=== PATIENT | female | born 1950 | race Caucasian/White ===

== ENCOUNTER → 2016-02-25 | Day surgery (SDC) | payer OTHER ==
[~2016-02-25] MED LIST: HEPARIN NA (PORCINE) 5,000 UNITS/ML 1ML VIAL ONE; LIDOCAINE HCL 1%, 10 MG/ML (20ML VIAL) ONE
--- NOTE | 2016-02-25 14:02 | OP ---
DATE OF OPERATION: 02/25/2016 PREOPERATIVE DIAGNOSIS: Right axillary adenopathy. POSTOPERATIVE DIAGNOSIS: Right axillary adenopathy. PROCEDURE: Right ultrasound-guided core biopsy of the right axillary node with clip placement. ANESTHESIA: Local. ATTENDING SURGEON: Moe Zapata MD ESTIMATED BLOOD LOSS: Minimal. COMPLICATIONS: None. DESCRIPTION OF PROCEDURE: The patient was made aware of the risks and benefits of the procedure and consented. She was placed in a supine position. Under sterile conditions with 1% lidocaine for local anesthesia, a small gui was made in the skin. Using a 13-gauge suction biopsy device with inferolateral approach under ultrasound guidance, 5 cores were obtained and submitted to Pathology. Likewise, under ultrasound guidance, a clip was placed into the biopsy region well tolerated by patient. Steri-Strips and sterile bandage was applied. We will contact her with results. MOE ZAPATA M.D. [id number]
--- NOTE | 2016-02-28 15:58 | PATH ---
Surgical Pathology Report Patient Name: CARLOS ALBERTO SHOEMAKER [facility]. Rec. #: [id number] /Age/Gender: 1950 (Age: 65) / F Account: [id number] Location: [facility] RADIOLOGY U Taken: 02/25/2016 Received: 02/25/2016 Reported: 02/28/2016 Physicians: Moe Zapata M.D. Specimen(s) Received RIGHT AXILLARY LYMPH NODE CORE BIOPSY Clinical History Nonpalpable lesion Final Diagnosis LYMPH NODE, RIGHT AXILLA, CORE BIOPSY: BENIGN LYMPH NODE SHOWING REACTIVE CHANGES. Electronically Signed Avelina Mcpherson M.D. Gross Description Received in formalin, labeled "right axillary lymph node," is a 2.1 x 1.5 x 0.3 cm aggregate of multiple hartman-yellow, irregular to cylindrical portions of fibroadipose tissue admixed with blood clot. The formalin is filtered and the specimen is entirely submitted in one cassette. Time to formalin fixation: < 1 minute Total formalin fixation time: Approximately 9 hours. /02/25/2016 [facility]02/25/2016
== END | disposition home or self-care (01) ==
LOC: FRADUS-SUR 12:43
PROVIDERS: ATTEND Surgery Surgical Oncology
PROC: 07B53ZX Excision of Right Axillary Lymphatic, Percutaneous Approach, Diagnostic (ICD-10-PCS; principal; 2016-02-25)
PROC: BH47ZZZ Ultrasonography of Upper Extremity (ICD-10-PCS; 2016-02-25)
DX: R59.9 Enlarged lymph nodes, unspecified (principal)
CPT/HCPCS: 19083; 87899; 88305-TC; A4648

== ENCOUNTER 2016-03-28 08:17 | Day surgery (SDC) | payer OTHER ==
[2016-03-21 11:44] VITALS: BMI 43.2
--- NOTE | 2016-03-22 09:41 | HP ---
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 Clinical stage 2B with positive biopsied left axillary lymph nodes. MRI breast showed right axillary adenopathy core bx was negative. She needs neoadjuvant chemotherapy History Source: Patient Limitations to Obtaining History: No Limitations - Past Medical History Cardiovascular: Yes: CAD, HTN, Hyperlipdemia Endocrine: Yes: Diabetes Mellitus - Past Surgical History Past Surgical History: Yes: CABG Additional Past Surgical History: myomectomy - Smoking History Smoking history: Former smoker Have you smoked in the past 12 months: No If you are a former smoker, when did you quit?: 2013 - Alcohol/Substance Use Hx Alcohol Use: No Home Medications - Allergies Allergies/Adverse Reactions: Allergies Allergy/AdvReac Type Severity Reaction Status Date / Time No Known Allergies Allergy Verified 03/05/15 15:28 - Home Medications Home Medications: Ambulatory Orders Aspirin [ASA -] 81 mg PO DAILY 06/29/13 Atenolol [Tenormin -] 50 mg PO HS 06/29/13 Atorvastatin Ca [Lipitor] 40 mg PO HS 06/29/13 Insulin NPL/Insulin Lispro [Humalog Mix 50-50 Kwikpen] 35 unit SQ BID 06/29/13 Ramipril 5 mg PO DAILY 06/29/13 Duloxetine HCl [Cymbalta] 30 mg PO DAILY 03/05/15 Clopidogrel Bisulfate [Clopidogrel] 75 mg PO DAILY 03/21/16 Esomeprazole Magnesium [Nexium 24Hr] 40 mg PO DAILY 03/21/16 Insulin Degludec [Tresiba Flextouch U-100] 40 unit SQ DAILY 03/21/16 Sitagliptin Phos/Metformin HCl [Janumet 50-1,000 mg Tablet] 1 each PO DAILY 08/28 Family Disease History - Family Disease History Family Disease History: CA: Brother (CRC 25) Physical Examination Constitutional: Yes: Well Nourished, No Distress Breast(s): Yes: Other (Left breast and axillary biopsy sites healing well) Problem List - Problems (1) Breast cancer, left Code(s): C50.912 - MALIGNANT NEOPLASM OF UNSPECIFIED SITE OF LEFT FEMALE BREAST Qualifiers: Breast location: overlapping sites of breast Patient gender: female Qualified Code(s): C50.812 - Malignant neoplasm of overlapping sites of left female breast Assessment/Plan Life port insertion
[2016-03-28] MEDS ORDERED: ONDANSETRON 4 MG/2 ML VIAL IVPB PRN (09:18)
[2016-03-28] MEDS ORDERED: KETOROLAC TROMETHAMINE 30 MG/1 ML VIAL IVPUSH PRN (09:18)
[2016-03-28] MEDS ORDERED: DEXTROSE 5%-0.45% SALINE 1,000 ML IV SCH (09:30)
[2016-03-28] MEDS ORDERED: MIDAZOLAM HCL 2 MG/2 ML SINGLE DOSE VIAL ONE ×3 (09:33→09:55)
[2016-03-28] MEDS ORDERED: LIDOCAINE HCL 1%, 10 MG/ML (50 mL VIAL) IJ ONE (09:54)
[2016-03-28] MEDS ORDERED: SUCCINYLCHOLINE CHLORIDE 200 MG/10 ML VIAL ONE (10:00)
[2016-03-28] MEDS ORDERED: HEPARIN NA (PORCINE) 1,000 UNITS/ML 10ML M-D VIAL SQ ONE (10:10)
[2016-03-28] MEDS ORDERED: HEPARIN NA (PORCINE) PF 1,000 UNITS/ML - 2ML VIAL SQ ONE (10:10)
[2016-03-28 11:18] VITALS: TEMP 98.9
[2016-03-28 11:31] VITALS: BP 127/61; PULSE 82
--- NOTE | 2016-03-29 17:01 | OP ---
DATE OF OPERATION: 03/28/2016 PREOPERATIVE DIAGNOSIS: Left breast cancer. POSTOPERATIVE DIAGNOSIS: Left breast cancer. PROCEDURE: Right subclavian single-lumen LifePort insertion. ANESTHESIA: IV sedation with local. ATTENDING: Marci Zapata MD PROGRAM REP: ALEKSEY Baez ESTIMATED BLOOD LOSS: Minimal. COMPLICATIONS: None. PROCEDURE: Patient was made aware of the risks and benefits of the procedure and consented. She was placed in the supine position and after IV sedation was administered, the operative site was prepped and draped in the usual sterile fashion. The patient was placed in Trendelenburg position and local anesthesia of 1% lidocaine was locally administered. Using Seldinger technique with direct fluoroscopic control, the right subclavian vein was easily localized and a wire was placed into good position. Stab wounds were made at the puncture site and inferior medial to the puncture site using electrocautery the large incision was dissected down to the subcutaneous tissue and an inferior skin flap was made. The catheter was then tunneled from the large incision to the smaller incision. It was fashioned to the proper size and then attached to the port head, which was then placed into the inferior skin pocket. Under direct fluoroscopic control, a dilator and introducer were placed over the wire in a good position and the dilator and wire were removed. Catheter was placed through the introducer, which was then stripped away and the catheter was again found by direct fluoroscopic control to be in good position. There was easy withdrawal of blood and infusion of dilute and then 1 mL of concentrated heparinized saline. The catheter was then sutured to the skin with 2-0 Prolene and the wound was copiously irrigated with normal saline. The skin was then closed with deep 3-0 Vicryl followed by running subcuticular 4-0 Monocryl. Dermabond was then applied and the patient, having tolerated the procedure well, was transferred to the recovery room in excellent condition. MARCI ZAPATA M.D. [id number]
== END 2016-03-28 11:35 | disposition home or self-care (01) ==
LOC: FASU 08:17
PROVIDERS: ATTEND Surgery Surgical Oncology
PROC: B5161ZA Fluoroscopy of Right Subclavian Vein using Low Osmolar Contrast, Guidance (ICD-10-PCS; 2016-03-28)
PROC: 05H533Z Insertion of Infusion Device into Right Subclavian Vein, Percutaneous Approach (ICD-10-PCS; principal; 2016-03-28 09:54)
DX: C50.912 Malignant neoplasm of unspecified site of left female breast (principal); I25.10 Atherosclerotic heart disease of native coronary artery without angina pectoris; I10 Essential (primary) hypertension; E78.5 Hyperlipidemia, unspecified; E11.9 Type 2 diabetes mellitus without complications; Z79.4 Long term (current) use of insulin; Z95.1 Presence of aortocoronary bypass graft; Z87.891 Personal history of nicotine dependence
CPT/HCPCS: 71010-TC; 76000-TC; J1644

== ENCOUNTER 2016-08-03 10:15 | Inpatient (IN) | payer OTHER ==
--- NOTE | 2016-08-03 10:44 | PDOC ---
History of Present Illness <Lino Marshall - Last Filed: 08/03/16 13:55> - General History Source: Patient Exam Limitations: No Limitations - History of Present Illness Initial Comments: 08/03/16 11:12 The patient is a 66 year old female with a significant past medical history of diabetes, hypertension, hypercholesterolemia, CAD s/p bypass, and breast ca ( currently on chemo), presenting to the Emergency Department with dizziness for three days. The patient describes her dizziness as walking as if she is drunk, she admits that the dizziness is exacerbated by standing from a seated position , and admits to walking into ledesma secondary to the dizziness. She also reports that her legs feel tired after walking. She states that she is on weekly chemotherapy for breast cancer, though she skipped this Sunday as she has not felt well. The patient denies headache, or visual changes. Patient denies nausea, vomiting , and diarrhea. Patient denies fever, cough, and chills. Patient denies chest pain, palpitations, and shortness of breath. Oncologist: Dr. Mandy Guzman, [facility] <Adeline Patel - Last Filed: 08/03/16 15:03> - General Chief Complaint: Lightheaded Stated Complaint: DIZZYNESS Time Seen by Provider: 08/03/16 10:44 Past History - Past Medical History Anemia: No Asthma: No Cancer: Yes (LEFT BREAST JAN 2016) Cardiac Disorders: Yes (CABG 15 YRS AGO/OVER 1 YR HAD ANGIOPLASTY ?) CVA: No COPD: No CHF: No Dementia: No Diabetes: Yes (DIAG 25 YRS AGO/INSULIN DEPENDENT) GI Disorders: No Disorders: Yes (URINARY FREQUENCY) HTN: Yes Hypercholesterolemia: Yes Liver Disease: No Seizures: No Thyroid Disease: No - Surgical History Abdominal Surgery: Yes (CYST REMOVED) Appendectomy: No Cardiac Surgery: Yes (BYPASS 15 YRS AGO) Cholecystectomy: No Lung Surgery: No Orthopedic Surgery: No - Immunization History Immunization Up to Date: Yes - Psycho/Social/Smoking Cessation Hx Anxiety: No Suicidal Ideation: No Smoking History: Former smoker Have you smoked in the past 12 months: No If you are a former smoker, when did you quit?: 2012 Information on smoking cessation initiated: No Hx Alcohol Use: No Drug/Substance Use Hx: No Substance Use Type: None Hx Substance Use Treatment: No <Lino Marshall - Last Filed: 08/03/16 13:55> <Adeline Patel - Last Filed: 08/03/16 15:03> - Past Medical History Allergies/Adverse Reactions: Allergies Allergy/AdvReac Type Severity Reaction Status Date / Time No Known Allergies Allergy Verified 08/03/16 10:30 Home Medications: Ambulatory Orders Atenolol [Tenormin -] 50 mg PO HS 06/29/13 Atorvastatin Ca [Lipitor] 40 mg PO HS 06/29/13 Insulin NPL/Insulin Lispro [Humalog Mix 50-50 Kwikpen] 35 unit SQ BID 06/29/13 Ramipril 5 mg PO DAILY 06/29/13 Duloxetine HCl [Cymbalta] 30 mg PO DAILY 03/05/15 Esomeprazole Magnesium [Nexium 24Hr] 40 mg PO DAILY 03/21/16 Insulin Degludec [Tresiba Flextouch U-100] 40 unit SQ DAILY 03/21/16 Sitagliptin Phos/Metformin HCl [Janumet 50-1,000 mg Tablet] 1 each PO DAILY 08/28 Oxycodone HCl/Acetaminophen [Percocet 5-325 mg Tablet] 1 - 2 tab PO Q6H PRN #20 tab MDD 6 03/28/16 Review of Systems - Review of Systems Able to Perform ROS?: Yes Comments:: 08/03/16 11:12 GENERAL/CONSTITUTIONAL: + dizziness. No fever or chills. No weakness. HEAD, EYES, EARS, NOSE AND THROAT: No change in vision. No ear pain or discharge. No sore throat. CARDIOVASCULAR: No chest pain or shortness of breath. RESPIRATORY: No cough, wheezing, or hemoptysis. GASTROINTESTINAL: No nausea, vomiting, diarrhea or constipation. GENITOURINARY: No dysuria, frequency, or change in urination. MUSCULOSKELETAL: No joint or muscle swelling or pain. No neck or back pain. SKIN: No rash NEUROLOGIC: + vertigo. No headache, loss of consciousness, or change in strength /sensation. ENDOCRINE: No increased thirst. No abnormal weight change. HEMATOLOGIC/LYMPHATIC: No anemia, easy bleeding, or history of blood clots. ALLERGIC/IMMUNOLOGIC: No hives or skin allergy. <Adeline Patel - Last Filed: 08/03/16 15:03> *Physical Exam - Vital Signs Last Vital Signs Temp Pulse Resp BP Pulse Ox 98.3 F 98 H 22 122/58 100 08/03/16 10:20 08/03/16 10:20 08/03/16 10:20 08/03/16 10:20 08/03/16 10:20 <Lino Marshall - Last Filed: 08/03/16 13:55> - Vital Signs Last Vital Signs Temp Pulse Resp BP Pulse Ox 98.3 F 98 H 22 122/58 100 08/03/16 10:20 08/03/16 10:20 08/03/16 10:20 08/03/16 10:20 08/03/16 10:40 - Physical Exam Comments: 08/03/16 11:13 GENERAL: Awake, alert, and fully oriented, in no acute distress HEAD: No signs of trauma EYES: Horizontal nystagmus. PERRLA, EOMI, sclera anicteric, conjunctiva clear ENT: Auricles normal inspection, hearing grossly normal, nares patent, oropharynx clear without exudates. Moist mucosa NECK: Normal ROM, supple, no lymphadenopathy, JVD, or masses LUNGS: Breath sounds equal, clear to auscultation bilaterally. No wheezes, and no crackles HEART: Regular rate and rhythm, normal S1 and S2, no murmurs, rubs or gallops ABDOMEN: Soft, nontender, normoactive bowel sounds. No guarding, no rebound. No masses EXTREMITIES: Normal range of motion, no edema. No clubbing or cyanosis. No cords, erythema, or tenderness NEUROLOGICAL: Cranial nerves II through XII grossly intact. Normal speech SKIN: Warm, Dry, normal turgor, no rashes or lesions noted. <Adeline Patel - Last Filed: 08/03/16 15:03> Heart Score/ECG Review #1 ECG reviewed & interpreted by me at: 11:30 (EKG reviewed by Dr. Marshall. IMPRESSION: New since Feb 2015. Global St & T wave changes. Normal rate. ) <Adeline Patel - Last Filed: 08/03/16 15:03> ED Treatment Course - LABORATORY CBC & Chemistry Diagram: 08/03/16 11:15 08/03/16 11:15 <Lino Marshall - Last Filed: 08/03/16 13:55> - LABORATORY CBC & Chemistry Diagram: 08/03/16 11:15 08/03/16 11:15 - RADIOLOGY Radiograph Interpretation: 08/03/16 13:04 Chest XRay As reviewed by Dr. Shelton Hay IMPRESSION: No acute intrathoracic abnormality seen. 08/03/16 14:[address] As reviewed by Dr. Timothy Singh IMPRESSION: Moderate volume loss, ventricular dilatation and mild paraventricular chronic microvascular ischemic changes without gross evidence of acute intracranial pathology. <Adeline Patel - Last Filed: 08/03/16 15:03> Medical Decision Making - Medical Decision Making 08/03/16 13:29 Dr. Wallace was called at his office at 1:25. Dr. Aragon answered and spoke to Dr. Marshall about the patient's care. 08/03/16 13:32 Dr. Copeland was called at his office at 1:30. Awaiting call back. 08/03/16 13:40 Dr. Cooper was called at his office at 1:41. Was instructed to call his cell. Dr. Cooper was called on his cell at 1:[address] Marshall about the patient's care. 08/03/16 15:03 Patient reports that bowel movements are sometimes black. Patient denied rectal exam. <Adeline Patel - Last Filed: 08/03/16 15:03> *DC/Admit/Observation/Transfer - Discharge Dispostion Admit: Yes - Attestations Physician Attestion: 08/03/16 10:44 I, Dr. Lino Marshall, attest that this document has been prepared under my direction and personally reviewed by me in its entirety. I further attest, that it accurately reflects all work, treatment, procedures and medical decision -making performed by me. <Lino Marshall - Last Filed: 08/03/16 13:55> - Attestations Scribe Attestion: 08/03/16 11:13 Documentation prepared by Adeline Patel, acting as medical charge entry specialist for Lino Marshall DO. <Adeline Patel - Last Filed: 08/03/16 15:03> Diagnosis at time of Disposition: Orthostasis, Dizziness, Weakness, S/P CABG (coronary artery bypass graft), ASHD (arteriosclerotic heart disease) Profound anemia Qualifiers: Anemia type: other cause Other causes of anemia: other cause, not classified Qualified Code(s): D64.89 - Other specified anemias Breast cancer, left Qualifiers: Breast location: unspecified site of breast Estrogen receptor status: positive Patient sex: female Qualified Code(s): C50.912 - Malignant neoplasm of unspecified site of left female breast Diabetes Qualifiers: Diabetes mellitus type: type 2 Diabetes mellitus complication status: without complication Diabetes mellitus usp insulin use: with usp use Qualified Code(s): E11.9 - Type 2 diabetes mellitus without complications HLD (hyperlipidemia) Qualifiers: Hyperlipidemia type: unspecified Qualified Code(s): E78.5 - Hyperlipidemia, unspecified - Discharge Dispostion Condition at time of disposition: Fair - Referrals
[2016-08-03] MEDS ORDERED: MECLIZINE HCL 25 MG TABLET (FP) PO ONE (11:02)
[2016-08-03] MEDS ORDERED: methylPREDNISolone NA SUCC 125 MG/2 ML VIAL IVPB ONE (11:02)
[2016-08-03] MEDS ORDERED: MECLIZINE HCL 25 MG TABLET (FP) ONE (11:20)
[2016-08-03] MEDS ORDERED: methylPREDNISolone NA SUCC 125 MG/2 ML VIAL ONE (11:20)
[2016-08-03] MEDS ORDERED: SODIUM CHLORIDE 1,000 ML IV STA (11:42)
[2016-08-03 11:43] LABS: MCH 24.5 pg (25.7-33.7); MCHC 32.5 g/dl (32.0-36.0); MEAN CELL VOLUME 75.3 fl (80-96); MEAN PLT VOLUME 8.6 fl (7.5-11.1); PLATELET COUNT 192 K/MM3 (134-434); RDW 19.5 % (11.6-15.6); WHITE BLOOD COUNT 5.6 K/mm3 (4.0-10.0)
[2016-08-03 11:50] LABS: ALBUMIN 2.8 g/dl (3.4-5.0); ANION GAP 11 (8-16); CALCIUM 8.4 mg/dL (8.5-10.1); CO2 27 mmol/L (21-32); SGOT/AST 41 U/L (15-37); SGPT/ALT 27 U/L (12-78)
[2016-08-03 11:51] LABS: ALK PHOS 136 U/L (45-117); BILIRUBIN,TOTAL 0.7 mg/dL (0.2-1.0); TOT PROT 6.3 g/dl (6.4-8.2)
[2016-08-03 11:53] LABS: INR 1.27 (0.82-1.09)
[2016-08-03 11:54] LABS: GLUCOSE,RANDOM 323 mg/dL (74-106)
--- NOTE | 2016-08-03 12:24 | EKG ---
Test Reason : Blood Pressure : / mmHG Vent. Rate : 093 BPM Atrial Rate : 093 BPM P-R Int : 170 ms QRS Dur : 090 ms QT Int : 408 ms P-R-T Axes : 036 000 168 degrees QTc Int : 507 ms NORMAL SINUS RHYTHM POSSIBLE LEFT ATRIAL ENLARGEMENT CANNOT RULE OUT ANTERIOR INFARCT , AGE UNDETERMINED ABNORMAL ECG WHEN COMPARED WITH ECG OF 06-MAR-2015 09:35, NONSPECIFIC T WAVE ABNORMALITY NOW EVIDENT IN INFERIOR LEADS NONSPECIFIC T WAVE ABNORMALITY NOW EVIDENT IN ANTERIOR LEADS Confirmed by KATHI MARTINEZ MD ([id number]) on 08/03/2016 12:23:43 PM Referred By: Confirmed By:KATHI MARTINEZ MD
[2016-08-03 13:14] LABS: PLATELET ESTIMATE ADEQUATE (NORMAL)
[2016-08-03] MEDS ORDERED: OXYCODONE/APAP 5/325MG COMBO TABLET PO PRN (14:16)
[2016-08-03] MEDS ORDERED: oxyCODONE HCL 5 MG TABLET PO PRN (14:42)
--- NOTE | 2016-08-03 15:01 | CON.NEURO ---
Consult - History of Present Illness History of Present Illness: 66 year old hailey hsitory of dm, htn hyperlipidemia, cad s/p CABG. 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 she is getting chemotherapy at oncologist in [facility]. Last chemo therapy was recieved on july 24. She has been feeling of feeling drunk whenever she walks or gets up. She denies any headache, dysphagia , diplopia or weakness. she feel generalized weak. her hemoglobin is 8. - Past Medical History Cardio/Vascular: Yes: CAD, HTN, Hyperlipdemia Endocrine: Yes: Diabetes Mellitus - Past Surgical History Past Surgical History: Yes: CABG - Alcohol/Substance Use Hx Alcohol Use: No - Smoking History Smoking history: Former smoker Have you smoked in the past 12 months: No If you are a former smoker, when did you quit?: 2012 Home Medications - Allergies Allergies/Adverse Reactions: Allergies Allergy/AdvReac Type Severity Reaction Status Date / Time No Known Allergies Allergy Verified 08/03/16 10:30 - Home Medications Home Medications: Ambulatory Orders Atenolol [Tenormin -] 50 mg PO HS 06/29/13 Atorvastatin Ca [Lipitor] 40 mg PO HS 06/29/13 Insulin NPL/Insulin Lispro [Humalog Mix 50-50 Kwikpen] 35 unit SQ BID 06/29/13 Ramipril 5 mg PO DAILY 06/29/13 Duloxetine HCl [Cymbalta] 30 mg PO DAILY 03/05/15 Esomeprazole Magnesium [Nexium 24Hr] 40 mg PO DAILY 03/21/16 Insulin Degludec [Tresiba Flextouch U-100] 40 unit SQ DAILY 03/21/16 Sitagliptin Phos/Metformin HCl [Janumet 50-1,000 mg Tablet] 1 each PO DAILY 08/28 Oxycodone HCl/Acetaminophen [Percocet 5-325 mg Tablet] 1 - 2 tab PO Q6H PRN #20 tab MDD 6 03/28/16 Family Disease History - Family Disease History Family Disease History: CA: Brother (CRC 25) Physical Exam-Neuro Vital Signs: Vital Signs Temperature 98.3 F 08/03/16 10:20 Pulse Rate 90 08/03/16 13:48 Respiratory Rate 20 08/03/16 13:48 Blood Pressure 136/53 08/03/16 13:48 O2 Sat by Pulse Oximetry (%) 99 08/03/16 13:48 Labs: CBC, BMP 08/03/16 11:15 08/03/16 11:15 INR, PTT INR 1.27 (0.82-1.09) H 08/03/16 11:15 NIH Stroke Scale - Total Score NIH Stroke Scale Score: 0 Imaging - Results Cat Scan: Report Reviewed Assessment/Plan cc dizziness for five days 66 year old femael hsitory of dm, htn hyperlipidemia, cad s/p CABG. 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 she is getting chemotherapy at oncologist in [facility]. Last chemo therapy was recieved on july 24. She has been feeling of feeling drunk whenever she walks or gets up. She denies any headache, dysphagia , diplopia or weakness. she feel generalized weak. her hemoglobin is 8. Past Medical History as above. no known allergy Home Medication Atenolol [Tenormin -] 50 mg PO HS 06/29/13 Atorvastatin Ca [Lipitor] 40 mg PO HS 06/29/13 Insulin NPL/Insulin Lispro [Humalog Mix 50-50 Kwikpen] 35 unit SQ BID 06/29/13 Ramipril 5 mg PO DAILY 06/29/13 Duloxetine HCl [Cymbalta] 30 mg PO DAILY 03/05/15 Esomeprazole Magnesium [Nexium 24Hr] 40 mg PO DAILY 03/21/16 Insulin Degludec [Tresiba Flextouch U-100] 40 unit SQ DAILY 03/21/16 Sitagliptin Phos/Metformin HCl [Janumet 50-1,000 mg Tablet] 1 each PO DAILY 08/28 Oxycodone HCl/Acetaminophen [Percocet 5-325 mg Tablet] 1 - 2 tab PO Q6H PRN #20 tab MDD 6 03/28/16 Neurological Examination Alert oriented x 3, speech is normal cn all intact, eomi, terminal nystagmus was seen, there is no face asymmetry, sensation is normal on face motor strenght is normal sesnsation is normal generalized diminished reflex ct is unremarkable Assessment 66 year old female history of DM, HTN, CAD , Hyperlipidemia ,s/pCABG , recently diagnosed with breast ca , getting chemo , complaining of peripheralneuropathy symptoms, and also have postural hypotension and anemia. Most likely it is multifactorial , due to anemia, autonomic neuropahty , chemo . Clinically there is less likely to be Benign positional vertigo, no cerebellar dysfunction , no cord compression or extapyramidal syndrome. Plan- suggest to do mri of brain rule out mets, or stroke though less likely, rn placement consult Physical Therapy Rehydration Meclizine prn Thnaks for consult Kenji Cooper MD
[2016-08-03] MEDS: SODIUM CHLORIDE 1,000 ML IV SCH (16:15)
--- NOTE | 2016-08-03 16:43 | CON.CARD ---
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 she is getting chemotherapy at oncologist in [facility]. Last chemo therapy was recieved on july 24 presents for feeling of feeling drunk whenever she walks or gets up along with gait instability. She denies any headache, dysphagia , diplopia or weakness, chest pain, dyspnea, true syncope, orthopnea, PND or LE edema. She feels generalized weakness, her hemoglobin is 8, + orthostasis. PMH: CABG HTN DM--on insulin ex-cigs (quit 2013) mother s/p ID - History Source History Provided By: Patient Limitations to Obtaining History: No Limitations - Past Medical History Cardio/Vascular: Yes: CAD, HTN, Hyperlipdemia Endocrine: Yes: Diabetes Mellitus - Past Surgical History Past Surgical History: Yes: CABG - Alcohol/Substance Use Hx Alcohol Use: No - Smoking History Smoking history: Former smoker Have you smoked in the past 12 months: No If you are a former smoker, when did you quit?: 2012 Home Medications - Allergies Allergies/Adverse Reactions: Allergies Allergy/AdvReac Type Severity Reaction Status Date / Time No Known Allergies Allergy Verified 08/03/16 10:30 - Home Medications Home Medications: Ambulatory Orders Atenolol [Tenormin -] 50 mg PO HS 06/29/13 Atorvastatin Ca [Lipitor] 40 mg PO HS 06/29/13 Insulin NPL/Insulin Lispro [Humalog Mix 50-50 Kwikpen] 35 unit SQ BID 06/29/13 Ramipril 5 mg PO DAILY 06/29/13 Duloxetine HCl [Cymbalta] 30 mg PO DAILY 03/05/15 Esomeprazole Magnesium [Nexium 24Hr] 40 mg PO DAILY 03/21/16 Insulin Degludec [Tresiba Flextouch U-100] 40 unit SQ DAILY 03/21/16 Sitagliptin Phos/Metformin HCl [Janumet 50-1,000 mg Tablet] 1 each PO DAILY 08/28 Oxycodone HCl/Acetaminophen [Percocet 5-325 mg Tablet] 1 - 2 tab PO Q6H PRN #20 tab MDD 6 03/28/16 Family Disease History - Family Disease History Family Disease History: CA: Brother (CRC 25) Review of Systems - Review of Systems Neurological: reports: Dizziness Vital Signs: Vital Signs Temperature 98.3 F 08/03/16 10:20 Pulse Rate 90 08/03/16 13:48 Respiratory Rate 20 08/03/16 13:48 Blood Pressure 136/53 08/03/16 13:48 O2 Sat by Pulse Oximetry (%) 99 08/03/16 13:48 Constitutional: Yes: No Distress, Calm Neck: Yes: Supple Respiratory: Yes: Regular, Diminished Gastrointestinal: Yes: Normal Bowel Sounds, Soft, Abdomen, Obese Cardiovascular: Yes: Regular Rate and Rhythm JVD: No Carotid Bruit: No Heart Sounds: Yes: S1, S2 Murmur: Yes: Systolic Murmur, Grade 1 Edema: No - Other Data Labs, Other Data: INR, PTT INR 1.27 (0.82-1.09) H 08/03/16 11:15 NSR @ 93 LAE Imaging - Results Chest X-ray: Report Reviewed (NAD) Cat Scan: Report Reviewed (HCT: SVID) Ultrasound: Report Reviewed (Carotid: >70% RCCA stenosis) Problem List - Problems (1) ASHD (arteriosclerotic heart disease) Code(s): I25.10 - ATHSCL HEART DISEASE OF [place] CORONARY ARTERY W/O ANG PCTRS (2) Breast cancer, left Code(s): C50.912 - MALIGNANT NEOPLASM OF UNSPECIFIED SITE OF LEFT FEMALE BREAST Qualifiers: Breast location: unspecified site of breast Estrogen receptor status: positive Patient sex: female Qualified Code(s): C50.912 - Malignant neoplasm of unspecified site of left female breast (3) Diabetes Code(s): E11.9 - TYPE 2 DIABETES MELLITUS WITHOUT COMPLICATIONS Qualifiers: Diabetes mellitus type: type 2 Diabetes mellitus complication status: without complication Diabetes mellitus detention insulin use: with shipyard helper 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 Qualified Code(s): E11.9 - Type 2 diabetes mellitus without complications (4) Dizziness Code(s): R42 - DIZZINESS AND GIDDINESS (5) HLD (hyperlipidemia) Code(s): E78.5 - HYPERLIPIDEMIA, UNSPECIFIED Qualifiers: Hyperlipidemia type: pure hypercholesterolemia Qualified Code(s): E78.00 - Pure hypercholesterolemia, unspecified; E78.0 - Pure hypercholesterolemia (6) Orthostasis Code(s): I95.1 - ORTHOSTATIC HYPOTENSION (7) S/P CABG (coronary artery bypass graft) Code(s): Z95.1 - PRESENCE OF AORTOCORONARY BYPASS GRAFT (8) Hypertension associated with diabetes Code(s): E11.59 - TYPE 2 DIABETES MELLITUS WITH OTH CIRCULATORY COMPLICATIONS I10 - ESSENTIAL (PRIMARY) HYPERTENSION (9) Carotid stenosis Code(s): I65.29 - OCCLUSION AND STENOSIS OF UNSPECIFIED CAROTID ARTERY Qualifiers: Laterality: right Qualified Code(s): I65.21 - Occlusion and stenosis of right carotid artery (10) Profound anemia Code(s): D64.9 - ANEMIA, UNSPECIFIED Qualifiers: Anemia type: other cause Other causes of anemia: other cause, not classified Qualified Code(s): D64.89 - Other specified anemias Assessment/Plan 03/05/2015 Small-mod mild inferolateral ischemia 08/04/2015 Echo: Normal biventricular size and fxn, mild 1. Dizziness with orthostasis 2. CAD s/p CABG, angina pectoris 3. HTN 4. Hyperlipidemia 5. DM with peripheral neuropathy 6. Breast ca currently undergoing chemotherapy 7. Anemia 8. Obstructive right CCA stenosis P:1. F/u brain MRI, MRA 2. Continue Atenolol 50 qhs, Lipitor 40 qhs, Altace 5 qd, add ASA 81 qd if Hgb stable 3. Volume resuscitation, transfuse as needed to maintain Hgb > 8.0 4. Thank you for consultative opportunity
[2016-08-03] MEDS ORDERED: POTASSIUM CHLORIDE TABS 20 MEQ TABLET.ER (FP) PO ONE ×2 (17:00→20:15)
--- NOTE | 2016-08-03 19:24 | CONSULT ---
Consult - text type - Consultation Consultation Note: 66 year old female with hsitory of dm, htn hyperlipidemia, cad s/p CABG. 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 she is getting chemotherapy with oncologist in [facility]. Last chemo therapy was recieved on july 24. She has been feeling of feeling drunk whenever she walks or gets up. She denies any headache, dysphagia , diplopia or weakness. she feel generalized weak. her hemoglobin is 8. She feels fatigued, very weak, dizzy last transfused last month - Past Medical History Cardio/Vascular: Yes: CAD, HTN, Hyperlipdemia Endocrine: Yes: Diabetes Mellitus - Past Surgical History Past Surgical History: Yes: CABG - Smoking History Smoking history: Former smoker - Allergies Allergies/Adverse Reactions: Allergies Allergy/AdvReac Type Severity Reaction Status Date / Time No Known Allergies Allergy Verified 08/03/16 10:30 - Home Medications Home Medications: Ambulatory Orders Atenolol [Tenormin -] 50 mg PO HS 06/29/13 Atorvastatin Ca [Lipitor] 40 mg PO HS 06/29/13 Insulin NPL/Insulin Lispro [Humalog Mix 50-50 Kwikpen] 35 unit SQ BID 06/29/13 Ramipril 5 mg PO DAILY 06/29/13 Duloxetine HCl [Cymbalta] 30 mg PO DAILY 03/05/15 Esomeprazole Magnesium [Nexium 24Hr] 40 mg PO DAILY 03/21/16 Insulin Degludec [Tresiba Flextouch U-100] 40 unit SQ DAILY 03/21/16 Sitagliptin Phos/Metformin HCl [Janumet 50-1,000 mg Tablet] 1 each PO DAILY 08/28 Oxycodone HCl/Acetaminophen [Percocet 5-325 mg Tablet] 1 - 2 tab PO Q6H PRN #20 tab MDD 6 03/28/16 Current Medications Generic Name Dose Route Start Last Admin Trade Name Freq PRN Reason Stop Dose Admin Acetaminophen 325 mg 08/03/16 14:42 Tylenol - PO 08/06/16 14:41 Q4H PRN PAIN Atenolol 50 mg 08/04/16 10:00 Tenormin - PO DAILY MARI Atorvastatin Calcium 40 mg 08/03/16 22:00 Lipitor - PO HS MARI Duloxetine HCl 30 mg 08/04/16 10:00 Cymbalta - PO DAILY [facility] Heparin Sodium (Porcine) 5,000 unit 08/03/16 22:00 Heparin - SQ BID [facility] Sodium Chloride 1,000 mls @ 50 mls/hr 08/03/16 14:45 08/03/16 16:15 Normal Saline - IV 08/04/16 14:45 50 mls/hr ASDIR MARI Administration Non-Formulary Medication 40 unit 08/04/16 10:00 Insulin Degludec [Tresiba Flextouch U-100] SQ DAILY [facility] Non-Formulary Medication 35 unit 08/03/16 22:00 Insulin Npl/Insulin Lispro [Humalog Mix 50-50 Kwikpen] SQ BID [facility] Oxycodone HCl 5 mg 08/03/16 14:42 Roxicodone - PO Q4H PRN PAIN Pantoprazole Sodium 40 mg 08/04/16 10:00 Protonix - PO DAILY [facility] Ramipril 5 mg 08/04/16 10:00 Altace - PO DAILY [facility] Sitagliptin Phosphate 50 mg 08/04/16 07:00 Januvia - PO DAILY@0700 [facility] Family Disease History - Family Disease History Family Disease History: CA: Brother (CRC 25) Physical Exam-Neuro Vital Signs: Last Vital Signs Temp Pulse Resp BP Pulse Ox 98.6 F 105 H 20 139/66 98 08/03/16 19:20 08/03/16 19:20 08/03/16 19:20 08/03/16 19:20 08/03/16 18:08 Cor: RSR, No murmurs, No gallops Lungs: Clear to P&A Abd: Soft, Normal bowel sounds, No organomegaly Ext:LLE edema > rt. Skin: No rashes, Integument intact NIH Stroke Scale - Total Score NIH Stroke Scale Score: 0 Imaging - Results Cat Scan: Report Reviewed Assessment /Plan : 66 year old female history of DM, HTN, CAD , Hyperlipidemia ,s/pCABG, recently diagnosed with breast ca , getting chemo , complaining of peripheralneuropathy symptoms, and also have postural hypotension and anemia. Lt. breast cancer -- on adjuvant therapy. ? weekly taxotere Fatigue/weakness/dizziness--component of symptomatic anemia transfuse 2units PRBCs will check duplex of LLE
[2016-08-03] MEDS ORDERED: diphenhydrAMINE HCL 25 MG CAPSULE (FP) PO PRN (20:44)
[2016-08-03] MEDS: ACETAMINOPHEN 325 MG TABLET (FP) PO PRN (21:50)
[2016-08-03] MEDS: HEPARIN NA (PORCINE) 5,000 UNITS/ML 1ML VIAL SQ SCH (21:51)
[2016-08-03] MEDS: ATORVASTATIN CA 40 MG TABLET (FP) PO SCH (21:51)
[2016-08-03] MEDS ORDERED: [UNRECOGNIZED DRUG - OTHER] SQ SCH (22:00)
[2016-08-03] MEDS ORDERED: INSULIN NPL SQ SCH (22:00)
[2016-08-03] MEDS ORDERED: INSULIN LISPRO SQ SCH (22:00)
[2016-08-03] MEDS ORDERED: INSULIN (NOVOLOG) ASPART 100 UNITS/ML 10ML VIAL SQ ONE (22:30)
[2016-08-03] MEDS: INSULIN SLIDING SCALE (NOVOLOG) 1 VIAL SQ SCH (22:32)
[2016-08-03 23:43] VITALS: BMI 40.6
[2016-08-04] MEDS: INSULIN SLIDING SCALE (NOVOLOG) 1 VIAL SQ SCH ×4 (06:32→21:47)
[2016-08-04] MEDS: sitaGLIPtin PHOSPHATE 50 MG TABLET PO SCH (06:32)
[2016-08-04] MEDS ORDERED: metFORMIN HCL 500 MG TABLET (FP) PO SCH (07:00)
[2016-08-04 08:23] LABS: ALBUMIN 2.6 g/dl (3.4-5.0); ANION GAP 9 (8-16); BILIRUBIN,TOTAL 0.9 mg/dL (0.2-1.0); CALCIUM 8.3 mg/dL (8.5-10.1); CO2 29 mmol/L (21-32); CREATININE 0.7 mg/dL (0.55-1.02); GLUCOSE,RANDOM 243 mg/dL (74-106); SGOT/AST 36 U/L (15-37); SGPT/ALT 26 U/L (12-78); TOT PROT 6.3 g/dl (6.4-8.2)
[2016-08-04 08:25] LABS: BASOPHIL 0.2 % (0-2.0); EOSINOPHIL 0.1 % (0-4.5); MCHC 33.1 g/dl (32.0-36.0); MEAN CELL VOLUME 78.6 fl (80-96); MEAN PLT VOLUME 8.5 fl (7.5-11.1); NEUTROPHILS 70.1 % (42.8-82.8); PLATELET COUNT 185 K/MM3 (134-434); RDW 20.6 % (11.6-15.6); WHITE BLOOD COUNT 9.6 K/mm3 (4.0-10.0)
[2016-08-04 08:26] LABS: ALK PHOS 141 U/L (45-117); TROPONIN I 0.17 ng/ml (0.00-0.05)
[2016-08-04] MEDS ORDERED: INSULIN DEGLUDEC SQ SCH (10:00)
[2016-08-04] MEDS ORDERED: PATIENT'S OWN MEDICATION (NON-FORMULARY) (Sitagliptin Phos/Metformin Hcl [Janumet 50-1,000 PO SCH (10:00)
[2016-08-04 10:06] LABS: ANISOCYTOSIS 2+; MICROCYTOSIS 1+
--- NOTE | 2016-08-04 10:46 | HP ---
Admitting History and Physical - Admission Chief Complaint: dizziness History of Present Illness: The patient is a 66 year old female with a significant past medical history of diabetes, hypertension, hypercholesterolemia, CAD s/p bypass, and breast ca ( currently on chemo), presenting to the Emergency Department with dizziness for three days. The patient describes her dizziness as walking as if she is drunk, she admits that the dizziness is exacerbated by standing from a seated position , and admits to walking into ledesma secondary to the dizziness. She also reports that her legs feel tired after walking. She states that she is on weekly chemotherapy for breast cancer, though she skipped this Sunday as she has not felt well. The patient denies headache, or visual changes. Patient denies nausea, vomiting , and diarrhea. Patient denies fever, cough, and chills. Patient denies chest pain, palpitations, and shortness of breath. today patient states she is having a headache and says that pain in legs and lower back she states that legs feel heavy but she has sensation History Source: Patient, Medical Record - Past Medical History Cardiovascular: Yes: CAD, HTN, Hyperlipdemia Endocrine: Yes: Diabetes Mellitus - Past Surgical History Past Surgical History: Yes: CABG - Smoking History Smoking history: Former smoker Have you smoked in the past 12 months: No If you are a former smoker, when did you quit?: 2013 - Alcohol/Substance Use Hx Alcohol Use: No Home Medications - Allergies Allergies/Adverse Reactions: Allergies Allergy/AdvReac Type Severity Reaction Status Date / Time No Known Allergies Allergy Verified 08/03/16 10:30 - Home Medications Home Medications: Ambulatory Orders Atenolol [Tenormin -] 50 mg PO HS 06/29/13 Atorvastatin Ca [Lipitor] 40 mg PO HS 06/29/13 Insulin NPL/Insulin Lispro [Humalog Mix 50-50 Kwikpen] 35 unit SQ BID 06/29/13 Ramipril 5 mg PO DAILY 06/29/13 Duloxetine HCl [Cymbalta] 30 mg PO DAILY 03/05/15 Esomeprazole Magnesium [Nexium 24Hr] 40 mg PO DAILY 03/21/16 Insulin Degludec [Tresiba Flextouch U-100] 40 unit SQ DAILY 03/21/16 Sitagliptin Phos/Metformin HCl [Janumet 50-1,000 mg Tablet] 1 each PO DAILY 08/28 Oxycodone HCl/Acetaminophen [Percocet 5-325 mg Tablet] 1 - 2 tab PO Q6H PRN #20 tab MDD 6 03/28/16 Family Disease History - Family Disease History Family Disease History: CA: Brother (CRC 25) Review of Systems - Review of Systems HENT: reports: Other (headache) Musculoskeletal: reports: Back Pain Neurological: reports: Headache Physical Examination Vital Signs: Vital Signs Temperature 98.6 F 08/04/16 03:11 Pulse Rate 91 H 08/04/16 03:11 Respiratory Rate 20 08/04/16 03:11 Blood Pressure 155/77 08/04/16 03:11 O2 Sat by Pulse Oximetry (%) 95 08/03/16 22:00 Constitutional: Yes: Calm Neck: Yes: Trachea Midline Cardiovascular: Yes: Regular Rate and Rhythm, S1, S2 Respiratory: Yes: CTA Bilaterally Gastrointestinal: Yes: Normal Bowel Sounds, Soft Edema: Yes (LLE> RLE) Neurological: Yes: Alert, Oriented, Other (able to move all her extremities sensation in tact) Labs: CBC, BMP 08/04/16 06:00 08/04/16 06:00 Imaging - Results Cat Scan: Report Reviewed MRI: Report Reviewed (no infarct or lesion) Other: Report Reviewed (duplex legs no dvt CHO EF 54.5% normal) Problem List - Problems (1) Carotid stenosis Assessment/Plan: carotid doppler noted 70%stenosis will order MRA of neck and head and vascular eval as well Code(s): I65.29 - OCCLUSION AND STENOSIS OF UNSPECIFIED CAROTID ARTERY Qualifiers: Laterality: right Qualified Code(s): I65.21 - Occlusion and stenosis of right carotid artery (2) Dizziness Assessment/Plan: mri noted meclizine prn still dizzy today when she gets out of bed Code(s): R42 - DIZZINESS AND GIDDINESS (3) Breast cancer, left Assessment/Plan: followed by oncology in [facility] last chemo july 24 seen by oncologist here doppler negative for dvt Code(s): C50.912 - MALIGNANT NEOPLASM OF UNSPECIFIED SITE OF LEFT FEMALE BREAST Qualifiers: Breast location: unspecified site of breast Estrogen receptor status: positive Patient sex: female Qualified Code(s): C50.912 - Malignant neoplasm of unspecified site of left female breast (4) HLD (hyperlipidemia) Assessment/Plan: on a statin check lipid panel Code(s): E78.5 - HYPERLIPIDEMIA, UNSPECIFIED Qualifiers: Hyperlipidemia type: pure hypercholesterolemia Qualified Code(s): E78.00 - Pure hypercholesterolemia, unspecified; E78.0 - Pure hypercholesterolemia (5) Low back pain radiating to both legs Assessment/Plan: ct scan of lumbar/sacral spine to r/o foramin stenosis Code(s): M54.5 - LOW BACK PAIN (6) Profound anemia Assessment/Plan: s/p prbc now much improved Code(s): D64.9 - ANEMIA, UNSPECIFIED Qualifiers: Anemia type: other cause Other causes of anemia: other cause, not classified Qualified Code(s): D64.89 - Other specified anemias (7) Diabetes Assessment/Plan: januvia sliding scale check [id number] Code(s): E11.9 - TYPE 2 DIABETES MELLITUS WITHOUT COMPLICATIONS Qualifiers: Diabetes mellitus type: type 2 Diabetes mellitus complication status: without complication Diabetes mellitus intermodal dispatcher insulin use: with intermodal dispatcher use Qualified Code(s): E11.9 - Type 2 diabetes mellitus without complications
[2016-08-04] MEDS: RAMIPRIL 5 MG CAPSULE (FP) PO SCH (12:00)
[2016-08-04] MEDS: DULoxetine HCL 30 MG CAPSULE.DR (FP) PO SCH (12:22)
[2016-08-04] MEDS: ACETAMINOPHEN 325 MG TABLET (FP) PO PRN (12:22)
[2016-08-04] MEDS: ATENOLOL 50 MG TABLET (FP) PO SCH (12:22)
[2016-08-04] MEDS: HEPARIN NA (PORCINE) 5,000 UNITS/ML 1ML VIAL SQ SCH ×2 (12:22→21:44)
[2016-08-04] MEDS: PANTOPRAZOLE 40 MG TABLET (FP) PO SCH (12:22)
--- NOTE | 2016-08-04 14:51 | PN ---
Progress Note, Physician History of Present Illness: Dizziness resolved post transfusion 2 U pRBC, undergoing PT. - Current Medication List Current Medications: Active Medications Acetaminophen (Tylenol -) 325 mg PO Q4H PRN PRN Reason: PAIN Stop: 08/06/16 14:41 Last Admin: 08/04/16 12:22 Dose: 325 mg Atenolol (Tenormin -) 50 mg PO DAILY [facility] Last Admin: 08/04/16 12:22 Dose: 50 mg Atorvastatin Calcium (Lipitor -) 40 mg PO HS [facility] Last Admin: 08/03/16 21:51 Dose: 40 mg Diphenhydramine HCl (Benadryl -) 25 mg PO HS PRN PRN Reason: INSOMNIA Last Admin: 08/03/16 21:52 Dose: 25 mg Duloxetine HCl (Cymbalta -) 30 mg PO DAILY [facility] Last Admin: 08/04/16 12:22 Dose: 30 mg Heparin Sodium (Porcine) (Heparin -) 5,000 unit SQ BID [facility] Last Admin: 08/04/16 12:22 Dose: 5,000 unit Insulin Aspart (Novolog Vial Sliding Scale -) 1 vial SQ ACHS [facility] PRN Reason: Protocol Last Admin: 08/04/16 06:32 Dose: 4 unit Meclizine HCl (Antivert -) 25 mg PO TID PRN PRN Reason: VERTIGO Oxycodone HCl (Roxicodone -) 5 mg PO Q4H PRN PRN Reason: PAIN Pantoprazole Sodium (Protonix -) 40 mg PO DAILY [facility] Last Admin: 08/04/16 12:22 Dose: 40 mg Ramipril (Altace -) 5 mg PO DAILY [facility] Sitagliptin Phosphate (Januvia -) 50 mg PO DAILY@0700 [facility] Last Admin: 08/04/16 06:32 Dose: 50 mg - Objective Vital Signs: Vital Signs Temperature 98.3 F 08/04/16 13:35 Pulse Rate 89 08/04/16 13:35 Respiratory Rate 20 08/04/16 13:35 Blood Pressure 142/69 08/04/16 13:35 O2 Sat by Pulse Oximetry (%) 95 08/03/16 22:00 Constitutional: Yes: No Distress, Calm Neck: Yes: Supple Cardiovascular: Yes: Regular Rate and Rhythm Respiratory: Yes: Regular, Diminished Gastrointestinal: Yes: Normal Bowel Sounds, Soft, Abdomen, Obese Edema: No Labs: CBC, BMP 08/04/16 06:00 08/04/16 06:00 INR, PTT INR 1.27 (0.82-1.09) H 08/03/16 11:15 Problem List - Problems (1) ASHD (arteriosclerotic heart disease) Code(s): I25.10 - ATHSCL HEART DISEASE OF [place] CORONARY ARTERY W/O ANG PCTRS (2) Breast cancer, left Code(s): C50.912 - MALIGNANT NEOPLASM OF UNSPECIFIED SITE OF LEFT FEMALE BREAST Qualifiers: Breast location: unspecified site of breast Estrogen receptor status: positive Patient sex: female Qualified Code(s): C50.912 - Malignant neoplasm of unspecified site of left female breast (3) Diabetes Code(s): E11.9 - TYPE 2 DIABETES MELLITUS WITHOUT COMPLICATIONS Qualifiers: Diabetes mellitus type: type 2 Diabetes mellitus complication status: without complication Diabetes mellitus half-way insulin use: with termite control technician 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 Qualified Code(s): E11.9 - Type 2 diabetes mellitus without complications (4) Dizziness Code(s): R42 - DIZZINESS AND GIDDINESS (5) HLD (hyperlipidemia) Code(s): E78.5 - HYPERLIPIDEMIA, UNSPECIFIED Qualifiers: Hyperlipidemia type: pure hypercholesterolemia Qualified Code(s): E78.00 - Pure hypercholesterolemia, unspecified; E78.0 - Pure hypercholesterolemia (6) Orthostasis Code(s): I95.1 - ORTHOSTATIC HYPOTENSION (7) S/P CABG (coronary artery bypass graft) Code(s): Z95.1 - PRESENCE OF AORTOCORONARY BYPASS GRAFT (8) Hypertension associated with diabetes Code(s): E11.59 - TYPE 2 DIABETES MELLITUS WITH OTH CIRCULATORY COMPLICATIONS I10 - ESSENTIAL (PRIMARY) HYPERTENSION (9) Carotid stenosis Code(s): I65.29 - OCCLUSION AND STENOSIS OF UNSPECIFIED CAROTID ARTERY Qualifiers: Laterality: right Qualified Code(s): I65.21 - Occlusion and stenosis of right carotid artery (10) Profound anemia Code(s): D64.9 - ANEMIA, UNSPECIFIED Qualifiers: Anemia type: other cause Other causes of anemia: other cause, not classified Qualified Code(s): D64.89 - Other specified anemias Assessment/Plan 03/05/2015 Small-mod mild inferolateral ischemia 08/04/2015 Echo: Normal biventricular size and fxn, mild 1. Dizziness with orthostasis improved post pRBC transfusion 2. CAD s/p CABG, angina pectoris 3. HTN 4. Hyperlipidemia 5. DM with peripheral neuropathy 6. Breast ca currently undergoing chemotherapy 7. Anemia 8. Obstructive right CCA stenosis 9. Cerebrovascular disease P:1. Brain MRI shows small vessel ischemic disease, carotid MRA pending 2. Continue Atenolol 50 qhs, Lipitor 40 qhs, Altace 5 qd, add ASA 81 qd if Hgb remains stable 3. Volume resuscitation, transfuse as needed to maintain Hgb > 8.0
--- NOTE | 2016-08-04 15:14 | PN ---
Progress Note (short form) - Note Progress Note: cc dizziness for six days 66 year old hailey hsitory of dm, htn hyperlipidemia, cad s/p CABG. 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 she is getting chemotherapy at oncologist in [facility]. Last chemo therapy was recieved on july 24. Initially when she came to hospital, she has been feeling of feeling drunk whenever she walks or gets up. She denies any headache, dysphagia , diplopia or weakness. she feel generalized weak. her hemoglobin is 8. she is feeling much better and she got two unit of rbc no known allergy Neurological Examination Alert oriented x 3, speech is normal cn all intact, eomi, terminal nystagmus was seen, there is no face asymmetry, sensation is normal on face motor strenght is normal sesnsation is normal generalized diminished reflex ct is unremarkable mri of brain uremarkable Assessment 66 year old female history of DM, HTN, CAD , Hyperlipidemia ,s/pCABG , recently diagnosed with breast ca , getting chemo , complaining of peripheralneuropathy symptoms, and also have postural hypotension and anemia. Most likely it is multifactorial , due to anemia, autonomic neuropahty , chemo . mri revied , there is no mets or stroke she is feeling better. continue supportive treatment No new recommendation neuro point of view Thanking you so much Kenji Cooper MD
[2016-08-04] MEDS: SODIUM CHLORIDE 1,000 ML IV SCH (17:00)
[2016-08-04] MEDS ORDERED: INSULIN (NOVOLOG) ASPART 100 UNITS/ML 10ML VIAL ONE ×2 (17:10→20:36)
--- NOTE | 2016-08-04 17:25 | CONSULT ---
Consult - Past Medical History Cardio/Vascular: Yes: CAD, HTN, Hyperlipdemia Endocrine: Yes: Diabetes Mellitus - Past Surgical History Past Surgical History: Yes: CABG - Alcohol/Substance Use Hx Alcohol Use: No - Smoking History Smoking history: Former smoker Have you smoked in the past 12 months: No If you are a former smoker, when did you quit?: 2012 Home Medications - Allergies Allergies/Adverse Reactions: Allergies Allergy/AdvReac Type Severity Reaction Status Date / Time No Known Allergies Allergy Verified 08/03/16 10:30 - Home Medications Home Medications: Ambulatory Orders Atenolol [Tenormin -] 50 mg PO HS 06/29/13 Atorvastatin Ca [Lipitor] 40 mg PO HS 06/29/13 Insulin NPL/Insulin Lispro [Humalog Mix 50-50 Kwikpen] 35 unit SQ BID 06/29/13 Ramipril 5 mg PO DAILY 06/29/13 Duloxetine HCl [Cymbalta] 30 mg PO DAILY 03/05/15 Esomeprazole Magnesium [Nexium 24Hr] 40 mg PO DAILY 03/21/16 Insulin Degludec [Tresiba Flextouch U-100] 40 unit SQ DAILY 03/21/16 Sitagliptin Phos/Metformin HCl [Janumet 50-1,000 mg Tablet] 1 each PO DAILY 08/28 Oxycodone HCl/Acetaminophen [Percocet 5-325 mg Tablet] 1 - 2 tab PO Q6H PRN #20 tab MDD 6 03/28/16 Family Disease History - Family Disease History Family Disease History: CA: Brother (CRC 25) Physical Exam Vital Signs: Vital Signs Temperature 98.3 F 08/04/16 13:35 Pulse Rate 89 08/04/16 13:35 Respiratory Rate 20 08/04/16 13:35 Blood Pressure 142/69 08/04/16 13:35 O2 Sat by Pulse Oximetry (%) 95 08/03/16 22:00 Labs: CBC, BMP 08/04/16 06:00 08/04/16 06:00 Assessment/Plan VAscular Surgery The patient is a 66 year old female with a significant past medical history of diabetes, hypertension, hypercholesterolemia, CAD s/p bypass, and breast ca ( currently on chemo), presenting to the Emergency Department with dizziness for three days. The patient describes her dizziness as walking as if she is drunk, she admits that the dizziness is exacerbated by standing from a seated position , and admits to walking into ledesma secondary to the dizziness. She also reports that her legs feel tired after walking. She states that she is on weekly chemotherapy for breast cancer, though she skipped this Sunday as she has not felt well. The patient denies headache, or visual changes. Patient denies nausea, vomiting , and diarrhea. Patient denies fever, cough, and chills. Patient denies chest pain, palpitations, and shortness of breath. Oncologist: Dr. Mandy Guzman, [facility] US reviewed -- Shows bilateral carotid disease at bulb and ICA Velocities are 230/40. Prob close to the 60% stenosis range. Usually velocities of 230/100 signify 70-80% stenosis . PE Head - NC/At Lung - CTA Heart - RRR abd - soft,nt,nd eXt - warm, pink FROM x4 Good muscle strength A/P carotid stenosis at best 60% bilaterally Can follow up as outpt in my office for surveillance of carotid arteries with ultrasound. Medical management. Juve Jaimes DO
[2016-08-04] MEDS ORDERED: Insulin (LOG) Aspart 100 UNITS/ML VIAL SQ ONE (21:36)
[2016-08-04] MEDS: ATORVASTATIN CA 40 MG TABLET (FP) PO SCH (21:44)
[2016-08-04] MEDS: MECLIZINE HCL 25 MG TABLET (FP) PO PRN (22:12)
--- NOTE | 2016-08-05 00:30 | CONSULT ---
Consult Consult Specialty:: endocrine Referred by:: dr.saba amos Reason for Consultation:: iddm uncontrolled - History of Present Illness Chief Complaint: weak and dizzy History of Present Illness: 66 year old female with a significant past medical history of diabetes, hypertension, hypercholesterolemia, CAD s/p bypass, and breast ca (currently on chemo), presenting to the Emergency Department with dizziness for three days. The patient describes her dizziness as walking as if she is dizzy, she admits that the dizziness is exacerbated by standing from a seated position, and admits to walking into [place] secondary to the dizziness.her sugars have been elevated despite poor appetite from chemo - History Source History Provided By: Patient - Past Medical History Cardio/Vascular: Yes: CAD, HTN, Hyperlipdemia Endocrine: Yes: Diabetes Mellitus - Past Surgical History Past Surgical History: Yes: CABG - Alcohol/Substance Use Hx Alcohol Use: No - Smoking History Smoking history: Former smoker Have you smoked in the past 12 months: No If you are a former smoker, when did you quit?: 2012 Home Medications - Allergies Allergies/Adverse Reactions: Allergies Allergy/AdvReac Type Severity Reaction Status Date / Time No Known Allergies Allergy Verified 08/03/16 10:30 - Home Medications Home Medications: Ambulatory Orders Atenolol [Tenormin -] 50 mg PO HS 06/29/13 Atorvastatin Ca [Lipitor] 40 mg PO HS 06/29/13 Insulin NPL/Insulin Lispro [Humalog Mix 50-50 Kwikpen] 35 unit SQ BID 06/29/13 Ramipril 5 mg PO DAILY 06/29/13 Duloxetine HCl [Cymbalta] 30 mg PO DAILY 03/05/15 Esomeprazole Magnesium [Nexium 24Hr] 40 mg PO DAILY 03/21/16 Insulin Degludec [Tresiba Flextouch U-100] 40 unit SQ DAILY 03/21/16 Sitagliptin Phos/Metformin HCl [Janumet 50-1,000 mg Tablet] 1 each PO DAILY 08/28 Oxycodone HCl/Acetaminophen [Percocet 5-325 mg Tablet] 1 - 2 tab PO Q6H PRN #20 tab MDD 6 03/28/16 Family Disease History - Family Disease History Family Disease History: CA: Brother (CRC 25) Review of Systems - Review of Systems Constitutional: reports: Lethargy, Weakness Eyes: reports: Blurred Vision HENT: reports: Throat Pain Neck: reports: No Symptoms Cardiovascular: reports: No Symptoms Respiratory: reports: Exercise Intolerance Gastrointestinal: reports: Bloating, Constipation Genitourinary: reports: No Symptoms Breasts: reports: No Symptoms Reported Musculoskeletal: reports: Back Pain, Muscle Cramps Integumentary: reports: No Symptoms Neurological: reports: Dizziness, Weakness Endocrine: reports: Unexplained Weight Gain Physical Exam Vital Signs: Vital Signs Temperature 98.0 F 08/04/16 22:00 Pulse Rate 76 08/04/16 22:00 Respiratory Rate 18 08/04/16 22:00 Blood Pressure 158/71 08/04/16 22:00 O2 Sat by Pulse Oximetry (%) 98 08/04/16 21:00 Constitutional: Yes: Anxious Eyes: Yes: EOM Intact. No: WNL, Conjunctiva Clear, Cataracts, Diplopia, Occular Prosthesis, PERRL, Ptosis, Sclera Icterus, Tearing, Other HENT: Yes: Normocephalic. No: WNL, Atraumatic, Drooling, Epistaxis, Hoarseness , Nasal Congestion, Pharyngeal Erythema, Rhinnorhea, Thrush, Tonsillar Exudate, Other Neck: No: WNL, Supple, Trachea Midline, Decreased ROM, Lymphadenopathy, Rigid, Tenderness, Thyromegaly, Other Cardiovascular: Yes: Regular Rate and Rhythm Gastrointestinal: Yes: Normal Bowel Sounds ...Rectal Exam: Yes: Deferred Renal/: Yes: WNL Breast(s): Yes: Skin Changes Musculoskeletal: Yes: WNL Extremities: Yes: WNL Peripheral Pulses WNL: Yes Integumentary: Yes: WNL Neurological: Yes: Alert, Oriented, Numbness, Unsteady Gait, Weakness Labs: CBC, BMP 08/04/16 06:00 08/04/16 06:00 Problem List - Problems (1) ASHD (arteriosclerotic heart disease) Code(s): I25.10 - ATHSCL HEART DISEASE OF [place] CORONARY ARTERY W/O ANG PCTRS (2) Breast cancer, left Code(s): C50.912 - MALIGNANT NEOPLASM OF UNSPECIFIED SITE OF LEFT FEMALE BREAST Qualifiers: Breast location: unspecified site of breast Estrogen receptor status: positive Patient sex: female Qualified Code(s): C50.912 - Malignant neoplasm of unspecified site of left female breast (3) Diabetes Code(s): E11.9 - TYPE 2 DIABETES MELLITUS WITHOUT COMPLICATIONS Qualifiers: Diabetes mellitus type: type 2 Diabetes mellitus complication status: without complication Diabetes mellitus termite treater insulin use: with termite treater use Qualified Code(s): E11.9 - Type 2 diabetes mellitus without complications (4) Dizziness Code(s): R42 - DIZZINESS AND GIDDINESS (5) HLD (hyperlipidemia) Code(s): E78.5 - HYPERLIPIDEMIA, UNSPECIFIED Qualifiers: Hyperlipidemia type: pure hypercholesterolemia Qualified Code(s): E78.00 - Pure hypercholesterolemia, unspecified; E78.0 - Pure hypercholesterolemia (6) Hypertension associated with diabetes Code(s): E11.59 - TYPE 2 DIABETES MELLITUS WITH OTH CIRCULATORY COMPLICATIONS I10 - ESSENTIAL (PRIMARY) HYPERTENSION Assessment/Plan Current Active Problems ASHD (arteriosclerotic heart disease) (Acute) Breast cancer, left (Acute) Carotid stenosis (Acute) Diabetes (Acute) Dizziness (Acute) HLD (hyperlipidemia) (Acute) Hypertension associated with diabetes (Acute) Knee pain (Acute) Low back pain radiating to both legs (Acute) Orthostasis (Acute) Profound anemia (Acute) S/P CABG (coronary artery bypass graft) (Acute) Unstable angina (Acute) Weakness (Acute) Abnormal Lab Results 08/03/16 08/04/16 08/04/16 11:15 06:00 06:00 MCV 78.6 L RDW 20.6 H Monocytes % 17.6 H D Random Glucose 243 H D Calcium 8.3 L Alkaline Phosphatase 141 H Troponin I 0.17 H Total Protein 6.3 L Albumin 2.6 L Crossmatch See Detail Laboratory Results - last 24 hr 08/03/16 08/03/16 08/03/16 11:15 21:06 23:22 WBC RBC Hgb Hct MCV MCHC RDW Plt Count MPV Neutrophils % Lymphocytes % Monocytes % Eosinophils % Basophils % Anisocytosis Microcytosis Sodium Potassium Chloride Carbon Dioxide Anion Gap BUN Creatinine Creat Clearance w eGFR POC Glucometer 465 429 Random Glucose Calcium Total Bilirubin AST ALT Alkaline Phosphatase Troponin I Total Protein Albumin Stool Occult Blood Blood Type B POSITIVE Antibody Screen Negative Crossmatch See Detail 08/04/16 08/04/16 08/04/16 05:49 06:00 06:00 WBC 9.6 D RBC 4.30 Hgb 11.2 D Hct 33.8 D MCV 78.6 L MCHC 33.1 RDW 20.6 H Plt Count 185 MPV 8.5 Neutrophils % 70.1 Lymphocytes % 12.0 D Monocytes % 17.6 H D Eosinophils % 0.1 D Basophils % 0.2 D Anisocytosis 2+ Microcytosis 1+ Sodium 140 Potassium 3.9 Chloride 102 Carbon Dioxide 29 Anion Gap 9 BUN 11 D Creatinine 0.7 D Creat Clearance w eGFR > 60 POC Glucometer 244 Random Glucose 243 H D Calcium 8.3 L Total Bilirubin 0.9 D AST 36 ALT 26 Alkaline Phosphatase 141 H Troponin I 0.17 H Total Protein 6.3 L Albumin 2.6 L Stool Occult Blood Blood Type Antibody Screen Crossmatch 08/04/16 08/04/16 14:46 16:58 WBC RBC Hgb Hct MCV MCHC RDW Plt Count MPV Neutrophils % Lymphocytes % Monocytes % Eosinophils % Basophils % Anisocytosis Microcytosis Sodium Potassium Chloride Carbon Dioxide Anion Gap BUN Creatinine Creat Clearance w eGFR POC Glucometer 305 Random Glucose Calcium Total Bilirubin AST ALT Alkaline Phosphatase Troponin I Total Protein Albumin Stool Occult Blood Negative Blood Type Antibody Screen Crossmatch plan: novolog 70 /30 @25 units bid ac meals novolog achs coverage ck [id number]
[2016-08-05] MEDS ORDERED: INSULIN (NOVOLOG MIX 70/30) 100 UNITS/ML MDV SQ SCH (07:00)
[2016-08-05] MEDS: sitaGLIPtin PHOSPHATE 50 MG TABLET PO SCH (07:08)
[2016-08-05] MEDS: INSULIN SLIDING SCALE (NOVOLOG) 1 VIAL SQ SCH ×4 (07:11→23:14)
[2016-08-05 08:37] LABS: BASOPHIL 0.9 % (0-2.0); EOSINOPHIL 0.7 % (0-4.5); MCH 25.9 pg (25.7-33.7); MCHC 32.9 g/dl (32.0-36.0); MEAN CELL VOLUME 78.6 fl (80-96); MEAN PLT VOLUME 8.4 fl (7.5-11.1); NEUTROPHILS 69.2 % (42.8-82.8); PLATELET COUNT 192 K/MM3 (134-434); WHITE BLOOD COUNT 8.5 K/mm3 (4.0-10.0)
[2016-08-05] MEDS: MECLIZINE HCL 25 MG TABLET (FP) PO PRN (08:48)
[2016-08-05 08:54] LABS: ALBUMIN 2.8 g/dl (3.4-5.0); ANION GAP 9 (8-16); BILIRUBIN,TOTAL 0.7 mg/dL (0.2-1.0); CALCIUM 8.6 mg/dL (8.5-10.1); CHOLESTEROL 97 mg/dL (50-200); CO2 28 mmol/L (21-32); CREATININE 0.8 mg/dL (0.55-1.02); GLUCOSE,RANDOM 265 mg/dL (74-106); LDL CHOLESTEROL (ONLY SJRH) 51 mg/dL (5-100); SGOT/AST 39 U/L (15-37); SGPT/ALT 29 U/L (12-78); TOT PROT 6.6 g/dl (6.4-8.2)
[2016-08-05 08:55] LABS: ALK PHOS 158 U/L (45-117)
--- NOTE | 2016-08-05 09:15 | PN ---
Progress Note, Physician History of Present Illness: C/O CHEST PAIN LAST NIGHT C/O INTERMITTENT SOB NO CP AT THIS TIME - Current Medication List Current Medications: Active Medications Acetaminophen (Tylenol -) 325 mg PO Q4H PRN PRN Reason: PAIN Stop: 08/06/16 14:41 Last Admin: 08/04/16 12:22 Dose: 325 mg Atenolol (Tenormin -) 50 mg PO DAILY [facility] Last Admin: 08/04/16 12:22 Dose: 50 mg Atorvastatin Calcium (Lipitor -) 40 mg PO HS MARI Last Admin: 08/04/16 21:44 Dose: 40 mg Diphenhydramine HCl (Benadryl -) 25 mg PO HS PRN PRN Reason: INSOMNIA Last Admin: 08/03/16 21:52 Dose: 25 mg Duloxetine HCl (Cymbalta -) 30 mg PO DAILY [facility] Last Admin: 08/04/16 12:22 Dose: 30 mg Heparin Sodium (Porcine) (Heparin -) 5,000 unit SQ BID MARI Last Admin: 08/04/16 21:44 Dose: 5,000 unit Insulin Aspart (Novolog Vial Sliding Scale -) 1 vial SQ ACHS MARI PRN Reason: Protocol Last Admin: 08/05/16 07:11 Dose: 6 unit Insulin Aspart (Novolog Mix 70/30 Vial) 25 units SQ BIDAC [facility] Last Admin: 08/05/16 07:09 Dose: 25 units Meclizine HCl (Antivert -) 25 mg PO TID PRN PRN Reason: VERTIGO Last Admin: 08/05/16 08:48 Dose: 25 mg Oxycodone HCl (Roxicodone -) 5 mg PO Q4H PRN PRN Reason: PAIN Last Admin: 08/05/16 08:48 Dose: 5 mg Pantoprazole Sodium (Protonix -) 40 mg PO DAILY [facility] Last Admin: 08/04/16 12:22 Dose: 40 mg Ramipril (Altace -) 5 mg PO DAILY [facility] Last Admin: 08/04/16 12:00 Dose: 5 mg Sitagliptin Phosphate (Januvia -) 50 mg PO DAILY@0700 [facility] Last Admin: 08/05/16 07:08 Dose: 50 mg - Objective Vital Signs: Vital Signs Temperature 98.4 F 08/05/16 06:00 Pulse Rate 74 08/05/16 06:00 Respiratory Rate 20 08/05/16 06:00 Blood Pressure 109/70 08/05/16 06:00 O2 Sat by Pulse Oximetry (%) 98 08/04/16 21:00 Cardiovascular: Yes: Regular Rate and Rhythm Respiratory: Yes: Diminished, Rales, Rhonchi Gastrointestinal: Yes: Normal Bowel Sounds, Soft Labs: CBC, BMP 08/05/16 08:09 08/05/16 08:09 INR, PTT INR 1.27 (0.82-1.09) H 08/03/16 11:15 Problem List - Problems (1) Chest pain Assessment/Plan: R/O ISHEMIA R/O CHF CE EKG CXR MAY NEED DIURTICS Code(s): R07.9 - CHEST PAIN, UNSPECIFIED Assessment/Plan - Problems (1) Carotid stenosis Assessment/Plan: carotid doppler noted 70%stenosis will order MRA of neck and head and vascular eval as well Code(s): I65.29 - OCCLUSION AND STENOSIS OF UNSPECIFIED CAROTID ARTERY Qualifiers: Laterality: right Qualified Code(s): I65.21 - Occlusion and stenosis of right carotid artery (2) Dizziness Assessment/Plan: mri noted meclizine prn still dizzy today when she gets out of bed Code(s): R42 - DIZZINESS AND GIDDINESS (3) Breast cancer, left Assessment/Plan: followed by oncology in [facility] last chemo july 24 seen by oncologist here doppler negative for dvt Code(s): C50.912 - MALIGNANT NEOPLASM OF UNSPECIFIED SITE OF LEFT FEMALE BREAST Qualifiers: Breast location: unspecified site of breast Estrogen receptor status: positive Patient sex: female Qualified Code(s): C50.912 - Malignant neoplasm of unspecified site of left female breast (4) HLD (hyperlipidemia) Assessment/Plan: on a statin check lipid panel Code(s): E78.5 - HYPERLIPIDEMIA, UNSPECIFIED Qualifiers: Hyperlipidemia type: pure hypercholesterolemia Qualified Code(s): E78.00 - Pure hypercholesterolemia, unspecified; E78.0 - Pure hypercholesterolemia (5) Low back pain radiating to both legs Assessment/Plan: ct scan of lumbar/sacral spine to r/o foramin stenosis Code(s): M54.5 - LOW BACK PAIN (6) Profound anemia Assessment/Plan: s/p prbc now much improved Code(s): D64.9 - ANEMIA, UNSPECIFIED Qualifiers: Anemia type: other cause Other causes of anemia: other cause, not classified Qualified Code(s): D64.89 - Other specified anemias (7) Diabetes Assessment/Plan: januvia sliding scale check [id number] Code(s): E11.9 - TYPE 2 DIABETES MELLITUS WITHOUT COMPLICATIONS Qualifiers: Diabetes mellitus type: type 2 Diabetes mellitus complication status: without complication Diabetes mellitus public policy mediator insulin use: with public policy mediator use Qualified Code(s): E11.9 - Type 2 diabetes mellitus without complications
[2016-08-05] MEDS ORDERED: PT OWN MED DRAWER 7, Y5N ONE (09:28)
[2016-08-05] MEDS: HEPARIN NA (PORCINE) 5,000 UNITS/ML 1ML VIAL SQ SCH ×2 (09:31→23:07)
[2016-08-05] MEDS: ATENOLOL 50 MG TABLET (FP) PO SCH (09:31)
[2016-08-05] MEDS: DULoxetine HCL 30 MG CAPSULE.DR (FP) PO SCH (09:31)
[2016-08-05] MEDS: PANTOPRAZOLE 40 MG TABLET (FP) PO SCH (09:31)
[2016-08-05] MEDS: RAMIPRIL 5 MG CAPSULE (FP) PO SCH (09:31)
[2016-08-05 09:52] LABS: TROPONIN I 0.09 ng/ml (0.00-0.05)
[2016-08-05] MEDS ORDERED: FUROSEMIDE 40 MG/4 ML INJECTABLE VIAL IVPB ONE (10:01)
--- NOTE | 2016-08-05 11:31 | CON.PULM ---
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 Patient is receiving her chemotherapy [facility], last was July 24. Reports generalized weakness and fatigue that seems to coincide with her Chemo. Reports KILLIAN, weakness, and profound fatigue when she ambulates. Does not appear to have symptoms at rest. No hemoptysis. Questionable wheezing. There is a history that may be consistent with Sleep Apnea. CXR: No acute process - History Source History Provided By: Patient Limitations to Obtaining History: No Limitations - Past Medical History Cardio/Vascular: Yes: CAD, HTN, Hyperlipdemia Endocrine: Yes: Diabetes Mellitus - Past Surgical History Past Surgical History: Yes: CABG - Alcohol/Substance Use Hx Alcohol Use: No - Smoking History Smoking history: Former smoker Have you smoked in the past 12 months: No If you are a former smoker, when did you quit?: 2013 Home Medications - Allergies Allergies/Adverse Reactions: Allergies Allergy/AdvReac Type Severity Reaction Status Date / Time No Known Allergies Allergy Verified 08/03/16 10:30 - Home Medications Home Medications: Ambulatory Orders Atenolol [Tenormin -] 50 mg PO HS 06/29/13 Atorvastatin Ca [Lipitor] 40 mg PO HS 06/29/13 Insulin NPL/Insulin Lispro [Humalog Mix 50-50 Kwikpen] 35 unit SQ BID 06/29/13 Ramipril 5 mg PO DAILY 06/29/13 Duloxetine HCl [Cymbalta] 30 mg PO DAILY 03/05/15 Esomeprazole Magnesium [Nexium 24Hr] 40 mg PO DAILY 03/21/16 Insulin Degludec [Tresiba Flextouch U-100] 40 unit SQ DAILY 03/21/16 Sitagliptin Phos/Metformin HCl [Janumet 50-1,000 mg Tablet] 1 each PO DAILY 08/28 Oxycodone HCl/Acetaminophen [Percocet 5-325 mg Tablet] 1 - 2 tab PO Q6H PRN #20 tab MDD 6 03/28/16 Family Disease History - Family Disease History Family Disease History: CA: Brother (CRC 25) Review of Systems - Review of Systems Constitutional: reports: Loss of Appetite, Malaise, Weakness. denies: Chills, Fever, Night Sweats Eyes: reports: No Symptoms HENT: reports: No Symptoms Neck: reports: No Symptoms Cardiovascular: reports: Chest Pain, Shortness of Breath. denies: Palpitations Respiratory: reports: Cough, Snoring, SOB, SOB on Exertion, Wheezing. denies: Hemoptysis Gastrointestinal: reports: No Symptoms Genitourinary: reports: No Symptoms Breasts: reports: Skin Changes Musculoskeletal: reports: No Symptoms Integumentary: reports: Change in Color Neurological: reports: Numbness, Weakness. denies: Seizure Endocrine: reports: No Symptoms Hematology/Lymphatic: reports: No Symptoms Psychiatric: reports: No Symptoms Physical Exam Vital Sings: Vital Signs Temperature 98.2 F 08/05/16 08:35 Pulse Rate 74 08/05/16 08:35 Respiratory Rate 20 08/05/16 10:49 Blood Pressure 152/97 08/05/16 08:35 O2 Sat by Pulse Oximetry (%) 98 08/05/16 10:49 Constitutional: Yes: No Distress Eyes: Yes: Conjunctiva Clear, EOM Intact HENT: Yes: Atraumatic, Normocephalic Neck: Yes: Supple Cardiovascular: Yes: Regular Rate and Rhythm Respiratory: Yes: CTA Bilaterally, Cough, Diminished, On Nasal O2. No: Rales, Rhonchi, Stridor, Tachypnea, Wheezes ...Inspection: Yes: WNL ...Clubbing: No Gastrointestinal: Yes: Normal Bowel Sounds, Soft, Abdomen, Obese Renal/: Yes: WNL Musculoskeletal: Yes: WNL Extremities: Yes: WNL Edema: Yes Peripheral Pulses WNL: Yes Integumentary: Yes: WNL Neurological: Yes: Alert, Oriented ...Motor Strength: WNL Psychiatric: Yes: WNL, Alert, Oriented Labs: CBC, BMP 08/05/16 08:09 08/05/16 08:09 Imaging - Results Chest X-ray: Report Reviewed, Image Reviewed Problem List - Problems (1) ASHD (arteriosclerotic heart disease) Code(s): I25.10 - ATHSCL HEART DISEASE OF [place] CORONARY ARTERY W/O ANG PCTRS (2) Breast cancer, left Code(s): C50.912 - MALIGNANT NEOPLASM OF UNSPECIFIED SITE OF LEFT FEMALE BREAST Qualifiers: Breast location: unspecified site of breast Estrogen receptor status: positive Patient sex: female Qualified Code(s): C50.912 - Malignant neoplasm of unspecified site of left female breast (3) Carotid stenosis Code(s): I65.29 - OCCLUSION AND STENOSIS OF UNSPECIFIED CAROTID ARTERY Qualifiers: Laterality: right Qualified Code(s): I65.21 - Occlusion and stenosis of right carotid artery (4) Chest pain Code(s): R07.9 - CHEST PAIN, UNSPECIFIED (5) Diabetes Code(s): E11.9 - TYPE 2 DIABETES MELLITUS WITHOUT COMPLICATIONS Qualifiers: Diabetes mellitus type: type 2 Diabetes mellitus complication status: without complication Diabetes mellitus termite 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 insulin use: with mcc use Qualified Code(s): E11.9 - Type 2 diabetes mellitus without complications (6) Dizziness Code(s): R42 - DIZZINESS AND GIDDINESS (7) HLD (hyperlipidemia) Code(s): E78.5 - HYPERLIPIDEMIA, UNSPECIFIED Qualifiers: Hyperlipidemia type: pure hypercholesterolemia Qualified Code(s): E78.00 - Pure hypercholesterolemia, unspecified; E78.0 - Pure hypercholesterolemia (8) Hypertension associated with diabetes Code(s): E11.59 - TYPE 2 DIABETES MELLITUS WITH OTH CIRCULATORY COMPLICATIONS I10 - ESSENTIAL (PRIMARY) HYPERTENSION (9) Profound anemia Code(s): D64.9 - ANEMIA, UNSPECIFIED Qualifiers: Anemia type: other cause Other causes of anemia: other cause, not classified Qualified Code(s): D64.89 - Other specified anemias (10) S/P CABG (coronary artery bypass graft) Code(s): Z95.1 - PRESENCE OF AORTOCORONARY BYPASS GRAFT Assessment/Plan PLAN: Patient is currently receiving a BD TX and reports some mild improvement in her symptoms -> could be due to COPD due to previous smoking history. Would monitor off systemic steroids for now O2 as needed PFTs after discharge Would benefit from sleep apnea screen after discharge No indication of PNA or respiratory tract infection Will follow Thank you. Dr Topete
[2016-08-05] MEDS ORDERED: ALBUTEROL SO4 2.5/IPRATROPIUM 0.5 INH SOL 3 ML VIAL.NEB. NEB SCH (12:00)
[2016-08-05 12:55] LABS: TROPONIN I 0.08 ng/ml (0.00-0.05)
[2016-08-05] MEDS ORDERED: BISACODYL 5 MG TABLET.DR (FP) PO ONE (15:24)
[2016-08-05] MEDS ORDERED: MECLIZINE HCL 25 MG TABLET (FP) PO PRN (15:34)
[2016-08-05] MEDS ORDERED: oxyCODONE HCL 5 MG TABLET PO PRN (15:34)
[2016-08-05] MEDS ORDERED: ACETAMINOPHEN 325 MG TABLET (FP) PO PRN (15:34)
[2016-08-05] MEDS ORDERED: diphenhydrAMINE HCL 25 MG CAPSULE (FP) PO PRN (15:34)
--- NOTE | 2016-08-05 16:28 | PN ---
Progress Note, Physician Chief Complaint: Events noted Denies chest pain, SOB or palpitations History of Present Illness: Patient was seen and examined. Awake and alert. Chart was reviewed Not in distress - Current Medication List Current Medications: Active Medications Acetaminophen (Tylenol -) 325 mg PO Q4H PRN PRN Reason: PAIN Stop: 08/06/16 14:41 Albuterol/Ipratropium (Duoneb -) 1 amp NEB QIDR MARI Atenolol (Tenormin -) 50 mg PO DAILY MARI Atorvastatin Calcium (Lipitor -) 40 mg PO HS MARI Diphenhydramine HCl (Benadryl -) 25 mg PO HS PRN PRN Reason: INSOMNIA Duloxetine HCl (Cymbalta -) 30 mg PO DAILY [facility] Heparin Sodium (Porcine) (Heparin -) 5,000 unit SQ BID MARI Insulin Aspart (Novolog Vial Sliding Scale -) 1 vial SQ ACHS MARI PRN Reason: Protocol Insulin Aspart (Novolog Mix 70/30 Vial) 25 units SQ BIDAC MARI Meclizine HCl (Antivert -) 25 mg PO TID PRN PRN Reason: VERTIGO Oxycodone HCl (Roxicodone -) 5 mg PO Q4H PRN PRN Reason: PAIN Pantoprazole Sodium (Protonix -) 40 mg PO DAILY [facility] Polyethylene Glycol (Miralax (For Daily Use) -) 17 gm PO BID MARI Ramipril (Altace -) 5 mg PO DAILY [facility]I Sitagliptin Phosphate (Januvia -) 50 mg PO DAILY@0700 [facility] - Objective Vital Signs: Vital Signs Temperature 97.9 F 08/05/16 14:44 Pulse Rate 76 08/05/16 14:44 Respiratory Rate 20 08/05/16 14:44 Blood Pressure 131/58 08/05/16 14:44 O2 Sat by Pulse Oximetry (%) 98 08/05/16 10:49 Neck: Yes: Supple Cardiovascular: Yes: Regular Rate and Rhythm, S1, S2. No: Murmur Respiratory: Yes: Diminished Gastrointestinal: Yes: Normal Bowel Sounds, Soft. No: Tenderness Edema: No Labs: CBC, BMP 08/05/16 08:09 08/05/16 08:09 Problem List - Problems (1) ASHD (arteriosclerotic heart disease) Code(s): I25.10 - ATHSCL HEART DISEASE OF [place] CORONARY ARTERY W/O ANG PCTRS (2) Breast cancer, left Code(s): C50.912 - MALIGNANT NEOPLASM OF UNSPECIFIED SITE OF LEFT FEMALE BREAST Qualifiers: Breast location: unspecified site of breast Estrogen receptor status: positive Patient sex: female Qualified Code(s): C50.912 - Malignant neoplasm of unspecified site of left female breast (3) Carotid stenosis Code(s): I65.29 - OCCLUSION AND STENOSIS OF UNSPECIFIED CAROTID ARTERY Qualifiers: Laterality: right Qualified Code(s): I65.21 - Occlusion and stenosis of right carotid artery (4) Diabetes Code(s): E11.9 - TYPE 2 DIABETES MELLITUS WITHOUT COMPLICATIONS Qualifiers: Diabetes mellitus type: type 2 Diabetes mellitus complication status: without complication Diabetes mellitus terminal operations supervisor insulin use: with terminal operations supervisor use Qualified Code(s): E11.9 - Type 2 diabetes mellitus without complications (5) Dizziness Code(s): R42 - DIZZINESS AND GIDDINESS (6) HLD (hyperlipidemia) Code(s): E78.5 - HYPERLIPIDEMIA, UNSPECIFIED Qualifiers: Hyperlipidemia type: pure hypercholesterolemia Qualified Code(s): E78.00 - Pure hypercholesterolemia, unspecified; E78.0 - Pure hypercholesterolemia (7) Orthostasis Code(s): I95.1 - ORTHOSTATIC HYPOTENSION (8) Profound anemia Code(s): D64.9 - ANEMIA, UNSPECIFIED Qualifiers: Anemia type: other cause Other causes of anemia: other cause, not classified Qualified Code(s): D64.89 - Other specified anemias (9) S/P CABG (coronary artery bypass graft) Code(s): Z95.1 - PRESENCE OF AORTOCORONARY BYPASS GRAFT Assessment/Plan 1. Dizziness with orthostasis improved post PRBC transfusion 2. CAD s/p CABG, angina pectoris 3. HTN 4. Hyperlipidemia 5. DM with peripheral neuropathy 6. Breast CA post chemotherapy 7. Anemia 8. Obstructive right CCA stenosis 9. Cerebrovascular disease PLAN: 1. Neuro work up in progress 2. Continue Atenolol 50 qhs, Lipitor 40 qhs and Altace 5 qd. Consider ASA 81 qd if Hgb remains stable 3. Transfuse as needed to maintain Hgb > 8.0 Further plans are to follow Yvan Hawthorne MD
[2016-08-05] MEDS: ALBUTEROL SO4 2.5/IPRATROPIUM 0.5 INH SOL 3 ML VIAL.NEB. NEB SCH (17:16)
[2016-08-05] MEDS: INSULIN (NOVOLOG MIX 70/30) 100 UNITS/ML MDV SQ SCH (17:17)
[2016-08-05] MEDS: ATORVASTATIN CA 40 MG TABLET (FP) PO SCH (23:07)
[2016-08-05] MEDS: POLYETHYLENE GLYCOL 3350 119 GM BTL PO SCH (23:07)
[2016-08-06] MEDS: sitaGLIPtin PHOSPHATE 50 MG TABLET PO SCH (06:33)
[2016-08-06] MEDS: INSULIN (NOVOLOG MIX 70/30) 100 UNITS/ML MDV SQ SCH (06:33)
[2016-08-06] MEDS: INSULIN SLIDING SCALE (NOVOLOG) 1 VIAL SQ SCH ×4 (06:33→22:13)
[2016-08-06] MEDS: ALBUTEROL SO4 2.5/IPRATROPIUM 0.5 INH SOL 3 ML VIAL.NEB. NEB SCH ×5 (06:40→23:33)
[2016-08-06] MEDS: PANTOPRAZOLE 40 MG TABLET (FP) PO SCH (09:51)
[2016-08-06] MEDS: DULoxetine HCL 30 MG CAPSULE.DR (FP) PO SCH (09:51)
[2016-08-06] MEDS: ATENOLOL 50 MG TABLET (FP) PO SCH (09:51)
[2016-08-06] MEDS: RAMIPRIL 5 MG CAPSULE (FP) PO SCH (09:51)
[2016-08-06] MEDS: HEPARIN NA (PORCINE) 5,000 UNITS/ML 1ML VIAL SQ SCH ×2 (09:51→22:12)
[2016-08-06] MEDS: POLYETHYLENE GLYCOL 3350 119 GM BTL PO SCH ×2 (09:52→22:11)
--- NOTE | 2016-08-06 10:05 | PN ---
Progress Note, Physician Chief Complaint: Events noted Denies chest pain or palpitations, but SOB on exertion History of Present Illness: Patient was seen and examined. Awake and alert. Chart was reviewed Not in distress while sitting Intermittent SOB on exertion - Current Medication List Current Medications: Active Medications Acetaminophen (Tylenol -) 325 mg PO Q4H PRN PRN Reason: PAIN Stop: 08/06/16 14:41 Albuterol/Ipratropium (Duoneb -) 1 amp NEB QIDR [facility] Last Admin: 08/06/16 06:40 Dose: 1 amp Atenolol (Tenormin -) 50 mg PO DAILY [facility] Last Admin: 08/06/16 09:51 Dose: 50 mg Atorvastatin Calcium (Lipitor -) 40 mg PO HS [facility] Last Admin: 08/05/16 23:07 Dose: 40 mg Diphenhydramine HCl (Benadryl -) 25 mg PO HS PRN PRN Reason: INSOMNIA Duloxetine HCl (Cymbalta -) 30 mg PO DAILY [facility] Last Admin: 08/06/16 09:51 Dose: 30 mg Heparin Sodium (Porcine) (Heparin -) 5,000 unit SQ BID [facility] Last Admin: 08/06/16 09:51 Dose: 5,000 unit Insulin Aspart (Novolog Vial Sliding Scale -) 1 vial SQ ACHS [facility] PRN Reason: Protocol Last Admin: 08/06/16 06:33 Dose: 8 units Insulin Aspart (Novolog Mix 70/30 Vial) 25 units SQ BIDAC [facility] Last Admin: 08/06/16 06:33 Dose: 25 units Meclizine HCl (Antivert -) 25 mg PO TID PRN PRN Reason: VERTIGO Oxycodone HCl (Roxicodone -) 5 mg PO Q4H PRN PRN Reason: PAIN Pantoprazole Sodium (Protonix -) 40 mg PO DAILY [facility] Last Admin: 08/06/16 09:51 Dose: 40 mg Polyethylene Glycol (Miralax (For Daily Use) -) 17 gm PO BID [facility] Last Admin: 08/06/16 09:52 Dose: 17 grams Ramipril (Altace -) 5 mg PO DAILY [facility] Last Admin: 08/06/16 09:51 Dose: 5 mg Sitagliptin Phosphate (Januvia -) 50 mg PO DAILY@0700 [facility] Last Admin: 08/06/16 06:33 Dose: 50 mg - Objective Vital Signs: Vital Signs Temperature 97.7 F 08/06/16 08:00 Pulse Rate 85 08/06/16 08:00 Respiratory Rate 20 08/06/16 08:00 Blood Pressure 147/63 08/06/16 08:00 O2 Sat by Pulse Oximetry (%) 95 08/05/16 21:00 Neck: Yes: Supple Cardiovascular: Yes: Regular Rate and Rhythm, S1, S2 Respiratory: Yes: Diminished Gastrointestinal: Yes: Normal Bowel Sounds, Soft, Abdomen, Obese. No: Tenderness Edema: Yes Edema: LLE: Trace, RLE: Trace Additional Findings/Remarks: - Review of Systems Constitutional: denies: Chills, Fever Cardiovascular: reports: Shortness of Breath. denies: Chest Pain, Palpitations Respiratory: denies: Cough, (+)SOB, (+)SOB on Exertion. denies: Hemoptysis, Orthopnea, PND, Wheezing Gastrointestinal: denies: Abdominal Pain, Constipation, Diarrhea, Melena, Nausea , Rectal Bleeding, Vomiting Musculoskeletal: denies: Joint Pain Neurological: denies: Dizziness, Headache, Seizure, Syncope Labs: CBC, BMP 08/05/16 08:09 08/05/16 08:09 Problem List - Problems (1) ASHD (arteriosclerotic heart disease) Code(s): I25.10 - ATHSCL HEART DISEASE OF [place] CORONARY ARTERY W/O ANG PCTRS (2) Breast cancer, left Code(s): C50.912 - MALIGNANT NEOPLASM OF UNSPECIFIED SITE OF LEFT FEMALE BREAST Qualifiers: Breast location: unspecified site of breast Estrogen receptor status: positive Patient sex: female Qualified Code(s): C50.912 - Malignant neoplasm of unspecified site of left female breast (3) Carotid stenosis Code(s): I65.29 - OCCLUSION AND STENOSIS OF UNSPECIFIED CAROTID ARTERY Qualifiers: Laterality: right Qualified Code(s): I65.21 - Occlusion and stenosis of right carotid artery (4) Diabetes Code(s): E11.9 - TYPE 2 DIABETES MELLITUS WITHOUT COMPLICATIONS Qualifiers: Diabetes mellitus type: type 2 Diabetes mellitus complication status: without complication Diabetes mellitus penitentiary insulin use: with penitentiary use Qualified Code(s): E11.9 - Type 2 diabetes mellitus without complications (5) Dizziness Code(s): R42 - DIZZINESS AND GIDDINESS (6) HLD (hyperlipidemia) Code(s): E78.5 - HYPERLIPIDEMIA, UNSPECIFIED Qualifiers: Hyperlipidemia type: pure hypercholesterolemia Qualified Code(s): E78.00 - Pure hypercholesterolemia, unspecified; E78.0 - Pure hypercholesterolemia (7) Orthostasis Code(s): I95.1 - ORTHOSTATIC HYPOTENSION (8) Profound anemia Code(s): D64.9 - ANEMIA, UNSPECIFIED Qualifiers: Anemia type: other cause Other causes of anemia: other cause, not classified Qualified Code(s): D64.89 - Other specified anemias (9) S/P CABG (coronary artery bypass graft) Code(s): Z95.1 - PRESENCE OF AORTOCORONARY BYPASS GRAFT Assessment/Plan 1. Dizziness with orthostasis improved post PRBC transfusion 2. CAD s/p CABG, angina pectoris 3. HTN 4. Hyperlipidemia 5. DM with peripheral neuropathy 6. Breast CA post chemotherapy 7. Anemia 8. Obstructive right CCA stenosis 9. Cerebrovascular disease PLAN: 1. Neuro work up in progress 2. Continue Atenolol, Lipitor and Altace. Consider ASA 81 qd if Hgb remains stable 3. Transfuse as needed to maintain Hgb > 8.0 4. Monitor on telemetry Further plans are to follow Yvan Hawthorne MD
[2016-08-06 11:00] LABS: BASOPHIL 1.4 % (0-2.0); EOSINOPHIL 0.8 % (0-4.5); MCH 25.6 pg (25.7-33.7); MCHC 32.9 g/dl (32.0-36.0); NEUTROPHILS 69.2 % (42.8-82.8); PLATELET COUNT 179 K/MM3 (134-434); RDW 20.7 % (11.6-15.6); WHITE BLOOD COUNT 7.7 K/mm3 (4.0-10.0)
--- NOTE | 2016-08-06 11:06 | PN ---
Progress Note, Physician History of Present Illness: NO FURTHER CHEST PAIN C/O INTERMITTENT SOB - Current Medication List Current Medications: Active Medications Acetaminophen (Tylenol -) 325 mg PO Q4H PRN PRN Reason: PAIN Stop: 08/06/16 14:41 Albuterol/Ipratropium (Duoneb -) 1 amp NEB QIDR [facility] Last Admin: 08/06/16 06:40 Dose: 1 amp Atenolol (Tenormin -) 50 mg PO DAILY [facility] Last Admin: 08/06/16 09:51 Dose: 50 mg Atorvastatin Calcium (Lipitor -) 40 mg PO HS [facility] Last Admin: 08/05/16 23:07 Dose: 40 mg Diphenhydramine HCl (Benadryl -) 25 mg PO HS PRN PRN Reason: INSOMNIA Duloxetine HCl (Cymbalta -) 30 mg PO DAILY [facility] Last Admin: 08/06/16 09:51 Dose: 30 mg Heparin Sodium (Porcine) (Heparin -) 5,000 unit SQ BID [facility] Last Admin: 08/06/16 09:51 Dose: 5,000 unit Insulin Aspart (Novolog Vial Sliding Scale -) 1 vial SQ ACHS [facility] PRN Reason: Protocol Last Admin: 08/06/16 06:33 Dose: 8 units Insulin Aspart (Novolog Mix 70/30 Vial) 25 units SQ BIDAC [facility] Last Admin: 08/06/16 06:33 Dose: 25 units Meclizine HCl (Antivert -) 25 mg PO TID PRN PRN Reason: VERTIGO Oxycodone HCl (Roxicodone -) 5 mg PO Q4H PRN PRN Reason: PAIN Pantoprazole Sodium (Protonix -) 40 mg PO DAILY [facility] Last Admin: 08/06/16 09:51 Dose: 40 mg Polyethylene Glycol (Miralax (For Daily Use) -) 17 gm PO BID [facility] Last Admin: 08/06/16 09:52 Dose: 17 grams Ramipril (Altace -) 5 mg PO DAILY [facility] Last Admin: 08/06/16 09:51 Dose: 5 mg Sitagliptin Phosphate (Januvia -) 50 mg PO DAILY@0700 [facility] Last Admin: 08/06/16 06:33 Dose: 50 mg - Objective Vital Signs: Vital Signs Temperature 97.7 F 08/06/16 08:00 Pulse Rate 85 08/06/16 08:00 Respiratory Rate 20 08/06/16 08:00 Blood Pressure 147/63 08/06/16 08:00 O2 Sat by Pulse Oximetry (%) 95 08/05/16 21:00 Cardiovascular: Yes: Regular Rate and Rhythm Respiratory: Yes: Regular, Diminished Gastrointestinal: Yes: Normal Bowel Sounds, Soft Edema: No Labs: INR, PTT INR 1.27 (0.82-1.09) H 08/03/16 11:15 Problem List - Problems (1) Chest pain Code(s): R07.9 - CHEST PAIN, UNSPECIFIED Assessment/Plan - Problems (1) Carotid stenosis Assessment/Plan: carotid doppler noted 70%stenosis will order MRA of neck and head and vascular eval as well--REFUSESS-PT STATES HAS HISTORY AND FOLLOWS UP W DR PARRA Code(s): I65.29 - OCCLUSION AND STENOSIS OF UNSPECIFIED CAROTID ARTERY Qualifiers: Laterality: right Qualified Code(s): I65.21 - Occlusion and stenosis of right carotid artery (2) Dizziness Assessment/Plan: mri noted meclizine prn still dizzy today when she gets out of bed Code(s): R42 - DIZZINESS AND GIDDINESS (3) Breast cancer, left Assessment/Plan: followed by oncology in [facility] last chemo july 24 seen by oncologist here doppler negative for dvt Code(s): C50.912 - MALIGNANT NEOPLASM OF UNSPECIFIED SITE OF LEFT FEMALE BREAST Qualifiers: Breast location: unspecified site of breast Estrogen receptor status: positive Patient sex: female Qualified Code(s): C50.912 - Malignant neoplasm of unspecified site of left female breast (4) HLD (hyperlipidemia) Assessment/Plan: on a statin check lipid panel Code(s): E78.5 - HYPERLIPIDEMIA, UNSPECIFIED Qualifiers: Hyperlipidemia type: pure hypercholesterolemia Qualified Code(s): E78.00 - Pure hypercholesterolemia, unspecified; E78.0 - Pure hypercholesterolemia (5) Low back pain radiating to both legs Assessment/Plan: ct scan of lumbar/sacral spine to r/o foramin stenosis Code(s): M54.5 - LOW BACK PAIN (6) Profound anemia Assessment/Plan: s/p prbc now much improved Code(s): D64.9 - ANEMIA, UNSPECIFIED Qualifiers: Anemia type: other cause Other causes of anemia: other cause, not classified Qualified Code(s): D64.89 - Other specified anemias (7) Diabetes Assessment/Plan: januvia sliding scale check [id number] Code(s): E11.9 - TYPE 2 DIABETES MELLITUS WITHOUT COMPLICATIONS Qualifiers: Diabetes mellitus type: type 2 Diabetes mellitus complication status: without complication Diabetes mellitus shelter insulin use: with shelter use Qualified Code(s): E11.9 - Type 2 diabetes mellitus without complications (8) Chest Pain Assessment/Plan: MAY NEED STRESS TESTING CE
[2016-08-06 11:28] LABS: ALBUMIN 2.7 g/dl (3.4-5.0); ANION GAP 10 (8-16); BILIRUBIN,TOTAL 0.5 mg/dL (0.2-1.0); CALCIUM 8.4 mg/dL (8.5-10.1); CO2 29 mmol/L (21-32); CREATININE 0.7 mg/dL (0.55-1.02); SGOT/AST 29 U/L (15-37); SGPT/ALT 27 U/L (12-78)
[2016-08-06 11:30] LABS: ALK PHOS 155 U/L (45-117); TROPONIN I 0.04 ng/ml (0.00-0.05)
[2016-08-06 11:44] LABS: GLUCOSE,RANDOM 328 mg/dL (74-106)
--- NOTE | 2016-08-06 15:32 | PN ---
Progress Note (short form) - Note Progress Note: Breathing feels a little better today. Still with some KILLAIN. Intake & Output 08/03/16 08/04/16 08/05/16 08/06/16 23:59 23:59 23:59 23:59 Intake Total 2840 960 Balance 2840 960 Weight 244 lb 4.8 oz Last Vital Signs Temp Pulse Resp BP Pulse Ox 98.9 F 87 20 134/69 96 08/06/16 15:04 08/06/16 15:04 08/06/16 15:04 08/06/16 15:04 08/06/16 08:00 Active Medications Albuterol/Ipratropium (Duoneb -) 1 amp NEB QIDR [facility] Last Admin: 08/06/16 11:30 Dose: 1 amp Atenolol (Tenormin -) 50 mg PO DAILY [facility] Last Admin: 08/06/16 09:51 Dose: 50 mg Atorvastatin Calcium (Lipitor -) 40 mg PO HS [facility] Last Admin: 08/05/16 23:07 Dose: 40 mg Diphenhydramine HCl (Benadryl -) 25 mg PO HS PRN PRN Reason: INSOMNIA Duloxetine HCl (Cymbalta -) 30 mg PO DAILY [facility] Last Admin: 08/06/16 09:51 Dose: 30 mg Heparin Sodium (Porcine) (Heparin -) 5,000 unit SQ BID [facility] Last Admin: 08/06/16 09:51 Dose: 5,000 unit Insulin Aspart (Novolog Vial Sliding Scale -) 1 vial SQ ACHS [facility] PRN Reason: Protocol Last Admin: 08/06/16 11:49 Dose: 8 units Insulin Aspart (Novolog Mix 70/30 Vial) 25 units SQ BIDAC [facility] Last Admin: 08/06/16 06:33 Dose: 25 units Meclizine HCl (Antivert -) 25 mg PO TID PRN PRN Reason: VERTIGO Oxycodone HCl (Roxicodone -) 5 mg PO Q4H PRN PRN Reason: PAIN Pantoprazole Sodium (Protonix -) 40 mg PO DAILY [facility] Last Admin: 08/06/16 09:51 Dose: 40 mg Polyethylene Glycol (Miralax (For Daily Use) -) 17 gm PO BID [facility] Last Admin: 08/06/16 09:52 Dose: 17 grams Ramipril (Altace -) 5 mg PO DAILY [facility] Last Admin: 08/06/16 09:51 Dose: 5 mg Sitagliptin Phosphate (Januvia -) 50 mg PO DAILY@0700 [facility] Last Admin: 08/06/16 06:33 Dose: 50 mg Constitutional: Yes: No Distress Eyes: Yes: Conjunctiva Clear, EOM Intact HENT: Yes: Atraumatic, Normocephalic Neck: Yes: Supple Cardiovascular: Yes: Regular Rate and Rhythm Respiratory: Yes: CTA Bilaterally, Cough, Diminished, On Nasal O2. No: Rales, Rhonchi, Stridor, Tachypnea, Wheezes ...Inspection: Yes: WNL ...Clubbing: No Gastrointestinal: Yes: Normal Bowel Sounds, Soft, Abdomen, Obese Renal/: Yes: WNL Musculoskeletal: Yes: WNL Extremities: Yes: WNL Edema: Yes Peripheral Pulses WNL: Yes Integumentary: Yes: WNL Neurological: Yes: Alert, Oriented ...Motor Strength: WNL Psychiatric: Yes: WNL, Alert, Oriented Labs: Laboratory Results - last 24 hr 08/05/16 08/05/16 08/06/16 17:15 23:13 06:17 WBC RBC Hgb Hct MCV MCHC RDW Plt Count MPV Neutrophils % Lymphocytes % Monocytes % Eosinophils % Basophils % Sodium Potassium Chloride Carbon Dioxide Anion Gap BUN Creatinine Creat Clearance w eGFR POC Glucometer 189 363 340 Random Glucose Calcium Total Bilirubin AST ALT Alkaline Phosphatase Creatine Kinase Troponin I Total Protein Albumin 08/06/16 08/06/16 08/06/16 10:45 10:45 11:21 WBC 7.7 RBC 4.54 Hgb 11.6 Hct 35.4 MCV 78.0 L MCHC 32.9 RDW 20.7 H Plt Count 179 MPV 8.0 Neutrophils % 69.2 Lymphocytes % 10.8 D Monocytes % 17.8 H Eosinophils % 0.8 Basophils % 1.4 Sodium 138 Potassium 3.9 Chloride 99 Carbon Dioxide 29 Anion Gap 10 BUN 17 D Creatinine 0.7 Creat Clearance w eGFR > 60 POC Glucometer 310 Random Glucose 328 H* D Calcium 8.4 L Total Bilirubin 0.5 D AST 29 D ALT 27 Alkaline Phosphatase 155 H Creatine Kinase 36 Troponin I 0.04 Total Protein 6.0 L Albumin 2.7 L Problem List - Problems (1) ASHD (arteriosclerotic heart disease) Code(s): I25.10 - ATHSCL HEART DISEASE OF [place] CORONARY ARTERY W/O ANG PCTRS (2) Breast cancer, left Code(s): C50.912 - MALIGNANT NEOPLASM OF UNSPECIFIED SITE OF LEFT FEMALE BREAST Qualifiers: Breast location: unspecified site of breast Estrogen receptor status: positive Patient sex: female Qualified Code(s): C50.912 - Malignant neoplasm of unspecified site of left female breast (3) Carotid stenosis Code(s): I65.29 - OCCLUSION AND STENOSIS OF UNSPECIFIED CAROTID ARTERY Qualifiers: Laterality: right Qualified Code(s): I65.21 - Occlusion and stenosis of right carotid artery (4) Chest pain Code(s): R07.9 - CHEST PAIN, UNSPECIFIED (5) Diabetes Code(s): E11.9 - TYPE 2 DIABETES MELLITUS WITHOUT COMPLICATIONS Qualifiers: Diabetes mellitus type: type 2 Diabetes mellitus complication status: without complication Diabetes mellitus intermediate insulin use: with intermediate use Qualified Code(s): E11.9 - Type 2 diabetes mellitus without complications (6) Dizziness Code(s): R42 - DIZZINESS AND GIDDINESS (7) HLD (hyperlipidemia) Code(s): E78.5 - HYPERLIPIDEMIA, UNSPECIFIED Qualifiers: Hyperlipidemia type: pure hypercholesterolemia Qualified Code(s): E78.00 - Pure hypercholesterolemia, unspecified; E78.0 - Pure hypercholesterolemia (8) Hypertension associated with diabetes Code(s): E11.59 - TYPE 2 DIABETES MELLITUS WITH OTH CIRCULATORY COMPLICATIONS I10 - ESSENTIAL (PRIMARY) HYPERTENSION (9) Profound anemia Code(s): D64.9 - ANEMIA, UNSPECIFIED Qualifiers: Anemia type: other cause Other causes of anemia: other cause, not classified Qualified Code(s): D64.89 - Other specified anemias (10) S/P CABG (coronary artery bypass graft) Code(s): Z95.1 - PRESENCE OF AORTOCORONARY BYPASS GRAFT Assessment/Plan BD TX PRN Monitor off systemic steroids O2 as needed PFTs after discharge Would benefit from sleep apnea screen after discharge No indication of PNA or respiratory tract infection Dr Topete Problem List - Problems (1) ASHD (arteriosclerotic heart disease) Code(s): I25.10 - ATHSCL HEART DISEASE OF [place] CORONARY ARTERY W/O ANG PCTRS (2) Breast cancer, left Code(s): C50.912 - MALIGNANT NEOPLASM OF UNSPECIFIED SITE OF LEFT FEMALE BREAST Qualifiers: Breast location: unspecified site of breast Estrogen receptor status: positive Patient sex: female Qualified Code(s): C50.912 - Malignant neoplasm of unspecified site of left female breast (3) Carotid stenosis Code(s): I65.29 - OCCLUSION AND STENOSIS OF UNSPECIFIED CAROTID ARTERY Qualifiers: Laterality: right Qualified Code(s): I65.21 - Occlusion and stenosis of right carotid artery (4) Chest pain Code(s): R07.9 - CHEST PAIN, UNSPECIFIED (5) Diabetes Code(s): E11.9 - TYPE 2 DIABETES MELLITUS WITHOUT COMPLICATIONS Qualifiers: Diabetes mellitus type: type 2 Diabetes mellitus complication status: without complication Diabetes mellitus intermediate insulin use: with intermediate use Qualified Code(s): E11.9 - Type 2 diabetes mellitus without complications (6) Dizziness Code(s): R42 - DIZZINESS AND GIDDINESS (7) HLD (hyperlipidemia) Code(s): E78.5 - HYPERLIPIDEMIA, UNSPECIFIED Qualifiers: Hyperlipidemia type: pure hypercholesterolemia Qualified Code(s): E78.00 - Pure hypercholesterolemia, unspecified; E78.0 - Pure hypercholesterolemia (8) Hypertension associated with diabetes Code(s): E11.59 - TYPE 2 DIABETES MELLITUS WITH OTH CIRCULATORY COMPLICATIONS I10 - ESSENTIAL (PRIMARY) HYPERTENSION (9) Profound anemia Code(s): D64.9 - ANEMIA, UNSPECIFIED Qualifiers: Anemia type: other cause Other causes of anemia: other cause, not classified Qualified Code(s): D64.89 - Other specified anemias (10) S/P CABG (coronary artery bypass graft) Code(s): Z95.1 - PRESENCE OF AORTOCORONARY BYPASS GRAFT
[2016-08-06] MEDS ORDERED: INSULIN (NOVOLOG MIX 70/30) 100 UNITS/ML MDV SQ SCH (16:19)
[2016-08-06] MEDS: RANOLAZINE E.R. 500 MG TABLET (FP) PO SCH (22:11)
[2016-08-06] MEDS: ATORVASTATIN CA 40 MG TABLET (FP) PO SCH (22:11)
[2016-08-07] MEDS: ALBUTEROL SO4 2.5/IPRATROPIUM 0.5 INH SOL 3 ML VIAL.NEB. NEB SCH (06:08)
[2016-08-07] MEDS: sitaGLIPtin PHOSPHATE 50 MG TABLET PO SCH (06:18)
[2016-08-07] MEDS ORDERED: INSULIN (NOVOLOG MIX 70/30) 100 UNITS/ML MDV SQ SCH (07:00)
[2016-08-07] MEDS ORDERED: INSULIN SLIDING SCALE (NOVOLOG) 1 VIAL SQ SCH (07:00)
--- NOTE | 2016-08-07 08:52 | DS ---
Physical Examination Vital Signs: Vital Signs Temperature 98.4 F 08/07/16 06:06 Pulse Rate 88 08/07/16 06:06 Respiratory Rate 20 08/07/16 06:06 Blood Pressure 150/77 08/07/16 06:06 O2 Sat by Pulse Oximetry (%) 96 08/06/16 21:00 Findings/Remarks: NO COMPLAINTS Cardiovascular: Yes: Regular Rate and Rhythm Respiratory: Yes: Regular, CTA Bilaterally Gastrointestinal: Yes: Normal Bowel Sounds, Soft Labs: CBC, BMP 08/06/16 10:45 08/06/16 10:45 Discharge Summary Reason For Visit: MALIGNANT NEOPLASM OF L BREAST,DIZZINESS,DM,ANEMIA Current Active Problems ASHD (arteriosclerotic heart disease) (Acute) Breast cancer, left (Acute) Carotid stenosis (Acute) Chest pain (Acute) Diabetes (Acute) Dizziness (Acute) HLD (hyperlipidemia) (Acute) Hypertension associated with diabetes (Acute) Knee pain (Acute) Low back pain radiating to both legs (Acute) Orthostasis (Acute) Profound anemia (Acute) S/P CABG (coronary artery bypass graft) (Acute) Unstable angina (Acute) Weakness (Acute) Hospital Course: The patient is a 66 year old female with a significant past medical history of diabetes, hypertension, hypercholesterolemia, CAD s/p bypass, and breast ca ( currently on chemo), presenting to the Emergency Department with dizziness for three days. The patient describes her dizziness as walking as if she is drunk, she admits that the dizziness is exacerbated by standing from a seated position , and admits to walking into [place] secondary to the dizziness. She also reports that her legs feel tired after walking. She states that she is on weekly chemotherapy for breast cancer, though she skipped this Sunday as she has not felt well. The patient denies headache, or visual changes. Patient denies nausea, vomiting , and diarrhea. Patient denies fever, cough, and chills. Patient denies chest pain, palpitations, and shortness of breath. today patient states she is having a headache and says that pain in legs and lower back she states that legs feel heavy but she has sensation History Source: Patient, Medical Record - Past Medical History Cardiovascular: Yes: CAD, HTN, Hyperlipdemia Endocrine: Yes: Diabetes Mellitus - Past Surgical History Past Surgical History: Yes: CABG Assessment/Plan - Problems (1) Carotid stenosis Assessment/Plan: carotid doppler noted 70% stenosis----SHE WILL F/U WITH DR PARRA will order MRA of neck and head and vascular eval as well--REFUSESS-PT STATES HAS HISTORY AND FOLLOWS UP W DR PARRA Code(s): I65.29 - OCCLUSION AND STENOSIS OF UNSPECIFIED CAROTID ARTERY Qualifiers: Laterality: right Qualified Code(s): I65.21 - Occlusion and stenosis of right carotid artery (2) Dizziness Assessment/Plan: mri noted meclizine prn still dizzy today when she gets out of bed Code(s): R42 - DIZZINESS AND GIDDINESS (3) Breast cancer, left Assessment/Plan: followed by oncology in [facility] last chemo july 24 seen by oncologist here doppler negative for dvt Code(s): C50.912 - MALIGNANT NEOPLASM OF UNSPECIFIED SITE OF LEFT FEMALE BREAST Qualifiers: Breast location: unspecified site of breast Estrogen receptor status: positive Patient sex: female Qualified Code(s): C50.912 - Malignant neoplasm of unspecified site of left female breast (4) HLD (hyperlipidemia) Assessment/Plan: on a statin check lipid panel Code(s): E78.5 - HYPERLIPIDEMIA, UNSPECIFIED Qualifiers: Hyperlipidemia type: pure hypercholesterolemia Qualified Code(s): E78.00 - Pure hypercholesterolemia, unspecified; E78.0 - Pure hypercholesterolemia (5) Low back pain radiating to both legs Assessment/Plan: ct scan of lumbar/sacral spine to r/o foramin stenosis Code(s): M54.5 - LOW BACK PAIN (6) Profound anemia Assessment/Plan: s/p prbc now much improved Code(s): D64.9 - ANEMIA, UNSPECIFIED Qualifiers: Anemia type: other cause Other causes of anemia: other cause, not classified Qualified Code(s): D64.89 - Other specified anemias (7) Diabetes Assessment/Plan: januvia sliding scale check [id number] Code(s): E11.9 - TYPE 2 DIABETES MELLITUS WITHOUT COMPLICATIONS Qualifiers: Diabetes mellitus type: type 2 Diabetes mellitus complication status: without complication Diabetes mellitus longterm insulin use: 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 Qualified Code(s): E11.9 - Type 2 diabetes mellitus without complications (8) Chest Pain Assessment/Plan: MAY NEED STRESS TESTING CE TRENDING DOWN PT WILL SEE CARDIOLOGY STATES TESTING DONE 2 MONTHS AGO AND IT WAS FINE FEELS BETTER NO CP--WANTS TO GO HOME HAS APT WITH CARDIOLOGY TODAY Condition: Improved - Instructions Diet, Activity, Other Instructions: FOLLOW UP [facility] CARDIOLOGY YOU MAY NEED FURTHER TESTING INCLUDING STRESS TEST IF CHEST PAIN RECURS TO THE ER Referrals: Vasyl Odonnell MD [Primary Care Provider] - 1 Week Disposition: HOME - Home Medications Comprehensive Discharge Medication List: Ambulatory Orders Atenolol [Tenormin -] 50 mg PO HS 06/29/13 Atorvastatin Ca [Lipitor] 40 mg PO HS 06/29/13 Insulin NPL/Insulin Lispro [Humalog Mix 50-50 Kwikpen] 35 unit SQ BID 06/29/13 Ramipril 5 mg PO DAILY 06/29/13 Duloxetine HCl [Cymbalta] 30 mg PO DAILY 03/05/15 Esomeprazole Magnesium [Nexium 24Hr] 40 mg PO DAILY 03/21/16 Insulin Degludec [Tresiba Flextouch U-100] 40 unit SQ DAILY 03/21/16 Sitagliptin Phos/Metformin HCl [Janumet 50-1,000 mg Tablet] 1 each PO DAILY 08/28 Oxycodone HCl/Acetaminophen [Percocet 5-325 mg Tablet] 1 - 2 tab PO Q6H PRN #20 tab MDD 6 03/28/16 Albuterol 2.5/Ipratropium 0.5 [Duoneb -] 1 amp NEB QIDR #120 amp 08/07/16 Insulin (Novolog 70/30) [Novolog Mix 70/30 Vial -] 37 units SQ BIDAC vial 08/07 Meclizine HCl [Antivert -] 25 mg PO TID PRN #30 tablet 08/07/16 Polyethylene Glycol 3350 [Miralax 119 gm Btl -] 17 gm PO BID #1 bottle 08/07/16 Ranolazine [Ranexa -] 500 mg PO BID #60 tab 08/07/16
--- NOTE | 2016-08-07 09:15 | PN ---
Progress Note, Physician History of Present Illness: Dizziness resolved post transfusion 2 U pRBC, ready for d/c, no events on telemetry. - Current Medication List Current Medications: Active Medications Albuterol/Ipratropium (Duoneb -) 1 amp NEB QIDR [facility] Last Admin: 08/07/16 06:08 Dose: 1 amp Atenolol (Tenormin -) 50 mg PO DAILY [facility] Last Admin: 08/06/16 09:51 Dose: 50 mg Atorvastatin Calcium (Lipitor -) 40 mg PO HS [facility] Last Admin: 08/06/16 22:11 Dose: 40 mg Diphenhydramine HCl (Benadryl -) 25 mg PO HS PRN PRN Reason: INSOMNIA Duloxetine HCl (Cymbalta -) 30 mg PO DAILY [facility] Last Admin: 08/06/16 09:51 Dose: 30 mg Heparin Sodium (Porcine) (Heparin -) 5,000 unit SQ BID [facility] Last Admin: 08/06/16 22:12 Dose: 5,000 unit Insulin Aspart (Novolog Mix 70/30 Vial) 37 units SQ BIDAC [facility] Last Admin: 08/07/16 06:18 Dose: 37 units Insulin Aspart (Novolog Vial Sliding Scale -) 1 vial SQ ACHS [facility] PRN Reason: Protocol Last Admin: 08/07/16 06:19 Dose: 9 units Meclizine HCl (Antivert -) 25 mg PO TID PRN PRN Reason: VERTIGO Oxycodone HCl (Roxicodone -) 5 mg PO Q4H PRN PRN Reason: PAIN Pantoprazole Sodium (Protonix -) 40 mg PO DAILY [facility] Last Admin: 08/06/16 09:51 Dose: 40 mg Polyethylene Glycol (Miralax (For Daily Use) -) 17 gm PO BID [facility] Last Admin: 08/06/16 22:11 Dose: 17 grams Ramipril (Altace -) 5 mg PO DAILY [facility] Last Admin: 08/06/16 09:51 Dose: 5 mg Ranolazine (Ranexa -) 500 mg PO BID [facility] Last Admin: 08/06/16 22:11 Dose: 500 mg Sitagliptin Phosphate (Januvia -) 50 mg PO DAILY@0700 [facility] Last Admin: 08/07/16 06:18 Dose: 50 mg - Objective Vital Signs: Vital Signs Temperature 98.4 F 08/07/16 06:06 Pulse Rate 88 06/26/17 06:06 Respiratory Rate 20 08/07/16 06:06 Blood Pressure 150/77 08/07/16 06:06 O2 Sat by Pulse Oximetry (%) 96 08/06/16 21:00 Constitutional: Yes: No Distress, Calm Neck: Yes: Supple Cardiovascular: Yes: Regular Rate and Rhythm Respiratory: Yes: Regular, Diminished Gastrointestinal: Yes: Normal Bowel Sounds, Soft, Abdomen, Obese Edema: No Labs: CBC, BMP 08/06/16 10:45 08/06/16 10:45 INR, PTT INR 1.27 (0.82-1.09) H 08/03/16 11:15 Problem List - Problems (1) ASHD (arteriosclerotic heart disease) Code(s): I25.10 - ATHSCL HEART DISEASE OF [place] CORONARY ARTERY W/O ANG PCTRS (2) Breast cancer, left Code(s): C50.912 - MALIGNANT NEOPLASM OF UNSPECIFIED SITE OF LEFT FEMALE BREAST Qualifiers: Breast location: unspecified site of breast Estrogen receptor status: positive Patient sex: female Qualified Code(s): C50.912 - Malignant neoplasm of unspecified site of left female breast (3) Diabetes Code(s): E11.9 - TYPE 2 DIABETES MELLITUS WITHOUT COMPLICATIONS Qualifiers: Diabetes mellitus type: type 2 Diabetes mellitus complication status: without complication Diabetes mellitus intermediate insulin use: with terminal press operator use Qualified Code(s): E11.9 - Type 2 diabetes mellitus without complications (4) Dizziness Code(s): R42 - DIZZINESS AND GIDDINESS (5) HLD (hyperlipidemia) Code(s): E78.5 - HYPERLIPIDEMIA, UNSPECIFIED Qualifiers: Hyperlipidemia type: pure hypercholesterolemia Qualified Code(s): E78.00 - Pure hypercholesterolemia, unspecified; E78.0 - Pure hypercholesterolemia (6) Orthostasis Code(s): I95.1 - ORTHOSTATIC HYPOTENSION (7) S/P CABG (coronary artery bypass graft) Code(s): Z95.1 - PRESENCE OF AORTOCORONARY BYPASS GRAFT (8) Hypertension associated with diabetes Code(s): E11.59 - TYPE 2 DIABETES MELLITUS WITH OTH CIRCULATORY COMPLICATIONS I10 - ESSENTIAL (PRIMARY) HYPERTENSION (9) Carotid stenosis Code(s): I65.29 - OCCLUSION AND STENOSIS OF UNSPECIFIED CAROTID ARTERY Qualifiers: Laterality: right Qualified Code(s): I65.21 - Occlusion and stenosis of right carotid artery (10) Profound anemia Code(s): D64.9 - ANEMIA, UNSPECIFIED Qualifiers: Anemia type: other cause Other causes of anemia: other cause, not classified Qualified Code(s): D64.89 - Other specified anemias Assessment/Plan 1. Dizziness with orthostasis improved post PRBC transfusion 2. CAD s/p CABG, angina pectoris 3. HTN 4. Hyperlipidemia 5. DM with peripheral neuropathy 6. Breast CA post chemotherapy 7. Anemia 8. Obstructive right CCA stenosis 9. Cerebrovascular disease PLAN: 1. Continue Atenolol 50 qd, Lipitor 40 qhs,and Altace 5 qd. Started on Ranexa, resume ASA 81 qd as Hgb remains stable 2. PFTs and sleep study as outpatient 3. Patient to be d/nestor with f/u with Dr. Tarun Quinonez at [place]
[2016-08-07 09:47] VITALS: BP 116/54; PULSE 92; TEMP 98.2
[2016-08-07] MEDS: RANOLAZINE E.R. 500 MG TABLET (FP) PO SCH (09:49)
[2016-08-07] MEDS: DULoxetine HCL 30 MG CAPSULE.DR (FP) PO SCH (09:49)
[2016-08-07] MEDS: PANTOPRAZOLE 40 MG TABLET (FP) PO SCH (09:49)
[2016-08-07] MEDS: ATENOLOL 50 MG TABLET (FP) PO SCH (09:49)
[2016-08-07] MEDS: HEPARIN NA (PORCINE) 5,000 UNITS/ML 1ML VIAL SQ SCH (09:49)
[2016-08-07] MEDS: POLYETHYLENE GLYCOL 3350 119 GM BTL PO SCH (09:50)
[2016-08-07] MEDS: RAMIPRIL 5 MG CAPSULE (FP) PO SCH (09:50)
[2016-08-08] MEDS ORDERED: ASPIRIN 81 MG CHEWABLE TABLETS PO SCH (10:00)
== END 2016-08-07 11:01 | disposition home or self-care (01) | DRG 812 ==
LOC: JER 10:15 → JERBED 13:59 → J7W 18:37 → J4W 08-05 15:35
PROVIDERS: ADMIT Family Medicine; ATTEND Family Medicine
PROC: 30233N1 Transfusion of Nonautologous Red Blood Cells into Peripheral Vein, Percutaneous Approach (ICD-10-PCS; principal; 2016-08-03)
DX: D64.9 Anemia, unspecified (principal); I65.21 Occlusion and stenosis of right carotid artery; I10 Essential (primary) hypertension; C50.912 Malignant neoplasm of unspecified site of left female breast; I25.119 Atherosclerotic heart disease of native coronary artery with unspecified angina pectoris; Z95.1 Presence of aortocoronary bypass graft; E78.00 Pure hypercholesterolemia, unspecified; E11.42 Type 2 diabetes mellitus with diabetic polyneuropathy; Z79.4 Long term (current) use of insulin; Z17.0 Estrogen receptor positive status [ER+]; Z87.891 Personal history of nicotine dependence; I95.1 Orthostatic hypotension; R51 Headache; M54.5 Low back pain
CPT/HCPCS: 36415; 36430; 70450-TC; 70551-TC; 71010-TC; 74020-TC; 80053; 80061; 82272; 82550; 83036; 83721; 83880; 84484; 85025; 85610; 86850; 86900; 86901; 86922; 93005; 93010; 93306-TC; 93880-TC; 93970-TC; 94640; 97116-GP; 97161-GP; 99284-25; J1644; P9038; P9058

== ENCOUNTER 2018-03-20 13:29 | Emergency (ER) | payer MEDICARE, OTHER ==
[2018-03-20 13:40] VITALS: BP 157/58; PULSE 89; TEMP 98.1; BMI 44.6
--- NOTE | 2018-03-20 14:15 | PDOC ---
History of Present Illness - General Chief Complaint: Blood Sugar Problem Stated Complaint: SENT BY PCP/TAKE WRONG MEDICATION - History of Present Illness Initial Comments: The pt is a 67F w/ a history of CAD s/p CABG, breast cancer s/p lumpectomy and chemo/rads 1y ago, and T2DM who presents for evaluation s/p accidental administration of humulin R insulin 65 units at 1030 this AM instead of toujeo injection. The pt called Dr. Elliott who advised her to present to the ED and to drink OJ Q15min. BGM 1hr STOCK RAISER was 381. She also reports eating more food than usual s/p realization of incorrect dose. Glargine 65-70u Qam Humalog 50/50 35-40u w/ meals 03/20/18 14:16 Past History - Past Medical History Allergies/Adverse Reactions: Allergies Allergy/AdvReac Type Severity Reaction Status Date / Time No Known Allergies Allergy Verified 03/20/18 13:35 Home Medications: Ambulatory Orders Atenolol [Tenormin -] 50 mg PO HS 06/29/13 Atorvastatin Ca [Lipitor] 40 mg PO HS 06/29/13 Insulin NPL/Insulin Lispro [Humalog Mix 50-50 Kwikpen] 35 unit SQ BID 06/29/13 Ramipril 5 mg PO DAILY 06/29/13 Duloxetine HCl [Cymbalta] 30 mg PO DAILY 03/05/15 Esomeprazole Magnesium [Nexium 24Hr] 40 mg PO DAILY 03/21/16 Insulin Degludec [Tresiba Flextouch U-100] 40 unit SQ DAILY 03/21/16 Sitagliptin Phos/Metformin HCl [Janumet 50-1,000 mg Tablet] 1 each PO DAILY 08/28 Oxycodone HCl/Acetaminophen [Percocet 5-325 mg Tablet] 1 - 2 tab PO Q6H PRN #20 tab MDD 6 03/28/16 Albuterol 2.5/Ipratropium 0.5 [Duoneb -] 1 amp NEB QIDR #120 amp 08/07/16 Insulin (Novolog 70/30) [Novolog Mix 70/30 Vial -] 37 units SQ BIDAC vial 08/07 Meclizine HCl [Antivert -] 25 mg PO TID PRN #30 tablet 08/07/16 Polyethylene Glycol 3350 [Miralax 119 gm Btl -] 17 gm PO BID #1 bottle 08/07/16 Ranolazine [Ranexa -] 500 mg PO BID #60 tab 08/07/16 Anemia: No Asthma: No Cancer: Yes (LEFT BREAST JAN 2016, chemo) Cardiac Disorders: Yes (CABG 15 YRS AGO/OVER 1 YR HAD ANGIOPLASTY ?) CVA: No COPD: No CHF: No Dementia: No Diabetes: Yes (DIAG 25 YRS AGO/INSULIN DEPENDENT) GI Disorders: No Disorders: Yes (URINARY FREQUENCY) HTN: Yes Hypercholesterolemia: Yes Liver Disease: No Seizures: No Thyroid Disease: No - Surgical History Abdominal Surgery: Yes (CYST REMOVED) Appendectomy: No Cardiac Surgery: Yes (BYPASS 15 YRS AGO) Cholecystectomy: No Lung Surgery: No Orthopedic Surgery: No - Immunization History Immunization Up to Date: Yes - Suicide/Smoking/Psychosocial Hx Smoking History: Former smoker Have you smoked in the past 12 months: No If you are a former smoker, when did you quit?: 2012 Information on smoking cessation initiated: No Hx Alcohol Use: No Drug/Substance Use Hx: No Substance Use Type: None Hx Substance Use Treatment: No Review of Systems - Review of Systems Comments:: GENERAL/CONSTITUTIONAL: No fever or chills. No weakness HEAD, EYES, EARS, NOSE AND THROAT: No change in vision. No ear pain or discharge. No sore throat CARDIOVASCULAR: No chest pain or shortness of breath RESPIRATORY: Denies cough, hemoptysis GASTROINTESTINAL: No nausea, vomiting, diarrhea or constipation GENITOURINARY: No dysuria, frequency, or change in urination MUSCULOSKELETAL: No joint or muscle swelling or pain. No neck or back pain SKIN: No rash NEUROLOGIC: No headache, vertigo, loss of consciousness, or change in strength/ sensation ENDOCRINE: No increased thirst. No abnormal weight change HEMATOLOGIC/LYMPHATIC: +plavix ALLERGIC/IMMUNOLOGIC: No hives or skin allergy 03/20/18 14:14 03/20/18 14:36 *Physical Exam - Vital Signs Last Vital Signs Temp Pulse Resp BP Pulse Ox 98.1 F 89 18 157/58 L 97 03/20/18 13:35 03/20/18 13:35 03/20/18 13:35 03/20/18 13:35 03/20/18 13:35 - Physical Exam Comments: GENERAL: Awake, alert, and fully oriented, in no acute distress HEAD: No signs of trauma, normocephalic, atraumatic EYES: PERRLA, EOMI, sclera anicteric, conjunctiva clear ENT: Hearing grossly normal, nares patent, oropharynx clear without exudates. Moist mucosa LUNGS: No distress, speaks full sentences, clear to auscultation bilaterally HEART: Regular rate and rhythm, normal S1 and S2, no murmurs appreciated, peripheral pulses normal and equal bilaterally ABDOMEN: Soft, protuberant, nontender, normoactive bowel sounds. No guarding, no rebound EXTREMITIES : 1+ BLE edema; RLE well healed saphenous vein harvest incision NEUROLOGICAL: Cranial nerves II through XII grossly intact. Normal speech, no focal sensorimotor deficits SKIN: Mild BLE venous stasis changes to [place] 03/20/18 14:14 Moderate Sedation - Procedure Monitoring Vital Signs: Procedure Monitoring Vital Signs Temperature 98.1 F 03/20/18 13:35 Pulse Rate 89 03/20/18 13:35 Respiratory Rate 18 03/20/18 13:35 Blood Pressure 157/58 L 03/20/18 13:35 O2 Sat by Pulse Oximetry (%) 97 03/20/18 13:35 ED Treatment Course - LABORATORY CBC & Chemistry Diagram: 03/20/18 14:57 - ADDITIONAL ORDERS Additional order review: Laboratory Results 03/20/18 13:43 POC Glucometer 416 03/20/18 13:43 POC Glucometer 416 Medical Decision Making - Medical Decision Making The pt is a 67F w/ a history of CAD s/p CABG, L breast cancer s/p lumpectomy and chemo/rads, T2DM on insulin who accidentally took 65u of regular insulin today at 1030. ED Course BGM 400s initially in ED CMP ordered to check renal fxn Spoke w/ Dr. Odonnell who stated that she may be D/C'ed home, should check her BG every hour and contact him this evening and he will instruct her on her PM dose of insulin. Will instruct patient not to take more than 10u at a time. Patient has no complaints in ED 03/20/18 14:38 Plan for D/C w/ PCP f/u Plan discussed with patient and PCP who are all in agreement Discharge instructions and return precautions given Patient verbalized understanding Dispo: home 03/20/18 18:27 *DC/Admit/Observation/Transfer Diagnosis at time of Disposition: Diabetes Qualifiers: Diabetes mellitus type: type 2 Diabetes mellitus chcf insulin use: with chcf use Diabetes mellitus complication status: with unspecified complications Qualified Code(s): E11.8 - Type 2 diabetes mellitus with unspecified complications Overdose of insulin Qualifiers: Encounter type: initial encounter Injury intent: accidental or unintentional Qualified Code(s): T38.3X1A - Poisoning by insulin and oral hypoglycemic [ antidiabetic] drugs, accidental (unintentional), initial encounter - Discharge Dispostion Disposition: HOME Condition at time of disposition: Stable Decision to Admit order: No - Referrals Referrals: Vasyl Odonnell MD [Primary Care Provider] - - Patient Instructions Printed Discharge Instructions: DI for Diabetes Type 2 Additional Instructions: You were seen in the Emergency Department for accidental overdose of regular insulin. You blood sugar in the Emergency Department was 400s. Continue to check your blood sugar every hour today. Be sure to contact Dr. Elliott this evening to discuss your insulin dose. Return to the Emergency Department if you notice that your blood sugar begins to drop rapidly or despite food/juice intake, or if you develop confusion, lethargy, nausea, abdominal/chest pain, or any new/concerning symptoms. - Post Discharge Activity
--- NOTE | 2018-03-20 15:02 | PDOC ---
Attending Attestation - HPI HPI: 03/20/18 15:12 The patient is a 67 year old female with a significant past medical history of CAD s/p CABG, breast cancer s/p lumpectomy and chemo/rads 1y ago, and DM who presents to the ED for evaluation s/p accidental administration of humulin R insulin 65 units at 1030 this AM instead of toujeo injection. The patient states Dr. Dixon advised her to come to the ED and to drink orange juice every 15 minutes. - Physicial Exam PE: 03/20/18 15:35 Constitutional: Awake, alert, oriented. No acute distress. Head: Normocephalic. Atraumatic Eyes: PERRL. EOMI. Conjunctivae are not pale. ENT: Mucous membranes are moist and intact. Posterior pharynx without exudates or erythema. Uvula midline. Neck: Supple. Full ROM. No lymphadenopathy. Cardiovascular: Regular rate. Regular rhythm. S1, S2 regular. Distal pulses are 2+ and symmetric. Pulmonary/Chest: No evidence of respiratory distress. Clear to auscultation bilaterally No wheezing, rales or rhonchi. Abdominal: (+) Obese. Soft and non-distended. There is no tenderness. No rebound, guarding or rigidity. No organomegaly. No palpable masses. Good bowel sounds. Back: No CVA tenderness. Musculoskeletal: (+)1+ pitting edema to ankles bilaterally. No cyanosis. No clubbing. Full range of motion in all extremities. Nocalf tenderness. Radial/ pedal pulses are intact and 2+ bilaterally Skin: Skin is warm and dry. No petechiae. No purpura. Neurological: Alert and oriented to person, place, and time. Cranial nerves II -XII are grossly intact. Normal speech. Strength is grossly symmetric. No sensory deficits. Psychiatric: Good eye contact. Normal interaction, affect and behavior. <Bharti Melendez - Last Filed: 03/20/18 15:35> - Resident Resident Name: Mil Perales - ED Attending Attestation I have performed the following: I have examined & evaluated the patient, The case was reviewed & discussed with the resident, I agree w/resident's findings & plan, Exceptions are as noted - Medical Decision Making 03/20/18 15:01 I, Dr. Coreen Jacobo, DO, attest that this document has been prepared under my direction and personally reviewed by me in its entirety. I further attest, that it accurately reflects all work, treatment, procedures and medical decision -making performed by me. 03/20/18 16:07 a/p: 67yo female with accidental insulin use today -used regular insulin instead of long acting insulin -use was at 1030am -case was discussed with Dr. Dixon who recommended eating and drinking -pt arrives with elevated blood glucose - >400 -asymptomatic -will monitor and reassess -will send chem -will discuss with Dr. Dixon 03/20/18 16:08 Resident discussed the case with dr. dixon who recommends if repeat glucose above 200 then ok to monitor glucose as outpt 03/20/18 16:10 repeat finger stick [address] dixon tonight will continue to check glucose at home stable for dc to home <Coreen Jacobo - Last Filed: 03/20/18 16:10>
[2018-03-20 15:40] LABS: ALBUMIN 3.5 g/dl (3.4-5.0); ALK PHOS 139 U/L (45-117); ANION GAP 8 MMOL/L (8-16); BILIRUBIN,TOTAL 0.3 mg/dL (0.2-1); BLOOD UREA NITROGEN 19 mg/dL (7-18); CALCIUM 9.1 mg/dL (8.5-10.1); CHLORIDE 100 mmol/L (98-107); CO2 27 mmol/L (21-32); CREATININE 0.9 mg/dL (0.55-1.3); POTASSIUM 4.6 mmol/L (3.5-5.1); SGOT/AST 11 U/L (15-37); SGPT/ALT 22 U/L (13-61); SODIUM 135 mmol/L (136-145); TOT PROT 6.8 g/dl (6.4-8.2)
[2018-03-20 15:44] LABS: GLUCOSE,RANDOM 437 mg/dL (74-106)
== END 2018-03-20 16:27 | disposition home or self-care (01) ==
LOC: JER 13:29
DX: T38.3X1A Poisoning by insulin and oral hypoglycemic [antidiabetic] drugs, accidental (unintentional), initial encounter (principal); E11.9 Type 2 diabetes mellitus without complications; Z79.4 Long term (current) use of insulin; I25.10 Atherosclerotic heart disease of native coronary artery without angina pectoris; I10 Essential (primary) hypertension; Z95.1 Presence of aortocoronary bypass graft; E78.00 Pure hypercholesterolemia, unspecified; Z85.3 Personal history of malignant neoplasm of breast; R35.0 Frequency of micturition
CPT/HCPCS: 36415; 80053; 82962; 99281-25

== ENCOUNTER 2018-04-09 19:43 | Inpatient (IN) | payer MEDICARE, OTHER ==
--- NOTE | 2018-04-09 20:02 | PDOC ---
Rapid Medical Evaluation Medical Evaluation: Allergies Allergy/AdvReac Type Severity Reaction Status Date / Time No Known Allergies Allergy Verified 04/09/18 20:00 I have performed a brief in-person evaluation of this patient. The patient presents with a chief complaint of: hx of CAD s/p CABG, breast cancer s/p lumpectomy and chemo/rads 1y ago, and DM, c/o KILLIAN x 3 days along with chest tightness Pertinent physical exam findings: Lungs clear, BLE pitting edema I have ordered the following: Labs, EKG, CXR The patient will proceed to the ED for further evaluation. 04/09/18 20:00 04/09/18 20:04
--- NOTE | 2018-04-09 20:24 | PDOC ---
History of Present Illness - General History Source: Patient, Family Exam Limitations: No Limitations - History of Present Illness Initial Comments: 04/09/18 20:52 The patient is a 68 year old female with a significant past medical history of CAD (s/p CABG), breast ca (s/p lumpectomy and chemo radiation 1 yr ago) and diabetes who presents to the emergency department with worsening shortness of breath for 3 days. The patient reports that she was outside this evening walking when she began to experience an onset of dyspnea with exertion. The patient reports some associated worsening lower extremity edema. She states that she had not been taking her water pills for several days secondary to frequent bathroom use. The patient states that her shortness of breath is relieved with sitting and relaxing. She denies any fever, cills, nausea, vomiting, diarrhea, constipation or urinary symptoms. She denies any chest pain , headache, dizziness, weakness, numbness or tingling sensation . she denies any other complaints. <Carol Villa - Last Filed: 04/09/18 20:52> <Aileen Dixon - Last Filed: 04/09/18 22:13> - General Chief Complaint: Shortness of Breath Stated Complaint: DIFFICULTY BREATHING Time Seen by Provider: 04/09/18 20:00 Past History <Carol Villa - Last Filed: 04/09/18 20:52> - Past Medical History Anemia: No Asthma: No Cancer: Yes (LEFT BREAST JAN 2016, chemo) Cardiac Disorders: Yes (CABG 15 YRS AGO/OVER 1 YR HAD ANGIOPLASTY ?) CVA: No COPD: No CHF: No Dementia: No Diabetes: Yes (DIAG 25 YRS AGO/INSULIN DEPENDENT) GI Disorders: No Disorders: Yes (URINARY FREQUENCY) HTN: Yes Hypercholesterolemia: Yes Liver Disease: No Seizures: No Thyroid Disease: No - Surgical History Abdominal Surgery: Yes (CYST REMOVED) Appendectomy: No Cardiac Surgery: Yes (BYPASS 15 YRS AGO) Cholecystectomy: No Lung Surgery: No Orthopedic Surgery: No - Immunization History Immunization Up to Date: Yes - Suicide/Smoking/Psychosocial Hx Smoking History: Former smoker Have you smoked in the past 12 months: No If you are a former smoker, when did you quit?: 3 years ago Information on smoking cessation initiated: No Hx Alcohol Use: No Drug/Substance Use Hx: No Substance Use Type: None Hx Substance Use Treatment: No <Aileen Dixon - Last Filed: 04/09/18 22:13> - Past Medical History Allergies/Adverse Reactions: Allergies Allergy/AdvReac Type Severity Reaction Status Date / Time No Known Allergies Allergy Verified 04/09/18 20:00 Home Medications: Ambulatory Orders Atenolol [Tenormin -] 50 mg PO HS 06/29/13 Atorvastatin Ca [Lipitor] 40 mg PO HS 06/29/13 Insulin NPL/Insulin Lispro [Humalog Mix 50-50 Kwikpen] 35 unit SQ BID 06/29/13 Ramipril 5 mg PO DAILY 06/29/13 Duloxetine HCl [Cymbalta] 30 mg PO DAILY 03/05/15 Esomeprazole Magnesium [Nexium 24Hr] 40 mg PO DAILY 03/21/16 Insulin Degludec [Tresiba Flextouch U-100] 40 unit SQ DAILY 03/21/16 Sitagliptin Phos/Metformin HCl [Janumet 50-1,000 mg Tablet] 1 each PO DAILY 08/28 Oxycodone HCl/Acetaminophen [Percocet 5-325 mg Tablet] 1 - 2 tab PO Q6H PRN #20 tab MDD 6 03/28/16 Albuterol 2.5/Ipratropium 0.5 [Duoneb -] 1 amp NEB QIDR #120 amp 08/07/16 Insulin (Novolog 70/30) [Novolog Mix 70/30 Vial -] 37 units SQ BIDAC vial 08/07 Meclizine HCl [Antivert -] 25 mg PO TID PRN #30 tablet 08/07/16 Polyethylene Glycol 3350 [Miralax 119 gm Btl -] 17 gm PO BID #1 bottle 08/07/16 Ranolazine [Ranexa -] 500 mg PO BID #60 tab 08/07/16 Review of Systems - Review of Systems Able to Perform ROS?: Yes Comments:: 04/09/18 20:52 GENERAL/CONSTITUTIONAL: No fever or chills. No weakness. HEAD, EYES, EARS, NOSE AND THROAT: No change in vision. No ear pain or discharge. No sore throat. GASTROINTESTINAL: No nausea, vomiting, diarrhea or constipation. GENITOURINARY: No dysuria, frequency, or change in urination. CARDIOVASCULAR: (+)shortness of breath. No chest pain RESPIRATORY: No cough, wheezing, or hemoptysis. MUSCULOSKELETAL: (+)bilateral leg swelling. No joint or muscle swelling or pain. No neck or back pain. SKIN: No rash NEUROLOGIC: No headache, vertigo, loss of consciousness, or change in strength/ sensation. ENDOCRINE: No increased thirst. No abnormal weight change. HEMATOLOGIC/LYMPHATIC: No anemia, easy bleeding, or history of blood clots. ALLERGIC/IMMUNOLOGIC: No hives or skin allergy. <Carol Villa - Last Filed: 04/09/18 20:52> *Physical Exam - Vital Signs Last Vital Signs Temp Pulse Resp BP Pulse Ox 98 F 90 24 H 139/54 L 92 L 04/09/18 20:01 04/09/18 20:01 04/09/18 20:01 04/09/18 20:01 04/09/18 20:01 - Physical Exam Comments: 04/09/18 20:52 GENERAL: Awake, in no acute distress HEAD: No signs of trauma EYES: PERRLA, EOMI, sclera anicteric, conjunctiva clear, visual acuity grossly intact ENT: Auricles normal inspection, hearing grossly normal, nares patent, oropharynx clear without exudates. Moist mucosa NECK: Normal ROM, supple, no lymphadenopathy, JVD, or masses LUNGS: (+)crackles bilaterally at base. Breath sounds equal. No wheezes. HEART: Regular rate and rhythm, normal S1 and S2, no murmurs, rubs or gallops ABDOMEN: Soft, nontender, normoactive bowel sounds. No guarding, no rebound. No masses. Non-distended. CHEST WALL: BACK: No midline tenderness. EXTREMITIES: (+)3+ pitting edema to bilateral lower extremity. Normal range of motion. No clubbing or cyanosis. No erythema, or tenderness NEUROLOGICAL: Alert, and fully oriented x4, Cranial nerves II through XII grossly intact. Normal speech, normal gait. DTRs 2/4 bilaterally. SKIN: Warm, Dry, normal turgor, no rashes or lesions noted. <Carol Villa - Last Filed: 04/09/18 20:52> - Vital Signs Last Vital Signs Temp Pulse Resp BP Pulse Ox 98 F 90 24 H 139/54 L 92 L 04/09/18 20:01 04/09/18 20:01 04/09/18 20:01 04/09/18 20:01 04/09/18 20:01 <Aileen Dixon - Last Filed: 04/09/18 22:13> Moderate Sedation - Procedure Monitoring Vital Signs: Procedure Monitoring Vital Signs Temperature 98 F 04/09/18 20:01 Pulse Rate 90 04/09/18 20:01 Respiratory Rate 24 H 04/09/18 20:01 Blood Pressure 139/54 L 04/09/18 20:01 O2 Sat by Pulse Oximetry (%) 92 L 04/09/18 20:01 <Carol Villa - Last Filed: 04/09/18 20:52> - Procedure Monitoring Vital Signs: Procedure Monitoring Vital Signs Temperature 98 F 04/09/18 20:01 Pulse Rate 90 04/09/18 20:01 Respiratory Rate 24 H 04/09/18 20:01 Blood Pressure 139/54 L 04/09/18 20:01 O2 Sat by Pulse Oximetry (%) 92 L 04/09/18 20:01 <Aileen Dixon - Last Filed: 04/09/18 22:13> Heart Score/ECG Review - History History: Highly suspicious - ECG Intrepretation Rhythm: Regular Rhythm Comment:: 04/09/18 21:22 EKG shows a normal sinus rhythm at [address] segment depressions in multiple leads, grossly unchanged from previous Rhythm strip shows a sinus rhythm at 85-90 bpm <Aileen Dixon - Last Filed: 04/09/18 22:13> ED Treatment Course - LABORATORY CBC & Chemistry Diagram: 04/09/18 21:00 04/09/18 20:03 - RADIOLOGY Chest X-Ray Result: CHF - Medications Given in the ED: 04/09/18 21:22 Lasix 20 mg IV push given, Brannon catheter ordered due to patient's acute shortness of breath and difficulty ambulating and getting on and off a bed tapia <Aileen Dixon - Last Filed: 04/09/18 22:13> Medical Decision Making - Critical Care Time Total Critical Care Time (minutes): 40 Critical Care Statement: The care of this patient involved high complexity decision making to prevent further life threatening deterioration of the patient 's condition and/or to evaluate & treat vital organ system(s) failure or risk of failure. - Medical Decision Making 04/09/18 21:23 68-year-old female with significant past medical history including coronary artery disease status post CABG with increasing dyspnea on exertion and pedal edema Chest x-ray is consistent with a CHF pattern Lasix 20 mg IV push ordered Labs pending with plans for admission to medical service for further management 04/09/18 22:10 Patient clinically improved after diuresis of unknown amount of urine due to urination on a bedpan Bedpan use caused her significant dyspnea, Brannon catheter being placed presently Aspirin 324 mg given Call placed to hospitalist service for admission <Aileen Dixon - Last Filed: 04/09/18 22:13> *DC/Admit/Observation/Transfer - Attestations Scribe Attestion: 04/09/18 20:52 Documentation prepared by Carol Villa, acting as medical office secretary for Aileen Dixon DO, MD. <Carol Villa - Last Filed: 04/09/18 20:52> - Discharge Dispostion Decision to Admit order: Yes <Aileen Dixon - Last Filed: 04/09/18 22:13> Diagnosis at time of Disposition: CHF exacerbation, S/P CABG (coronary artery bypass graft), ASHD ( arteriosclerotic heart disease) Chest pain Qualifiers: Chest pain type: precordial pain Qualified Code(s): R07.2 - Precordial pain - Discharge Dispostion Condition at time of disposition: Improved - Referrals Referrals: Vasyl Odonnell MD [Primary Care Provider] -
[2018-04-09] MEDS ORDERED: FUROSEMIDE 40 MG/4 ML INJECTABLE VIAL IVPUSH ONE (20:43)
[2018-04-09] MEDS ORDERED: FUROSEMIDE 40 MG/4 ML INJECTABLE VIAL ONE (20:49)
[2018-04-09 21:18] LABS: BASO % 1.1 % (0-2.0); EOS % 1.5 % (0-4.5); HEMATOCRIT 33.2 % (32.4-45.2); HEMOGLOBIN 10.8 GM/dL (10.7-15.3); LYMPH % 12.3 % (8-40); MCH 24.6 pg (25.7-33.7); MCHC 32.5 g/dl (32.0-36.0); MEAN CELL VOLUME 75.9 fl (80-96); MEAN PLT VOLUME 8.6 fl (7.5-11.1); MONO % 6.3 % (3.8-10.2); NEUT % 78.8 % (42.8-82.8); PLATELET COUNT 202 K/MM3 (134-434); RBC 4.38 M/mm3 (3.60-5.2); RDW 17.3 % (11.6-15.6); WHITE BLOOD COUNT 10.7 K/mm3 (4.0-10.0)
[2018-04-09 21:42] LABS: ANION GAP 8 MMOL/L (8-16); BLOOD UREA NITROGEN 21 mg/dL (7-18); CALCIUM 8.6 mg/dL (8.5-10.1); CHLORIDE 104 mmol/L (98-107); CO2 27 mmol/L (21-32); CREATININE 0.8 mg/dL (0.55-1.3); GLUCOSE,RANDOM 287 mg/dL (74-106); N-TERMINAL BNP 858.2 pg/ml (5-125); POTASSIUM 4.2 mmol/L (3.5-5.1); SODIUM 138 mmol/L (136-145)
[2018-04-09] MEDS ORDERED: ASPIRIN 81 MG CHEWABLE TABLETS PO ONE (22:09)
[2018-04-09] MEDS ORDERED: ASPIRIN 81 MG CHEWABLE TABLETS ONE (22:11)
--- NOTE | 2018-04-09 22:30 | HP ---
CHIEF COMPLAINT: shortness of breath PCP: Vasyl Odonnell MD HISTORY OF PRESENT ILLNESS: 68 year old woman with CAD presents with several days of shortness of breath, chest pressure with exertion, and positive orthopnea. Denied any significant cough or fevers. She reports that she has not been taking her water pills recently. ER course was notable for: (1) IV furosemide (2) cxr (3) Recent Travel: none PAST MEDICAL HISTORY: CAD (s/p CABG), breast ca (s/p lumpectomy and chemo radiation 1 yr ago) and DM PAST SURGICAL HISTORY: lumpectomy, CABG - around 20 years ago Social History: Smoking: quit 3 years ago Alcohol: no Drugs: no Family History: none Allergies No Known Allergies Allergy (Verified 04/09/18 20:00) HOME MEDICATIONS: Home Medications Medication Instructions Recorded Atenolol [Tenormin -] 50 mg PO HS 06/29/13 Atorvastatin Ca [Lipitor] 40 mg PO HS 06/29/13 Insulin NPL/Insulin Lispro 35 unit SQ BID 06/29/13 [Humalog Mix 50-50 Kwikpen] Ramipril 5 mg PO DAILY 06/29/13 Duloxetine HCl [Cymbalta] 30 mg PO DAILY 03/05/15 Esomeprazole Magnesium [Nexium 40 mg PO DAILY 03/21/16 24Hr] Insulin Degludec [Tresiba 40 unit SQ DAILY 03/21/16 Flextouch U-100] Sitagliptin Phos/Metformin HCl 1 each PO DAILY 03/21/16 [Janumet 50-1,000 mg Tablet] Oxycodone HCl/Acetaminophen 1 - 2 tab PO Q6H PRN #20 tab MDD 6 03/28/16 [Percocet 5-325 mg Tablet] Albuterol 2.5/Ipratropium 0.5 1 amp NEB QIDR #120 amp 08/07/16 [Duoneb -] Insulin (Novolog 70/30) [Novolog 37 units SQ BIDAC vial 08/07/16 Mix 70/30 Vial -] Meclizine HCl [Antivert -] 25 mg PO TID PRN #30 tablet 08/07/16 Polyethylene Glycol 3350 [Miralax 17 gm PO BID #1 bottle 08/07/16 119 gm Btl -] Ranolazine [Ranexa -] 500 mg PO BID #60 tab 08/07/16 REVIEW OF SYSTEMS CONSTITUTIONAL: Absent: fever, chills, diaphoresis, generalized weakness, malaise, loss of appetite, weight change HEENT: Absent: rhinorrhea, nasal congestion, throat pain, throat swelling, difficulty swallowing, mouth swelling, ear pain, eye pain, visual changes CARDIOVASCULAR: Absent: syncope, palpitations, irregular heart rate, lightheadedness, present- chest pain, peripheral edema, shortness of breath RESPIRATORY: Absent: cough, wheezing, stridor, hemoptysis present- shortness of breath, dyspnea with exertion, orthopnea, GASTROINTESTINAL: Absent: abdominal pain, abdominal distension, nausea, vomiting, diarrhea, constipation, melena, hematochezia GENITOURINARY: Absent: dysuria, frequency, urgency, hesitancy, hematuria, flank pain, genital pain MUSCULOSKELETAL: Absent: myalgia, arthralgia, joint swelling, back pain, neck pain SKIN: Absent: rash, itching, pallor HEMATOLOGIC/IMMUNOLOGIC: Absent: easy bleeding, easy bruising, lymphadenopathy, frequent infections ENDOCRINE: Absent: unexplained weight gain, unexplained weight loss, heat intolerance, cold intolerance NEUROLOGIC: Absent: headache, focal weakness or paresthesias, dizziness, unsteady gait, seizure, mental status changes, bladder or bowel incontinence PSYCHIATRIC: Absent: anxiety, depression, suicidal or homicidal ideation, hallucinations. PHYSICAL EXAMINATION Vital Signs - 24 hr 04/09/18 20:01 Temperature 98 F Pulse Rate 90 Respiratory 24 H Rate Blood Pressure 139/54 L O2 Sat by Pulse 92 L Oximetry (%) GENERAL: Awake, alert, and fully oriented, in no acute distress. HEAD: Normal with no signs of trauma. EYES: Pupils equal, round and reactive to light, extraocular movements intact, sclera anicteric, conjunctiva clear. No lid lag. EARS, NOSE, THROAT: Ears normal, nares patent, oropharynx clear without exudates. Moist mucous membranes. NECK: Normal range of motion, supple without lymphadenopathy, JVD, or masses. LUNGS: Breath sounds equal, faint bibasilar crackles appreciated HEART: Regular rate and rhythm, normal S1 and S2 without murmur, rub or gallop. ABDOMEN: Soft, nontender, distended, normoactive bowel sounds, no guarding, no rebound, no masses. No hepatomegaly or splenomegaly. MUSCULOSKELETAL: Normal range of motion at all joints. No bony deformities or tenderness. No CVA tenderness. UPPER EXTREMITIES: 2+ pulses, warm, well-perfused. No cyanosis. No clubbing. No peripheral edema. LOWER EXTREMITIES: 2+ pulses, warm, well-perfused. right leg scar s/p venous graft, 3+ pedal edema b/l up to thighs NEUROLOGICAL: Cranial nerves II-XII intact. Normal speech. PSYCHIATRIC: Cooperative. Good eye contact. Appropriate mood and affect. SKIN: Warm, dry, normal turgor, no rashes or lesions noted, normal capillary refill. Laboratory Results - last 24 hr 04/09/18 04/09/18 20:03 21:00 WBC 10.7 H RBC 4.38 Hgb 10.8 Hct 33.2 MCV 75.9 L MCH 24.6 L MCHC 32.5 RDW 17.3 H Plt Count 202 MPV 8.6 Absolute Neuts (auto) 8.4 H Neutrophils % 78.8 Lymphocytes % 12.3 D Monocytes % 6.3 Eosinophils % 1.5 Basophils % 1.1 Nucleated RBC % 0 Sodium 138 Potassium 4.2 Chloride 104 Carbon Dioxide 27 Anion Gap 8 BUN 21 H Creatinine 0.8 Creat Clearance w eGFR > 60 Random Glucose 287 H Calcium 8.6 Troponin I 0.06 H B-Natriuretic Peptide 858.2 H imaging reviewed ekg- no acute ischemic changes seen ASSESSMENT/PLAN: #CHF exacerbation- -admit to telemetry -furosemide 40mg IV bid -ACEi -bblocker -cardiology evaluation -i/o -daily weight -salt restriction - echo -pineda for accurate #Stable angina - chest pain with exertion. Troponin here negative, high risk patient given extensive cardiac history -trend troponin -nitroglycerin SL prn -keep on cardiac monitoring -cardiac cath electively -ASA -statin #Uncontrolled DM -home dose basal insulin -diabetic diet -novolog sliding scale -a1c #Breast cancer- s/p left lumpectomy, off radiation and chemotherapy DVT ppx -heparin sc Visit type - Emergency Visit Emergency Visit: Yes Care time: The patient presented to the Emergency Department on the above date and was hospitalized for further evaluation of their emergent condition. - New Patient This patient is new to me today: Yes Date on this admission: 04/09/18 - Critical Care Critical Care patient: No
[2018-04-10] MEDS: HEPARIN NA (PORCINE) 5,000 UNITS/ML 1ML VIAL SQ SCH ×3 (06:32→21:29)
[2018-04-10] MEDS: INSULIN (LEVEMIR) 100 UNITS/ML UNITS SQ SCH (06:32)
[2018-04-10] MEDS: FUROSEMIDE 40 MG/4 ML INJECTABLE VIAL IVPUSH SCH ×2 (06:32→13:13)
[2018-04-10] MEDS: INSULIN SLIDING SCALE (NOVOLOG) 1 VIAL SQ SCH ×4 (06:44→21:29)
[2018-04-10 06:52] LABS: BASO % 0.7 % (0-2.0); EOS % 2.2 % (0-4.5); HEMATOCRIT 29.8 % (32.4-45.2); HEMOGLOBIN 9.7 GM/dL (10.7-15.3); LYMPH % 13.1 % (8-40); MCH 24.3 pg (25.7-33.7); MCHC 32.4 g/dl (32.0-36.0); MEAN PLT VOLUME 8.6 fl (7.5-11.1); MONO % 7.9 % (3.8-10.2); NEUT % 76.1 % (42.8-82.8); PLATELET COUNT 195 K/MM3 (134-434); RBC 3.98 M/mm3 (3.60-5.2); RDW 17.2 % (11.6-15.6); WHITE BLOOD COUNT 8.3 K/mm3 (4.0-10.0)
[2018-04-10 07:20] LABS: ANION GAP 5 MMOL/L (8-16); BLOOD UREA NITROGEN 21 mg/dL (7-18); CALCIUM 8.4 mg/dL (8.5-10.1); CHLORIDE 105 mmol/L (98-107); CO2 30 mmol/L (21-32); CREATININE 0.7 mg/dL (0.55-1.3); GLUCOSE,RANDOM 137 mg/dL (74-106); MAGNESIUM 2.2 mg/dL (1.8-2.4); POTASSIUM 3.9 mmol/L (3.5-5.1); SODIUM 140 mmol/L (136-145)
--- NOTE | 2018-04-10 07:57 | PN ---
Progress Note, Physician - Current Medication List Current Medications: Active Medications Aspirin (Ecotrin -) 81 mg PO DAILY [facility] Atorvastatin Calcium (Lipitor -) 40 mg PO HS MARI Duloxetine HCl (Cymbalta -) 30 mg PO DAILY [facility] Furosemide (Lasix Injection -) 40 mg IVPUSH BIDLASIX [facility] Last Admin: 04/10/18 06:32 Dose: 40 mg Heparin Sodium (Porcine) (Heparin -) 5,000 unit SQ TID [facility] Last Admin: 04/10/18 06:32 Dose: 5,000 unit Insulin Aspart (Novolog Vial Sliding Scale -) 1 vial SQ ACHS [facility]; Protocol Last Admin: 04/10/18 06:44 Dose: Not Given Insulin Detemir (Levemir Vial) 40 units SQ DAILY@0700 [facility] Last Admin: 04/10/18 06:32 Dose: 40 units Metoprolol Tartrate (Lopressor -) 25 mg PO BID MARI Ramipril (Altace -) 5 mg PO DAILY [facility] Ranolazine (Ranexa -) 500 mg PO BID [facility] - Objective Vital Signs: Vital Signs Temperature 97.9 F 04/10/18 06:00 Pulse Rate 78 04/10/18 06:00 Respiratory Rate 18 04/10/18 06:00 Blood Pressure 123/49 L 04/10/18 06:00 O2 Sat by Pulse Oximetry (%) 96 04/10/18 02:59 Cardiovascular: Yes: Regular Rate and Rhythm Respiratory: Yes: Diminished, On Nasal O2 Gastrointestinal: Yes: Normal Bowel Sounds, Soft Edema: Yes Labs: CBC, BMP 04/10/18 06:00 04/10/18 06:00 Problem List - Problems (1) CHF exacerbation Assessment/Plan: -admit to telemetry -furosemide 40mg IV bid -ACEi -bblocker -cardiology evaluation -i/o -daily weight -salt restriction - echo -pineda for accurate Code(s): I50.9 - HEART FAILURE, UNSPECIFIED (2) S/P CABG (coronary artery bypass graft) Code(s): Z95.1 - PRESENCE OF AORTOCORONARY BYPASS GRAFT (3) Breast cancer, left Code(s): C50.912 - MALIGNANT NEOPLASM OF UNSPECIFIED SITE OF LEFT FEMALE BREAST Qualifiers: Breast location: unspecified site of breast Estrogen receptor status: positive Patient sex: female Qualified Code(s): C50.912 - Malignant neoplasm of unspecified site of left female breast (4) Edema Assessment/Plan: -Lasix -Duplex Code(s): R60.9 - EDEMA, UNSPECIFIED (5) Chest pain Assessment/Plan: Stable angina - chest pain with exertion. Troponin here negative, high risk patient given extensive cardiac history -trend troponin -nitroglycerin SL prn -keep on cardiac monitoring -cardiac cath electively -ASA -statin Code(s): R07.9 - CHEST PAIN, UNSPECIFIED Qualifiers: Chest pain type: precordial pain Qualified Code(s): R07.2 - Precordial pain (6) Diabetes Assessment/Plan: -home dose basal insulin -diabetic diet -novolog sliding scale -a1c -endo Code(s): E11.9 - TYPE 2 DIABETES MELLITUS WITHOUT COMPLICATIONS Qualifiers: Diabetes mellitus type: type 2 Diabetes mellitus exterminator helper insulin use: with nursing home use Diabetes mellitus complication status: with unspecified complications Qualified Code(s): E11.8 - Type 2 diabetes mellitus with unspecified complications; Z79.4 - senior living (current) use of insulin
[2018-04-10] MEDS: METOPROLOL TARTRATE 25 MG TABLET (FP) PO SCH ×2 (09:29→21:29)
[2018-04-10] MEDS: RAMIPRIL 5 MG CAPSULE (FP) PO SCH (09:29)
[2018-04-10] MEDS: RANOLAZINE E.R. 500 MG TABLET (FP) PO SCH ×2 (09:29→21:28)
[2018-04-10] MEDS: ASPIRIN COATED 81 MG TABLET.EC PO SCH (09:29)
[2018-04-10] MEDS: DULoxetine HCL 30 MG CAPSULE.DR (FP) PO SCH (09:29)
[2018-04-10] MEDS ORDERED: FUROSEMIDE 40 MG/4 ML INJECTABLE VIAL IVPUSH SCH (10:00)
--- NOTE | 2018-04-10 10:44 | EKG ---
Test Reason : Blood Pressure : / mmHG Vent. Rate : 090 BPM Atrial Rate : 090 BPM P-R Int : 166 ms QRS Dur : 094 ms QT Int : 392 ms P-R-T Axes : 044 004 139 degrees QTc Int : 479 ms POOR DATA QUALITY, INTERPRETATION MAY BE ADVERSELY AFFECTED NORMAL SINUS RHYTHM PROLONGED QT ABNORMAL ECG WHEN COMPARED WITH ECG OF 03-AUG-2016 11:25, NONSPECIFIC T WAVE ABNORMALITY, IMPROVED IN INFERIOR LEADS Confirmed by MARIA L LEVY, CHEL ([id number]) on 04/10/2018 10:44:10 AM Referred By: Confirmed By:CHEL LISA MD
--- NOTE | 2018-04-10 11:00 | ECHO ---
Name: CARLOS ALBERTO SHOEMAKER Exam:Adult Echocardiogram Study Date: 04/10/2018 08:11 AM Age: 68 yrs Reason For Study: CHF Height: 65 in Weight: 260 lb BSA: 2.2 m2 MMode/2D Measurements & Calculations IVSd: 1.3 cm Ao root diam: 2.2 cm LVIDd: 4.9 cm LA dimension: 3.5 cm LVIDs: 2.9 cm LVPWd: 1.2 cm EDV(Teich): 111.9 ml LVOT diam: 2.0 cm ESV(Teich): 33.0 ml LAV (MOD-bp): 69.0 ml Doppler Measurements & Calculations MV E max cal: 105.0 cm/sec Ao V2 max: 221.3 cm/sec MV A max cal: 83.9 cm/sec Ao max P.6 mmHg MV E/A: 1.3 Ao V2 mean: 154.8 cm/sec MV dec time: 0.15 sec Ao mean P.6 mmHg Ao V2 VTI: 47.2 cm DIAMOND(I,D): 1.1 cm2 DIAMOND(V,D): 1.0 cm2 LV V1 max P.2 mmHg MR max cal: 479.9 cm/sec LV V1 mean P.3 mmHg MR max P.3 mmHg LV V1 max: 74.2 cm/sec LV V1 mean: 51.8 cm/sec LV V1 VTI: 16.4 cm SV(LVOT): 50.2 ml TR max cal: 224.3 cm/sec TR max P.1 mmHg Med Peak E' Cal: 5.0 cm/sec Med E/e': 21.0 Lat Peak E' Cal: 5.9 cm/sec Lat E/e': 17.9 Procedure A two-dimensional transthoracic echocardiogram with color flow and Doppler was performed. The study w as technically difficult with many images being suboptimal in quality. Left Ventricle There is moderate concentric left ventricular hypertrophy. The left ventricular ejection fraction is normal. Left Ventricular Filling pattern is normal for age. Regional wall motion abnormalities cannot be excl uded due to limited visualization. Right Ventricle The right ventricle is normal in size and function. Atria Normal left and right atrial size and function. Mitral Valve The mitral valve is not well visualized. There is no mitral valve stenosis. There is mild to moderate mitral regurgitation. Tricuspid Valve The tricuspid valve is not well visualized. There is no tricuspid stenosis. There is mild tricuspid regurgitation. Right ventricular systolic pressure is normal. Aortic Valve The aortic valve is not well visualized. No hemodynamically significant valvular aortic stenosis. No aortic regurgitation is present. Pulmonic Valve The pulmonic valve is not well visualized. Great Vessels The aortic root is normal size. Pericardium/Pleura There is no pericardial effusion. Interpretation Summary There is moderate concentric left ventricular hypertrophy. The left ventricular ejection fraction is normal. There is mild tricuspid regurgitation. Right ventricular systolic pressure is normal. Regional wall motion abnormalities cannot be excluded due to limited visualization. Left Ventricular Filling pattern is normal for age. There is mild to moderate mitral regurgitation. MD Charles Avalos 04/10/2018 11:00 AM
--- NOTE | 2018-04-10 12:59 | CON.CARD ---
Consult Consult Specialty:: Cardiology Referred by:: Dr. Wallace Reason for Consultation:: CHF - History of Present Illness Chief Complaint: shortness of breath History of Present Illness: 68 yo F h/o breast CA s/p radiation and chemo, dCHF and CAD s/p CABG p/w worsening dyspnea x 1 week. Patient endorses onset of exertional dyspnea since she started radiation in 2016. The symptom has progressively worsened to the extent that she would become short of breath walking from living room to kitchen. She now sleeps on recliner chair every night. Patient stopped PO lasix 80mg daily 1 week ago due to urinary frequency and now experiencing worsening b/ l LE edema and orthopenea. Denies chest pain, fever, chills, abd pain, n/v. - History Source History Provided By: Patient, Family Member Limitations to Obtaining History: No Limitations - Past Medical History Cardio/Vascular: Yes: CAD, HTN, Hyperlipdemia ...: No Endocrine: Yes: Diabetes Mellitus - Past Surgical History Past Surgical History: Yes: CABG - Alcohol/Substance Use Hx Alcohol Use: No - Smoking History Smoking history: Former smoker Have you smoked in the past 12 months: No If you are a former smoker, when did you quit?: 3 years ago Home Medications - Allergies Allergies/Adverse Reactions: Allergies Allergy/AdvReac Type Severity Reaction Status Date / Time No Known Allergies Allergy Verified 04/09/18 20:00 - Home Medications Home Medications: Ambulatory Orders Atenolol [Tenormin -] 50 mg PO HS 06/29/13 Atorvastatin Ca [Lipitor] 40 mg PO HS 06/29/13 Insulin NPL/Insulin Lispro [Humalog Mix 50-50 Kwikpen] 35 unit SQ BID 06/29/13 Ramipril 5 mg PO DAILY 06/29/13 Duloxetine HCl [Cymbalta] 30 mg PO DAILY 03/05/15 Esomeprazole Magnesium [Nexium 24Hr] 40 mg PO DAILY 03/21/16 Insulin Degludec [Tresiba Flextouch U-100] 40 unit SQ DAILY 03/21/16 Sitagliptin Phos/Metformin HCl [Janumet 50-1,000 mg Tablet] 1 each PO DAILY 08/28 Oxycodone HCl/Acetaminophen [Percocet 5-325 mg Tablet] 1 - 2 tab PO Q6H PRN #20 tab MDD 6 03/28/16 Albuterol 2.5/Ipratropium 0.5 [Duoneb -] 1 amp NEB QIDR #120 amp 08/07/16 Insulin (Novolog 70/30) [Novolog Mix 70/30 Vial -] 37 units SQ BIDAC vial 08/07 Meclizine HCl [Antivert -] 25 mg PO TID PRN #30 tablet 08/07/16 Polyethylene Glycol 3350 [Miralax 119 gm Btl -] 17 gm PO BID #1 bottle 08/07/16 Ranolazine [Ranexa -] 500 mg PO BID #60 tab 08/07/16 Family Disease History - Family Disease History Family Disease History: CA: Brother (CRC 25) Review of Systems - Review of Systems Constitutional: denies: Chills, Fever, Lethargy Cardiovascular: reports: Shortness of Breath. denies: Chest Pain, Palpitations Respiratory: reports: Orthopnea, PND, SOB on Exertion Gastrointestinal: denies: Abdominal Pain Genitourinary: reports: Frequency Musculoskeletal: reports: Back Pain Neurological: reports: No Symptoms Vital Signs: Vital Signs Temperature 98.1 F 04/10/18 09:32 Pulse Rate 82 04/10/18 09:32 Respiratory Rate 18 04/10/18 09:32 Blood Pressure 138/72 04/10/18 09:32 O2 Sat by Pulse Oximetry (%) 96 04/10/18 09:00 Constitutional: Yes: No Distress, Calm, Obese Neck: Yes: Other (No JVD) Respiratory: Yes: CTA Bilaterally Gastrointestinal: Yes: Normal Bowel Sounds, Soft, Abdomen, Obese. No: Tenderness Cardiovascular: Yes: Regular Rate and Rhythm JVD: No Carotid Bruit: No Heart Sounds: Yes: S1, S2. No: S3, S4, Gallop Edema: Yes Edema: LLE: 3+, RLE: 3+ Neurological: Yes: Alert, Oriented - Other Data Labs, Other Data: CBC, BMP 04/10/18 06:00 04/10/18 06:00 Troponin, BNP 04/09/18 04/10/18 04/10/18 20:03 01:50 06:00 Troponin I 0.06 H 0.53 H 0.61 H* B-Natriuretic Peptide 858.2 H Troponin, BNP 02/04/10/18 04/10/18 20:03 01:50 06:00 Troponin I 0.06 H 0.53 H 0.61 H* B-Natriuretic Peptide 858.2 H No change compared to prior Echo: Report Reviewed Assessment/Plan 68 yo F h/o breast CA s/p radiation and chemo, dCHF and CAD s/p CABG p/w worsening dyspnea x 1 week now admitted to telemetry for fluid overload. Acute exacerbation of HFpEF - ECHO reviewed (normal LV function w/ normal EF) - diuresed well, cont. diuresis with lasix 40mg IV BID - cont. to monitor I/O and daily weight CAD s/p CABG - cont. home medications Roman Hawkins PGY3
--- NOTE | 2018-04-10 15:37 | CON.CARD ---
Consult Consult Specialty:: Cardiology Referred by:: Madison Reason for Consultation:: CHF - History of Present Illness Chief Complaint: sob, edema History of Present Illness: 68 yo F h/o breast CA s/p radiation and chemo, dCHF and CAD s/p CABG p/w worsening dyspnea x 1 week. She stopped PO lasix 80mg daily 1 week ago due to urinary frequency and now experiencing worsening b/l LE edema and orthopenea. She has gotten relief from IV lasix. Echo 04/10/18 normal EF, LVH, mild to moderate MR, mild TR - History Source History Provided By: Patient, Medical Record Limitations to Obtaining History: No Limitations - Past Medical History Cardio/Vascular: Yes: CAD, HTN, Hyperlipdemia ...: No Endocrine: Yes: Diabetes Mellitus - Past Surgical History Past Surgical History: Yes: CABG - Alcohol/Substance Use Hx Alcohol Use: No - Smoking History Smoking history: Former smoker Have you smoked in the past 12 months: No If you are a former smoker, when did you quit?: 3 years ago Home Medications - Allergies Allergies/Adverse Reactions: Allergies Allergy/AdvReac Type Severity Reaction Status Date / Time No Known Allergies Allergy Verified 04/09/18 20:00 - Home Medications Home Medications: Ambulatory Orders Atenolol [Tenormin -] 50 mg PO HS 06/29/13 Atorvastatin Ca [Lipitor] 40 mg PO HS 06/29/13 Insulin NPL/Insulin Lispro [Humalog Mix 50-50 Kwikpen] 35 unit SQ BID 06/29/13 Ramipril 5 mg PO DAILY 06/29/13 Duloxetine HCl [Cymbalta] 30 mg PO DAILY 03/05/15 Esomeprazole Magnesium [Nexium 24Hr] 40 mg PO DAILY 03/21/16 Insulin Degludec [Tresiba Flextouch U-100] 40 unit SQ DAILY 03/21/16 Sitagliptin Phos/Metformin HCl [Janumet 50-1,000 mg Tablet] 1 each PO DAILY 08/28 Oxycodone HCl/Acetaminophen [Percocet 5-325 mg Tablet] 1 - 2 tab PO Q6H PRN #20 tab MDD 6 03/28/16 Albuterol 2.5/Ipratropium 0.5 [Duoneb -] 1 amp NEB QIDR #120 amp 08/07/16 Insulin (Novolog 70/30) [Novolog Mix 70/30 Vial -] 37 units SQ BIDAC vial 08/07 Meclizine HCl [Antivert -] 25 mg PO TID PRN #30 tablet 08/07/16 Polyethylene Glycol 3350 [Miralax 119 gm Btl -] 17 gm PO BID #1 bottle 08/07/16 Ranolazine [Ranexa -] 500 mg PO BID #60 tab 08/07/16 Family Disease History - Family Disease History Family Disease History: CA: Brother (CRC 25) Vital Signs: Vital Signs Temperature 98.3 F 04/10/18 14:05 Pulse Rate 71 04/10/18 14:05 Respiratory Rate 18 04/10/18 14:05 Blood Pressure 104/45 L 04/10/18 14:05 O2 Sat by Pulse Oximetry (%) 96 04/10/18 09:00 Constitutional: Yes: No Distress, Calm Eyes: Yes: Conjunctiva Clear, EOM Intact HENT: Yes: Normocephalic Neck: Yes: Trachea Midline Respiratory: Yes: Rales (bilat bases) Gastrointestinal: Yes: Normal Bowel Sounds, Soft Cardiovascular: Yes: Regular Rate and Rhythm JVD: Yes Carotid Bruit: No PMI: Non-Displaced Heart Sounds: Yes: S1, S2 Musculoskeletal: Yes: WNL Extremities: Yes: WNL Edema: Yes Edema: LLE: 2+, RLE: 2+ Peripheral Pulses WNL: Yes - Other Data Labs, Other Data: CBC, BMP 04/10/18 06:00 04/10/18 06:00 Troponin, BNP 04/09/18 04/10/18 04/10/18 20:03 01:50 06:00 Troponin I 0.06 H 0.53 H 0.61 H* B-Natriuretic Peptide 858.2 H 04/10/18 11:37 Troponin I 0.43 H B-Natriuretic Peptide Troponin, BNP 04/09/18 04/10/18 04/10/18 20:03 01:50 06:00 Troponin I 0.06 H 0.53 H 0.61 H* B-Natriuretic Peptide 858.2 H 04/10/18 11:37 Troponin I 0.43 H B-Natriuretic Peptide Imaging - Results Chest X-ray: Report Reviewed EKG: Report Reviewed Assessment/Plan 68 yo F h/o breast CA s/p radiation and chemo, dCHF and CAD s/p CABG p/w worsening dyspnea x 1 week. She stopped PO lasix 80mg daily 1 week ago due to urinary frequency and now experiencing worsening b/l LE edema and orthopenea. She has gotten relief from IV lasix. Echo 04/10/18 normal EF, LVH, mild to moderate MR, mild TR Acute on chronic diastolic CHF -continue IV lasix, increase to bid -daily wts, fluid restrict 2 liters, 2 gm NA CAD -stable remote cabg without angina. -cont asa and statin. continue tele one more day.
[2018-04-10] MEDS ORDERED: INSULIN SLIDING SCALE (NOVOLOG) 1 VIAL SQ ONE (18:36)
[2018-04-10] MEDS: ATORVASTATIN CA 40 MG TABLET (FP) PO SCH (21:29)
[2018-04-10] MEDS: ACETAMINOPHEN 500 MG TABLET (FP) PO PRN (21:29)
[2018-04-10] MEDS ORDERED: ATENOLOL 50 MG TABLET (FP) PO SCH (22:00)
[2018-04-11] MEDS: HEPARIN NA (PORCINE) 5,000 UNITS/ML 1ML VIAL SQ SCH ×3 (06:31→21:35)
[2018-04-11] MEDS: INSULIN SLIDING SCALE (NOVOLOG) 1 VIAL SQ SCH ×4 (06:31→21:35)
[2018-04-11] MEDS: FUROSEMIDE 40 MG/4 ML INJECTABLE VIAL IVPUSH SCH ×2 (06:31→14:44)
[2018-04-11] MEDS: INSULIN (LEVEMIR) 100 UNITS/ML UNITS SQ SCH (06:32)
--- NOTE | 2018-04-11 09:00 | PN ---
Progress Note, Physician - Current Medication List Current Medications: Active Medications Acetaminophen (Tylenol -) 500 mg PO Q6H PRN PRN Reason: HEADACHE Last Admin: 04/10/18 21:29 Dose: 500 mg Aspirin (Ecotrin -) 81 mg PO DAILY [facility] Last Admin: 04/10/18 09:29 Dose: 81 mg Atorvastatin Calcium (Lipitor -) 40 mg PO HS [facility] Last Admin: 04/10/18 21:29 Dose: 40 mg Duloxetine HCl (Cymbalta -) 30 mg PO DAILY [facility] Last Admin: 04/10/18 09:29 Dose: 30 mg Furosemide (Lasix Injection -) 40 mg IVPUSH BIDLASIX [facility] Last Admin: 04/11/18 06:31 Dose: 40 mg Heparin Sodium (Porcine) (Heparin -) 5,000 unit SQ TID [facility] Last Admin: 04/11/18 06:31 Dose: 5,000 unit Insulin Aspart (Novolog Vial Sliding Scale -) 1 vial SQ ACHS [facility]; Protocol Last Admin: 04/11/18 06:31 Dose: 4 units Insulin Detemir (Levemir Vial) 40 units SQ DAILY@0700 [facility] Last Admin: 04/11/18 06:32 Dose: 40 units Metoprolol Tartrate (Lopressor -) 25 mg PO BID [facility] Last Admin: 04/10/18 21:29 Dose: 25 mg Ramipril (Altace -) 5 mg PO DAILY [facility] Last Admin: 04/10/18 09:29 Dose: 5 mg Ranolazine (Ranexa -) 500 mg PO BID [facility] Last Admin: 04/10/18 21:28 Dose: 500 mg - Objective Vital Signs: Vital Signs Temperature 98.8 F 04/11/18 02:00 Pulse Rate 98 H 04/11/18 02:00 Respiratory Rate 18 04/11/18 08:16 Blood Pressure 138/69 04/11/18 02:00 O2 Sat by Pulse Oximetry (%) 96 04/11/18 08:16 Cardiovascular: Yes: S1, S2 Respiratory: Yes: Regular, CTA Bilaterally Gastrointestinal: Yes: Normal Bowel Sounds, Soft Edema: Yes Labs: CBC, BMP 04/10/18 06:00 04/10/18 06:00 Problem List - Problems (1) CHF exacerbation Assessment/Plan: -admit to telemetry -furosemide 40mg IV bid -ACEi -bblocker -cardiology evaluation -i/o -daily weight -salt restriction - echo -pineda for accurate Code(s): I50.9 - HEART FAILURE, UNSPECIFIED (2) S/P CABG (coronary artery bypass graft) Code(s): Z95.1 - PRESENCE OF AORTOCORONARY BYPASS GRAFT (3) Breast cancer, left Code(s): C50.912 - MALIGNANT NEOPLASM OF UNSPECIFIED SITE OF LEFT FEMALE BREAST Qualifiers: Breast location: unspecified site of breast Estrogen receptor status: positive Patient sex: female Qualified Code(s): C50.912 - Malignant neoplasm of unspecified site of left female breast; Z17.0 - Estrogen receptor positive status [ER+] (4) Edema Assessment/Plan: -Lasix -Duplex Code(s): R60.9 - EDEMA, UNSPECIFIED (5) Chest pain Assessment/Plan: Stable angina - chest pain with exertion. Troponin here negative, high risk patient given extensive cardiac history -trend troponin -nitroglycerin SL prn -keep on cardiac monitoring -cardiac cath electively -ASA -statin Code(s): R07.9 - CHEST PAIN, UNSPECIFIED Qualifiers: Chest pain type: precordial pain Qualified Code(s): R07.2 - Precordial pain (6) Diabetes Assessment/Plan: -home dose basal insulin -diabetic diet -novolog sliding scale -a1c -endo Code(s): E11.9 - TYPE 2 DIABETES MELLITUS WITHOUT COMPLICATIONS Qualifiers: Diabetes mellitus type: type 2 Diabetes mellitus terminal operations manager insulin use: with terminal 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 Qualified Code(s): E11.8 - Type 2 diabetes mellitus with unspecified complications; 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
[2018-04-11] MEDS: DULoxetine HCL 30 MG CAPSULE.DR (FP) PO SCH (09:35)
[2018-04-11] MEDS: RANOLAZINE E.R. 500 MG TABLET (FP) PO SCH ×2 (09:35→21:35)
[2018-04-11] MEDS: ASPIRIN COATED 81 MG TABLET.EC PO SCH (09:35)
[2018-04-11] MEDS: METOPROLOL TARTRATE 25 MG TABLET (FP) PO SCH ×2 (09:35→21:35)
[2018-04-11] MEDS: RAMIPRIL 5 MG CAPSULE (FP) PO SCH (09:35)
[2018-04-11 13:43] VITALS: BMI 47.4
--- NOTE | 2018-04-11 14:40 | PN ---
Progress Note, Physician Chief Complaint: less sob tele neg History of Present Illness: 68 yo F h/o breast CA s/p radiation and chemo, dCHF and CAD s/p CABG p/w worsening dyspnea x 1 week. She stopped PO lasix 80mg daily 1 week ago due to urinary frequency and now experiencing worsening b/l LE edema and orthopenea. She has gotten relief from IV lasix. Echo 04/10/18 normal EF, LVH, mild to moderate MR, mild TR - Current Medication List Current Medications: Active Medications Acetaminophen (Tylenol -) 500 mg PO Q6H PRN PRN Reason: HEADACHE Last Admin: 04/10/18 21:29 Dose: 500 mg Aspirin (Ecotrin -) 81 mg PO DAILY [facility] Last Admin: 04/11/18 09:35 Dose: 81 mg Atorvastatin Calcium (Lipitor -) 40 mg PO HS [facility] Last Admin: 04/10/18 21:29 Dose: 40 mg Duloxetine HCl (Cymbalta -) 30 mg PO DAILY [facility] Last Admin: 04/11/18 09:35 Dose: 30 mg Furosemide (Lasix Injection -) 40 mg IVPUSH BIDLASIX [facility] Stop: 04/11/18 23:00 Last Admin: 04/11/18 06:31 Dose: 40 mg Furosemide (Lasix -) 80 mg PO DAILY [facility] Heparin Sodium (Porcine) (Heparin -) 5,000 unit SQ TID [facility] Last Admin: 04/11/18 06:31 Dose: 5,000 unit Insulin Aspart (Novolog Vial Sliding Scale -) 1 vial SQ ACHS [facility]; Protocol Last Admin: 04/11/18 11:53 Dose: 4 units Insulin Detemir (Levemir Vial) 40 units SQ DAILY@0700 [facility] Last Admin: 04/11/18 06:32 Dose: 40 units Metoprolol Tartrate (Lopressor -) 25 mg PO BID [facility] Last Admin: 04/11/18 09:35 Dose: 25 mg Ramipril (Altace -) 5 mg PO DAILY [facility] Last Admin: 04/11/18 09:35 Dose: 5 mg Ranolazine (Ranexa -) 500 mg PO BID [facility] Last Admin: 04/11/18 09:35 Dose: 500 mg - Objective Vital Signs: Vital Signs Temperature 98.8 F 04/11/18 02:00 Pulse Rate 98 H 02/28/19 02:00 Respiratory Rate 18 04/11/18 08:16 Blood Pressure 138/69 04/11/18 02:00 O2 Sat by Pulse Oximetry (%) 96 04/11/18 08:16 Constitutional: Yes: No Distress, Calm Eyes: Yes: EOM Intact HENT: Yes: Normocephalic Neck: Yes: Trachea Midline Cardiovascular: Yes: Regular Rate and Rhythm Respiratory: Yes: CTA Bilaterally Edema: Yes Edema: LLE: Trace, RLE: Trace Labs: CBC, BMP 04/10/18 06:00 04/10/18 06:00 Assessment/Plan 68 yo F h/o breast CA s/p radiation and chemo, dCHF and CAD s/p CABG p/w worsening dyspnea x 1 week. She stopped PO lasix 80mg daily 1 week ago due to urinary frequency and now experiencing worsening b/l LE edema and orthopenea. She has gotten relief from IV lasix. Echo 04/10/18 normal EF, LVH, mild to moderate MR, mild TR Acute on chronic diastolic CHF -change lasix to PO 80 mg daily for tomorrow -daily wts, fluid restrict 2 liters, 2 gm NA CAD -stable remote cabg without angina. -cont asa and statin. DC telemetry will follow as needed.
[2018-04-11] MEDS ORDERED: ALBUTEROL SO4 2.5/IPRATROPIUM 0.5 INH SOL 3 ML VIAL.NEB. NEB SCH (18:00)
[2018-04-11] MEDS ORDERED: PT OWN MED DRAWER 7, Y5N ONE (18:51)
[2018-04-11] MEDS: ATORVASTATIN CA 40 MG TABLET (FP) PO SCH (21:35)
--- NOTE | 2018-04-11 23:19 | CONSULT ---
Consult Consult Specialty:: endocrine Referred by:: dr.[email or web address] sweeney Reason for Consultation:: diabetes mellitus uncontrolled - History of Present Illness Chief Complaint: high sugars History of Present Illness: 68 year old female with a significant past medical history of diabetes mellitus type 2,morbid obesity ,CAD (s/p CABG), breast ca (s/p lumpectomy and chemo radiation 1 yr ago) who presents with shortness of breath chf. she has had weight gain,lower extremity edema,and pain,difficulty catching her breath,at any exertion.her sugars have been higher than usual,she noted less of an appetite. she denies nausea and vomiting. - Past Medical History Cardio/Vascular: Yes: CAD, HTN, Hyperlipdemia ...: No Endocrine: Yes: Diabetes Mellitus - Past Surgical History Past Surgical History: Yes: CABG - Alcohol/Substance Use Hx Alcohol Use: No - Smoking History Smoking history: Former smoker Have you smoked in the past 12 months: No If you are a former smoker, when did you quit?: 3 years ago Home Medications - Allergies Allergies/Adverse Reactions: Allergies Allergy/AdvReac Type Severity Reaction Status Date / Time No Known Allergies Allergy Verified 04/09/18 20:00 - Home Medications Home Medications: Ambulatory Orders Atenolol [Tenormin -] 50 mg PO HS 06/29/13 Atorvastatin Ca [Lipitor] 40 mg PO HS 06/29/13 Insulin NPL/Insulin Lispro [Humalog Mix 50-50 Kwikpen] 35 unit SQ BID 06/29/13 Ramipril 5 mg PO DAILY 06/29/13 Duloxetine HCl [Cymbalta] 30 mg PO DAILY 03/05/15 Esomeprazole Magnesium [Nexium 24Hr] 40 mg PO DAILY 03/21/16 Insulin Degludec [Tresiba Flextouch U-100] 40 unit SQ DAILY 03/21/16 Sitagliptin Phos/Metformin HCl [Janumet 50-1,000 mg Tablet] 1 each PO DAILY 08/28 Oxycodone HCl/Acetaminophen [Percocet 5-325 mg Tablet] 1 - 2 tab PO Q6H PRN #20 tab MDD 6 03/28/16 Albuterol 2.5/Ipratropium 0.5 [Duoneb -] 1 amp NEB QIDR #120 amp 08/07/16 Insulin (Novolog 70/30) [Novolog Mix 70/30 Vial -] 37 units SQ BIDAC vial 08/07 Meclizine HCl [Antivert -] 25 mg PO TID PRN #30 tablet 08/07/16 Polyethylene Glycol 3350 [Miralax 119 gm Btl -] 17 gm PO BID #1 bottle 08/07/16 Ranolazine [Ranexa -] 500 mg PO BID #60 tab 08/07/16 Family Disease History - Family Disease History Family Disease History: CA: Brother (CRC 25) Review of Systems - Review of Systems Constitutional: reports: Lethargy, Weakness Eyes: reports: Blurred Vision HENT: reports: No Symptoms Neck: reports: No Symptoms Cardiovascular: reports: Shortness of Breath Respiratory: reports: Exercise Intolerance, SOB on Exertion Gastrointestinal: reports: Bloating Genitourinary: reports: No Symptoms Breasts: reports: Skin Changes Musculoskeletal: reports: Back Pain, Joint Swelling, Muscle Pain, Muscle Cramps Integumentary: reports: No Symptoms Endocrine: reports: Unexplained Weight Gain Physical Exam Vital Signs: Vital Signs Temperature 97.8 F 04/11/18 21:47 Pulse Rate 78 04/11/18 21:47 Respiratory Rate 20 04/11/18 21:47 Blood Pressure 139/56 L 04/11/18 21:47 O2 Sat by Pulse Oximetry (%) 96 04/11/18 21:00 Constitutional: Yes: Anxious Eyes: Yes: EOM Intact HENT: Yes: Normocephalic Neck: Yes: Trachea Midline Cardiovascular: Yes: Tachycardia Respiratory: Yes: On Nasal O2, Rales, Tachypnea Gastrointestinal: Yes: Abdomen, Obese ...Rectal Exam: Yes: Deferred Renal/: Yes: WNL Musculoskeletal: Yes: Back Pain, Joint Swelling, Muscle Weakness Extremities: Yes: Delayed Capillary Refill Edema: LLE: 2+, RLE: 2+ Neurological: Yes: Alert, Oriented Labs: CBC, BMP 04/10/18 06:00 04/10/18 06:00 Problem List - Problems (1) ASHD (arteriosclerotic heart disease) Code(s): I25.10 - ATHSCL HEART DISEASE OF [place] CORONARY ARTERY W/O ANG PCTRS (2) CHF exacerbation Code(s): I50.9 - HEART FAILURE, UNSPECIFIED (3) Chest pain Code(s): R07.9 - CHEST PAIN, UNSPECIFIED Qualifiers: Chest pain type: precordial pain Qualified Code(s): R07.2 - Precordial pain (4) S/P CABG (coronary artery bypass graft) Code(s): Z95.1 - PRESENCE OF AORTOCORONARY BYPASS GRAFT (5) Dependent edema Code(s): R60.9 - EDEMA, UNSPECIFIED (6) Diabetes Code(s): E11.9 - TYPE 2 DIABETES MELLITUS WITHOUT COMPLICATIONS Qualifiers: Diabetes mellitus type: type 2 Diabetes mellitus middle or intermediate school principal insulin use: with middle or intermediate school principal use Diabetes mellitus complication status: with unspecified complications Qualified Code(s): E11.8 - Type 2 diabetes mellitus with unspecified complications; 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 Assessment/Plan Current Active Problems ASHD (arteriosclerotic heart disease) (Acute) CHF exacerbation (Acute) Chest pain (Acute) S/P CABG (coronary artery bypass graft) (Acute) diabetes mellitus hyperglycemia diabetic neuropathy hyperlipidemia Laboratory Results - last 24 hr 04/11/18 04/11/18 04/11/18 06:29 11:44 17:24 POC Glucometer 211 250 365 04/11/18 20:58 POC Glucometer 330 Laboratory Tests 04/10/18 04/10/18 04/10/18 06:00 06:00 11:34 Sodium 140 Potassium 3.9 Chloride 105 Carbon Dioxide 30 Anion Gap 5 L BUN 21 H Creatinine 0.7 Creat Clearance w eGFR > 60 POC Glucometer 168 Hemoglobin A1c % 9.9 H plan: bgm qid novolog insulin doses levemir 50 units am diet nutrition consult
[2018-04-12] MEDS: ACETAMINOPHEN 500 MG TABLET (FP) PO PRN (02:51)
[2018-04-12] MEDS: HEPARIN NA (PORCINE) 5,000 UNITS/ML 1ML VIAL SQ SCH ×2 (06:26→13:07)
[2018-04-12] MEDS: INSULIN SLIDING SCALE (NOVOLOG) 1 VIAL SQ SCH ×2 (06:27→11:51)
[2018-04-12] MEDS ORDERED: INSULIN (LEVEMIR) 100 UNITS/ML UNITS SQ SCH ×2 (07:00→22:00)
[2018-04-12 07:02] LABS: BASO % 0.6 % (0-2.0); EOS % 3.9 % (0-4.5); HEMATOCRIT 33.5 % (32.4-45.2); HEMOGLOBIN 10.6 GM/dL (10.7-15.3); LYMPH % 18.9 % (8-40); MCHC 31.6 g/dl (32.0-36.0); MEAN PLT VOLUME 8.7 fl (7.5-11.1); MONO % 9.8 % (3.8-10.2); NEUT % 66.8 % (42.8-82.8); PLATELET COUNT 202 K/MM3 (134-434); RBC 4.41 M/mm3 (3.60-5.2); RDW 17.1 % (11.6-15.6); WHITE BLOOD COUNT 7.2 K/mm3 (4.0-10.0)
[2018-04-12 07:06] LABS: ALBUMIN 3.3 g/dl (3.4-5.0); ALK PHOS 140 U/L (45-117); ANION GAP 7 MMOL/L (8-16); BILIRUBIN,TOTAL 0.4 mg/dL (0.2-1); BLOOD UREA NITROGEN 25 mg/dL (7-18); CALCIUM 8.9 mg/dL (8.5-10.1); CHLORIDE 104 mmol/L (98-107); CHOLESTEROL 96 mg/dL (50-200); CO2 28 mmol/L (21-32); CREATININE 0.8 mg/dL (0.55-1.3); GLUCOSE,RANDOM 274 mg/dL (74-106); HDL CHOLESTEROL 34 mg/dL (40-60); POTASSIUM 4.2 mmol/L (3.5-5.1); SGOT/AST 18 U/L (15-37); SGPT/ALT 44 U/L (13-61); SODIUM 139 mmol/L (136-145); TOT PROT 6.7 g/dl (6.4-8.2); TRIGLYCERIDES 137 mg/dL (0-150)
[2018-04-12] MEDS ORDERED: ALBUTEROL SO4 2.5/IPRATROPIUM 0.5 INH SOL 3 ML VIAL.NEB. NEB SCH (08:00)
--- NOTE | 2018-04-12 09:01 | DS ---
Physical Examination Vital Signs: Vital Signs Temperature 97.6 F 04/12/18 06:00 Pulse Rate 70 04/12/18 06:00 Respiratory Rate 18 04/12/18 06:00 Blood Pressure 135/60 04/12/18 06:00 O2 Sat by Pulse Oximetry (%) 96 04/11/18 21:00 Cardiovascular: Yes: Regular Rate and Rhythm Respiratory: Yes: Regular, CTA Bilaterally Gastrointestinal: Yes: Normal Bowel Sounds, Soft Labs: CBC, BMP 04/12/18 06:00 04/12/18 06:00 Discharge Summary Reason For Visit: ACUTE ON CHRONIC CHF Current Active Problems ASHD (arteriosclerotic heart disease) (Acute) CHF exacerbation (Acute) Chest pain (Acute) S/P CABG (coronary artery bypass graft) (Acute) Hospital Course: - Problems (1) CHF exacerbation Assessment/Plan: -admit to telemetry -furosemide 40mg IV bid --ON 80 PO DAILY -ACEi -bblocker -cardiology evaluation noted -i/o -daily weight -salt restriction Code(s): I50.9 - HEART FAILURE, UNSPECIFIED (2) S/P CABG (coronary artery bypass graft) Code(s): Z95.1 - PRESENCE OF AORTOCORONARY BYPASS GRAFT (3) Breast cancer, left Code(s): C50.912 - MALIGNANT NEOPLASM OF UNSPECIFIED SITE OF LEFT FEMALE BREAST Qualifiers: Breast location: unspecified site of breast Estrogen receptor status: positive Patient sex: female Qualified Code(s): C50.912 - Malignant neoplasm of unspecified site of left female breast; Z17.0 - Estrogen receptor positive status [ER+] (4) Edema Assessment/Plan: -Lasix -Duplex Code(s): R60.9 - EDEMA, UNSPECIFIED (5) Chest pain Assessment/Plan: Stable angina - chest pain with exertion. Troponin here negative, high risk patient given extensive cardiac history -trend troponin -nitroglycerin SL prn -keep on cardiac monitoring -cardiac cath electively -ASA -statin Code(s): R07.9 - CHEST PAIN, UNSPECIFIED Qualifiers: Chest pain type: precordial pain Qualified Code(s): R07.2 - Precordial pain (6) Diabetes Assessment/Plan: -home dose basal insulin -diabetic diet -novolog sliding scale -a1c -endo noted Code(s): E11.9 - TYPE 2 DIABETES MELLITUS WITHOUT COMPLICATIONS Qualifiers: Diabetes mellitus type: type 2 Diabetes mellitus intermediate insulin use: with intermediate manager use Diabetes mellitus complication status: with unspecified complications Qualified Code(s): E11.8 - Type 2 diabetes mellitus with unspecified complications; 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 Condition: Improved - Instructions Diet, Activity, Other Instructions: Tresiba 50 am and 20 hs Referrals: Vasyl Odonnell MD [Primary Care Provider] - 1 Week Disposition: HOME - Home Medications Comprehensive Discharge Medication List: Ambulatory Orders Atenolol [Tenormin -] 50 mg PO HS 06/29/13 Atorvastatin Ca [Lipitor] 40 mg PO HS 06/29/13 Ramipril 5 mg PO DAILY 06/29/13 Duloxetine HCl [Cymbalta] 30 mg PO DAILY 03/05/15 Esomeprazole Magnesium [Nexium 24Hr] 40 mg PO DAILY 03/21/16 Sitagliptin Phos/Metformin HCl [Janumet 50-1,000 mg Tablet] 1 each PO DAILY 08/28 Oxycodone HCl/Acetaminophen [Percocet 5-325 mg Tablet] 1 - 2 tab PO Q6H PRN #20 tab MDD 6 03/28/16 Albuterol 2.5/Ipratropium 0.5 [Duoneb -] 1 amp NEB QIDR #120 amp 08/07/16 Meclizine HCl [Antivert -] 25 mg PO TID PRN #30 tablet 08/07/16 Polyethylene Glycol 3350 [Miralax 119 gm Btl -] 17 gm PO BID #1 bottle 08/07/16 Ranolazine [Ranexa -] 500 mg PO BID #60 tab 08/07/16 Aspirin Coated [Ecotrin -] 81 mg PO DAILY tablet.ec 04/12/18 Clopidogrel Bisulfate [Plavix -] 75 mg PO DAILY tablet 04/12/18 Furosemide [Lasix -] 80 mg PO DAILY #60 tablet 04/12/18 Insulin (Levemir) [Levemir Vial] 50 units SQ DAILY@0700 units 04/12/18 Insulin Sliding Scale [Novolog Vial Sliding Scale -] 1 vial SQ ACHS units 04/12 Metoprolol Tartrate [Lopressor -] 25 mg PO BID #60 tablet 04/12/18
[2018-04-12] MEDS ORDERED: CLOPIDOGREL BISULFATE 75 MG TABLET (FP) PO SCH (10:00)
[2018-04-12] MEDS ORDERED: PANTOPRAZOLE 40 MG TABLET (FP) PO SCH (10:00)
[2018-04-12] MEDS ORDERED: FUROSEMIDE 40 MG TABLET (FP) PO SCH (10:00)
[2018-04-12] MEDS: DULoxetine HCL 30 MG CAPSULE.DR (FP) PO SCH (10:49)
[2018-04-12] MEDS: RAMIPRIL 5 MG CAPSULE (FP) PO SCH (10:50)
[2018-04-12] MEDS: ASPIRIN COATED 81 MG TABLET.EC PO SCH (10:51)
[2018-04-12] MEDS: METOPROLOL TARTRATE 25 MG TABLET (FP) PO SCH (10:51)
[2018-04-12] MEDS: RANOLAZINE E.R. 500 MG TABLET (FP) PO SCH (10:51)
[2018-04-12 14:59] VITALS: BP 158/54; PULSE 82; TEMP 97.7
== END 2018-04-12 14:38 | disposition home or self-care (01) | DRG 292 ==
LOC: JER 19:43 → J4S 20:45
PROVIDERS: ADMIT Family Medicine; ATTEND Family Medicine
DX: I11.0 Hypertensive heart disease with heart failure (principal); Z68.42 Body mass index [BMI] 45.0-49.9, adult; I50.33 Acute on chronic diastolic (congestive) heart failure; I25.118 Atherosclerotic heart disease of native coronary artery with other forms of angina pectoris; E11.65 Type 2 diabetes mellitus with hyperglycemia; E11.40 Type 2 diabetes mellitus with diabetic neuropathy, unspecified; E66.01 Morbid (severe) obesity due to excess calories; Z85.3 Personal history of malignant neoplasm of breast; Z95.1 Presence of aortocoronary bypass graft; Z79.4 Long term (current) use of insulin; Z87.891 Personal history of nicotine dependence; Z79.84 Long term (current) use of oral hypoglycemic drugs
CPT/HCPCS: 36415; 71045-TC-FY; 71046-TC-FY; 80048; 80053; 80061; 82550; 82962; 83036; 83721; 83735; 83880; 84484; 85025; 93005; 93010; 93306-TC; 93970-TC; 99284-25; J1644

== ENCOUNTER 2018-05-23 17:04 | Inpatient (IN) | payer BC, OTHER ==
--- NOTE | 2018-05-23 19:39 | PDOC ---
Attending Attestation - HPI HPI: 05/23/18 19:47 The patient is a 68 year old female, with a significant past medical history of CAD (s/p CABG), breast ca (s/p lumpectomy and chemo radiation 1 yr ago), who presents to the emergency department with, worsening bilateral lower extremity swelling with associated shortness of breath upon exertion. She denies recent fevers, chills, headache or dizziness. She denies recent nausea, vomit, diarrhea or constipation. She denies recent dysuria, frequency, urgency or hematuria. She denies recent chest pain or palpitations. Allergies: NKDA <Cha Lux - Last Filed: 05/23/18 19:47> - Resident Resident Name: Radhames Sousa - ED Attending Attestation I have performed the following: I have examined & evaluated the patient, The case was reviewed & discussed with the resident, I agree w/resident's findings & plan, Exceptions are as noted - Physicial Exam PE: 05/24/18 02:51 NAD, AOx3, normal wob diffuse crackles 3+ pitting edema bilateral lower ext LLE swelling > RLE - Medical Decision Making 05/24/18 02:52 Recently discharged after CHF exacerbation, pt was intermittently compliant with diuretic 2/2 aggravation with urinary frequency Progressive worsening of swelling and new exertional dyspnea CHF exacerbation most likely explanation admit tele for diuresis, further care <Cy Nickerson - Last Filed: 05/24/18 07:43> Attestations - Attestations 05/23/18 19:47 Documentation prepared by Cha Lux, acting as medical education manager for Cy Nickerson MD. <Cha Lux - Last Filed: 05/23/18 19:47>
[2018-05-23] MEDS ORDERED: FUROSEMIDE 100 MG/10 ML INJECTABLE VIAL IVPB ONE (19:43)
--- NOTE | 2018-05-23 22:10 | PDOC ---
History of Present Illness - General Chief Complaint: Edema Stated Complaint: EDEMA Time Seen by Provider: 05/23/18 19:12 - History of Present Illness Initial Comments: 05/23/18 22:44 The patient is a 68 year old female, with a significant past medical history of CAD (s/p CABG), breast ca (s/p lumpectomy and chemo radiation 1 yr ago), who presents to the emergency department with, worsening bilateral lower extremity swelling with associated shortness of breath upon exertion. Last admission 04/09, discharged on 04/12 for CHF exacerbation She denies recent fevers, chills, headache or dizziness. She denies recent nausea, vomit, diarrhea or constipation. She denies recent dysuria, frequency, urgency or hematuria. She denies recent chest pain or palpitations. Allergies: NKDA 05/23/18 22:52 Past History - Past Medical History Allergies/Adverse Reactions: Allergies Allergy/AdvReac Type Severity Reaction Status Date / Time No Known Allergies Allergy Verified 05/23/18 18:47 Home Medications: Ambulatory Orders Atenolol [Tenormin -] 100 mg PO HS 06/29/13 Atorvastatin Ca [Lipitor] 40 mg PO HS 06/29/13 Duloxetine HCl [Cymbalta] 30 mg PO DAILY 03/05/15 Esomeprazole Magnesium [Nexium 24Hr] 40 mg PO DAILY 03/21/16 Meclizine HCl [Antivert -] 25 mg PO TID PRN #30 tablet 08/07/16 Aspirin Coated [Ecotrin -] 81 mg PO DAILY tablet.ec 04/12/18 Clopidogrel Bisulfate [Plavix -] 75 mg PO DAILY tablet 04/12/18 Insulin Sliding Scale [Novolog Vial Sliding Scale -] 1 vial SQ ACHS units 04/12 Fenofibrate Nanocrystallized [Fenofibrate] 145 mg PO DAILY 05/23/18 Furosemide [Lasix -] 40 mg PO BID 05/23/18 Insulin Glargine,Hum.rec.anlog [[place]oujeo Solostar] 80 unit SQ ASDIR 05/23/18 Pregabalin [Lyrica] 100 mg PO ASDIR 05/23/18 Anemia: No Asthma: No Cancer: Yes (LEFT BREAST JAN 2016, chemo) Cardiac Disorders: Yes (CABG 15 YRS AGO/OVER 1 YR HAD ANGIOPLASTY ?) CVA: No COPD: No CHF: No Dementia: No Diabetes: Yes (DIAG 25 YRS AGO/INSULIN DEPENDENT) GI Disorders: No Disorders: Yes (URINARY FREQUENCY) HTN: Yes Hypercholesterolemia: Yes Liver Disease: No Seizures: No Thyroid Disease: No - Surgical History Abdominal Surgery: Yes (CYST REMOVED) Appendectomy: No Cardiac Surgery: Yes (BYPASS 15 YRS AGO) Cholecystectomy: No Lung Surgery: No Orthopedic Surgery: No - Immunization History Immunization Up to Date: Yes - Suicide/Smoking/Psychosocial Hx Smoking History: Former smoker Have you smoked in the past 12 months: No If you are a former smoker, when did you quit?: 3 years ago Information on smoking cessation initiated: No Hx Alcohol Use: No Drug/Substance Use Hx: No Substance Use Type: None Hx Substance Use Treatment: No *Physical Exam - Vital Signs Last Vital Signs Temp Pulse Resp BP Pulse Ox 97.6 F 80 22 H 126/54 L 98 05/23/18 17:09 05/23/18 17:09 05/23/18 17:09 05/23/18 17:09 05/23/18 20:58 ED Treatment Course - LABORATORY CBC & Chemistry Diagram: 05/23/18 22:50 05/23/18 21:44 - ADDITIONAL ORDERS Additional order review: 05/23/18 21:44 RBC Cancelled MCV Cancelled MCHC Cancelled RDW Cancelled MPV Cancelled - RADIOLOGY Radiology Studies Ordered: Category Date Time Status CHEST PA & LAT [RAD] Stat Radiology 05/23/18 19:36 Ordered Medical Decision Making - Medical Decision Making 05/24/18 00:13 CHF exacerbation vs DVT/Pe vs pneumonia The likeliest diagnosis *DC/Admit/Observation/Transfer Diagnosis at time of Disposition: Acute exacerbation of CHF (congestive heart failure) - Discharge Dispostion Condition at time of disposition: Stable Decision to Admit order: Yes - Referrals Referrals: Arianna Wallace MD [Primary Care Provider] - - Patient Instructions - Post Discharge Activity
[2018-05-23 22:20] LABS: ALBUMIN 3.3 g/dl (3.4-5.0); ALK PHOS 147 U/L (45-117); ANION GAP 9 MMOL/L (8-16); BILIRUBIN,TOTAL 0.2 mg/dL (0.2-1); BLOOD UREA NITROGEN 19 mg/dL (7-18); CALCIUM 8.2 mg/dL (8.5-10.1); CHLORIDE 107 mmol/L (98-107); CO2 27 mmol/L (21-32); CREATININE 0.8 mg/dL (0.55-1.3); GLUCOSE,RANDOM 225 mg/dL (74-106); N-TERMINAL BNP 884.5 pg/ml (5-125); POTASSIUM 4.1 mmol/L (3.5-5.1); SGOT/AST 26 U/L (15-37); SGPT/ALT 44 U/L (13-61); SODIUM 143 mmol/L (136-145); TOT PROT 6.7 g/dl (6.4-8.2)
[2018-05-23 23:00] LABS: BASO % 1.1 % (0-2.0); EOS % 2.1 % (0-4.5); HEMATOCRIT 32.4 % (32.4-45.2); HEMOGLOBIN 10.2 GM/dL (10.7-15.3); LYMPH % 16.4 % (8-40); MCH 24.1 pg (25.7-33.7); MCHC 31.5 g/dl (32.0-36.0); MEAN CELL VOLUME 76.5 fl (80-96); MEAN PLT VOLUME 8.4 fl (7.5-11.1); NEUT % 72.4 % (42.8-82.8); PLATELET COUNT 215 K/MM3 (134-434); RBC 4.24 M/mm3 (3.60-5.2)
[2018-05-23] MEDS ORDERED: FUROSEMIDE 40 MG/4 ML INJECTABLE VIAL ONE (23:01)
[2018-05-24 00:03] LABS: INR 1.08 (0.83-1.09); PROTHROMBIN TIME (PATIENT) 12.7 SEC (9.7-13.0)
[2018-05-24 00:21] LABS: URINE APPEARANCE Slightly Cloudy; URINE BILIRUBIN Negative (NEGATIVE); URINE COLOR Red; URINE GLUCOSE (UA) 2+ (NEGATIVE); URINE KETONE Negative (NEGATIVE); URINE LEUK ESTERASE Trace (NEGATIVE); URINE NITRITE Positive (NEGATIVE); URINE PROTEIN 1+ (NEGATIVE); URINE UROBILINOGEN 0.2 mg/dL (0.2-1.0)
[2018-05-24] MEDS ORDERED: FUROSEMIDE 40 MG/4 ML INJECTABLE VIAL IVPUSH ONE (00:58)
--- NOTE | 2018-05-24 01:06 | HP ---
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 Echo on 04/10 showed nl LVEF and concentric LVH ER course was notable for: (1) BNP at baseline (2) labs wnl (3) CXR showing congestion Recent Travel: PAST MEDICAL HISTORY: As per HPI PAST SURGICAL HISTORY: As per HPI Social History: Smoking: Alcohol: Drugs: Family History: Allergies No Known Allergies Allergy (Verified 05/23/18 18:47) HOME MEDICATIONS: Home Medications Medication Instructions Recorded Atenolol [Tenormin -] 100 mg PO HS 06/29/13 Atorvastatin Ca [Lipitor] 40 mg PO HS 06/29/13 Duloxetine HCl [Cymbalta] 30 mg PO DAILY 03/05/15 Esomeprazole Magnesium [Nexium 40 mg PO DAILY 03/21/16 24Hr] Meclizine HCl [Antivert -] 25 mg PO TID PRN #30 tablet 08/07/16 Aspirin Coated [Ecotrin -] 81 mg PO DAILY tablet.ec 04/12/18 Clopidogrel Bisulfate [Plavix -] 75 mg PO DAILY tablet 04/12/18 Insulin Sliding Scale [Novolog 1 vial SQ ACHS units 04/12/18 Vial Sliding Scale -] Fenofibrate Nanocrystallized 145 mg PO DAILY 05/23/18 [Fenofibrate] Furosemide [Lasix -] 40 mg PO BID 05/23/18 Insulin Glargine,Hum.rec.anlog 80 unit SQ ASDIR 05/23/18 [Toujeo Solostar] Pregabalin [Lyrica] 100 mg PO ASDIR 05/23/18 REVIEW OF SYSTEMS As per HPI PHYSICAL EXAMINATION Vital Signs - 24 hr 05/23/18 05/23/18 17:09 20:58 Temperature 97.6 F Pulse Rate 80 Respiratory 22 H Rate Blood Pressure 126/54 L O2 Sat by Pulse 98 98 Oximetry (%) GENERAL: A&Ox3, NAD HEENT: NC/AT, EOMI, PERRLA, MMM NECK: Normal range of motion, supple without lymphadenopathy, JVD, or masses. LUNGS: diffuse crackles HEART: RRR no m/r/g ABDOMEN: +bs, soft, NT, ND, obese EXTREMITIES: 2+ pulses, warm, well-perfused. No calf tenderness. 3+ pitting edema b/l NEUROLOGICAL: grinder watch parts, motor, sensory systems w/o focal deficit PSYCHIATRIC: Cooperative. Good eye contact. Appropriate mood and affect. SKIN: Warm, dry, normal turgor, no rashes or lesions noted, normal capillary refill. Laboratory Results - last 24 hr 05/23/18 05/23/18 05/23/18 21:44 21:44 22:50 WBC Cancelled 8.0 Corrected WBC (auto) Cancelled RBC Cancelled 4.24 Hgb Cancelled 10.2 L Hct Cancelled 32.4 MCV Cancelled 76.5 L MCH Cancelled 24.1 L MCHC Cancelled 31.5 L RDW Cancelled 17.0 H Plt Count Cancelled 215 MPV Cancelled 8.4 Absolute Neuts (auto) 5.8 Neutrophils % 72.4 Lymphocytes % 16.4 Monocytes % 8.0 Eosinophils % 2.1 Basophils % 1.1 Nucleated RBC % 0 Manual Slide Review Cancelled Platelet Comment Cancelled PT with INR INR PTT (Actin FS) D-Dimer Sodium 143 Potassium 4.1 Chloride 107 Carbon Dioxide 27 Anion Gap 9 BUN 19 H Creatinine 0.8 Creat Clearance w eGFR 71.55 Random Glucose 225 H Calcium 8.2 L Total Bilirubin 0.2 AST 26 ALT 44 Alkaline Phosphatase 147 H B-Natriuretic Peptide 884.5 H Total Protein 6.7 Albumin 3.3 L Urine Color Urine Appearance Urine pH Ur Specific Rosebud Urine Protein Urine Glucose (UA) Urine Ketones Urine Blood Urine Nitrite Urine Bilirubin Urine Urobilinogen Ur Leukocyte Esterase 05/23/18 05/23/18 05/23/18 23:00 23:00 23:45 WBC Corrected WBC (auto) RBC Hgb Hct MCV MCH MCHC RDW Plt Count MPV Absolute Neuts (auto) Neutrophils % Lymphocytes % Monocytes % Eosinophils % Basophils % Nucleated RBC % Manual Slide Review Platelet Comment PT with INR 12.70 INR 1.08 PTT (Actin FS) 27.0 D-Dimer 414 Sodium Potassium Chloride Carbon Dioxide Anion Gap BUN Creatinine Creat Clearance w eGFR Random Glucose Calcium Total Bilirubin AST ALT Alkaline Phosphatase B-Natriuretic Peptide Total Protein Albumin Urine Color Red Urine Appearance Slightly cloudy Urine pH 7.0 D Ur Specific Rosebud 1.015 Urine Protein 1+ H Urine Glucose (UA) 2+ H Urine Ketones Negative Urine Blood 1+ H Urine Nitrite Positive Urine Bilirubin Negative Urine Urobilinogen 0.2 Ur Leukocyte Esterase Trace ASSESSMENT/PLAN: 68 y/o F w/ PMHx dCHF, CAD s/p CABG, breast Ca 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 Echo on 04/10 showed nl LVEF and concentric LVH -40 Lasix IV given in ED -ordered further push 40 Lasix IV -restarted home Lasix, fenofibrate, duloxetine, ASA, Plavix, Tenormin, Esomeprazole, Lipitor -cardiac diet -no IVF -monitor CBC, BMP, Mg, Phos -no repeat echo at this time -Lovenox for DVT PPx -full code -admit to telemetry Visit type - Emergency Visit Emergency Visit: Yes ED Registration Date: 05/24/18 Care time: The patient presented to the Emergency Department on the above date and was hospitalized for further evaluation of their emergent condition. - New Patient This patient is new to me today: Yes Date on this admission: 05/24/18 - Critical Care Critical Care patient: No
[2018-05-24 01:17] LABS: URINE BACTERIA MANY /hpf (NEGATIVE); URINE RBC 50-75 /hpf (0-4)
[2018-05-24] MEDS ORDERED: FUROSEMIDE 40 MG/4 ML INJECTABLE VIAL ONE ×2 (01:33→06:27)
--- NOTE | 2018-05-24 02:57 | PN ---
Teaching Attending Note Name of Resident: Barak Quintero ATTENDING PHYSICIAN STATEMENT I saw and evaluated the patient. I reviewed the resident's note and discussed the case with the resident. I agree with the resident's findings and plan as documented. SUBJECTIVE: Patient is a 68 year old woman with a PMH of CAD (s/p CABG), breast cancer (s/ p lumpectomy and chemo radiation 1 yr ago), who presents to the ER with worsening bilateral lower extremity swelling with associated shortness of breath upon exertion. Last admission 04/09, discharged on 04/12 for CHF exacerbation She denies recent fevers, chills, headache or dizziness. She denies recent nausea, vomit, diarrhea or constipation. She denies recent dysuria, frequency, urgency or hematuria. She denies recent chest pain or palpitations. 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 Professes compliance with her regimen. OBJECTIVE: Alert Vital Signs Period Temp Pulse Resp BP Sys/Anne Pulse Ox Last 24 Hr 97.6 F 80 22 126/54 98-98 HEENT: No Jaundice, eye redness or discharge, PERRLA, EOMI. Normocephalic, atraumatic. External ears are normal and hearing is grossly intact. No nasal discharge. Neck: Supple, nontender. No palpable adenopathy or thyromegaly. No JVD Chest: Good effort. Bibasilar crackles. Clear to percussion. Heart: Regular. No S3, rub or murmur Abdomen: Not distended, soft, nontender and no HSM. No rebound or guarding. Normal bowel sounds. Ext: Peripheral pulses intact. Leg edema. Skin: Warm and dry. No petechiae, rash or ecchymosis. Neuro: Alert. Oriented x3. CN 2-12 grossly intact. Sensation grossly intact in all four extremities and DTR are symmetric. Psych: Appropriate mood and affect. Good insight. Current Medications Generic Name Dose Route Start Last Admin Trade Name Freq PRN Reason Stop Dose Admin Aspirin 81 mg 05/24/18 10:00 Ecotrin - PO DAILY MARI Atenolol 100 mg 05/24/18 22:00 Tenormin - PO HS MARI Atorvastatin Calcium 40 mg 05/24/18 22:00 Lipitor - PO HS MARI Clopidogrel Bisulfate 75 mg 05/24/18 10:00 Plavix - PO DAILY [facility] Duloxetine HCl 30 mg 05/24/18 10:00 Cymbalta - PO DAILY MARI Enoxaparin Sodium 40 mg 05/24/18 10:00 Lovenox - SQ DAILY MARI Fenofibric Acid 135 mg 05/24/18 10:00 Trilipix - PO DAILY MARI Furosemide 40 mg 05/24/18 06:00 Lasix - PO BIDLASIX MARI Insulin Aspart 1 vial 05/24/18 07:00 Novolog Vial Sliding Scale - SQ ACHS [facility] Protocol Pantoprazole Sodium 40 mg 05/24/18 10:00 Protonix - PO DAILY MARI Abnormal Lab Results 05/23/18 05/23/18 05/23/18 21:44 22:50 23:45 Hgb 10.2 L MCV 76.5 L MCH 24.1 L MCHC 31.5 L RDW 17.0 H BUN 19 H Random Glucose 225 H Calcium 8.2 L Alkaline Phosphatase 147 H B-Natriuretic Peptide 884.5 H Albumin 3.3 L Urine Protein 1+ H Urine Glucose (UA) 2+ H Urine Blood 1+ H ASSESSMENT AND PLAN: 1. CHF exacerbation - No obvious precipitating factor, though low MCV anemia may be a contributing factor. Will commence escalating doses of IV lasix to determine the dose that will produce adequate diuresis. She got 40 mg IV stat in the ER. Daily standing weight, dietary salt restriction and intensified outpatient cardiologic care. No changes of ischemia on CXR and CXR shows congestion. Cardiology consult. 2. Hypoalbuminemia - Possibly due to combined effects of proteinuria, malnutrition and inflammation associated with comorbid chronic conditions. Will ensure adequate dietary protein intake and also consult application integrator. 3. Uncontrolled DM For now, we will hold the home diabetes drugs and implement sliding scale insulin regimen. Provide comprehensive diabetes care with patient teaching and counseling about the importance of adherence to prescribed diabetes regimen, euglycemia, eye care and foot care. 4. Low MCV Anemia - Cause unclear. Will do basic anemia work up including serial stool guaiacs, reticulocyte count and iron studies. Would benefit from outpatient colonoscopy. 5. Morbid Obesity Counseled on the risks associated with obesity. Will provide patient all the necessary assistance, counseling and positive reinforcement to facilitate weight loss. Consult application integrator. 6. DVT prophylaxis - Lovenox 40 mg SQ q 12h 7. Advance directives - Full code
[2018-05-24 05:51] LABS: BASO % 0.8 % (0-2.0); EOS % 2.8 % (0-4.5); HEMATOCRIT 33.3 % (32.4-45.2); HEMOGLOBIN 10.5 GM/dL (10.7-15.3); LYMPH % 17.9 % (8-40); MCH 23.8 pg (25.7-33.7); MCHC 31.6 g/dl (32.0-36.0); MEAN CELL VOLUME 75.5 fl (80-96); MEAN PLT VOLUME 8.1 fl (7.5-11.1); MONO % 9.5 % (3.8-10.2); PLATELET COUNT 229 K/MM3 (134-434); RBC 4.41 M/mm3 (3.60-5.2); RDW 16.9 % (11.6-15.6); WHITE BLOOD COUNT 7.1 K/mm3 (4.0-10.0)
[2018-05-24 06:13] LABS: ANION GAP 5 MMOL/L (8-16); BLOOD UREA NITROGEN 21 mg/dL (7-18); CALCIUM 8.7 mg/dL (8.5-10.1); CHLORIDE 104 mmol/L (98-107); CO2 30 mmol/L (21-32); CREATININE 0.7 mg/dL (0.55-1.3); GLUCOSE,RANDOM 201 mg/dL (74-106); PHOSPHOROUS 3.3 mg/dL (2.5-4.9); POTASSIUM 3.5 mmol/L (3.5-5.1); SODIUM 139 mmol/L (136-145)
[2018-05-24] MEDS: FUROSEMIDE 40 MG TABLET (FP) PO SCH ×2 (06:34→14:05)
[2018-05-24] MEDS: INSULIN SLIDING SCALE (NOVOLOG) 1 VIAL SQ SCH ×4 (07:43→22:27)
[2018-05-24] MEDS: CLOPIDOGREL BISULFATE 75 MG TABLET (FP) PO SCH (09:30)
[2018-05-24] MEDS: FENOFIBRIC ACID 135 MG CAP PO SCH (09:30)
[2018-05-24] MEDS: ENOXAPARIN NA (PORCINE) 40 MG/0.4 ML DISP.SYRIN SQ SCH (09:30)
[2018-05-24] MEDS: PANTOPRAZOLE 40 MG TABLET (FP) PO SCH (09:30)
[2018-05-24] MEDS: DULoxetine HCL 30 MG CAPSULE.DR (FP) PO SCH (09:31)
[2018-05-24] MEDS: ASPIRIN COATED 81 MG TABLET.EC PO SCH (09:31)
--- NOTE | 2018-05-24 10:20 | EKG ---
Test Reason : Blood Pressure : / mmHG Vent. Rate : 083 BPM Atrial Rate : 083 BPM P-R Int : 184 ms QRS Dur : 090 ms QT Int : 418 ms P-R-T Axes : 031 -09 152 degrees QTc Int : 491 ms NORMAL SINUS RHYTHM PROLONGED QT ABNORMAL ECG WHEN COMPARED WITH ECG OF 23-MAY-2018 21:03, T WAVE INVERSION LESS EVIDENT IN LATERAL LEADS Confirmed by MARIA L LEVY, CHEL ([id number]) on 05/24/2018 10:20:29 AM Referred By: Confirmed By:CHEL LISA MD
[2018-05-24] MEDS ORDERED: INSULIN (NOVOLOG) ASPART 100 UNITS/ML 10ML VIAL ONE (12:32)
--- NOTE | 2018-05-24 14:51 | PN ---
Progress Note, Physician Chief Complaint: pastient seen in ER feeling better says he legs swelling is getting better admitted for chf exacerbston /leg edema - Current Medication List Current Medications: Active Medications Aspirin (Ecotrin -) 81 mg PO DAILY [facility] Last Admin: 05/24/18 09:31 Dose: 81 mg Atenolol (Tenormin -) 100 mg PO HS [facility] Atorvastatin Calcium (Lipitor -) 40 mg PO HS [facility] Clopidogrel Bisulfate (Plavix -) 75 mg PO DAILY [facility] Last Admin: 05/24/18 09:30 Dose: 75 mg Duloxetine HCl (Cymbalta -) 30 mg PO DAILY [facility] Last Admin: 05/24/18 09:31 Dose: 30 mg Enoxaparin Sodium (Lovenox -) 40 mg SQ DAILY [facility] Last Admin: 05/24/18 09:30 Dose: 40 mg Fenofibric Acid (Trilipix -) 135 mg PO DAILY [facility] Last Admin: 05/24/18 09:30 Dose: 135 mg Furosemide (Lasix -) 40 mg PO BIDLASIX [facility] Last Admin: 05/24/18 14:05 Dose: 40 mg Insulin Aspart (Novolog Vial Sliding Scale -) 1 vial SQ [facility]; Protocol Last Admin: 05/24/18 12:30 Dose: 6 unit Pantoprazole Sodium (Protonix -) 40 mg PO DAILY [facility] Last Admin: 05/24/18 09:30 Dose: 40 mg - Objective Vital Signs: Vital Signs Temperature 98.6 F 05/24/18 14:24 Pulse Rate 91 H 05/24/18 14:24 Respiratory Rate 16 05/24/18 14:24 Blood Pressure 136/65 05/24/18 14:24 O2 Sat by Pulse Oximetry (%) 97 05/24/18 14:24 Constitutional: Yes: Calm Cardiovascular: Yes: Regular Rate and Rhythm, S1, S2 Respiratory: Yes: CTA Bilaterally, Diminished (at bases) Gastrointestinal: Yes: Normal Bowel Sounds, Soft Genitourinary: Yes: Brannon Present Edema: Yes Neurological: Yes: Alert, Oriented Labs: CBC, BMP 05/24/18 05:15 05/24/18 05:15 INR, PTT INR 1.08 (0.83-1.09) 05/23/18 23:00 Problem List - Problems (1) CHF exacerbation Assessment/Plan: iv lasix bid dr eli cardiology echo i/o daily weight monitor yltes and renal function Code(s): I50.9 - HEART FAILURE, UNSPECIFIED (2) Diabetes Assessment/Plan: bgm hga1c sliding scale lvemir Code(s): E11.9 - TYPE 2 DIABETES MELLITUS WITHOUT COMPLICATIONS Qualifiers: Diabetes mellitus type: type 2 Diabetes mellitus long term care pharmacist insulin use: with long term care pharmacist use Diabetes mellitus complication status: with unspecified complications Qualified Code(s): E11.8 - Type 2 diabetes mellitus with unspecified complications; Z79.4 - oil heaterman (current) use of insulin
--- NOTE | 2018-05-24 15:49 | CON.CARD ---
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 Not compliant with fluid restriction. No chest pain, palpitations, or pnd/orthopnea. Echocardiogram 03/2018 nl lvef with mild to mod MR, mild TR, lvh. EKG: sinus with inferolateral ST changes (also on previous ekgs) CXR: congestive changes BNP 884 - History Source History Provided By: Patient, Medical Record - Past Medical History Cardio/Vascular: Yes: CAD, HTN, Hyperlipdemia ...: No Endocrine: Yes: Diabetes Mellitus - Past Surgical History Past Surgical History: Yes: CABG - Alcohol/Substance Use Hx Alcohol Use: No - Smoking History Smoking history: Former smoker Have you smoked in the past 12 months: No If you are a former smoker, when did you quit?: 3 years ago Home Medications - Allergies Allergies/Adverse Reactions: Allergies Allergy/AdvReac Type Severity Reaction Status Date / Time No Known Allergies Allergy Verified 05/23/18 18:47 - Home Medications Home Medications: Ambulatory Orders Atenolol [Tenormin -] 100 mg PO HS 06/29/13 Atorvastatin Ca [Lipitor] 40 mg PO HS 06/29/13 Duloxetine HCl [Cymbalta] 30 mg PO DAILY 03/05/15 Esomeprazole Magnesium [Nexium 24Hr] 40 mg PO DAILY 03/21/16 Meclizine HCl [Antivert -] 25 mg PO TID PRN #30 tablet 08/07/16 Aspirin Coated [Ecotrin -] 81 mg PO DAILY tablet.ec 04/12/18 Clopidogrel Bisulfate [Plavix -] 75 mg PO DAILY tablet 04/12/18 Insulin Sliding Scale [Novolog Vial Sliding Scale -] 1 vial SQ ACHS units 04/12 Fenofibrate Nanocrystallized [Fenofibrate] 145 mg PO DAILY 05/23/18 Furosemide [Lasix -] 40 mg PO BID 05/23/18 Insulin Glargine,Hum.rec.anlog [[place] Solostar] 80 unit SQ ASDIR 05/23/18 Pregabalin [Lyrica] 100 mg PO ASDIR 05/23/18 Family Disease History - Family Disease History Family Disease History: CA: Brother (CRC 25) Vital Signs: Vital Signs Temperature 98.1 F 05/24/18 15:33 Pulse Rate 89 05/24/18 15:33 Respiratory Rate 18 05/24/18 15:33 Blood Pressure 138/59 L 05/24/18 15:33 O2 Sat by Pulse Oximetry (%) 97 05/24/18 14:24 Constitutional: Yes: No Distress Neck: Yes: Supple Respiratory: Yes: Rales Gastrointestinal: Yes: Soft JVD: No Carotid Bruit: No PMI: Non-Displaced Heart Sounds: Yes: S1, S2 Murmur: No: Systolic Murmur Edema: LLE: 1+, RLE: 1+ - Other Data Labs, Other Data: CBC, BMP 05/24/18 05:15 05/24/18 05:15 INR, PTT INR 1.08 (0.83-1.09) 05/23/18 23:00 Troponin, BNP 05/23/18 21:44 B-Natriuretic Peptide 884.5 H Troponin, BNP 05/23/18 21:44 B-Natriuretic Peptide 884.5 H Imaging - Results Chest X-ray: Report Reviewed EKG: Image Reviewed Assessment/Plan 68 year old with a pmhx of diastolic chf, cad s/p cabg at [facility], 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 Not compliant with fluid restriction. No chest pain, palpitations, or pnd/orthopnea. Echocardiogram 03/2018 nl lvef with mild to mod MR, mild TR, lvh. EKG: sinus with inferolateral ST changes (also on previous ekgs) CXR: congestive changes BNP 884 1) Acute on chronic diastolic CHF -diurese with furosemide 40mg IV bid monitor lytes and daily weights and replete lytes as needed Remove all fluids from bedside -BP control 2) CAD No chest pain Old ekg changes Aspirin/plavix/statin/beta maddi
[2018-05-24] MEDS: ATORVASTATIN CA 40 MG TABLET (FP) PO SCH (22:26)
[2018-05-24] MEDS: ATENOLOL 50 MG TABLET (FP) PO SCH (22:26)
[2018-05-25] MEDS: FUROSEMIDE 40 MG/4 ML INJECTABLE VIAL IVPUSH SCH ×2 (06:26→14:32)
[2018-05-25] MEDS: INSULIN SLIDING SCALE (NOVOLOG) 1 VIAL SQ SCH ×5 (06:26→23:35)
[2018-05-25 06:44] LABS: BASO % 0.8 % (0-2.0); EOS % 3.2 % (0-4.5); HEMOGLOBIN 11.3 GM/dL (10.7-15.3); LYMPH % 16.9 % (8-40); MCH 23.6 pg (25.7-33.7); MCHC 31.3 g/dl (32.0-36.0); MEAN CELL VOLUME 75.3 fl (80-96); MEAN PLT VOLUME 8.4 fl (7.5-11.1); MONO % 10.2 % (3.8-10.2); NEUT % 68.9 % (42.8-82.8); PLATELET COUNT 245 K/MM3 (134-434); RBC 4.78 M/mm3 (3.60-5.2); RDW 16.4 % (11.6-15.6); WHITE BLOOD COUNT 7.6 K/mm3 (4.0-10.0)
[2018-05-25 07:12] LABS: ALBUMIN 3.2 g/dl (3.4-5.0); ALK PHOS 144 U/L (45-117); ANION GAP 6 MMOL/L (8-16); BILIRUBIN,TOTAL 0.3 mg/dL (0.2-1); BLOOD UREA NITROGEN 20 mg/dL (7-18); CALCIUM 8.8 mg/dL (8.5-10.1); CHLORIDE 103 mmol/L (98-107); CO2 31 mmol/L (21-32); CREATININE 0.8 mg/dL (0.55-1.3); GLUCOSE,RANDOM 294 mg/dL (74-106); SGOT/AST 18 U/L (15-37); SGPT/ALT 35 U/L (13-61); SODIUM 141 mmol/L (136-145); TOT PROT 6.6 g/dl (6.4-8.2)
--- NOTE | 2018-05-25 07:46 | PN ---
Progress Note, Physician Chief Complaint: Acute on Chronic diastolic CHF History of Present Illness: NAD Seen by Cardiology IV diuresis in progress feels better - Current Medication List Current Medications: Active Medications Aspirin (Ecotrin -) 81 mg PO DAILY [facility] Last Admin: 05/24/18 09:31 Dose: 81 mg Atenolol (Tenormin -) 100 mg PO [facility] Last Admin: 05/24/18 22:26 Dose: 100 mg Atorvastatin Calcium (Lipitor -) 40 mg PO [facility] Last Admin: 05/24/18 22:26 Dose: 40 mg Clopidogrel Bisulfate (Plavix -) 75 mg PO DAILY [facility] Last Admin: 05/24/18 09:30 Dose: 75 mg Duloxetine HCl (Cymbalta -) 30 mg PO DAILY [facility] Last Admin: 05/24/18 09:31 Dose: 30 mg Enoxaparin Sodium (Lovenox -) 40 mg SQ DAILY [facility] Last Admin: 05/24/18 09:30 Dose: 40 mg Fenofibric Acid (Trilipix -) 135 mg PO DAILY [facility] Last Admin: 05/24/18 09:30 Dose: 135 mg Furosemide (Lasix Injection -) 40 mg IVPUSH BID@0600,1400 [facility] Last Admin: 05/25/18 06:26 Dose: 40 mg Insulin Aspart (Novolog Vial Sliding Scale -) 1 vial SQ [facility]; Protocol Last Admin: 05/25/18 06:26 Dose: 6 unit Insulin Detemir (Levemir Vial) 40 units SQ DAILY@0800 [facility] Pantoprazole Sodium (Protonix -) 40 mg PO DAILY [facility] Last Admin: 05/24/18 09:30 Dose: 40 mg - Objective Vital Signs: Vital Signs Temperature 97.9 F 05/25/18 05:40 Pulse Rate 72 05/25/18 05:40 Respiratory Rate 18 05/25/18 05:40 Blood Pressure 118/56 L 05/25/18 05:40 O2 Sat by Pulse Oximetry (%) 100 05/24/18 21:00 Constitutional: Yes: Well Nourished, No Distress, Calm, Obese Cardiovascular: Yes: Regular Rate and Rhythm Respiratory: Yes: Regular Gastrointestinal: Yes: Normal Bowel Sounds, Soft, Abdomen, Obese Genitourinary: Yes: WNL, Brannon Present Musculoskeletal: Yes: Muscle Weakness Edema: Yes Edema: LLE: 4+, RLE: 4+ Peripheral Pulses WNL: Yes Neurological: Yes: Alert, Oriented Psychiatric: Yes: Alert, Oriented Labs: CBC, BMP 05/25/18 05:30 05/25/18 05:30 INR, PTT INR 1.08 (0.83-1.09) 05/23/18 23:00 Problem List - Problems (1) Acute on chronic diastolic CHF (congestive heart failure) Assessment/Plan: -diurese with furosemide 40mg IV bid -monitor lytes and daily weights and replete lytes as needed -Remove all fluids from bedside -BP control Code(s): I50.33 - ACUTE ON CHRONIC DIASTOLIC (CONGESTIVE) HEART FAILURE (2) CAD (coronary artery disease) Assessment/Plan: -No chest pain -Old ekg changes -Aspirin/plavix/statin/beta maddi -Continue Tele monitoring Code(s): I25.10 - ATHSCL HEART DISEASE OF [place] CORONARY ARTERY W/O ANG PCTRS (3) Obesities, morbid Assessment/Plan: -Low chol/fat/sodiu/diabetic diet -RD consult Code(s): E66.01 - MORBID (SEVERE) OBESITY DUE TO EXCESS CALORIES (4) Diabetes Assessment/Plan: -Last A1c 04/10/18-9.9 -BGM AC HS -Diabetic diet -RD consult -Endocrine consult Code(s): E11.9 - TYPE 2 DIABETES MELLITUS WITHOUT COMPLICATIONS Qualifiers: Diabetes mellitus type: type 2 Diabetes mellitus shelter insulin use: with manager long term care use Diabetes mellitus complication status: with unspecified complications Qualified Code(s): E11.8 - Type 2 diabetes mellitus with unspecified complications; Z79.4 - medical terminologist (current) use of insulin Assessment/Plan see problem list Physical therapy DVT prophylaxis
[2018-05-25] MEDS ORDERED: INSULIN (LEVEMIR) 100 UNITS/ML UNITS SQ SCH (08:00)
[2018-05-25] MEDS: PANTOPRAZOLE 40 MG TABLET (FP) PO SCH (09:33)
[2018-05-25] MEDS: CLOPIDOGREL BISULFATE 75 MG TABLET (FP) PO SCH (09:33)
[2018-05-25] MEDS: DULoxetine HCL 30 MG CAPSULE.DR (FP) PO SCH (09:33)
[2018-05-25] MEDS: ASPIRIN COATED 81 MG TABLET.EC PO SCH (09:33)
[2018-05-25] MEDS: FENOFIBRIC ACID 135 MG CAP PO SCH (09:34)
[2018-05-25] MEDS: ENOXAPARIN NA (PORCINE) 40 MG/0.4 ML DISP.SYRIN SQ SCH (09:34)
[2018-05-25] MEDS ORDERED: INSULIN SLIDING SCALE (NOVOLOG) 1 VIAL SQ SCH (22:08)
--- NOTE | 2018-05-25 22:14 | CONSULT ---
Consult Consult Specialty:: endocrine Referred by:: elis ozuna np Reason for Consultation:: diabetes mellitus uncontrolled - History of Present Illness Chief Complaint: high sugars difficulty breathing History of Present Illness: 68 y/o F w/ PMHx DM 2,dCHF, CAD s/p CABG, breast Ca c/p lumpectomy and [employer] 1 y/ a, recent admission for CHF exacerbation (was reportedly non-compliant with home Lasix d/t urinary frequency at that time), p/w worsening b/l LE edema and KILLIAN. has difficulty controlling appetite and blood sugars,despite checking sugars she finds them mostly over 200mg/dl,she admitts not taking full dose of diuretic,for inconvenience in urination frequently,she denies low sugars - History Source History Provided By: Patient Limitations to Obtaining History: Clinical Condition - Past Medical History Cardio/Vascular: Yes: CAD, HTN, Hyperlipdemia ...: No Endocrine: Yes: Diabetes Mellitus - Past Surgical History Past Surgical History: Yes: CABG - Alcohol/Substance Use Hx Alcohol Use: No - Smoking History Smoking history: Former smoker Have you smoked in the past 12 months: No If you are a former smoker, when did you quit?: 3 years ago Home Medications - Allergies Allergies/Adverse Reactions: Allergies Allergy/AdvReac Type Severity Reaction Status Date / Time No Known Allergies Allergy Verified 05/23/18 18:47 - Home Medications Home Medications: Ambulatory Orders Atenolol [Tenormin -] 100 mg PO HS 06/29/13 Atorvastatin Ca [Lipitor] 40 mg PO HS 06/29/13 Duloxetine HCl [Cymbalta] 30 mg PO DAILY 03/05/15 Esomeprazole Magnesium [Nexium 24Hr] 40 mg PO DAILY 03/21/16 Meclizine HCl [Antivert -] 25 mg PO TID PRN #30 tablet 08/07/16 Aspirin Coated [Ecotrin -] 81 mg PO DAILY tablet.ec 04/12/18 Clopidogrel Bisulfate [Plavix -] 75 mg PO DAILY tablet 04/12/18 Insulin Sliding Scale [Novolog Vial Sliding Scale -] 1 vial SQ ACHS units 04/12 Fenofibrate Nanocrystallized [Fenofibrate] 145 mg PO DAILY 05/23/18 Furosemide [Lasix -] 40 mg PO BID 05/23/18 Insulin Glargine,Hum.rec.anlog [Toujeo Solostar] 80 unit SQ ASDIR 05/23/18 Pregabalin [Lyrica] 100 mg PO ASDIR 05/23/18 Family Disease History - Family Disease History Family Disease History: CA: Brother (CRC 25) Review of Systems - Review of Systems Constitutional: reports: Lethargy, Weakness Eyes: reports: Blurred Vision HENT: reports: No Symptoms Neck: reports: No Symptoms Cardiovascular: reports: Shortness of Breath Respiratory: reports: Exercise Intolerance, SOB on Exertion Gastrointestinal: reports: Bloating Genitourinary: reports: Frequency Breasts: reports: Lumps, Skin Changes Musculoskeletal: reports: Extremity Pain, Muscle Pain, Muscle Cramps Neurological: reports: Numbness, Pre-Existing Deficit, Weakness Endocrine: reports: Excessive Sweating, Unexplained Weight Gain Physical Exam Vital Signs: Vital Signs Temperature 98.7 F 05/25/18 18:07 Pulse Rate 87 05/25/18 18:07 Respiratory Rate 18 05/25/18 18:07 Blood Pressure 133/59 L 05/25/18 18:07 O2 Sat by Pulse Oximetry (%) 100 05/24/18 21:00 Constitutional: Yes: Anxious Eyes: Yes: EOM Intact HENT: Yes: Normocephalic Neck: Yes: Trachea Midline Cardiovascular: Yes: Tachycardia, S2 Respiratory: Yes: On Nasal O2, SOB, Tachypnea Gastrointestinal: Yes: Abdomen, Obese Renal/: Yes: WNL Musculoskeletal: Yes: Back Pain, Muscle Weakness Extremities: Yes: Delayed Capillary Refill Edema: LLE: 2+, RLE: 2+ Integumentary: Yes: Onychomycosis, Venous Stasis Changes Neurological: Yes: Alert, Oriented Labs: CBC, BMP 05/25/18 05:30 05/25/18 05:30 Problem List - Problems (1) Type 2 diabetes mellitus with diabetic peripheral angiopathy without gangrene Code(s): E11.51 - TYPE 2 DIABETES W DIABETIC PERIPHERAL ANGIOPATH W/O GANGRENE (2) Acute on chronic diastolic CHF (congestive heart failure) Code(s): I50.33 - ACUTE ON CHRONIC DIASTOLIC (CONGESTIVE) HEART FAILURE (3) CAD (coronary artery disease) Code(s): I25.10 - ATHSCL HEART DISEASE OF [place] CORONARY ARTERY W/O ANG PCTRS (4) CHF exacerbation Code(s): I50.9 - HEART FAILURE, UNSPECIFIED (5) Obesities, morbid Code(s): E66.01 - MORBID (SEVERE) OBESITY DUE TO EXCESS CALORIES (6) ASHD (arteriosclerotic heart disease) Code(s): I25.10 - ATHSCL HEART DISEASE OF [place] CORONARY ARTERY W/O ANG PCTRS (7) Carotid stenosis Code(s): I65.29 - OCCLUSION AND STENOSIS OF UNSPECIFIED CAROTID ARTERY Qualifiers: Laterality: right Qualified Code(s): I65.21 - Occlusion and stenosis of right carotid artery (8) Chest pain Code(s): R07.9 - CHEST PAIN, UNSPECIFIED Qualifiers: Chest pain type: precordial pain Qualified Code(s): R07.2 - Precordial pain Assessment/Plan Current Active Problems Acute on chronic diastolic CHF (congestive heart failure) (Acute) CAD (coronary artery disease) (Acute) CHF exacerbation (Acute) Obesities, morbid (Acute) Type 2 diabetes mellitus with diabetic peripheral angiopathy without gangrene ( Acute) Abnormal Lab Results 05/25/18 05/25/18 05:30 05:30 MCV 75.3 L MCH 23.6 L MCHC 31.3 L RDW 16.4 H Anion Gap 6 L BUN 20 H Random Glucose 294 H Alkaline Phosphatase 144 H Albumin 3.2 L Laboratory Results - last 24 hr 05/25/18 05/25/18 05/25/18 05:30 05:30 05:38 WBC 7.6 RBC 4.78 Hgb 11.3 Hct 36.0 MCV 75.3 L MCH 23.6 L MCHC 31.3 L RDW 16.4 H Plt Count 245 MPV 8.4 Absolute Neuts (auto) 5.3 Neutrophils % 68.9 Lymphocytes % 16.9 Monocytes % 10.2 Eosinophils % 3.2 Basophils % 0.8 Nucleated RBC % 0 Sodium 141 Potassium 4.0 Chloride 103 Carbon Dioxide 31 Anion Gap 6 L BUN 20 H Creatinine 0.8 Creat Clearance w eGFR 71.55 POC Glucometer 297 Random Glucose 294 H Calcium 8.8 Total Bilirubin 0.3 AST 18 ALT 35 Alkaline Phosphatase 144 H Total Protein 6.6 Albumin 3.2 L 05/25/18 05/25/18 05/25/18 11:42 16:29 20:49 WBC RBC Hgb Hct MCV MCH MCHC RDW Plt Count MPV Absolute Neuts (auto) Neutrophils % Lymphocytes % Monocytes % Eosinophils % Basophils % Nucleated RBC % Sodium Potassium Chloride Carbon Dioxide Anion Gap BUN Creatinine Creat Clearance w eGFR POC Glucometer 394 419 393 Random Glucose Calcium Total Bilirubin AST ALT Alkaline Phosphatase Total Protein Albumin plan: bgm qid novolog insulin dose levemir 40 units am/pm diet and nutrition
[2018-05-25] MEDS: ATORVASTATIN CA 40 MG TABLET (FP) PO SCH (23:00)
[2018-05-25] MEDS: ATENOLOL 50 MG TABLET (FP) PO SCH (23:00)
[2018-05-25] MEDS: INSULIN (LEVEMIR) 100 UNITS/ML UNITS SQ SCH (23:35)
[2018-05-26 06:27] LABS: ANION GAP 6 MMOL/L (8-16); BLOOD UREA NITROGEN 25 mg/dL (7-18); CALCIUM 9.2 mg/dL (8.5-10.1); CHLORIDE 102 mmol/L (98-107); CO2 31 mmol/L (21-32); CREATININE 0.8 mg/dL (0.55-1.3); GLUCOSE,RANDOM 239 mg/dL (74-106); POTASSIUM 4.2 mmol/L (3.5-5.1); SODIUM 139 mmol/L (136-145)
[2018-05-26] MEDS: FUROSEMIDE 40 MG/4 ML INJECTABLE VIAL IVPUSH SCH ×2 (06:27→14:08)
[2018-05-26] MEDS: INSULIN SLIDING SCALE (NOVOLOG) 1 VIAL SQ SCH ×4 (06:28→22:33)
[2018-05-26] MEDS: INSULIN (LEVEMIR) 100 UNITS/ML UNITS SQ SCH ×2 (06:29→22:32)
--- NOTE | 2018-05-26 08:49 | PN ---
Progress Note, Physician Chief Complaint: Acute on Chronic diastolic CHF History of Present Illness: NAD Seen by Cardiology IV diuresis in progress feels better Brannon catheter discontinued UC: Microbiology 05/23/18 23:45 Urine - Urine Brannon Urine Culture - Preliminary Lactose Fermenting Neg Bacilli asymptomatic bacteriuria- may not need treatment- ID eval - Current Medication List Current Medications: Active Medications Aspirin (Ecotrin -) 81 mg PO DAILY [facility] Last Admin: 05/25/18 09:33 Dose: 81 mg Atenolol (Tenormin -) [address] [facility] Last Admin: 05/25/18 23:00 Dose: 100 mg Atorvastatin Calcium (Lipitor -) [address] [facility] Last Admin: 05/25/18 23:00 Dose: 40 mg Clopidogrel Bisulfate (Plavix -) 75 mg PO DAILY [facility] Last Admin: 05/25/18 09:33 Dose: 75 mg Duloxetine HCl (Cymbalta -) 30 mg PO DAILY [facility] Last Admin: 05/25/18 09:33 Dose: 30 mg Enoxaparin Sodium (Lovenox -) 40 mg SQ DAILY [facility] Last Admin: 05/25/18 09:34 Dose: 40 mg Fenofibric Acid (Trilipix -) 135 mg PO DAILY [facility] Last Admin: 05/25/18 09:34 Dose: 135 mg Furosemide (Lasix Injection -) 40 mg IVPUSH BID@0600,1400 [facility] Last Admin: 05/26/18 06:27 Dose: 40 mg Insulin Aspart (Novolog Vial Sliding Scale -) 1 vial SQ [facility]; Protocol Last Admin: 05/26/18 06:28 Dose: 8 units Insulin Detemir (Levemir Vial) 40 units SQ BID@0700,2200 [facility] Last Admin: 05/26/18 06:29 Dose: 40 units Pantoprazole Sodium (Protonix -) 40 mg PO DAILY [facility] Last Admin: 05/25/18 09:33 Dose: 40 mg - Objective Vital Signs: Vital Signs Temperature 97.8 F 05/26/18 05:55 Pulse Rate 73 05/26/18 05:55 Respiratory Rate 18 05/26/18 05:55 Blood Pressure 147/74 05/26/18 05:55 O2 Sat by Pulse Oximetry (%) 100 05/24/18 21:00 Constitutional: Yes: Well Nourished, No Distress, Calm, Obese Cardiovascular: Yes: Regular Rate and Rhythm Respiratory: Yes: Regular Musculoskeletal: Yes: WNL Extremities: Yes: WNL Edema: Yes Edema: LLE: 2+, RLE: 2+ Peripheral Pulses WNL: Yes Neurological: Yes: Alert, Oriented Psychiatric: Yes: Alert, Oriented Labs: CBC, BMP 05/25/18 05:30 05/26/18 05:30 INR, PTT INR 1.08 (0.83-1.09) 05/23/18 23:00 Problem List - Problems (1) Acute on chronic diastolic CHF (congestive heart failure) Assessment/Plan: -diurese with furosemide 40mg IV bid -monitor lytes and daily weights and replete lytes as needed -Remove all fluids from bedside -BP control Code(s): I50.33 - ACUTE ON CHRONIC DIASTOLIC (CONGESTIVE) HEART FAILURE (2) CAD (coronary artery disease) Assessment/Plan: -No chest pain -Old ekg changes -Aspirin/plavix/statin/beta maddi -Continue Tele monitoring Code(s): I25.10 - ATHSCL HEART DISEASE OF [place] CORONARY ARTERY W/O ANG PCTRS (3) Obesities, morbid Assessment/Plan: -Low chol/fat/sodiu/diabetic diet -RD consult Code(s): E66.01 - MORBID (SEVERE) OBESITY DUE TO EXCESS CALORIES (4) Diabetes Assessment/Plan: -Last A1c 04/10/18-9.9 -BGM AC HS -Diabetic diet -RD consult -Endocrine consult Code(s): E11.9 - TYPE 2 DIABETES MELLITUS WITHOUT COMPLICATIONS Qualifiers: Diabetes mellitus type: type 2 Diabetes mellitus fpc insulin use: with fpc use Diabetes mellitus complication status: with unspecified complications Qualified Code(s): E11.8 - Type 2 diabetes mellitus with unspecified complications; Z79.4 - supervising airplane pilot (current) use of insulin (5) Bacteriuria, asymptomatic Assessment/Plan: -await final cultures -ID eval Code(s): R82.71 - BACTERIURIA Assessment/Plan see problem list Physical therapy DVT prophylaxis
[2018-05-26] MEDS ORDERED: PT OWN MED DRAWER 7, Y5N ONE (09:15)
[2018-05-26] MEDS: ASPIRIN COATED 81 MG TABLET.EC PO SCH (09:34)
[2018-05-26] MEDS: PANTOPRAZOLE 40 MG TABLET (FP) PO SCH (09:34)
[2018-05-26] MEDS: CLOPIDOGREL BISULFATE 75 MG TABLET (FP) PO SCH (09:34)
[2018-05-26] MEDS: ENOXAPARIN NA (PORCINE) 40 MG/0.4 ML DISP.SYRIN SQ SCH (09:34)
[2018-05-26] MEDS: FENOFIBRIC ACID 135 MG CAP PO SCH (09:35)
[2018-05-26] MEDS: DULoxetine HCL 30 MG CAPSULE.DR (FP) PO SCH (09:35)
--- NOTE | 2018-05-26 09:41 | PN ---
Progress Note (short form) - Note Progress Note: ID consult dictated imp/reccd 68 yo female pmh dchf, cad, dm, obesity admitted with worsening lower extremity edema and sob no fevers, chills or dysuria asked to evaluate positive urine culture no signs or symptoms of uti suspect this is asymptomatic bacteriuria no need to treat diuresis per cardiology please call back if needed Problem List - Problems (1) Bacteriuria, asymptomatic Code(s): R82.71 - BACTERIURIA (2) Acute on chronic diastolic CHF (congestive heart failure) Code(s): I50.33 - ACUTE ON CHRONIC DIASTOLIC (CONGESTIVE) HEART FAILURE (3) CAD (coronary artery disease) Code(s): I25.10 - ATHSCL HEART DISEASE OF [place] CORONARY ARTERY W/O ANG PCTRS (4) Type 2 diabetes mellitus with diabetic peripheral angiopathy without gangrene Code(s): E11.51 - TYPE 2 DIABETES W DIABETIC PERIPHERAL ANGIOPATH W/O GANGRENE (5) Obesities, morbid Code(s): E66.01 - MORBID (SEVERE) OBESITY DUE TO EXCESS CALORIES
--- NOTE | 2018-05-26 12:53 | PN ---
Progress Note, Physician Chief Complaint: Shortness of breath History of Present Illness: 68 year old with a pmhx of diastolic chf, cad s/p cabg at [facility] [place], 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 Not compliant with fluid restriction. No chest pain, palpitations, or pnd/orthopnea. Echocardiogram 03/2018 nl lvef with mild to mod MR, mild TR, lvh. EKG: sinus with inferolateral ST changes (also on previous ekgs) CXR: congestive changes - Current Medication List Current Medications: Active Medications Aspirin (Ecotrin -) 81 mg PO DAILY [facility] Last Admin: 05/26/18 09:34 Dose: 81 mg Atenolol (Tenormin -) 100 mg PO HS [facility] Last Admin: 05/25/18 23:00 Dose: 100 mg Atorvastatin Calcium (Lipitor -) 40 mg PO HS [facility] Last Admin: 05/25/18 23:00 Dose: 40 mg Clopidogrel Bisulfate (Plavix -) 75 mg PO DAILY [facility] Last Admin: 05/26/18 09:34 Dose: 75 mg Duloxetine HCl (Cymbalta -) 30 mg PO DAILY [facility] Last Admin: 05/26/18 09:35 Dose: 30 mg Enoxaparin Sodium (Lovenox -) 40 mg SQ DAILY [facility] Last Admin: 05/26/18 09:34 Dose: 40 mg Fenofibric Acid (Trilipix -) 135 mg PO DAILY [facility] Last Admin: 05/26/18 09:35 Dose: 135 mg Furosemide (Lasix Injection -) 40 mg IVPUSH BID@0600,1400 [facility] Last Admin: 05/26/18 06:27 Dose: 40 mg Insulin Aspart (Novolog Vial Sliding Scale -) 1 vial SQ [facility]; Protocol Last Admin: 05/26/18 11:17 Dose: 15 units Insulin Detemir (Levemir Vial) 40 units SQ BID@0700,2200 [facility] Last Admin: 05/26/18 06:29 Dose: 40 units Pantoprazole Sodium (Protonix -) 40 mg PO DAILY [facility] Last Admin: 05/26/18 09:34 Dose: 40 mg - Objective Vital Signs: Vital Signs Temperature 97.8 F 05/26/18 05:55 Pulse Rate 73 05/26/18 05:55 Respiratory Rate 18 05/26/18 05:55 Blood Pressure 147/74 05/26/18 05:55 O2 Sat by Pulse Oximetry (%) 100 05/24/18 21:00 Constitutional: Yes: No Distress, Calm, Obese Eyes: Yes: WNL, Conjunctiva Clear HENT: Yes: WNL, Atraumatic, Normocephalic Neck: Yes: WNL, Supple, Trachea Midline Cardiovascular: Yes: Regular Rate and Rhythm, S1, S2 Respiratory: Yes: Regular, Rales, SOB Gastrointestinal: Yes: WNL, Normal Bowel Sounds, Soft Genitourinary: Yes: WNL Musculoskeletal: Yes: WNL Edema: Yes Edema: LLE: 1+, RLE: 1+ Peripheral Pulses: Left Radial: 2+, Right Radial: 2+, Left Doralis Pedis: 2+, Right Dorsalis Pedis: 2+, Left Femoral: 2+, Right Femoral: 2+ Integumentary: Yes: WNL Neurological: Yes: WNL, Alert, Oriented ...Motor Strength: WNL Psychiatric: Yes: WNL Labs: CBC, BMP 05/25/18 05:30 05/26/18 05:30 INR, PTT INR 1.08 (0.83-1.09) 05/23/18 23:00 Assessment/Plan 68 year old with a pmhx of diastolic chf, cad s/p cabg at [facility] [place], 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 Not compliant with fluid restriction. No chest pain, palpitations, or pnd/orthopnea. Echocardiogram 03/2018 nl lvef with mild to mod MR, mild TR, lvh. EKG: sinus with inferolateral ST changes (also on previous ekgs) CXR: congestive changes The patient is clinically and symptomatically better. Remains fluid overloaded. Needs strict salt and fluid restrictions. Please remove all fluids and ice cubes from the bedside. Continue intravenous Lasix as currently. Continue the other medications as currently. The patient is comfortable and gradually improving.
[2018-05-26 13:54] VITALS: BMI 44.4
--- NOTE | 2018-05-26 20:41 | CONS ---
DATE OF CONSULTATION: DATE OF SERVICE: 05/26/2018 This is a 68-year-old female who was admitted to the hospital with worsening lower extremity edema and shortness of breath on the . She had no fevers or chills. She denies any dysuria or difficulty urinating. I am asked to evaluate her for a positive urine culture. She denies any flank pain, suprapubic pain. Reports improvement since she has been receiving diuresis. PAST MEDICAL HISTORY: Notable for a history of diastolic heart failure, coronary artery disease, breast cancer, diabetes. She had a recent admission for CHF and apparently was not taking her Lasix at home. PAST SURGICAL HISTORY: Notable for coronary artery bypass and she is status post lumpectomy for her breast cancer. SOCIAL HISTORY: She lives at home. There is no history of cigarette, alcohol, or substance use. ALLERGIES: She has no known drug allergies. MEDICATIONS: Her medications at home include atenolol, atorvastatin, duloxetine, omeprazole, meclizine, aspirin, Plavix, insulin, fenofibrate, Lasix, and Lyrica. REVIEW OF SYSTEMS: She reports feeling better, though she says her legs were very heavy when she came in. She says her breathing has improved. FAMILY HISTORY: Noncontributory. PHYSICAL EXAMINATION: General: She is awake and alert. Vital Signs: She has had no fevers since admission. Temperature is 98.3, pulse is 68, blood pressure 119/49, respiratory rate 18. She weighs 124 kg. Weight on admission is reported as 133 kg. She has lost a significant amount of weight since admission. HEENT: She is normocephalic. Her eyes are anicteric. Neck: Supple. Lungs: Clear to auscultation. Heart: Regular rate and rhythm. Abdomen: Soft, nontender. Extremities: Notable for bilateral 2+ pitting edema. LABORATORY: Notable for a white count of 7.6, hemoglobin 11.3, platelets are 245. BUN is 25, creatinine 0.8. Urinalysis has trace leukocyte esterase. Urine culture is growing Escherichia coli. IN SUMMARY: This is a 68-year-old woman admitted for congestive heart failure with no signs or symptoms of urinary tract infection. This is most consistent with asymptomatic bacteruria. No need to treat. Would continue diuresis per Cardiology. Please call back as needed. Pili [id number]
[2018-05-26] MEDS ORDERED: INSULIN (LEVEMIR) 100 UNITS/ML UNITS SQ SCH (22:00)
[2018-05-26] MEDS: ATORVASTATIN CA 40 MG TABLET (FP) PO SCH (22:32)
[2018-05-26] MEDS: ATENOLOL 50 MG TABLET (FP) PO SCH (22:33)
[2018-05-27] MEDS: ACETAMINOPHEN 325 MG TABLET (FP) PO PRN ×2 (02:33→16:17)
[2018-05-27] MEDS: FUROSEMIDE 40 MG/4 ML INJECTABLE VIAL IVPUSH SCH ×2 (05:33→13:58)
[2018-05-27 06:21] LABS: ANION GAP 7 MMOL/L (8-16); BLOOD UREA NITROGEN 29 mg/dL (7-18); CALCIUM 8.5 mg/dL (8.5-10.1); CHLORIDE 101 mmol/L (98-107); CO2 29 mmol/L (21-32); CREATININE 0.8 mg/dL (0.55-1.3); POTASSIUM 3.7 mmol/L (3.5-5.1); SODIUM 137 mmol/L (136-145)
[2018-05-27 06:30] LABS: GLUCOSE,RANDOM 325 mg/dL (74-106)
[2018-05-27] MEDS: INSULIN SLIDING SCALE (NOVOLOG) 1 VIAL SQ SCH ×4 (06:35→21:52)
[2018-05-27] MEDS: INSULIN (LEVEMIR) 100 UNITS/ML UNITS SQ SCH ×2 (06:35→21:51)
[2018-05-27] MEDS: FENOFIBRIC ACID 135 MG CAP PO SCH (10:03)
[2018-05-27] MEDS: ENOXAPARIN NA (PORCINE) 40 MG/0.4 ML DISP.SYRIN SQ SCH (10:03)
[2018-05-27] MEDS: PANTOPRAZOLE 40 MG TABLET (FP) PO SCH (10:03)
[2018-05-27] MEDS: DULoxetine HCL 30 MG CAPSULE.DR (FP) PO SCH (10:03)
[2018-05-27] MEDS: CLOPIDOGREL BISULFATE 75 MG TABLET (FP) PO SCH (10:03)
[2018-05-27] MEDS: ASPIRIN COATED 81 MG TABLET.EC PO SCH (10:03)
--- NOTE | 2018-05-27 10:40 | EKG ---
Test Reason : Blood Pressure : / mmHG Vent. Rate : 077 BPM Atrial Rate : 077 BPM P-R Int : 154 ms QRS Dur : 094 ms QT Int : 406 ms P-R-T Axes : 052 -07 153 degrees QTc Int : 459 ms NORMAL SINUS RHYTHM ABNORMAL ECG WHEN COMPARED WITH ECG OF 09-APR-2018 20:19, NO SIGNIFICANT CHANGE WAS FOUND Confirmed by KATHI MARTINEZ MD ([id number]) on 05/27/2018 10:39:41 AM Referred By: Confirmed By:KATHI MARTINEZ MD
--- NOTE | 2018-05-27 12:40 | PN ---
Progress Note, Physician Chief Complaint: patient seen and examined still has leg swelling it is improving - Current Medication List Current Medications: Active Medications Acetaminophen (Tylenol -) 650 mg PO Q4H PRN PRN Reason: PAIN OR FEVER Last Admin: 05/27/18 02:33 Dose: 650 mg Aspirin (Ecotrin -) 81 mg PO DAILY [facility] Last Admin: 05/27/18 10:03 Dose: 81 mg Atenolol (Tenormin -) 100 mg PO [facility] Last Admin: 05/26/18 22:33 Dose: 100 mg Atorvastatin Calcium (Lipitor -) 40 mg PO HS [facility] Last Admin: 05/26/18 22:32 Dose: 40 mg Clopidogrel Bisulfate (Plavix -) 75 mg PO DAILY [facility] Last Admin: 05/27/18 10:03 Dose: 75 mg Duloxetine HCl (Cymbalta -) 30 mg PO DAILY [facility] Last Admin: 05/27/18 10:03 Dose: 30 mg Enoxaparin Sodium (Lovenox -) 40 mg SQ DAILY [facility] Last Admin: 05/27/18 10:03 Dose: 40 mg Fenofibric Acid (Trilipix -) 135 mg PO DAILY [facility] Last Admin: 05/27/18 10:03 Dose: 135 mg Furosemide (Lasix Injection -) 40 mg IVPUSH BID@0600,1400 [facility] Last Admin: 05/27/18 05:33 Dose: 40 mg Insulin Aspart (Novolog Vial Sliding Scale -) 1 vial SQ ACHS [facility]; Protocol Last Admin: 05/27/18 11:35 Dose: 18 units Insulin Detemir (Levemir Vial) 55 units SQ BID@0700,2200 [facility] Last Admin: 05/27/18 06:35 Dose: 55 units Pantoprazole Sodium (Protonix -) 40 mg PO DAILY [facility] Last Admin: 05/27/18 10:03 Dose: 40 mg - Objective Vital Signs: Vital Signs Temperature 98.3 F 05/27/18 05:46 Pulse Rate 78 05/27/18 10:11 Respiratory Rate 18 05/27/18 10:11 Blood Pressure 148/60 05/27/18 10:11 O2 Sat by Pulse Oximetry (%) 100 05/24/18 21:00 Constitutional: Yes: Calm Cardiovascular: Yes: Regular Rate and Rhythm, S1, S2, Other Respiratory: Yes: CTA Bilaterally, Diminished (at bases) Gastrointestinal: Yes: Normal Bowel Sounds, Soft Edema: Yes Neurological: Yes: Alert, Oriented Labs: CBC, BMP 05/25/18 05:30 05/27/18 05:30 INR, PTT INR 1.08 (0.83-1.09) 05/23/18 23:00 Problem List - Problems (1) CHF exacerbation Assessment/Plan: iv lasix bid echo done 04/10 i/o daily weight monitor ylytes and renal function Code(s): I50.9 - HEART FAILURE, UNSPECIFIED (2) Diabetes Assessment/Plan: bgm hga1c sliding scale lvemir 55 units bid based on endocrine evaluation Code(s): E11.9 - TYPE 2 DIABETES MELLITUS WITHOUT COMPLICATIONS Qualifiers: Diabetes mellitus type: type 2 Diabetes mellitus group home insulin use: with group home use Diabetes mellitus complication status: with unspecified complications Qualified Code(s): E11.8 - Type 2 diabetes mellitus with unspecified complications; Z79.4 - half-way (current) use of insulin (3) CAD (coronary artery disease) Assessment/Plan: sw/p CABG aspirin ,tenormin,lipitor and plavix Code(s): I25.10 - ATHSCL HEART DISEASE OF [place] CORONARY ARTERY W/O ANG PCTRS
--- NOTE | 2018-05-27 13:59 | PN ---
Progress Note, Physician Chief Complaint: Cardiology Consult FU SOB with exertion. Less Edema History of Present Illness: 68 year old with a pmhx of diastolic chf, cad s/p cabg at 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 No chest pain, palpitations , or pnd/orthopnea. Echocardiogram 03/2018 nl lvef with mild to mod MR, mild TR, lvh. - Current Medication List Current Medications: Active Medications Acetaminophen (Tylenol -) 650 mg PO Q4H PRN PRN Reason: PAIN OR FEVER Last Admin: 05/27/18 02:33 Dose: 650 mg Aspirin (Ecotrin -) 81 mg PO DAILY [facility] Last Admin: 05/27/18 10:03 Dose: 81 mg Atenolol (Tenormin -) 100 mg PO HS [facility] Last Admin: 05/26/18 22:33 Dose: 100 mg Atorvastatin Calcium (Lipitor -) 40 mg PO HS [facility] Last Admin: 05/26/18 22:32 Dose: 40 mg Clopidogrel Bisulfate (Plavix -) 75 mg PO DAILY [facility] Last Admin: 05/27/18 10:03 Dose: 75 mg Duloxetine HCl (Cymbalta -) 30 mg PO DAILY [facility] Last Admin: 05/27/18 10:03 Dose: 30 mg Enoxaparin Sodium (Lovenox -) 40 mg SQ DAILY [facility] Last Admin: 05/27/18 10:03 Dose: 40 mg Fenofibric Acid (Trilipix -) 135 mg PO DAILY [facility] Last Admin: 05/27/18 10:03 Dose: 135 mg Furosemide (Lasix Injection -) 40 mg IVPUSH BID@0600,1400 [facility] Last Admin: 05/27/18 05:33 Dose: 40 mg Insulin Aspart (Novolog Vial Sliding Scale -) 1 vial SQ ACHS [facility]; Protocol Last Admin: 05/27/18 11:35 Dose: 18 units Insulin Detemir (Levemir Vial) 55 units SQ BID@0700,2200 [facility] Last Admin: 05/27/18 06:35 Dose: 55 units Pantoprazole Sodium (Protonix -) 40 mg PO DAILY [facility] Last Admin: 05/27/18 10:03 Dose: 40 mg - Objective Vital Signs: Vital Signs Temperature 98.3 F 05/27/18 05:46 Pulse Rate 78 05/27/18 10:11 Respiratory Rate 18 05/27/18 10:11 Blood Pressure 148/60 05/27/18 10:11 O2 Sat by Pulse Oximetry (%) 92 L 05/27/18 10:00 Constitutional: Yes: Well Nourished, No Distress Eyes: Yes: Conjunctiva Clear, EOM Intact HENT: Yes: Atraumatic, Normocephalic Neck: Yes: Supple, Trachea Midline Cardiovascular: Yes: Regular Rate and Rhythm, JVD, Murmur (2/6 sys M), S1, S2 Respiratory: Yes: Regular, CTA Bilaterally Gastrointestinal: Yes: Normal Bowel Sounds Edema: Yes Edema: LLE: 1+, RLE: 1+ Labs: CBC, BMP 05/25/18 05:30 05/27/18 05:30 INR, PTT INR 1.08 (0.83-1.09) 05/23/18 23:00 - ....Imaging Chest X-ray: Report Reviewed Problem List - Problems (1) Acute on chronic diastolic CHF (congestive heart failure) Code(s): I50.33 - ACUTE ON CHRONIC DIASTOLIC (CONGESTIVE) HEART FAILURE Assessment/Plan Weiht is lower- I/O not measured but feeling better. Still volume up. Continue IV lasix 40 BID Add Aldactone 25mg qd.
[2018-05-27] MEDS: SPIRONOLACTONE 25 MG TABLET (FP) PO SCH (16:16)
[2018-05-27] MEDS: ATORVASTATIN CA 40 MG TABLET (FP) PO SCH (21:51)
[2018-05-27] MEDS: ATENOLOL 50 MG TABLET (FP) PO SCH (21:51)
--- NOTE | 2018-05-27 23:47 | PN ---
Progress Note, Physician Chief Complaint: short of breath has improved appetite - Current Medication List Current Medications: Active Medications Acetaminophen (Tylenol -) 650 mg PO Q4H PRN PRN Reason: PAIN OR FEVER Last Admin: 05/27/18 16:17 Dose: 650 mg Aspirin (Ecotrin -) 81 mg PO DAILY [facility] Last Admin: 05/27/18 10:03 Dose: 81 mg Atenolol (Tenormin -) 100 mg PO [facility] Last Admin: 05/27/18 21:51 Dose: 100 mg Atorvastatin Calcium (Lipitor -) 40 mg PO HS [facility] Last Admin: 05/27/18 21:51 Dose: 40 mg Clopidogrel Bisulfate (Plavix -) 75 mg PO DAILY [facility] Last Admin: 05/27/18 10:03 Dose: 75 mg Duloxetine HCl (Cymbalta -) 30 mg PO DAILY [facility] Last Admin: 05/27/18 10:03 Dose: 30 mg Enoxaparin Sodium (Lovenox -) 40 mg SQ DAILY [facility] Last Admin: 05/27/18 10:03 Dose: 40 mg Fenofibric Acid (Trilipix -) 135 mg PO DAILY [facility] Last Admin: 05/27/18 10:03 Dose: 135 mg Furosemide (Lasix Injection -) 40 mg IVPUSH BID@0600,1400 [facility] Last Admin: 05/27/18 13:58 Dose: 40 mg Insulin Aspart (Novolog Vial Sliding Scale -) 1 vial SQ [facility]; Protocol Last Admin: 05/27/18 21:52 Dose: 17 units Insulin Aspart (Novolog Mix 70/30 Vial) 25 units SQ BIDAC [facility] Insulin Detemir (Levemir Vial) 55 units SQ BID@0700,2200 [facility] Last Admin: 05/27/18 21:51 Dose: 55 units Pantoprazole Sodium (Protonix -) 40 mg PO DAILY [facility] Last Admin: 05/27/18 10:03 Dose: 40 mg Spironolactone (Aldactone -) 25 mg PO DAILY [facility] Last Admin: 05/27/18 16:16 Dose: 25 mg - Objective Vital Signs: Vital Signs Temperature 98.1 F 05/27/18 22:00 Pulse Rate 77 05/27/18 22:00 Respiratory Rate 18 05/27/18 22:00 Blood Pressure 119/60 05/27/18 22:00 O2 Sat by Pulse Oximetry (%) 93 L 05/27/18 21:00 Constitutional: Yes: Calm Eyes: Yes: EOM Intact HENT: Yes: Normocephalic Neck: Yes: Trachea Midline Cardiovascular: Yes: Tachycardia Respiratory: Yes: Rales, SOB Gastrointestinal: Yes: Abdomen, Obese ...Rectal Exam: Yes: Deferred Genitourinary: Yes: WNL Musculoskeletal: Yes: Back Pain, Muscle Weakness Extremities: Yes: Erythema Edema: LLE: 2+, RLE: 2+ Neurological: Yes: Alert, Oriented, Weakness Labs: CBC, BMP 05/25/18 05:30 05/27/18 05:30 INR, PTT INR 1.08 (0.83-1.09) 05/23/18 23:00 Problem List - Problems (1) Type 2 diabetes mellitus with diabetic peripheral angiopathy without gangrene Code(s): E11.51 - TYPE 2 DIABETES W DIABETIC PERIPHERAL ANGIOPATH W/O GANGRENE (2) Acute on chronic diastolic CHF (congestive heart failure) Code(s): I50.33 - ACUTE ON CHRONIC DIASTOLIC (CONGESTIVE) HEART FAILURE (3) CAD (coronary artery disease) Code(s): I25.10 - ATHSCL HEART DISEASE OF [place] CORONARY ARTERY W/O ANG PCTRS (4) CHF exacerbation Code(s): I50.9 - HEART FAILURE, UNSPECIFIED (5) Obesities, morbid Code(s): E66.01 - MORBID (SEVERE) OBESITY DUE TO EXCESS CALORIES (6) ASHD (arteriosclerotic heart disease) Code(s): I25.10 - ATHSCL HEART DISEASE OF [place] CORONARY ARTERY W/O ANG PCTRS (7) Carotid stenosis Code(s): I65.29 - OCCLUSION AND STENOSIS OF UNSPECIFIED CAROTID ARTERY Qualifiers: Laterality: right Qualified Code(s): I65.21 - Occlusion and stenosis of right carotid artery (8) Chest pain Code(s): R07.9 - CHEST PAIN, UNSPECIFIED Qualifiers: Chest pain type: precordial pain Qualified Code(s): R07.2 - Precordial pain Assessment/Plan Current Active Problems Acute on chronic diastolic CHF (congestive heart failure) (Acute) Bacteriuria, asymptomatic (Acute) CAD (coronary artery disease) (Acute) CHF exacerbation (Acute) Obesities, morbid (Acute) Type 2 diabetes mellitus with diabetic peripheral angiopathy without gangrene ( Acute) Abnormal Lab Results 05/27/18 05:30 Anion Gap 7 L BUN 29 H Random Glucose 325 H* Laboratory Results - last 24 hr 05/27/18 05/27/18 05/27/18 05:30 05:32 11:32 Sodium 137 Potassium 3.7 Chloride 101 Carbon Dioxide 29 Anion Gap 7 L BUN 29 H Creatinine 0.8 Creat Clearance w eGFR 71.55 POC Glucometer 317 370 Random Glucose 325 H* Calcium 8.5 05/27/18 05/27/18 16:21 21:49 Sodium Potassium Chloride Carbon Dioxide Anion Gap BUN Creatinine Creat Clearance w eGFR POC Glucometer 278 332 Random Glucose Calcium plan: add 70/30 25 iu bid levemir 55 iu bid insulin resistant morbid obesity
[2018-05-28] MEDS: INSULIN (NOVOLOG MIX 70/30) 100 UNITS/ML MDV SQ SCH ×2 (06:36→16:42)
[2018-05-28] MEDS: INSULIN SLIDING SCALE (NOVOLOG) 1 VIAL SQ SCH ×5 (06:37→21:52)
[2018-05-28] MEDS: INSULIN (LEVEMIR) 100 UNITS/ML UNITS SQ SCH ×3 (06:37→21:52)
[2018-05-28] MEDS: FUROSEMIDE 40 MG/4 ML INJECTABLE VIAL IVPUSH SCH ×2 (07:21→14:39)
[2018-05-28 07:48] LABS: ALBUMIN 3.5 g/dl (3.4-5.0); ALK PHOS 178 U/L (45-117); ANION GAP 6 MMOL/L (8-16); BILIRUBIN,TOTAL 0.3 mg/dL (0.2-1); BLOOD UREA NITROGEN 22 mg/dL (7-18); CALCIUM 8.6 mg/dL (8.5-10.1); CHLORIDE 104 mmol/L (98-107); CO2 28 mmol/L (21-32); CREATININE 0.9 mg/dL (0.55-1.3); POTASSIUM 4.3 mmol/L (3.5-5.1); SGOT/AST 28 U/L (15-37); SGPT/ALT 34 U/L (13-61); SODIUM 138 mmol/L (136-145); TOT PROT 7.2 g/dl (6.4-8.2)
--- NOTE | 2018-05-28 08:22 | PN ---
Progress Note, Physician History of Present Illness: still with le edema - Current Medication List Current Medications: Active Medications Acetaminophen (Tylenol -) 650 mg PO Q4H PRN PRN Reason: PAIN OR FEVER Last Admin: 05/27/18 16:17 Dose: 650 mg Aspirin (Ecotrin -) 81 mg PO DAILY [facility] Last Admin: 05/27/18 10:03 Dose: 81 mg Atenolol (Tenormin -) 100 mg PO [facility] Last Admin: 05/27/18 21:51 Dose: 100 mg Atorvastatin Calcium (Lipitor -) 40 mg PO HS [facility] Last Admin: 05/27/18 21:51 Dose: 40 mg Clopidogrel Bisulfate (Plavix -) 75 mg PO DAILY [facility] Last Admin: 05/27/18 10:03 Dose: 75 mg Duloxetine HCl (Cymbalta -) 30 mg PO DAILY [facility] Last Admin: 05/27/18 10:03 Dose: 30 mg Enoxaparin Sodium (Lovenox -) 40 mg SQ DAILY [facility] Last Admin: 05/27/18 10:03 Dose: 40 mg Fenofibric Acid (Trilipix -) 135 mg PO DAILY [facility] Last Admin: 05/27/18 10:03 Dose: 135 mg Insulin Aspart (Novolog Vial Sliding Scale -) 1 vial SQ [facility]; Protocol Last Admin: 05/28/18 06:37 Dose: Not Given Insulin Aspart ([facility]olog Mix 70/30 Vial) [facility] Last Admin: 05/28/18 06:36 Dose: 25 units Insulin Detemir (Levemir Vial) 55 units SQ BID@0700,2200 [facility] Last Admin: 05/28/18 06:37 Dose: Not Given Pantoprazole Sodium (Protonix -) 40 mg PO DAILY [facility] Last Admin: 05/27/18 10:03 Dose: 40 mg Spironolactone (Aldactone -) 25 mg PO DAILY [facility] Last Admin: 05/27/18 16:16 Dose: 25 mg - Objective Vital Signs: Vital Signs Temperature 98.5 F 05/28/18 06:00 Pulse Rate 70 05/28/18 06:00 Respiratory Rate 18 05/28/18 06:00 Blood Pressure 111/60 05/28/18 06:00 O2 Sat by Pulse Oximetry (%) 93 L 05/27/18 21:00 Cardiovascular: Yes: S1, S2 Respiratory: Yes: Rales Gastrointestinal: Yes: Normal Bowel Sounds, Soft Edema: Yes Edema: LLE: 2+, RLE: 2+ Labs: CBC, BMP 05/25/18 05:30 05/28/18 05:30 INR, PTT INR 1.08 (0.83-1.09) 05/23/18 23:00 Problem List - Problems (1) Acute on chronic diastolic CHF (congestive heart failure) Assessment/Plan: iv lasix 80 bid echo done 04/10-nl lv i/o daily weight monitor lytes and renal function Code(s): I50.33 - ACUTE ON CHRONIC DIASTOLIC (CONGESTIVE) HEART FAILURE (2) CAD (coronary artery disease) Assessment/Plan: s/p CABG aspirin ,tenormin,lipitor and plavix Code(s): I25.10 - ATHSCL HEART DISEASE OF [place] CORONARY ARTERY W/O ANG PCTRS (3) Type 2 diabetes mellitus with diabetic peripheral angiopathy without gangrene Assessment/Plan: bgm hga1c sliding scale lvemir 55 units bid based on endocrine evaluation Code(s): E11.51 - TYPE 2 DIABETES W DIABETIC PERIPHERAL ANGIOPATH W/O GANGRENE (4) Edema Assessment/Plan: as above duplex r/o dvt Code(s): R60.9 - EDEMA, UNSPECIFIED
[2018-05-28 08:25] LABS: GLUCOSE,RANDOM 305 mg/dL (74-106)
--- NOTE | 2018-05-28 10:14 | PN ---
Progress Note, Physician Chief Complaint: Cardiology Consult FU SOB with exertion. Less Edema History of Present Illness: 68 year old with a pmhx of diastolic chf, cad s/p cabg at [facility], breast CA s/p lumpectomy and [employer], dm, and recent admission for CHF exacerbation presenting with worsening LE edema and KILLIAN with weight gain. No chest pain, palpitations , or pnd/orthopnea. Echocardiogram 03/2018 nl lvef with mild to mod MR, mild TR, lvh. - Current Medication List Current Medications: Active Medications Acetaminophen (Tylenol -) 650 mg PO Q4H PRN PRN Reason: PAIN OR FEVER Last Admin: 05/27/18 16:17 Dose: 650 mg Aspirin (Ecotrin -) 81 mg PO DAILY [facility] Last Admin: 05/27/18 10:03 Dose: 81 mg Atenolol (Tenormin -) 100 mg PO HS [facility] Last Admin: 05/27/18 21:51 Dose: 100 mg Atorvastatin Calcium (Lipitor -) 40 mg PO [facility] Last Admin: 05/27/18 21:51 Dose: 40 mg Clopidogrel Bisulfate (Plavix -) 75 mg PO DAILY [facility] Last Admin: 05/27/18 10:03 Dose: 75 mg Duloxetine HCl (Cymbalta -) 30 mg PO DAILY [facility] Last Admin: 05/27/18 10:03 Dose: 30 mg Enoxaparin Sodium (Lovenox -) 40 mg SQ DAILY [facility] Last Admin: 05/27/18 10:03 Dose: 40 mg Fenofibric Acid (Trilipix -) 135 mg PO DAILY [facility] Last Admin: 05/27/18 10:03 Dose: 135 mg Furosemide (Lasix Injection -) 80 mg IVPUSH BID@0600,1400 [facility] Insulin Aspart (Novolog Vial Sliding Scale -) 1 vial SQ [facility]; Protocol Last Admin: 05/28/18 06:37 Dose: Not Given Insulin Aspart (Novolog Mix 70/30 Vial) 25 units SQ BIDAC [facility] Last Admin: 05/28/18 06:36 Dose: 25 units Insulin Detemir (Levemir Vial) 55 units SQ BID@0700,2200 [facility] Last Admin: 05/28/18 06:37 Dose: Not Given Pantoprazole Sodium (Protonix -) 40 mg PO DAILY [facility] Last Admin: 05/27/18 10:03 Dose: 40 mg Spironolactone (Aldactone -) 25 mg PO DAILY [facility] Last Admin: 05/27/18 16:16 Dose: 25 mg - Objective Vital Signs: Vital Signs Temperature 98.4 F 05/28/18 09:18 Pulse Rate 75 05/28/18 09:18 Respiratory Rate 18 05/28/18 09:18 Blood Pressure 118/49 L 05/28/18 09:18 O2 Sat by Pulse Oximetry (%) 93 L 05/27/18 21:00 Constitutional: Yes: Well Nourished, No Distress Eyes: Yes: Conjunctiva Clear, EOM Intact HENT: Yes: Atraumatic Cardiovascular: Yes: Regular Rate and Rhythm, JVD, S1, S2 Respiratory: Yes: Rales Gastrointestinal: Yes: Normal Bowel Sounds Edema: Yes Edema: LLE: 2+, RLE: 1+ Labs: CBC, BMP 05/25/18 05:30 05/28/18 05:30 INR, PTT INR 1.08 (0.83-1.09) 05/23/18 23:00 Problem List - Problems (1) Acute on chronic diastolic CHF (congestive heart failure) Code(s): I50.33 - ACUTE ON CHRONIC DIASTOLIC (CONGESTIVE) HEART FAILURE Assessment/Plan Weiht is lower- I/O not measured but feeling better. Still volume up. Still volume up. Agree with lasix 80qd. May need metolazone. Follow weight and I/O Lower extremity duplex to RO DVT.
[2018-05-28] MEDS ORDERED: PT OWN MED DRAWER 7, Y5N ONE (10:17)
[2018-05-28] MEDS: CLOPIDOGREL BISULFATE 75 MG TABLET (FP) PO SCH (10:19)
[2018-05-28] MEDS: ENOXAPARIN NA (PORCINE) 40 MG/0.4 ML DISP.SYRIN SQ SCH (10:20)
[2018-05-28] MEDS: PANTOPRAZOLE 40 MG TABLET (FP) PO SCH (10:20)
[2018-05-28] MEDS: FENOFIBRIC ACID 135 MG CAP PO SCH (10:20)
[2018-05-28] MEDS: SPIRONOLACTONE 25 MG TABLET (FP) PO SCH (10:20)
[2018-05-28] MEDS: DULoxetine HCL 30 MG CAPSULE.DR (FP) PO SCH (10:20)
[2018-05-28] MEDS: ASPIRIN COATED 81 MG TABLET.EC PO SCH (10:20)
[2018-05-28] MEDS: ACETAMINOPHEN 325 MG TABLET (FP) PO PRN ×2 (10:32→21:53)
[2018-05-28] MEDS: ATENOLOL 50 MG TABLET (FP) PO SCH (21:52)
[2018-05-28] MEDS: ATORVASTATIN CA 40 MG TABLET (FP) PO SCH (21:52)
[2018-05-29] MEDS: INSULIN SLIDING SCALE (NOVOLOG) 1 VIAL SQ SCH ×6 (01:50→21:25)
[2018-05-29] MEDS: INSULIN (NOVOLOG MIX 70/30) 100 UNITS/ML MDV SQ SCH ×2 (06:05→17:21)
[2018-05-29] MEDS: FUROSEMIDE 40 MG/4 ML INJECTABLE VIAL IVPUSH SCH ×2 (06:08→14:45)
[2018-05-29 06:57] LABS: BASO % 0.8 % (0-2.0); HEMATOCRIT 39.4 % (32.4-45.2); HEMOGLOBIN 12.5 GM/dL (10.7-15.3); LYMPH % 25.2 % (8-40); MCHC 31.7 g/dl (32.0-36.0); MEAN CELL VOLUME 75.5 fl (80-96); MEAN PLT VOLUME 8.3 fl (7.5-11.1); MONO % 15.4 % (3.8-10.2); NEUT % 55.6 % (42.8-82.8); PLATELET COUNT 214 K/MM3 (134-434); RBC 5.21 M/mm3 (3.60-5.2); WHITE BLOOD COUNT 5.9 K/mm3 (4.0-10.0)
[2018-05-29 07:22] LABS: ALBUMIN 3.3 g/dl (3.4-5.0); ALK PHOS 139 U/L (45-117); ANION GAP 3 MMOL/L (8-16); BILIRUBIN,TOTAL 0.5 mg/dL (0.2-1); BLOOD UREA NITROGEN 21 mg/dL (7-18); CALCIUM 8.9 mg/dL (8.5-10.1); CHLORIDE 103 mmol/L (98-107); CO2 34 mmol/L (21-32); CREATININE 0.7 mg/dL (0.55-1.3); GLUCOSE,RANDOM 91 mg/dL (74-106); POTASSIUM 3.7 mmol/L (3.5-5.1); SGOT/AST 22 U/L (15-37); SGPT/ALT 32 U/L (13-61); SODIUM 139 mmol/L (136-145); TOT PROT 7.2 g/dl (6.4-8.2)
--- NOTE | 2018-05-29 08:47 | PN ---
Progress Note, Physician History of Present Illness: Less le edema - Current Medication List Current Medications: Active Medications Acetaminophen (Tylenol -) 650 mg PO Q4H PRN PRN Reason: PAIN OR FEVER Last Admin: 05/28/18 21:53 Dose: 650 mg Aspirin (Ecotrin -) 81 mg PO DAILY [facility] Last Admin: 05/28/18 10:20 Dose: 81 mg Atenolol (Tenormin -) 100 mg PO HS [facility] Last Admin: 05/28/18 21:52 Dose: 100 mg Atorvastatin Calcium (Lipitor -) 40 mg PO HS [facility] Last Admin: 05/28/18 21:52 Dose: 40 mg Clopidogrel Bisulfate (Plavix -) 75 mg PO DAILY [facility] Last Admin: 05/28/18 10:19 Dose: 75 mg Duloxetine HCl (Cymbalta -) 30 mg PO DAILY [facility] Last Admin: 05/28/18 10:20 Dose: 30 mg Enoxaparin Sodium (Lovenox -) 40 mg SQ DAILY [facility] Last Admin: 05/28/18 10:20 Dose: 40 mg Fenofibric Acid (Trilipix -) 135 mg PO DAILY [facility] Last Admin: 05/28/18 10:20 Dose: 135 mg Furosemide (Lasix Injection -) 80 mg IVPUSH BID@0600,1400 [facility] Last Admin: 05/29/18 06:08 Dose: 80 mg Insulin Aspart (Novolog Mix 70/30 Vial) 25 units SQ BIDAC [facility] Last Admin: 05/29/18 06:05 Dose: Not Given Insulin Aspart (Novolog Vial Sliding Scale -) 1 vial SQ Q4H [facility]; Protocol Last Admin: 05/29/18 06:05 Dose: Not Given Insulin Detemir (Levemir Vial) 55 units SQ BID@0700,2200 [facility] Last Admin: 05/28/18 21:52 Dose: 55 units Pantoprazole Sodium (Protonix -) 40 mg PO DAILY [facility] Last Admin: 05/28/18 10:20 Dose: 40 mg Spironolactone (Aldactone -) 25 mg PO DAILY [facility] Last Admin: 05/28/18 10:20 Dose: 25 mg - Objective Vital Signs: Vital Signs Temperature 97.9 F 05/29/18 05:50 Pulse Rate 79 05/29/18 05:50 Respiratory Rate 18 05/29/18 05:50 Blood Pressure 135/59 L 05/29/18 05:50 O2 Sat by Pulse Oximetry (%) 95 05/28/18 21:00 Cardiovascular: Yes: Regular Rate and Rhythm Respiratory: Yes: Regular, CTA Bilaterally Gastrointestinal: Yes: Normal Bowel Sounds, Soft Edema: Yes Labs: CBC, BMP 05/29/18 06:00 05/29/18 06:00 INR, PTT INR 1.08 (0.83-1.09) 05/23/18 23:00 Problem List - Problems (1) Acute on chronic diastolic CHF (congestive heart failure) Assessment/Plan: iv lasix 80 bid echo done 04/10-nl lv i/o daily weight monitor lytes and renal function Code(s): I50.33 - ACUTE ON CHRONIC DIASTOLIC (CONGESTIVE) HEART FAILURE (2) CAD (coronary artery disease) Assessment/Plan: s/p CABG aspirin ,tenormin,lipitor and plavix consider stress testing Code(s): I25.10 - ATHSCL HEART DISEASE OF [place] CORONARY ARTERY W/O ANG PCTRS (3) Type 2 diabetes mellitus with diabetic peripheral angiopathy without gangrene Assessment/Plan: bgm hga1c sliding scale lvemir 55 units bid based on endocrine evaluation Code(s): E11.51 - TYPE 2 DIABETES W DIABETIC PERIPHERAL ANGIOPATH W/O GANGRENE (4) Edema Assessment/Plan: as above duplex r/o dvt Code(s): R60.9 - EDEMA, UNSPECIFIED
[2018-05-29] MEDS ORDERED: PT OWN MED DRAWER 7, Y5N ONE (09:27)
[2018-05-29] MEDS: ASPIRIN COATED 81 MG TABLET.EC PO SCH (09:33)
[2018-05-29] MEDS: ENOXAPARIN NA (PORCINE) 40 MG/0.4 ML DISP.SYRIN SQ SCH (09:33)
[2018-05-29] MEDS: DULoxetine HCL 30 MG CAPSULE.DR (FP) PO SCH (09:33)
[2018-05-29] MEDS: PANTOPRAZOLE 40 MG TABLET (FP) PO SCH (09:33)
[2018-05-29] MEDS: CLOPIDOGREL BISULFATE 75 MG TABLET (FP) PO SCH (09:33)
[2018-05-29] MEDS: FENOFIBRIC ACID 135 MG CAP PO SCH (09:34)
[2018-05-29] MEDS: SPIRONOLACTONE 25 MG TABLET (FP) PO SCH (09:34)
[2018-05-29] MEDS: INSULIN (LEVEMIR) 100 UNITS/ML UNITS SQ SCH ×2 (09:40→21:26)
--- NOTE | 2018-05-29 14:22 | PN ---
Progress Note, Physician Chief Complaint: Cardiology Consult FU Less SOB with exertion. Ambulates with assistance.. Less Edema History of Present Illness: 68 year old with a pmhx of diastolic chf, cad s/p cabg at [facility], breast CA s/p lumpectomy and [employer], dm, and recent admission for CHF exacerbation presenting with worsening LE edema and KILLIAN with weight gain. No chest pain, palpitations , or pnd/orthopnea. Echocardiogram 03/2018 nl lvef with mild to mod MR, mild TR, lvh. - Current Medication List Current Medications: Active Medications Acetaminophen (Tylenol -) 650 mg PO Q4H PRN PRN Reason: PAIN OR FEVER Last Admin: 05/28/18 21:53 Dose: 650 mg Aspirin (Ecotrin -) 81 mg PO DAILY [facility] Last Admin: 05/29/18 09:33 Dose: 81 mg Atenolol (Tenormin -) 100 mg PO HS [facility] Last Admin: 05/28/18 21:52 Dose: 100 mg Atorvastatin Calcium (Lipitor -) 40 mg PO HS [facility] Last Admin: 05/28/18 21:52 Dose: 40 mg Clopidogrel Bisulfate (Plavix -) 75 mg PO DAILY [facility] Last Admin: 05/29/18 09:33 Dose: 75 mg Duloxetine HCl (Cymbalta -) 30 mg PO DAILY [facility] Last Admin: 05/29/18 09:33 Dose: 30 mg Enoxaparin Sodium (Lovenox -) 40 mg SQ DAILY [facility] Last Admin: 05/29/18 09:33 Dose: 40 mg Fenofibric Acid (Trilipix -) 135 mg PO DAILY [facility] Last Admin: 05/29/18 09:34 Dose: 135 mg Insulin Aspart (Novolog Mix 70/30 Vial) 25 units SQ BIDAC [facility] Last Admin: 05/29/18 06:05 Dose: Not Given Insulin Aspart (Novolog Vial Sliding Scale -) 1 vial SQ Q4H [facility]; Protocol Last Admin: 05/29/18 12:31 Dose: 17 units Insulin Detemir (Levemir Vial) 55 units SQ BID@0700,2200 [facility] Last Admin: 05/29/18 09:40 Dose: 55 units Pantoprazole Sodium (Protonix -) 40 mg PO DAILY [facility] Last Admin: 05/29/18 09:33 Dose: 40 mg Spironolactone (Aldactone -) 25 mg PO DAILY [facility] Last Admin: 05/29/18 09:34 Dose: 25 mg Torsemide (Demadex -) 80 mg PO DAILY [facility] - Objective Vital Signs: Vital Signs Temperature 97.7 F 05/29/18 10:01 Pulse Rate 73 05/29/18 10:01 Respiratory Rate 20 05/29/18 10:01 Blood Pressure 138/62 05/29/18 10:01 O2 Sat by Pulse Oximetry (%) 96 05/29/18 09:00 Constitutional: Yes: Well Nourished Eyes: Yes: Conjunctiva Clear HENT: Yes: Atraumatic Cardiovascular: Yes: Regular Rate and Rhythm, JVD, S1, S2 Respiratory: Yes: Regular, CTA Bilaterally Gastrointestinal: Yes: Normal Bowel Sounds Edema: Yes Edema: LLE: 1+, RLE: Trace Labs: CBC, BMP 05/29/18 06:00 05/29/18 06:00 INR, PTT INR 1.08 (0.83-1.09) 05/23/18 23:00 Problem List - Problems (1) Acute on chronic diastolic CHF (congestive heart failure) Code(s): I50.33 - ACUTE ON CHRONIC DIASTOLIC (CONGESTIVE) HEART FAILURE Assessment/Plan Improved CHF. still volume up Transition to torsemide 80mg qd. Supplement K Cont aldactone Out patient ischemia eval and stress test is reasonable. Discharge soon if stable on oral therapy.
[2018-05-29] MEDS ORDERED: POTASSIUM CHLORIDE TABS 20 MEQ TABLET.ER (FP) PO ONE (14:30)
[2018-05-29] MEDS: ATENOLOL 50 MG TABLET (FP) PO SCH (21:26)
[2018-05-29] MEDS: ATORVASTATIN CA 40 MG TABLET (FP) PO SCH (21:26)
[2018-05-30] MEDS: INSULIN SLIDING SCALE (NOVOLOG) 1 VIAL SQ SCH ×4 (00:42→12:28)
[2018-05-30] MEDS: INSULIN (LEVEMIR) 100 UNITS/ML UNITS SQ SCH (06:51)
[2018-05-30] MEDS: INSULIN (NOVOLOG MIX 70/30) 100 UNITS/ML MDV SQ SCH (06:51)
[2018-05-30 07:34] LABS: BASO % 0.7 % (0-2.0); EOS % 2.7 % (0-4.5); HEMATOCRIT 36.3 % (32.4-45.2); HEMOGLOBIN 11.6 GM/dL (10.7-15.3); MCHC 31.9 g/dl (32.0-36.0); MEAN CELL VOLUME 75.2 fl (80-96); MEAN PLT VOLUME 8.3 fl (7.5-11.1); MONO % 11.3 % (3.8-10.2); NEUT % 65.3 % (42.8-82.8); PLATELET COUNT 199 K/MM3 (134-434); RBC 4.83 M/mm3 (3.60-5.2); RDW 15.8 % (11.6-15.6); WHITE BLOOD COUNT 6.4 K/mm3 (4.0-10.0)
[2018-05-30 08:02] LABS: ALBUMIN 3.2 g/dl (3.4-5.0); ALK PHOS 134 U/L (45-117); ANION GAP 5 MMOL/L (8-16); BILIRUBIN,TOTAL 0.3 mg/dL (0.2-1); BLOOD UREA NITROGEN 26 mg/dL (7-18); CALCIUM 8.6 mg/dL (8.5-10.1); CHLORIDE 106 mmol/L (98-107); CO2 32 mmol/L (21-32); CREATININE 0.9 mg/dL (0.55-1.3); GLUCOSE,RANDOM 187 mg/dL (74-106); POTASSIUM 3.8 mmol/L (3.5-5.1); SGOT/AST 21 U/L (15-37); SGPT/ALT 31 U/L (13-61); SODIUM 142 mmol/L (136-145); TOT PROT 6.4 g/dl (6.4-8.2)
[2018-05-30] MEDS ORDERED: PT OWN MED DRAWER 7, Y5N ONE (09:04)
[2018-05-30] MEDS: ENOXAPARIN NA (PORCINE) 40 MG/0.4 ML DISP.SYRIN SQ SCH (09:38)
[2018-05-30] MEDS: PANTOPRAZOLE 40 MG TABLET (FP) PO SCH (09:38)
[2018-05-30] MEDS: SPIRONOLACTONE 25 MG TABLET (FP) PO SCH (09:38)
[2018-05-30] MEDS: CLOPIDOGREL BISULFATE 75 MG TABLET (FP) PO SCH (09:39)
[2018-05-30] MEDS: ASPIRIN COATED 81 MG TABLET.EC PO SCH (09:39)
[2018-05-30] MEDS: FENOFIBRIC ACID 135 MG CAP PO SCH (09:39)
[2018-05-30] MEDS: DULoxetine HCL 30 MG CAPSULE.DR (FP) PO SCH (09:39)
[2018-05-30] MEDS ORDERED: TORSEMIDE 20 MG TABLET (FP) PO SCH (10:00)
[2018-05-30 10:02] VITALS: BP 121/50; PULSE 76; TEMP 97.9
--- NOTE | 2018-05-30 11:38 | DS ---
Physical Examination Vital Signs: Vital Signs Temperature 97.9 F 05/30/18 10:02 Pulse Rate 76 05/30/18 10:02 Respiratory Rate 18 05/30/18 10:02 Blood Pressure 121/50 L 05/30/18 10:02 O2 Sat by Pulse Oximetry (%) 95 05/29/18 21:00 Constitutional: Yes: Calm Cardiovascular: Yes: Regular Rate and Rhythm, S1, S2 Respiratory: Yes: CTA Bilaterally, Diminished (at bases) Gastrointestinal: Yes: Normal Bowel Sounds, Soft Edema: Yes (reduced) Neurological: Yes: Alert, Oriented Labs: CBC, BMP 05/30/18 07:15 05/30/18 07:15 Discharge Summary Reason For Visit: ACUTE ON CHRONIC CONGESTIVE HEART FAILURE Current Active Problems Acute on chronic diastolic CHF (congestive heart failure) (Acute) Bacteriuria, asymptomatic (Acute) CAD (coronary artery disease) (Acute) CHF exacerbation (Acute) Obesities, morbid (Acute) Type 2 diabetes mellitus with diabetic peripheral angiopathy without gangrene ( Acute) Other Procedures: Echocardiogram 03/2018 nl lvef with mild to mod MR, mild TR, lvh. Hospital Course: CHIEF COMPLAINT: b/l edema, KILLIAN PCP: [place] HISTORY OF PRESENT ILLNESS: Patient is a 68 y/o F w/ PMHx dCHF, CAD s/p CABG, breast Ca c/p lumpectomy and [employer] 1 y/a, DM, recent admission for CHF exacerbation (was reportedly non- compliant with home Lasix d/t urinary frequency at that time), p/w worsening b/ l LE edema and KILLIAN. Echo on 04/10 showed nl LVEF and concentric LVH ER course was notable for: (1) BNP at baseline (2) labs wnl (3) CXR showing congestion patient admitted with congestion got iv lasix now changed to po torsemide 80mg' and stared on aldactone 25 mg daily insulin resistant morbid obesity levemir 55units and 70/30 25 units bid Condition: Stable - Instructions Referrals: Arianna Wallace MD [Primary Care Provider] - 2 Weeks Disposition: HOME - Home Medications Comprehensive Discharge Medication List: Ambulatory Orders Atenolol [Tenormin -] 100 mg PO HS 06/29/13 Atorvastatin Ca [Lipitor] 40 mg PO HS 06/29/13 Duloxetine HCl [Cymbalta] 30 mg PO DAILY 03/05/15 Esomeprazole Magnesium [Nexium 24Hr] 40 mg PO DAILY 03/21/16 Meclizine HCl [Antivert -] 25 mg PO TID PRN #30 tablet 08/07/16 Aspirin Coated [Ecotrin -] 81 mg PO DAILY tablet.ec 04/12/18 Clopidogrel Bisulfate [Plavix -] 75 mg PO DAILY tablet 04/12/18 Insulin Sliding Scale [Novolog Vial Sliding Scale -] 1 vial SQ ACHS units 04/12 Fenofibrate Nanocrystallized [Fenofibrate] 145 mg PO DAILY 05/23/18 Furosemide [Lasix -] 40 mg PO BID 05/23/18 Insulin Glargine,Hum.rec.anlog [Toujeo Solostar] 80 unit SQ [facility] 05/23/18 Pregabalin [Lyrica] 100 mg PO [facility] 05/23/18
== END 2018-05-30 13:39 | disposition home or self-care (01) | DRG 292 ==
LOC: JER 17:04 → JERBED 05-24 00:15 → J4S 05-24 15:04
PROVIDERS: ADMIT Internal Medicine; ATTEND Family Medicine
DX: I11.0 Hypertensive heart disease with heart failure (principal); Z68.42 Body mass index [BMI] 45.0-49.9, adult; I50.33 Acute on chronic diastolic (congestive) heart failure; E11.65 Type 2 diabetes mellitus with hyperglycemia; E11.51 Type 2 diabetes mellitus with diabetic peripheral angiopathy without gangrene; Z79.4 Long term (current) use of insulin; E66.01 Morbid (severe) obesity due to excess calories; I25.10 Atherosclerotic heart disease of native coronary artery without angina pectoris; Z95.1 Presence of aortocoronary bypass graft; Z85.3 Personal history of malignant neoplasm of breast; R35.0 Frequency of micturition; Z87.891 Personal history of nicotine dependence; Z91.14 Patient's other noncompliance with medication regimen; E88.09 Other disorders of plasma-protein metabolism, not elsewhere classified; D50.9 Iron deficiency anemia, unspecified; B35.1 Tinea unguium; I87.8 Other specified disorders of veins; R82.71 Bacteriuria; I34.0 Nonrheumatic mitral (valve) insufficiency
CPT/HCPCS: 36415; 71046-TC-FY; 71250-TC; 80048; 80053; 81003; 82962; 83036; 83735; 83880; 84100; 85025; 85379; 85610; 85730; 87086; 87186; 93005; 93010; 93970-TC; 97116-GP; 97161-GP; 99285-25

== ENCOUNTER 2018-07-01 17:48 | Inpatient (IN) | payer BC, OTHER | END 2018-07-11 11:41 | disposition home health service (06) | LOC: J4W 07-02 02:35 → J8W 07-04 15:10 → JER 17:48 → JERBED 22:38 ==

== ENCOUNTER 2018-07-19 13:57 | Inpatient (IN) | payer BC, OTHER | END 2018-07-21 10:54 | disposition home or self-care (01) | LOC: J4S 07-20 20:50 → JER 13:57 → JERBED 16:03 → J4W 19:55 ==

== ENCOUNTER 2018-09-09 12:00 | Inpatient (IN) | payer BC ==
--- NOTE | 2018-09-09 12:24 | PDOC ---
History of Present Illness - General Chief Complaint: Edema Stated Complaint: WEAKNESS/ RETAINING FLUIDS Time Seen by Provider: 09/09/18 12:22 History Source: Patient Exam Limitations: No Limitations - History of Present Illness Initial Comments: 09/09/18 12:23 PCP: Dr. Odonnell Cards: Dr. Marquez Pelaezc: Dr. Burnette CC: 68yo woman presenting with edema for 1 week HPI: 68yo woman with PMH CHF, CAD s/p CABG, s/p stent x2 (Plavix), HLD, DM (A1C 13%) , who presents with 1 week of worsening swelling throughout her legs and arms with associated pain with ambulation / and reduced exercise tolerance. Pt spoke with her rn eligibility (Dr. Mccarty) this morning and was told to increase her diuretic from 60 mg to 80 mg BID. This morning was the first time she took 80. She presents due to swelling, pain, difficulty laying flat, and new numbness in her fingers. She recently was evaluated for PAD (Dr. Burnette) and was found to have considerable PAD in bilateral LE. She reports the plan is to get a CT before deciding on intervention. Difficulty sleeping is reportedly secondary to pain and "running to the bathroom all night" although she does endorse chronic orthopnea. Pt reports compliance with medications. No urinary symptoms - frequency c/w diuretic use. PMH: As above, breast cancer PSH: CABG "20 years ago" All: NKDA Meds: unchanged except increase in diuretic today SHx: Former smoker, quit 4 years ago FHx: Mother with heart disease Past History - Past Medical History Allergies/Adverse Reactions: Allergies Allergy/AdvReac Type Severity Reaction Status Date / Time No Known Allergies Allergy Verified 07/19/18 13:58 Home Medications: Ambulatory Orders Atorvastatin Ca [Lipitor] 40 mg PO HS 07/19/18 Fenofibrate Nanocrystallized [Tricor] 145 mg PO DAILY 07/19/18 Ramipril [Altace] 5 mg PO DAILY 07/19/18 Spironolactone [Aldactone] 25 mg PO DAILY 07/19/18 Apixaban [Eliquis -] 5 mg PO BID #60 tablet 07/21/18 Metoprolol Succinate [Toprol XL -] 50 mg PO BID #60 tab.sr.24h 07/21/18 Atenolol [Tenormin -] 50 mg PO DAILY 09/09/18 Cilostazol 100 mg PO DAILY 09/09/18 Omeprazole 40 mg PO DAILY 09/09/18 Torsemide 20 mg PO DAILY 09/09/18 Anemia: No Asthma: No Cancer: Yes (LEFT BREAST JAN 2016, chemo) Cardiac Disorders: Yes (CABG 15 YRS AGO/OVER 1 YR HAD ANGIOPLASTY ?) CVA: No COPD: No CHF: No Dementia: No Diabetes: Yes (DIAG 25 YRS AGO/INSULIN DEPENDENT) GI Disorders: No Disorders: Yes (URINARY FREQUENCY) HTN: Yes Hypercholesterolemia: Yes Liver Disease: No Seizures: No Thyroid Disease: No - Surgical History Abdominal Surgery: Yes (CYST REMOVED) Appendectomy: No Cardiac Surgery: Yes (BYPASS 15 YRS AGO) Cholecystectomy: No Lung Surgery: No Orthopedic Surgery: No - Immunization History Immunization Up to Date: Yes - Suicide/Smoking/Psychosocial Hx Smoking History: Never smoked Have you smoked in the past 12 months: No Number of Cigarettes Smoked Daily: 40 (2PPD x 30+ yrs) If you are a former smoker, when did you quit?: 3 years ago Information on smoking cessation initiated: No Hx Alcohol Use: No Drug/Substance Use Hx: No Substance Use Type: None Hx Substance Use Treatment: No Review of Systems - Review of Systems Able to Perform ROS?: Yes Is the patient limited [place] proficient: No Constitutional: No: Symptoms Reported HEENTM: No: Symptoms Reported Respiratory: Yes: Orthopnea, Shortness of Breath, SOB with Exertion. No: Cough , Stridor, Wheezing Cardiac (ROS): Yes: Edema, Palpitations. No: Chest Pain, Lightheadedness, Syncope, Chest Tightness ABD/GI: No: Symptoms Reported : No: Symptoms Reported Musculoskeletal: Yes: Back Pain, Neck Pain. No: Muscle Weakness Integumentary: No: Symptoms Reported, Bruising, Change in Color, Erythema Neurological: Yes: Numbness (bilateral fingers) All Other Systems: Reviewed and Negative *Physical Exam - Vital Signs Last Vital Signs Temp Pulse Resp BP Pulse Ox 98.6 F 88 16 105/52 L 96 09/09/18 12:04 09/09/18 12:04 09/09/18 12:04 09/09/18 12:04 09/09/18 12:04 - Physical Exam Comments: 09/09/18 13:27 Vitals reviewed, AFVSS Gen: Obese woman, sitting on edge of bed, cooperative HEENT: normal morphologies, nontraumatic, EOMI, MMM CV: RRR, normal s1/s2 appreciated - sounds distant, no murmurs appreciated, no bruits appreciated Pulm: CTABL, no wheezes / rales / rhonchi, no crackles appreciated Abd: Soft, nontender, nondistended Neuro: alert and oriented, CN grossly intact, sensation and strength intact throughout Pulses: 2+ radial and DP bilaterally Back: mild swelling / tenderness on palpation of upper back, no spinal point tenderness, not warm, not bruised or injected Ext: edematous x4 limbs, not warm, no skin changes, CABG retrieval scar noted on medial left leg, mildly tender to palpation Heart Score/ECG Review - History History: Slightly suspicious - Electrocardiogram EKG: Non specific repolarization disturbance - Age Age: >/= 65 - Risk Factors Risk Factors Heart Score: Yes Hx Hypercholesterolemia, Yes Hx Diabetes, Yes Smoking History, Yes Positive family hx of cardiac disease, Yes Hx Obesity Based on the list above the patient has:: >/=3 risk factors or Hx atherosclerotic disease - Troponin Troponin: </= normal limit - Score Heart Score - Total: 5 ED Treatment Course - LABORATORY CBC & Chemistry Diagram: 09/09/18 13:22 09/09/18 13:15 Medical Decision Making - Medical Decision Making 09/09/18 13:38 68yo woman with PMH CHF, CAD s/p CABG, s/p stent x2 (Plavix), HLD, DM (A1C 13%) , with multiple recent admissions for CHF exacerbations who presents with 1 week of worsening swelling with associated pain on ambulation / and reduced exercise tolerance. Concerning for CHF exacerbation, less likely ACS / dissection / CKD in aggressively diuresed pt. Pt reportedly medication compliant , good with followup. -CBC, CMP, Cardiac Profile, BNP, UA, BGM -EKG, CXR, [employer] -Plan for tylenol after labs -Consider lasix 60 IV 09/09/18 15:05 -EKG with new T wave changes compared with prior, no other ST changes 09/09/18 15:15 -CXR without signs of fluid overload or infectious foci -Heart Score 5 -BNP 388.2, troponin negative -No leukocytosis -Cr 1.4, BUN 31.4 - Cr 1.4 several days ago, early 2018 <1.0. Could indicate KEVIN resulting from interval increases in diuretics -Electrolytes wnl, K 3.6 -Glucose 227 09/09/18 15:31 -Call placed to Dr. Mccarty -Consider Doppler US given recent hospitalizations -60 mg IV lasix okay to give -T wave changes nonspecific, likely related to CHF -Reasonable to admit for diuresis / optimization prior to CTA with vascular for PAD 09/09/18 15:45 -Pt endorsed to hospitalist, admitted to Dr. Merritt, telemetry *DC/Admit/Observation/Transfer Diagnosis at time of Disposition: CHF exacerbation Qualifiers: Heart failure type: unspecified Qualified Code(s): I50.9 - Heart failure, unspecified - Discharge Dispostion Condition at time of disposition: Guarded Decision to Admit order: Yes - Referrals Referrals: Vasyl Odonnell MD [Primary Care Provider] - Allen Mccarty MD [Staff Physician] - - Patient Instructions - Post Discharge Activity
[2018-09-09 13:53] LABS: BASO % 0.9 % (0-2.0); EOS % 3.2 % (0-4.5); HEMATOCRIT 30.5 % (32.4-45.2); HEMOGLOBIN 9.9 GM/dL (10.7-15.3); LYMPH % 13.8 % (8-40); MCH 23.8 pg (25.7-33.7); MCHC 32.6 g/dl (32.0-36.0); MEAN CELL VOLUME 73.1 fl (80-96); MEAN PLT VOLUME 8.7 fl (7.5-11.1); NEUT % 74.1 % (42.8-82.8); PLATELET COUNT 220 K/MM3 (134-434); RBC 4.17 M/mm3 (3.60-5.2); RDW 15.7 % (11.6-15.6); WHITE BLOOD COUNT 9.7 K/mm3 (4.0-10.0)
[2018-09-09 14:12] LABS: ALBUMIN 3.4 g/dl (3.4-5.0); BILIRUBIN,TOTAL 0.5 mg/dL (0.2-1); BLOOD UREA NITROGEN 31.4 mg/dL (7-18); CALCIUM 9.3 mg/dL (8.5-10.1); CREATININE 1.4 mg/dL (0.55-1.3); N-TERMINAL BNP 388.2 pg/ml (5-125); POTASSIUM 3.6 mmol/L (3.5-5.1); TOT PROT 6.8 g/dl (6.4-8.2)
--- NOTE | 2018-09-09 14:28 | PDOC ---
Documentation entered by Анна Arias SCRIBE, acting as scribe for Carin Boyd MD. Carin Boyd MD: This documentation has been prepared by the scribe, Анна Arias SCRIBE, under my direction and personally reviewed by me in its entirety. I confirm that the documentation accurately reflects all work, treatment, procedures, and medical decision making performed by me. Attending Attestation - Resident Resident Name: [email or web address] - ED Attending Attestation I have performed the following: I have examined & evaluated the patient, The case was reviewed & discussed with the resident, I agree w/resident's findings & plan, Exceptions are as noted - HPI HPI: 09/09/18 13:13 The patient is a 68-year-old female, with a past medical history diastolic CHF, CAD, CABG, cardiac stents x2, pAfib who presents to the ED with 1 weeks of progressively worsening LE/UE swelling and pain. The patient called her chief digital officer (Dr. Mccarty) this morning who advised that the patient increase her torsemide from 60 to 80mg BID; first dose was today. The patient decided to come to the ED because the swelling and the pain has worsened and she is now experiencing difficulty ambulating, back swelling, and new onset B/L hand numbness. A1c was noted to be 13 this morning. Patient reports that her BS has not been well controlled. The patient denies any fevers, chills, nausea, vomiting, diarrhea, constipation , or abdominal pain. Denies any chest pain or shortness of breath. Denies any headache, dizziness, or lightheadedness. Allergies: NKA Social History: Former smoker. PCP: Dr. Odonnell Vp Product Management: Dr. Mccarty 09/09/18 14:31 - Physicial Exam PE: 09/09/18 13:14 NAD, well appearing, EOMI, PERRL, nl conjunctiva, anicteric; neck supple. no respiratory distress, abdomen obese, ERVIN x4. 4+ bilateral pitting peripheral edema. normal color for ethnicity, [facility]. 09/09/18 15:48 - Medical Decision Making 09/09/18 14:27 See HPI for details. Prior notes reviewed, including admissions, discharges and consultations. Vital signs reviewed, wnl. Vital Signs Temp Pulse Resp BP Pulse Ox 98.6 F 88 16 105/52 L 96 09/09/18 12:04 09/09/18 12:04 09/09/18 12:04 09/09/18 12:04 09/09/18 12:04 DDX lymphedema, CHF, leg edema, fluid overload, venous stasis laboratory results and imaging reviewed, basic labs and lytes wnl, BNP indeterminate range. CXR_cardiomegaly, no edema/infiltrate. Cardiac panel_neg trop, bnp mildly elevated but nonspecific EKG normal sinus rhythm at 86 bpm, no interval abnormalities, narrow QRS, ST and T wave segments and morphology normal. Nonspecific T wave abnormalities ED course: - IV diuresis, lasix 60mg IV, to effectively double dose. Cr at baseline. cards cs Dr Mccarty admit tele for leg edema, early CHF and cautious diuresis. admit to Dr Merritt service. 09/09/18 14:31 09/09/18 14:34 09/09/18 15:48 Heart Score/ECG Review #1 ECG reviewed & interpreted by me at: 13:30 General ECG Interpretation: Sinus Rhythm, Normal Rate, Normal Intervals Compared to previous ECG there are: Changes noted 09/09/18 14:32 EKG normal sinus rhythm at 86 bpm, no interval abnormalities, narrow QRS, ST and T wave segments and morphology normal. Nonspecific T wave abnormalities with TWI in precordial leads, changed from prior. 09/09/18 14:34
[2018-09-09] MEDS ORDERED: FUROSEMIDE 100 MG/10 ML INJECTABLE VIAL IVPB ONE (15:49)
[2018-09-09 15:57] LABS: EPI CELLS 13.5 /HPF (0-5/HPF); HYALINE CASTS 14 /lpf (0-8); URINE APPEARANCE CLOUDY; URINE BACTERIA 177.2 /hpf (NEGATIVE); URINE BILIRUBIN NEGATIVE (NEGATIVE); URINE COLOR YELLOW; URINE GLUCOSE (UA) NEGATIVE (NEGATIVE); URINE KETONE NEGATIVE (NEGATIVE); URINE LEUK ESTERASE 2+ (NEGATIVE); URINE NITRITE NEGATIVE (NEGATIVE); URINE PROTEIN NEGATIVE (NEGATIVE); URINE RBC 4 /hpf (0-4); URINE WBC 45 /hpf (0-5)
[2018-09-09] MEDS ORDERED: FUROSEMIDE 40 MG/4 ML INJECTABLE VIAL ONE (16:14)
--- NOTE | 2018-09-09 16:14 | PN ---
Progress Note, Physician Chief Complaint: LE edema History of Present Illness: 68F well known to our service: 1. ASHD s/p CABG 2. Chronic diastolic CHF 3. PAF on NOAC 4.PAD. Multiple recent admissions for decompensated diastolic CHF, new onset PAF. Was seen in office last week with worsened LE edema. No rales or JVD. Sent for labs to determine if Torsemide could be increased to 80BID, but patient 's phone was disconnected. This AM, spoke to her and she took 80mg torsemide, but did not have good urine output so came to ER. Denies CP, palps, + chronic KILLIAN. Worsened LE edema b/l. Also c/o diffuse pains- neck, shoulders with movement of arms. Not pleuritic. Denied fever, chills, cough. - Current Medication List Current Medications: Active Medications Furosemide (Lasix Injection -) 80 mg IVPB DAILY MARI - Objective Vital Signs: Vital Signs Temperature 98.6 F 09/09/18 12:04 Pulse Rate 88 09/09/18 12:04 Respiratory Rate 16 09/09/18 12:04 Blood Pressure 105/52 L 09/09/18 12:04 O2 Sat by Pulse Oximetry (%) 96 09/09/18 12:04 Constitutional: Yes: No Distress, Calm Eyes: Yes: Conjunctiva Clear Cardiovascular: Yes: Regular Rate and Rhythm Respiratory: Yes: CTA Bilaterally (no rales or wheezing) Gastrointestinal: Yes: Soft, Abdomen, Obese Edema: Yes Edema: LLE: 2+, RLE: 2+ Neurological: Yes: Alert, Oriented ...Motor Strength: WNL Labs: CBC, BMP 09/09/18 13:22 09/09/18 13:15 Laboratory Tests 07/09/18 07/09/18 09/09/18 07:20 07:20 13:15 WBC 9.3 Hgb 11.0 Plt Count 214 Sodium 136 Potassium 3.6 BUN 35 H Creatinine 1.2 Random Glucose 414 H* AST ALT Alkaline Phosphatase Creatine Kinase 67 Troponin I < 0.02 B-Natriuretic Peptide 09/09/18 09/09/18 13:15 13:22 WBC 9.7 Hgb 9.9 L Plt Count 220 Sodium 141 Potassium 3.6 BUN 31.4 H Creatinine 1.4 H Random Glucose AST 18 ALT 22 Alkaline Phosphatase 109 Creatine Kinase Troponin I B-Natriuretic Peptide 388.2 H - ....Imaging Chest X-ray: Image Reviewed MRI: Image Reviewed (NSR w/ diffuse NSST changes, slightly more pronounced than prior) EKG: Image Reviewed Other: Other (Patient w/ recent echo and nuclear stress here: no ischemia, normal LVEF No sig valve disease. Done 06/2017) Assessment/Plan IMP: 1. Acute on chronic diastolic CHF 2. CAD s/p CABG 3. PAF 4. Peripheral arterial disease REC: 1. Lasix 80mg IV daily; daily weights and BMP to monitor renal fxn 2. Continue Eliquis for PAF, elevated [id number] score 3. Pt. sees Dr. Burnette, vascular surgery at [facility] for b/l LE PAD and an outpatient CTA was planned. Would hold on that until euvolemic and GFR stable. 4. As d/w ER, check LE venous dopplers to r/o DVT given recent hospitalizations and limited mobility.
--- NOTE | 2018-09-09 16:27 | HP ---
Admitting History and Physical - Admission Chief Complaint: came in for incerased leg swelling and reduced exercise tolerance History of Present Illness: The patient is a 68-year-old female, with a past medical history diastolic CHF, CAD, CABG, cardiac stents x2, pAfib who presents to the ED with 1 weeks of progressively worsening LE/UE swelling and pain. The patient called her strip stamp straightener (Dr. Mccarty) this morning who advised that the patient increase her torsemide from 60 to 80mg BID; first dose was today. The patient decided to come to the ED because the swelling and the pain has worsened and she is now experiencing difficulty ambulating, back swelling, and new onset B/L hand numbness. A1c was noted to be 13 this morning. Patient reports that her BS has not been well controlled. paetient took her torsemide 80mg before comming to ER but did not urinate enough The patient denies any fevers, chills, nausea, vomiting, diarrhea, constipation , or abdominal pain. Denies any chest pain or shortness of breath. Denies any headache, dizziness, or lightheadedness. History Source: Patient, Medical Record - Past Medical History Cardiovascular: Yes: CAD, CHF, HTN, Hyperlipdemia, Mitral Insufficiency (mild- mod MR) Heme/Onc: Yes: Anemia Musculoskeletal: Yes: Other (back pain) Endocrine: Yes: Diabetes Mellitus - Past Surgical History Past Surgical History: Yes: CABG - Smoking History Smoking history: Never smoked Have you smoked in the past 12 months: No Aproximately how many cigarettes per day: 40 (2PPD x 30+ yrs) If you are a former smoker, when did you quit?: 3 years ago - Alcohol/Substance Use Hx Alcohol Use: No History of Substance Use: reports: None - Social History ADL: Family Assistance History of Recent Travel: No Home Medications - Allergies Allergies/Adverse Reactions: Allergies Allergy/AdvReac Type Severity Reaction Status Date / Time No Known Allergies Allergy Verified 07/19/18 13:58 - Home Medications Home Medications: Ambulatory Orders Atorvastatin Ca [Lipitor] 40 mg PO HS 07/19/18 Fenofibrate Nanocrystallized [Tricor] 145 mg PO DAILY 07/19/18 Ramipril [Altace] 5 mg PO DAILY 07/19/18 Spironolactone [Aldactone] 25 mg PO DAILY 07/19/18 Apixaban [Eliquis -] 5 mg PO BID #60 tablet 07/21/18 Metoprolol Succinate [Toprol XL -] 50 mg PO BID #60 tab.sr.24h 07/21/18 Atenolol [Tenormin -] 50 mg PO DAILY 09/09/18 Cilostazol 100 mg PO DAILY 09/09/18 Omeprazole 40 mg PO DAILY 09/09/18 Torsemide 20 mg PO DAILY 09/09/18 Family Disease History - Family Disease History Family Disease History: Other: Father ( (59) DMII), Mother ( (75 ) CAD s/p [place]), Brother ( (30+) colorectal cancer), Sister (alive (69) HTN) Review of Systems - Review of Systems Respiratory: reports: Exercise Intolerance Musculoskeletal: reports: Joint Pain (neck and shoulder pain) Physical Examination Vital Signs: Vital Signs Temperature 98.6 F 09/09/18 12:04 Pulse Rate 88 09/09/18 12:04 Respiratory Rate 16 09/09/18 12:04 Blood Pressure 105/52 L 09/09/18 12:04 O2 Sat by Pulse Oximetry (%) 96 09/09/18 12:04 Constitutional: Yes: Calm Cardiovascular: Yes: Regular Rate and Rhythm, S1, S2 Respiratory: Yes: CTA Bilaterally Gastrointestinal: Yes: Normal Bowel Sounds, Soft Edema: Yes Labs: CBC, BMP 09/09/18 13:22 09/09/18 13:15 Problem List - Problems (1) CHF exacerbation Assessment/Plan: iv lasix venous doppler I/o daily weights monitor lytes and renal function aldactone Code(s): I50.9 - HEART FAILURE, UNSPECIFIED Qualifiers: Heart failure type: unspecified Qualified Code(s): I50.9 - Heart failure, unspecified (2) PAF (paroxysmal atrial fibrillation) Assessment/Plan: eliquis bid Code(s): I48.0 - PAROXYSMAL ATRIAL FIBRILLATION (3) Diabetes Assessment/Plan: hgba1c bgm sliding scale Code(s): E11.9 - TYPE 2 DIABETES MELLITUS WITHOUT COMPLICATIONS Qualifiers: Diabetes mellitus type: type 2 Diabetes mellitus termite exterminator insulin use: with fci use Diabetes mellitus complication status: with unspecified complications Assessment/Plan chf exacerbation iv lasix daily weights aldactone strict I/o venous doppler to r/o dvt DM insulin hgba1c bgm
[2018-09-09] MEDS ORDERED: INSULIN (NOVOLOG) ASPART 100 UNITS/ML 10ML VIAL ONE ×2 (17:53→21:48)
[2018-09-09] MEDS: INSULIN SLIDING SCALE (NOVOLOG) 1 VIAL SQ SCH ×2 (17:56→21:50)
[2018-09-09] MEDS: ATORVASTATIN CA 40 MG TABLET (FP) PO SCH (21:49)
[2018-09-09] MEDS: APIXABAN 5 MG TABLET PO SCH (21:49)
[2018-09-09] MEDS ORDERED: HEPARIN NA (PORCINE) 5,000 UNITS/ML 1ML VIAL SQ SCH (22:00)
[2018-09-10] MEDS ORDERED: ACETAMINOPHEN 325 MG TABLET (FP) PO PRN ×2 (00:19→11:51)
[2018-09-10] MEDS: INSULIN SLIDING SCALE (NOVOLOG) 1 VIAL SQ SCH ×4 (06:37→22:47)
[2018-09-10] MEDS: INSULIN (NOVOLOG MIX 70/30) 100 UNITS/ML MDV SQ SCH ×2 (06:37→16:48)
[2018-09-10] MEDS ORDERED: INSULIN (NOVOLOG MIX 70/30) 100 UNITS/ML MDV SQ SCH (07:00)
[2018-09-10 08:16] LABS: BLOOD UREA NITROGEN 29.1 mg/dL (7-18); CALCIUM 9.6 mg/dL (8.5-10.1); CREATININE 1.2 mg/dL (0.55-1.3); MAGNESIUM 2.4 mg/dL (1.8-2.4); POTASSIUM 3.6 mmol/L (3.5-5.1)
[2018-09-10 08:19] LABS: CHOLESTEROL 139 mg/dL (50-200); HDL CHOLESTEROL 31 mg/dL (40-60); N-TERMINAL BNP 291.9 pg/ml (5-125); TRIGLYCERIDES 328 mg/dL (0-150)
[2018-09-10] MEDS: FUROSEMIDE 40 MG/4 ML INJECTABLE VIAL IVPB SCH (09:22)
[2018-09-10] MEDS: PANTOPRAZOLE 40 MG TABLET (FP) PO SCH (09:22)
[2018-09-10] MEDS: APIXABAN 5 MG TABLET PO SCH ×2 (09:22→22:46)
[2018-09-10] MEDS ORDERED: ALPRAZolam 0.25 MG TABLET PO ONE (09:30)
--- NOTE | 2018-09-10 09:30 | EKG ---
Test Reason : Blood Pressure : / mmHG Vent. Rate : 086 BPM Atrial Rate : 086 BPM P-R Int : 160 ms QRS Dur : 094 ms QT Int : 380 ms P-R-T Axes : 027 -13 151 degrees QTc Int : 454 ms Suspect unspecified pacemaker failure NORMAL SINUS RHYTHM ABNORMAL ECG Confirmed by Bernard Liu MD ([id number]) on 09/10/2018 9:29:47 AM Referred By: Confirmed By:Bernard Liu MD
--- NOTE | 2018-09-10 11:09 | PN ---
Progress Note, Physician Chief Complaint: BLLE edema Generalized weakness History of Present Illness: c/o of BLLE pain feels anxious due to pain Pt. sees Dr. Burnette, vascular surgery at [facility] for b/l LE PAD and an outpatient CTA was planned. - Current Medication List Current Medications: Active Medications Acetaminophen (Tylenol -) 325 mg PO Q6H PRN PRN Reason: PAIN Last Admin: 09/10/18 00:29 Dose: 325 mg Apixaban (Eliquis -) 5 mg PO BID [facility] Last Admin: 09/10/18 09:22 Dose: 5 mg Atorvastatin Calcium (Lipitor -) 40 mg PO HS [facility] Last Admin: 09/09/18 21:49 Dose: 40 mg Furosemide (Lasix Injection -) 80 mg IVPB DAILY [facility] Last Admin: 09/10/18 09:22 Dose: 80 mg Insulin Aspart (Novolog Vial Sliding Scale -) 1 vial SQ ACHS [facility]; Protocol Last Admin: 09/10/18 06:37 Dose: 12 units Insulin Aspart (Novolog Mix 70/30 Vial) 58 units SQ BIDAC [facility] Last Admin: 09/10/18 06:37 Dose: 58 units Metoprolol Succinate (Toprol Xl -) 50 mg PO DAILY [facility] Last Admin: 09/10/18 09:22 Dose: 50 mg Pantoprazole Sodium (Protonix -) 40 mg PO DAILY [facility] Last Admin: 09/10/18 09:22 Dose: 40 mg - Objective Vital Signs: Vital Signs Temperature 98.3 F 09/10/18 10:00 Pulse Rate 99 H 09/10/18 10:00 Respiratory Rate 18 09/10/18 10:00 Blood Pressure 123/60 09/10/18 10:00 O2 Sat by Pulse Oximetry (%) 98 09/10/18 09:00 Constitutional: Yes: Well Nourished, No Distress, Anxious, Obese Cardiovascular: Yes: Regular Rate and Rhythm Respiratory: Yes: Regular Gastrointestinal: Yes: WNL, Abdomen, Obese Musculoskeletal: Yes: Muscle Weakness Extremities: Yes: WNL Edema: Yes Edema: LLE: 1+, RLE: Trace Peripheral Pulses WNL: No Neurological: Yes: Alert, Oriented Psychiatric: Yes: Alert, Oriented Labs: CBC, BMP 09/09/18 13:22 09/10/18 06:15 Problem List - Problems (1) PAD (peripheral artery disease) Assessment/Plan: -was supposed to do CTA runoff outpatient -Unable to do it at the moment due to Renal fxn -Tylenol 650 mg po Q4H PRN for pain 1-5 -Tramadol 50 mg Q8H PRN for pain 6-10 Code(s): I73.9 - PERIPHERAL VASCULAR DISEASE, UNSPECIFIED (2) PAF (paroxysmal atrial fibrillation) Assessment/Plan: -chronic, rate controlled -Continue eliquis -Tele monitor Code(s): I48.0 - PAROXYSMAL ATRIAL FIBRILLATION (3) ASHD (arteriosclerotic heart disease) Code(s): I25.10 - ATHSCL HEART DISEASE OF [place] CORONARY ARTERY W/O ANG PCTRS (4) Acute on chronic diastolic CHF (congestive heart failure) Assessment/Plan: -seen by cardiology -IV diuresis -daily weights -Low sodium diet -RD consult -tele monitor Code(s): I50.33 - ACUTE ON CHRONIC DIASTOLIC (CONGESTIVE) HEART FAILURE (5) CAD (coronary artery disease) Assessment/Plan: -On lipitor Code(s): I25.10 - ATHSCL HEART DISEASE OF [place] CORONARY ARTERY W/O ANG PCTRS (6) Diabetes Assessment/Plan: -uncontrolled diabetic -A1c at 11.9 -Endocrine consult -BGM AC HS -Diabetic low sodium diet -RD consult -ISS -Novolog 70/30 58 units BIDAC Code(s): E11.9 - TYPE 2 DIABETES MELLITUS WITHOUT COMPLICATIONS Qualifiers: Diabetes mellitus type: type 2 Diabetes mellitus snf insulin use: with snf use Diabetes mellitus complication status: with unspecified complications (7) S/P CABG (coronary artery bypass graft) Code(s): Z95.1 - PRESENCE OF AORTOCORONARY BYPASS GRAFT Assessment/Plan see problem list Physical therapy
[2018-09-10] MEDS: traMADol HCL 50 MG TABLET PO PRN ×2 (12:05→22:46)
--- NOTE | 2018-09-10 12:27 | PN ---
Progress Note (short form) - Note Progress Note: s: stable edema, foot pain. no chest pain, palps, dyspnea. Current Medications Acetaminophen (Tylenol -) 650 mg PO Q6H PRN PRN Reason: PAIN Apixaban (Eliquis -) 5 mg PO BID [facility] Last Admin: 09/10/18 09:22 Dose: 5 mg Atorvastatin Calcium (Lipitor -) 40 mg PO HS [facility] Last Admin: 09/09/18 21:49 Dose: 40 mg Furosemide (Lasix Injection -) 80 mg IVPB DAILY [facility] Last Admin: 09/10/18 09:22 Dose: 80 mg Insulin Aspart (Novolog Vial Sliding Scale -) 1 vial SQ ACHS [facility]; Protocol Last Admin: 09/10/18 11:25 Dose: 15 units Insulin Aspart (Novolog Mix 70/30 Vial) 58 units SQ BIDAC [facility] Last Admin: 09/10/18 06:37 Dose: 58 units Metoprolol Succinate (Toprol Xl -) 50 mg PO DAILY [facility] Last Admin: 09/10/18 09:22 Dose: 50 mg Pantoprazole Sodium (Protonix -) 40 mg PO DAILY [facility] Last Admin: 09/10/18 09:22 Dose: 40 mg Tramadol HCl (Ultram -) 50 mg PO Q8H PRN PRN Reason: PAIN LEVEL 6-10 Last Admin: 09/10/18 12:05 Dose: 50 mg Vital Signs Period Temp Pulse Resp BP Sys/Anne Pulse Ox Last 24 Hr 97.9 F-98.5 F 88-99 16-20 116-136/56-90 98-100 Constitutional: Yes: No Distress, Calm Eyes: Yes: Conjunctiva Clear Cardiovascular: Yes: Regular Rate and Rhythm Respiratory: Yes: CTA Bilaterally (no rales or wheezing) Gastrointestinal: Yes: Soft, Abdomen, Obese Edema: Yes Edema: LLE: 2+, RLE: 2+ Neurological: Yes: Alert, Oriented ...Motor Strength: WNL - ....Imaging Chest X-ray: Image Reviewed MRI: Image Reviewed (NSR w/ diffuse NSST changes, slightly more pronounced than prior) EKG: Image Reviewed Other: Other (Patient w/ recent echo and nuclear stress here: no ischemia, normal LVEF No sig valve disease. Done 06/2017) Assessment/Plan IMP: 1. Acute on chronic diastolic CHF 2. CAD s/p CABG 3. PAF 4. Peripheral arterial disease REC: 1. cont Lasix 80mg IV daily, got first dose this AM (prior 60 mg IV); daily weights and BMP to monitor renal fxn, may need to increase dose or add metolazone if urine ouput not increasing 2. Continue Eliquis for PAF, elevated [id number] score 3. Pt. sees Dr. Burnette, vascular surgery at [facility] for b/l LE PAD and an outpatient CTA was planned. Would hold on that until euvolemic and GFR stable. 4. venous dopplers - no upper ext DVT
--- NOTE | 2018-09-10 12:46 | PN ---
Progress Note (short form) - Note Progress Note: PULMONARY CONSULTATION DICTATED 09/10/18 IMP DYSPNEA LIKELY ACUTE ON CHRONIC CHF ASHD S/P CABG DM H/O BREAST CA S/P PARTIAL MASTECTOMY,CHEMO,RT ANEMIA LIKELY COPD H/O TOBACCO ABUSE SUSPECTED OSAS PAF PLAN LASIX INHALED BRONCHODILATORS O2 DAILY WT ELIQUIS ECHO CHEST CT SLEEP SCREEN PFTS OUTPATIENT DR CLAROS Problem List - Problems (1) CHF exacerbation Code(s): I50.9 - HEART FAILURE, UNSPECIFIED Qualifiers: Heart failure type: unspecified Qualified Code(s): I50.9 - Heart failure, unspecified (2) PAF (paroxysmal atrial fibrillation) Code(s): I48.0 - PAROXYSMAL ATRIAL FIBRILLATION (3) ASHD (arteriosclerotic heart disease) Code(s): I25.10 - ATHSCL HEART DISEASE OF [place] CORONARY ARTERY W/O ANG PCTRS (4) Breast cancer, left Code(s): C50.912 - MALIGNANT NEOPLASM OF UNSPECIFIED SITE OF LEFT FEMALE BREAST Qualifiers: Breast location: unspecified site of breast Estrogen receptor status: positive Patient sex: female Qualified Code(s): C50.912 - Malignant neoplasm of unspecified site of left female breast; Z17.0 - Estrogen receptor positive status [ER+] (5) CAD (coronary artery disease) Code(s): I25.10 - ATHSCL HEART DISEASE OF [place] CORONARY ARTERY W/O ANG PCTRS (6) Dependent edema Code(s): R60.9 - EDEMA, UNSPECIFIED (7) Diabetes Code(s): E11.9 - TYPE 2 DIABETES MELLITUS WITHOUT COMPLICATIONS Qualifiers: Diabetes mellitus type: type 2 Diabetes mellitus ferry terminal agent insulin use: with ferry terminal agent use Diabetes mellitus complication status: with unspecified complications (8) Edema Code(s): R60.9 - EDEMA, UNSPECIFIED (9) HLD (hyperlipidemia) Code(s): E78.5 - HYPERLIPIDEMIA, UNSPECIFIED Qualifiers: Hyperlipidemia type: pure hypercholesterolemia Qualified Code(s): E78.00 - Pure hypercholesterolemia, unspecified (10) Hypertension associated with diabetes Code(s): E11.59 - TYPE 2 DIABETES MELLITUS WITH OTH CIRCULATORY COMPLICATIONS; I10 - ESSENTIAL (PRIMARY) HYPERTENSION (11) S/P CABG (coronary artery bypass graft) Code(s): Z95.1 - PRESENCE OF AORTOCORONARY BYPASS GRAFT (12) SOB (shortness of breath) on exertion Code(s): R06.02 - SHORTNESS OF BREATH
[2018-09-10] MEDS ORDERED: ALBUTEROL SO4 2.5/IPRATROPIUM 0.5 INH SOL 3 ML VIAL.NEB. NEB PRN (13:02)
--- NOTE | 2018-09-10 13:38 | CONS ---
DATE OF CONSULTATION: 09/10/2018 REFERRING PHYSICIAN: Madhu Merritt M.D. HISTORY OF PRESENT ILLNESS: Patient is a [id number] female with a past medical history of diastolic heart failure, ASHD, status post CABG, status post stents, paroxysmal atrial fibrillation, diabetes, mitral insufficiency with [id number] mitral regurgitation, anemia, chronic back pain, long standing history of tobacco use 2 packs per day for greater than 30 years, quit 3 years ago, admitted to [facility] with increasing shortness of breath, dyspnea on exertion. Patient for the past week has had progressively worsening left upper extremity and lower extremity swelling and pain. She called her motor winder on the day of admission and was told to increase her torsemide to b.i.d. Patient presented to the emergency with increasing shortness of breath and dyspnea on exertion. She also denied any complaints of chest pain, nausea, vomiting or diaphoresis. On admission, the patient's hemoglobin A1c was noted to be 13. Patient presented to the emergency room with the above. On admission, she was started on IV Lasix and supplemental O2. Duplex of the lower extremities revealed no evidence of DVT. PAST MEDICAL HISTORY: Again includes diastolic heart failure, ASHD, status post CABG, status post paroxysmal atrial fibrillation, diabetes, mitral insufficiency, hvhn-nt-sephyxth mitral regurgitation, hypertension, morbid obesity, back pain and also a history of breast CA, status post partial mastectomy, status post RT and chemotherapy. REVIEW OF SYSTEMS: Positive dyspnea. Positive orthopnea. No chest pain, no palpitations. Positive lower extremity edema and upper extremity edema. MEDICATIONS: Current medications include Tylenol, Eliquis, Toprol, Lipitor, Novolog, Lasix, tramadol, Protonix. PHYSICAL EXAMINATION: General: On physical examination, patient is an elderly female, obese, in no acute distress. Vitals: She is afebrile, blood pressure 120/60, respiratory rate is 18, O2 saturation is 98% room air. HEENT: Exam is normocephalic, atraumatic. Neck: Supple. Heart: Regular with S1, S2. Chest: Diminished breath sounds bilaterally. Abdomen: Soft. Bowel sounds are positive. Extremities: Bilateral lower extremity edema. LABORATORY STUDIES: WBC is 9.7, hemoglobin 9.9, hematocrit 30.5 with a platelet count 220,000. BUN is 29, creatinine 1.2. Hemoglobin A1c is 11.8. BNP is 291. Chest x-ray no acute infiltrates and effusions. Duplex of the upper extremities was negative. IMPRESSION: 1. Dyspnea, likely secondary to congestive heart failure, fluid over load. 2. Arteriosclerotic heart disease, status post coronary artery bypass graft, status post stents. 3. Diabetes. 4. Likely chronic obstructive pulmonary disease, secondary to long standing history of diabetes. 5. History of breast cancer, status post partial mastectomy, chemotherapy and radiation therapy. 6. Anemia. 7. History of tobacco use. 8. Obstructive sleep apnea. PLAN: Lasix, supplemental O2, daily weight, echocardiogram, chest CT, sleep screen, inhaled bronchodilators. ISIDRO CLAROS M.D. JHON/[id number]
[2018-09-10] MEDS ORDERED: INSULIN (NOVOLOG MIX 70/30) 100 UNITS/ML MDV SQ ONE (16:51)
[2018-09-10] MEDS: ATORVASTATIN CA 40 MG TABLET (FP) PO SCH (22:47)
--- NOTE | 2018-09-10 23:59 | CONSULT ---
Consult Consult Specialty:: endocrine Referred by:: dr.rabadi king Reason for Consultation:: dm2 uncontrolled - History of Present Illness Chief Complaint: high sugar and swelling legs History of Present Illness: 68y female,dm2,ckd,htn,diabetic nephropathy,neuropathy,breast cancer,cabg,chf, copd,admitted with dyspnea,cough weight gain 15lbs,has dyspnea on exertion,leg edema,and difficulty walking dispite taking torsemide 80mg day.has elevated sugars and dispite less intake,denies chest pain,nausea or vomiting. - Past Medical History Cardio/Vascular: Yes: CAD, CHF, HTN, Hyperlipdemia, Mitral Insufficiency (mild- mod MR) ...: No Musculoskeletal: Yes: Other (back pain) Endocrine: Yes: Diabetes Mellitus - Past Surgical History Past Surgical History: Yes: CABG - Alcohol/Substance Use Hx Alcohol Use: No History of Substance Use: reports: None - Smoking History Smoking history: Former smoker Have you smoked in the past 12 months: No Aproximately how many cigarettes per day: 40 If you are a former smoker, when did you quit?: 3 years ago - Social History ADL: Family Assistance History of Recent Travel: No Home Medications - Allergies Allergies/Adverse Reactions: Allergies Allergy/AdvReac Type Severity Reaction Status Date / Time No Known Allergies Allergy Verified 07/19/18 13:58 - Home Medications Home Medications: Ambulatory Orders Atorvastatin Ca [Lipitor] 40 mg PO HS 07/19/18 Fenofibrate Nanocrystallized [Tricor] 145 mg PO DAILY 07/19/18 Ramipril [Altace] 5 mg PO DAILY 07/19/18 Spironolactone [Aldactone] 25 mg PO DAILY 07/19/18 Apixaban [Eliquis -] 5 mg PO BID #60 tablet 07/21/18 Metoprolol Succinate [Toprol XL -] 50 mg PO BID #60 tab.sr.24h 07/21/18 Atenolol [Tenormin -] 50 mg PO DAILY 09/09/18 Cilostazol 100 mg PO DAILY 09/09/18 Omeprazole 40 mg PO DAILY 09/09/18 Torsemide 20 mg PO DAILY 09/09/18 Family Disease History - Family Disease History Family Disease History: Other: Father ( (59) DMII), Mother ( (75 ) CAD s/p VA), Brother ( (30+) colorectal cancer), Sister (alive (69) HTN) Review of Systems - Review of Systems Constitutional: reports: Loss of Appetite Eyes: reports: Blurred Vision HENT: reports: Difficult Swallowing Neck: reports: Decreased ROM Cardiovascular: reports: Edema, Shortness of Breath Respiratory: reports: Exercise Intolerance, SOB on Exertion Gastrointestinal: reports: Bloating, Constipation Genitourinary: reports: Frequency Breasts: reports: No Symptoms Reported Musculoskeletal: reports: Muscle Cramps, Muscle Weakness Neurological: reports: Numbness, Unsteady Gait, Weakness Endocrine: reports: Unexplained Weight Gain Physical Exam Vital Signs: Vital Signs Temperature 97.9 F 09/10/18 17:00 Pulse Rate 81 09/10/18 17:00 Respiratory Rate 20 09/10/18 17:00 Blood Pressure 138/52 L 09/10/18 17:00 O2 Sat by Pulse Oximetry (%) 98 09/10/18 09:00 Constitutional: Yes: Anxious Eyes: Yes: EOM Intact HENT: Yes: Normocephalic Neck: Yes: Trachea Midline Cardiovascular: Yes: Tachycardia, Murmur, S2 Respiratory: Yes: On Nasal O2, Rales, SOB, Tachypnea Gastrointestinal: Yes: Abdomen, Obese ...Rectal Exam: Yes: Deferred Renal/: Yes: WNL Musculoskeletal: Yes: Back Pain, Muscle Weakness Edema: LUE: 2+, LLE: 2+, RLE: 2+ Neurological: Yes: Alert, Oriented Labs: CBC, BMP 09/09/18 13:22 09/10/18 06:15 Problem List - Problems (1) Diabetic nephropathy with proteinuria Code(s): E11.21 - TYPE 2 DIABETES MELLITUS WITH DIABETIC NEPHROPATHY (2) CHF exacerbation Code(s): I50.9 - HEART FAILURE, UNSPECIFIED Qualifiers: Heart failure type: unspecified Qualified Code(s): I50.9 - Heart failure, unspecified (3) PAD (peripheral artery disease) Code(s): I73.9 - PERIPHERAL VASCULAR DISEASE, UNSPECIFIED (4) PAF (paroxysmal atrial fibrillation) Code(s): I48.0 - PAROXYSMAL ATRIAL FIBRILLATION (5) ASHD (arteriosclerotic heart disease) Code(s): I25.10 - ATHSCL HEART DISEASE OF [place] CORONARY ARTERY W/O ANG PCTRS (6) Acute on chronic diastolic CHF (congestive heart failure) Code(s): I50.33 - ACUTE ON CHRONIC DIASTOLIC (CONGESTIVE) HEART FAILURE Assessment/Plan Current Active Problems diabetic nephropathy dm 2 CHF exacerbation (Acute) PAD (peripheral artery disease) (Acute) PAF (paroxysmal atrial fibrillation) (Acute) Abnormal Lab Results 09/10/18 09/10/18 09/10/18 06:15 06:15 06:15 Anion Gap 7 L BUN 29.1 H Random Glucose 253 H Hemoglobin A1c % 11.8 H B-Natriuretic Peptide 291.9 H Triglycerides 328 H HDL Cholesterol 31 L Laboratory Results - last 24 hr 09/10/18 09/10/18 09/10/18 06:15 06:15 06:15 Sodium 138 Potassium 3.6 Chloride 99 Carbon Dioxide 32 Anion Gap 7 L BUN 29.1 H Creatinine 1.2 Est GFR (CKD-EPI)AfAm 54.16 Est GFR (CKD-EPI)NonAf 46.73 POC Glucometer Random Glucose 253 H Hemoglobin A1c % 11.8 H Calcium 9.6 Magnesium 2.4 Troponin I < 0.02 B-Natriuretic Peptide 291.9 H Triglycerides 328 H Cholesterol 139 Total LDL Cholesterol 71 HDL Cholesterol 31 L 09/10/18 09/10/18 09/10/18 06:18 11:22 16:40 Sodium Potassium Chloride Carbon Dioxide Anion Gap BUN Creatinine Est GFR (CKD-EPI)AfAm Est GFR (CKD-EPI)NonAf POC Glucometer 263 301 375 Random Glucose Hemoglobin A1c % Calcium Magnesium Troponin I B-Natriuretic Peptide Triglycerides Cholesterol Total LDL Cholesterol HDL Cholesterol 09/10/18 22:40 Sodium Potassium Chloride Carbon Dioxide Anion Gap BUN Creatinine Est GFR (CKD-EPI)AfAm Est GFR (CKD-EPI)NonAf POC Glucometer 267 Random Glucose Hemoglobin A1c % Calcium Magnesium Troponin I B-Natriuretic Peptide Triglycerides Cholesterol Total LDL Cholesterol HDL Cholesterol Abnormal Lab Results 09/10/18 09/10/18 09/10/18 06:15 06:15 06:15 Anion Gap 7 L BUN 29.1 H Random Glucose 253 H Hemoglobin A1c % 11.8 H B-Natriuretic Peptide 291.9 H Triglycerides 328 H HDL Cholesterol 31 L plan: novolog 70/30 tid use novolog scale for resistant metformin 1gm bid januvia 50 mg day psych consult anxiety
[2018-09-11 06:09] LABS: ALBUMIN 3.2 g/dl (3.4-5.0); BILIRUBIN,TOTAL 0.4 mg/dL (0.2-1); BLOOD UREA NITROGEN 23.7 mg/dL (7-18); CALCIUM 9.3 mg/dL (8.5-10.1); POTASSIUM 3.8 mmol/L (3.5-5.1); TOT PROT 6.6 g/dl (6.4-8.2)
[2018-09-11 06:12] LABS: BASO % 0.9 % (0-2.0); EOS % 4.5 % (0-4.5); HEMATOCRIT 32.6 % (32.4-45.2); HEMOGLOBIN 10.4 GM/dL (10.7-15.3); LYMPH % 19.3 % (8-40); MCH 23.5 pg (25.7-33.7); MEAN CELL VOLUME 73.3 fl (80-96); MEAN PLT VOLUME 8.3 fl (7.5-11.1); MONO % 10.1 % (3.8-10.2); NEUT % 65.2 % (42.8-82.8); PLATELET COUNT 204 K/MM3 (134-434); RBC 4.45 M/mm3 (3.60-5.2); RDW 15.7 % (11.6-15.6); WHITE BLOOD COUNT 7.9 K/mm3 (4.0-10.0)
[2018-09-11] MEDS: INSULIN (NOVOLOG MIX 70/30) 100 UNITS/ML MDV SQ SCH ×2 (06:12→16:22)
[2018-09-11] MEDS: metFORMIN HCL 500 MG TABLET (FP) PO SCH ×2 (06:12→16:22)
[2018-09-11] MEDS: INSULIN SLIDING SCALE (NOVOLOG) 1 VIAL SQ SCH ×4 (06:12→21:38)
[2018-09-11] MEDS: sitaGLIPtin PHOSPHATE 50 MG TABLET PO SCH (06:13)
[2018-09-11] MEDS: PANTOPRAZOLE 40 MG TABLET (FP) PO SCH (09:56)
[2018-09-11] MEDS: APIXABAN 5 MG TABLET PO SCH ×2 (09:56→21:35)
[2018-09-11] MEDS: FUROSEMIDE 40 MG/4 ML INJECTABLE VIAL IVPB SCH (09:56)
--- NOTE | 2018-09-11 10:50 | PN ---
Progress Note, Physician Chief Complaint: BLLE edema Generalized weakness History of Present Illness: c/o of BLLE pain feels anxious due to pain Pt. sees Dr. Burnette, vascular surgery at [facility] for b/l LE PAD and an outpatient CTA was planned. Pain improved with tramadol - Current Medication List Current Medications: Active Medications Acetaminophen (Tylenol -) 650 mg PO Q6H PRN PRN Reason: PAIN LEVEL 1-5 Albuterol/Ipratropium (Duoneb -) 1 amp NEB Q4H PRN PRN Reason: SHORTNESS OF BREATH Apixaban (Eliquis -) 5 mg PO BID [facility] Last Admin: 09/11/18 09:56 Dose: 5 mg Atorvastatin Calcium (Lipitor -) 40 mg PO HS [facility] Last Admin: 09/10/18 22:47 Dose: 40 mg Furosemide (Lasix Injection -) 80 mg IVPB DAILY [facility] Last Admin: 09/11/18 09:56 Dose: 80 mg Insulin Aspart (Novolog Vial Sliding Scale -) 1 vial SQ ACHS [facility]; Protocol Last Admin: 09/11/18 06:12 Dose: 11 units Insulin Aspart (Novolog Mix 70/30 Vial) 58 units SQ BIDAC [facility] Last Admin: 09/11/18 06:12 Dose: 58 units Metformin HCl (Glucophage -) 1,000 mg PO BID@0700,1630 [facility] Last Admin: 09/11/18 06:12 Dose: 1,000 mg Metoprolol Succinate (Toprol Xl -) 50 mg PO DAILY [facility] Last Admin: 09/11/18 09:56 Dose: 50 mg Pantoprazole Sodium (Protonix -) 40 mg PO DAILY [facility] Last Admin: 09/11/18 09:56 Dose: 40 mg Sitagliptin Phosphate (Januvia -) 50 mg PO DAILY@0700 [facility] Last Admin: 09/11/18 06:13 Dose: 50 mg Tramadol HCl (Ultram -) 50 mg PO Q8H PRN PRN Reason: PAIN LEVEL 6-10 Last Admin: 09/10/18 22:46 Dose: 50 mg - Objective Vital Signs: Vital Signs Temperature 98.3 F 09/11/18 05:31 Pulse Rate 85 09/11/18 05:31 Respiratory Rate 20 09/11/18 05:31 Blood Pressure 129/63 09/11/18 05:31 O2 Sat by Pulse Oximetry (%) 96 09/10/18 22:10 Constitutional: Yes: Well Nourished, No Distress, Anxious, Obese Cardiovascular: Yes: Regular Rate and Rhythm Respiratory: Yes: Regular Gastrointestinal: Yes: Normal Bowel Sounds, Soft, Abdomen, Obese Musculoskeletal: Yes: Muscle Weakness Extremities: Yes: WNL Edema: Yes Edema: LLE: Trace, RLE: Trace Peripheral Pulses WNL: Yes Neurological: Yes: Alert, Oriented Psychiatric: Yes: Alert, Oriented Labs: CBC, BMP 09/11/18 05:30 09/11/18 05:30 Problem List - Problems (1) PAD (peripheral artery disease) Assessment/Plan: -was supposed to do CTA runoff outpatient -Unable to do it at the moment due to Renal fxn -Tylenol 650 mg po Q4H PRN for pain 1-5 -Tramadol 50 mg Q8H PRN for pain 6-10 Code(s): I73.9 - PERIPHERAL VASCULAR DISEASE, UNSPECIFIED (2) PAF (paroxysmal atrial fibrillation) Assessment/Plan: -chronic, rate controlled -Continue eliquis -Tele monitor Code(s): I48.0 - PAROXYSMAL ATRIAL FIBRILLATION (3) ASHD (arteriosclerotic heart disease) Code(s): I25.10 - ATHSCL HEART DISEASE OF [place] CORONARY ARTERY W/O ANG PCTRS (4) Acute on chronic diastolic CHF (congestive heart failure) Assessment/Plan: -seen by cardiology -IV diuresis -daily weights -Low sodium diet -RD consult -tele monitor Code(s): I50.33 - ACUTE ON CHRONIC DIASTOLIC (CONGESTIVE) HEART FAILURE (5) CAD (coronary artery disease) Assessment/Plan: -On lipitor Code(s): I25.10 - ATHSCL HEART DISEASE OF [place] CORONARY ARTERY W/O ANG PCTRS (6) Diabetes Assessment/Plan: -uncontrolled diabetic -A1c at 11.9 -Endocrine consult -BGM AC HS -Diabetic low sodium diet -RD consult -ISS -Novolog 30 58 units BIDAC Code(s): E11.9 - TYPE 2 DIABETES MELLITUS WITHOUT COMPLICATIONS Qualifiers: Diabetes mellitus type: type 2 Diabetes mellitus alf insulin use: with alf use Diabetes mellitus complication status: with unspecified complications (7) S/P CABG (coronary artery bypass graft) Code(s): Z95.1 - PRESENCE OF AORTOCORONARY BYPASS GRAFT (8) Anxiety Assessment/Plan: -Psych consult -Lexapro 10 mg po daily Code(s): F41.9 - ANXIETY DISORDER, UNSPECIFIED Assessment/Plan see problem list
--- NOTE | 2018-09-11 11:02 | PN ---
Progress Note (short form) - Note Progress Note: s: edema unchanged. no chest pain, palps, dizziness. did not make much urine with lasix 80 mg IV Current Medications Acetaminophen (Tylenol -) 650 mg PO Q6H PRN PRN Reason: PAIN LEVEL 1-5 Albuterol/Ipratropium (Duoneb -) 1 amp NEB Q4H PRN PRN Reason: SHORTNESS OF BREATH Apixaban (Eliquis -) 5 mg PO BID [facility] Last Admin: 09/11/18 09:56 Dose: 5 mg Atorvastatin Calcium (Lipitor -) 40 mg PO HS [facility] Last Admin: 09/10/18 22:47 Dose: 40 mg Escitalopram Oxalate (Lexapro -) 10 mg PO DAILY [facility] Furosemide (Lasix Injection -) 80 mg IVPB DAILY [facility] Last Admin: 09/11/18 09:56 Dose: 80 mg Insulin Aspart (Novolog Vial Sliding Scale -) 1 vial SQ ACHS [facility]; Protocol Last Admin: 09/11/18 06:12 Dose: 11 units Insulin Aspart (Novolog Mix 70/30 Vial) 58 units SQ BIDAC [facility] Last Admin: 09/11/18 06:12 Dose: 58 units Metformin HCl (Glucophage -) 1,000 mg PO BID@0700,1630 [facility] Last Admin: 09/11/18 06:12 Dose: 1,000 mg Metoprolol Succinate (Toprol Xl -) 50 mg PO DAILY [facility] Last Admin: 09/11/18 09:56 Dose: 50 mg Pantoprazole Sodium (Protonix -) 40 mg PO DAILY [facility] Last Admin: 09/11/18 09:56 Dose: 40 mg Sitagliptin Phosphate (Januvia -) 50 mg PO DAILY@0700 [facility] Last Admin: 09/11/18 06:13 Dose: 50 mg Tramadol HCl (Ultram -) 50 mg PO Q8H PRN PRN Reason: PAIN LEVEL 6-10 Last Admin: 09/10/18 22:46 Dose: 50 mg Constitutional: Yes: No Distress, Calm Eyes: Yes: Conjunctiva Clear Cardiovascular: Yes: Regular Rate and Rhythm Respiratory: Yes: CTA Bilaterally (no rales or wheezing) Gastrointestinal: Yes: Soft, Abdomen, Obese Edema: Yes Edema: LLE: 2+, RLE: 2+ Neurological: Yes: Alert, Oriented no jaundice, diaphoresis not agitated - ....Imaging Chest X-ray: Image Reviewed MRI: Image Reviewed (NSR w/ diffuse NSST changes, slightly more pronounced than prior) EKG: Image Reviewed Other: Other (Patient w/ recent echo and nuclear stress here: no ischemia, normal LVEF No sig valve disease. Done 06/2017) Assessment/Plan IMP: 1. Acute on chronic diastolic CHF 2. CAD s/p CABG 3. PAF 4. Peripheral arterial disease REC: 1. additional lasix 100 mg IV this afternoon, weight up with subjectively low urine output to 80 mg IV lasix. daily weights and BMP to monitor renal fxn 2. Continue Eliquis for PAF, elevated [id number] score 3. Pt. sees Dr. Burnette, vascular surgery at [facility] for b/l LE PAD and an outpatient CTA was planned. Would hold on that until euvolemic and GFR stable. 4. venous dopplers - no upper ext DVT
[2018-09-11] MEDS: ESCITALOPRAM OXALATE 10 MG TABLET (FP) PO SCH (11:24)
--- NOTE | 2018-09-11 12:38 | PN ---
Progress Note, Physician History of Present Illness: PULMONARY ALERT,FEELING BETTER,LESS DYSPNEIC. SLEEP SCREEN + SEVERE OSAS - Current Medication List Current Medications: Active Medications Acetaminophen (Tylenol -) 650 mg PO Q6H PRN PRN Reason: PAIN LEVEL 1-5 Albuterol/Ipratropium (Duoneb -) 1 amp NEB Q4H PRN PRN Reason: SHORTNESS OF BREATH Alprazolam (Xanax -) 0.25 mg PO DAILY PRN PRN Reason: ANXIETY Apixaban (Eliquis -) 5 mg PO BID [facility] Last Admin: 09/11/18 09:56 Dose: 5 mg Atorvastatin Calcium (Lipitor -) 40 mg PO HS [facility] Last Admin: 09/10/18 22:47 Dose: 40 mg Escitalopram Oxalate (Lexapro -) 10 mg PO DAILY [facility] Last Admin: 09/11/18 11:24 Dose: 10 mg Furosemide (Lasix Injection -) 100 mg IVPB BID@0600,1400 [facility] Insulin Aspart (Novolog Vial Sliding Scale -) 1 vial SQ [facility]; Protocol Last Admin: 09/11/18 11:24 Dose: 11 units Insulin Aspart (Novolog Mix 70/30 Vial) 58 units SQ BIDAC [facility] Last Admin: 09/11/18 06:12 Dose: 58 units Metformin HCl (Glucophage -) 1,000 mg PO BID@0700,1630 [facility] Last Admin: 09/11/18 06:12 Dose: 1,000 mg Metoprolol Succinate (Toprol Xl -) 50 mg PO DAILY [facility] Last Admin: 09/11/18 09:56 Dose: 50 mg Pantoprazole Sodium (Protonix -) 40 mg PO DAILY [facility] Last Admin: 09/11/18 09:56 Dose: 40 mg Sitagliptin Phosphate (Januvia -) 50 mg PO DAILY@0700 [facility] Last Admin: 09/11/18 06:13 Dose: 50 mg Tramadol HCl (Ultram -) 50 mg PO Q8H PRN PRN Reason: PAIN LEVEL 6-10 Last Admin: 09/10/18 22:46 Dose: 50 mg - Objective Vital Signs: Vital Signs Temperature 97.6 F 09/11/18 10:00 Pulse Rate 85 09/11/18 10:00 Respiratory Rate 20 09/11/18 10:00 Blood Pressure 125/60 09/11/18 10:00 O2 Sat by Pulse Oximetry (%) 96 09/11/18 10:00 Constitutional: Yes: Well Nourished, Calm Eyes: Yes: WNL HENT: Yes: WNL Neck: Yes: WNL Cardiovascular: Yes: Pulse Irregular, S1, S2 Respiratory: Yes: Diminished Gastrointestinal: Yes: Normal Bowel Sounds, Soft Extremities: Yes: WNL Edema: Yes Labs: CBC, BMP 09/11/18 05:30 09/11/18 05:30 - ....Imaging Cat Scan: Report Reviewed, Image Reviewed (-MASSES,+ PROMINENT THYROID) Problem List - Problems (1) CHF exacerbation Code(s): I50.9 - HEART FAILURE, UNSPECIFIED Qualifiers: Heart failure type: unspecified Qualified Code(s): I50.9 - Heart failure, unspecified (2) PAF (paroxysmal atrial fibrillation) Code(s): I48.0 - PAROXYSMAL ATRIAL FIBRILLATION (3) ASHD (arteriosclerotic heart disease) Code(s): I25.10 - ATHSCL HEART DISEASE OF [place] CORONARY ARTERY W/O ANG PCTRS (4) Breast cancer, left Code(s): C50.912 - MALIGNANT NEOPLASM OF UNSPECIFIED SITE OF LEFT FEMALE BREAST Qualifiers: Breast location: unspecified site of breast Estrogen receptor status: positive Patient sex: female Qualified Code(s): C50.912 - Malignant neoplasm of unspecified site of left female breast; Z17.0 - Estrogen receptor positive status [ER+] (5) CAD (coronary artery disease) Code(s): I25.10 - ATHSCL HEART DISEASE OF [place] CORONARY ARTERY W/O ANG PCTRS (6) Dependent edema Code(s): R60.9 - EDEMA, UNSPECIFIED (7) Diabetes Code(s): E11.9 - TYPE 2 DIABETES MELLITUS WITHOUT COMPLICATIONS Qualifiers: Diabetes mellitus type: type 2 Diabetes mellitus mcc insulin use: with mcc use Diabetes mellitus complication status: with unspecified complications (8) Edema Code(s): R60.9 - EDEMA, UNSPECIFIED (9) HLD (hyperlipidemia) Code(s): E78.5 - HYPERLIPIDEMIA, UNSPECIFIED Qualifiers: Hyperlipidemia type: pure hypercholesterolemia Qualified Code(s): E78.00 - Pure hypercholesterolemia, unspecified (10) Hypertension associated with diabetes Code(s): E11.59 - TYPE 2 DIABETES MELLITUS WITH OTH CIRCULATORY COMPLICATIONS; I10 - ESSENTIAL (PRIMARY) HYPERTENSION (11) S/P CABG (coronary artery bypass graft) Code(s): Z95.1 - PRESENCE OF AORTOCORONARY BYPASS GRAFT (12) SOB (shortness of breath) on exertion Code(s): R06.02 - SHORTNESS OF BREATH Assessment/Plan IMP DYSPNEA IMPROVED LIKELY ACUTE ON CHRONIC CHF ASHD S/P CABG DM H/O BREAST CA S/P PARTIAL MASTECTOMY,CHEMO,RT ANEMIA LIKELY COPD H/O TOBACCO ABUSE OSAS AHI 25,2 ON SLEEP SCREEN PAF PLAN LASIX INHALED BRONCHODILATORS O2 DAILY WT ELIQUIS ECHO F/U SLEEP STUDIES OUTPATIENT PFTS OUTPATIENT DR CLAROS Problem List - Problems (1) CHF exacerbation Code(s): I50.9 - HEART FAILURE, UNSPECIFIED Qualifiers: Heart failure type: unspecified Qualified Code(s): I50.9 - Heart failure, unspecified (2) PAF (paroxysmal atrial fibrillation) Code(s): I48.0 - PAROXYSMAL ATRIAL FIBRILLATION (3) ASHD (arteriosclerotic heart disease) Code(s): I25.10 - ATHSCL HEART DISEASE OF [place] CORONARY ARTERY W/O ANG PCTRS (4) Breast cancer, left Code(s): C50.912 - MALIGNANT NEOPLASM OF UNSPECIFIED SITE OF LEFT FEMALE BREAST Qualifiers: Breast location: unspecified site of breast Estrogen receptor status: positive Patient sex: female Qualified Code(s): C50.912 - Malignant neoplasm of unspecified site of left female breast; Z17.0 - Estrogen receptor positive status [ER+] (5) CAD (coronary artery disease) Code(s): I25.10 - ATHSCL HEART DISEASE OF [place] CORONARY ARTERY W/O ANG PCTRS (6) Dependent edema Code(s): R60.9 - EDEMA, UNSPECIFIED (7) Diabetes Code(s): E11.9 - TYPE 2 DIABETES MELLITUS WITHOUT COMPLICATIONS Qualifiers: Diabetes mellitus type: type 2 Diabetes mellitus 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 insulin use: with mcc use Diabetes mellitus complication status: with unspecified complications (8) Edema Code(s): R60.9 - EDEMA, UNSPECIFIED (9) HLD (hyperlipidemia) Code(s): E78.5 - HYPERLIPIDEMIA, UNSPECIFIED Qualifiers: Hyperlipidemia type: pure hypercholesterolemia Qualified Code(s): E78.00 - Pure hypercholesterolemia, unspecified (10) Hypertension associated with diabetes Code(s): E11.59 - TYPE 2 DIABETES MELLITUS WITH OTH CIRCULATORY COMPLICATIONS; I10 - ESSENTIAL (PRIMARY) HYPERTENSION (11) S/P CABG (coronary artery bypass graft) Code(s): Z95.1 - PRESENCE OF AORTOCORONARY BYPASS GRAFT (12) SOB (shortness of breath) on exertion Code(s): R06.02 - SHORTNESS OF BREATH
[2018-09-11 13:27] VITALS: BMI 45.8
--- NOTE | 2018-09-11 14:14 | CONSULT ---
Consult - text type - Consultation Consultation Note: Renal consult for KEVIN and contrast nephropathy risk stratification This is a 68 year old woman with history of CAD s/p CABG, CHF, P-Afib who presents with shortness of breath and worsening LE swelling and admitted for acute HF with KEVIN. Pt was seen by our service for KEVIN during a prior admission. Pt seen and examined at the bedside. Reports feeling better now, no SOB while at rest. Leg edema is still present but getting better. Making a good amount of urine. Denies any flank pain, dyuria, frequency or urgency. Denies any flank pain. No chest pain or tightness. PMhx: as above Allergies: NKDA family Hx: NC Social Hx: No T/A/D ROS: as per HPI, all other pertinent ros negative Home Medications Medication Instructions Recorded Atorvastatin Ca [Lipitor] 40 mg PO HS 07/19/18 Fenofibrate Nanocrystallized 145 mg PO DAILY 07/19/18 [Tricor] Ramipril [Altace] 5 mg PO DAILY 07/19/18 Spironolactone [Aldactone] 25 mg PO DAILY 07/19/18 Apixaban [Eliquis -] 5 mg PO BID #60 tablet 07/21/18 Metoprolol Succinate [Toprol XL -] 50 mg PO BID #60 tab.sr.24h 07/21/18 Atenolol [Tenormin -] 50 mg PO DAILY 09/09/18 Cilostazol 100 mg PO DAILY 09/09/18 Omeprazole 40 mg PO DAILY 09/09/18 Torsemide 20 mg PO DAILY 09/09/18 Vital Signs Temperature 97.6 F 09/11/18 10:00 Pulse Rate 85 09/11/18 10:00 Respiratory Rate 20 09/11/18 10:00 Blood Pressure 125/60 09/11/18 10:00 O2 Sat by Pulse Oximetry (%) 96 09/11/18 10:00 Intake & Output 09/08/18 09/09/18 09/10/18 09/11/18 23:59 23:59 23:59 23:59 Intake Total 640 120 Balance 640 120 Weight 131.088 kg 128.185 kg 128.82 kg NAD awake and alert neck supple, no JVD RRR, No M/R Dec BS, no rales or wheeze soft, Obese, NT/ND ++ edema in LE, no cyanosis or clubbing CBC, BMP 09/11/18 05:30 09/11/18 05:30 Current Medications Acetaminophen (Tylenol -) 650 mg PO Q6H PRN PRN Reason: PAIN LEVEL 1-5 Albuterol/Ipratropium (Duoneb -) 1 amp NEB Q4H PRN PRN Reason: SHORTNESS OF BREATH Alprazolam (Xanax -) 0.25 mg PO DAILY PRN PRN Reason: ANXIETY Apixaban (Eliquis -) 5 mg PO BID [facility] Last Admin: 09/11/18 09:56 Dose: 5 mg Atorvastatin Calcium (Lipitor -) 40 mg PO HS [facility] Last Admin: 09/10/18 22:47 Dose: 40 mg Escitalopram Oxalate (Lexapro -) 10 mg PO DAILY [facility] Last Admin: 09/11/18 11:24 Dose: 10 mg Furosemide (Lasix Injection -) 100 mg IVPB BID@0600,1400 [facility] Insulin Aspart (Novolog Vial Sliding Scale -) 1 vial SQ [facility]; Protocol Last Admin: 09/11/18 11:24 Dose: 11 units Insulin Aspart (Novolog Mix 70/30 Vial) 58 units SQ BIDAC [facility] Last Admin: 09/11/18 06:12 Dose: 58 units Metformin HCl (Glucophage -) 1,000 mg PO BID@0700,1630 [facility] Last Admin: 09/11/18 06:12 Dose: 1,000 mg Metoprolol Succinate (Toprol Xl -) 50 mg PO DAILY [facility] Last Admin: 09/11/18 09:56 Dose: 50 mg Pantoprazole Sodium (Protonix -) 40 mg PO DAILY [facility] Last Admin: 09/11/18 09:56 Dose: 40 mg Sitagliptin Phosphate (Januvia -) 50 mg PO DAILY@0700 [facility] Last Admin: 09/11/18 06:13 Dose: 50 mg Tramadol HCl (Ultram -) 50 mg PO Q8H PRN PRN Reason: PAIN LEVEL 6-10 Last Admin: 09/10/18 22:46 Dose: 50 mg 68 year old woman with history of CAD s/p CABG, CHF, P-Afib who presents with shortness of breath and worsening LE swelling and admitted for acute HF with KEVIN. #KEVIN no resolved, likely due to cardio-renal syndrome in setting of acute HF #Acute HF with CHF #CAD #LE edema #PVD #Contrast nephropathy risk stratification Renal function now improved and near baseline. Continue IV Lasix BID as per cardiology. Trend renal function adn electrolytes daily. No currently on ACEi, would hold untril pt is euvolemic and on stable dose of diuretics. Contrast nephropathy risk as calculated by MARK risk calculator developed by Sebastian: 26% risk of MARK, 1% risk of dialysis. This was shared with patient. Given pt is volume overloaded would not benifit from IVF. Would Hold AM dose of Lasix on daiy of study. Idealy if study can be deferred to when she is euvolemic it would be ideal. Thank you Chilango Strong DO
[2018-09-11] MEDS: FUROSEMIDE 100 MG/10 ML INJECTABLE VIAL IVPB SCH (14:57)
[2018-09-11] MEDS: traMADol HCL 50 MG TABLET PO PRN (16:21)
[2018-09-11] MEDS: ATORVASTATIN CA 40 MG TABLET (FP) PO SCH (21:35)
--- NOTE | 2018-09-11 23:11 | PN ---
Progress Note, Physician Chief Complaint: high sugars always hungry - Current Medication List Current Medications: Active Medications Acetaminophen (Tylenol -) 650 mg PO Q6H PRN PRN Reason: PAIN LEVEL 1-5 Albuterol/Ipratropium (Duoneb -) 1 amp NEB Q4H PRN PRN Reason: SHORTNESS OF BREATH Alprazolam (Xanax -) 0.25 mg PO DAILY PRN PRN Reason: ANXIETY Apixaban (Eliquis -) 5 mg PO BID [facility] Last Admin: 09/11/18 21:35 Dose: 5 mg Atorvastatin Calcium (Lipitor -) 40 mg PO HS [facility] Last Admin: 09/11/18 21:35 Dose: 40 mg Escitalopram Oxalate (Lexapro -) 10 mg PO DAILY [facility] Last Admin: 09/11/18 11:24 Dose: 10 mg Furosemide (Lasix Injection -) 100 mg IVPB BID@0600,1400 [facility] Last Admin: 09/11/18 14:57 Dose: 100 mg Insulin Aspart (Novolog Vial Sliding Scale -) 1 vial SQ [facility]; Protocol Last Admin: 09/11/18 21:38 Dose: 10 units Insulin Aspart (Novolog Mix 70/30 Vial) 58 units SQ BIDAC [facility] Last Admin: 09/11/18 16:22 Dose: 58 units Liraglutide (Victoza -) 1.2 mg SQ DAILY@0700 [facility] Metformin HCl (Glucophage -) 1,000 mg PO BID@0700,1630 [facility] Last Admin: 09/11/18 16:22 Dose: 1,000 mg Metoprolol Succinate (Toprol Xl -) 50 mg PO DAILY [facility] Last Admin: 09/11/18 09:56 Dose: 50 mg Pantoprazole Sodium (Protonix -) 40 mg PO DAILY [facility] Last Admin: 09/11/18 09:56 Dose: 40 mg Sitagliptin Phosphate (Januvia -) 50 mg PO DAILY@0700 [facility] Last Admin: 09/11/18 06:13 Dose: 50 mg Tramadol HCl (Ultram -) 50 mg PO Q8H PRN PRN Reason: PAIN LEVEL 6-10 Last Admin: 09/11/18 16:21 Dose: 50 mg - Objective Vital Signs: Vital Signs Temperature 97.8 F 09/11/18 22:00 Pulse Rate 77 09/11/18 22:00 Respiratory Rate 20 09/11/18 22:00 Blood Pressure 112/42 L 09/11/18 22:00 O2 Sat by Pulse Oximetry (%) 96 09/11/18 21:00 Constitutional: Yes: No Distress Eyes: Yes: EOM Intact HENT: Yes: Normocephalic Neck: Yes: Trachea Midline Cardiovascular: Yes: Regular Rate and Rhythm Respiratory: Yes: CTA Bilaterally Gastrointestinal: Yes: Normal Bowel Sounds ...Rectal Exam: Yes: Deferred Genitourinary: Yes: WNL Musculoskeletal: Yes: Muscle Weakness Extremities: Yes: WNL Edema: Yes Edema: LLE: 1+, RLE: 1+ Labs: CBC, BMP 09/11/18 05:30 09/11/18 05:30 Problem List - Problems (1) Diabetic nephropathy with proteinuria Code(s): E11.21 - TYPE 2 DIABETES MELLITUS WITH DIABETIC NEPHROPATHY (2) CHF exacerbation Code(s): I50.9 - HEART FAILURE, UNSPECIFIED Qualifiers: Heart failure type: unspecified Qualified Code(s): I50.9 - Heart failure, unspecified (3) PAD (peripheral artery disease) Code(s): I73.9 - PERIPHERAL VASCULAR DISEASE, UNSPECIFIED (4) PAF (paroxysmal atrial fibrillation) Code(s): I48.0 - PAROXYSMAL ATRIAL FIBRILLATION (5) ASHD (arteriosclerotic heart disease) Code(s): I25.10 - ATHSCL HEART DISEASE OF [place] CORONARY ARTERY W/O ANG PCTRS (6) Acute on chronic diastolic CHF (congestive heart failure) Code(s): I50.33 - ACUTE ON CHRONIC DIASTOLIC (CONGESTIVE) HEART FAILURE Assessment/Plan Current Active Problems Anxiety (Acute) CHF exacerbation (Acute) Diabetic nephropathy with proteinuria (Acute) PAD (peripheral artery disease) (Acute) PAF (paroxysmal atrial fibrillation) (Acute) Abnormal Lab Results 09/11/18 09/11/18 05:30 05:30 Hgb 10.4 L MCV 73.3 L MCH 23.5 L RDW 15.7 H BUN 23.7 H Random Glucose 220 H Albumin 3.2 L Laboratory Tests 09/11/18 09/11/18 09/11/18 06:03 11:22 16:05 POC Glucometer 217 215 234 09/11/18 21:34 POC Glucometer 200 plan: bgm qid novolog scale novolog 70/30 bid victoza 1.2 mg
[2018-09-12] MEDS: metFORMIN HCL 500 MG TABLET (FP) PO SCH ×2 (06:23→17:12)
[2018-09-12] MEDS: FUROSEMIDE 100 MG/10 ML INJECTABLE VIAL IVPB SCH ×2 (06:23→13:15)
[2018-09-12] MEDS: sitaGLIPtin PHOSPHATE 50 MG TABLET PO SCH (06:23)
[2018-09-12] MEDS: INSULIN (NOVOLOG MIX 70/30) 100 UNITS/ML MDV SQ SCH ×2 (06:24→17:13)
[2018-09-12] MEDS: INSULIN SLIDING SCALE (NOVOLOG) 1 VIAL SQ SCH ×4 (06:24→22:10)
[2018-09-12 08:27] LABS: BLOOD UREA NITROGEN 26.8 mg/dL (7-18)
[2018-09-12 08:31] LABS: CALCIUM 9.7 mg/dL (8.5-10.1)
[2018-09-12] MEDS ORDERED: PT OWN MED DRAWER 7, Y5N ONE ×3 (08:41→11:38)
[2018-09-12] MEDS: PANTOPRAZOLE 40 MG TABLET (FP) PO SCH (09:20)
[2018-09-12] MEDS: ESCITALOPRAM OXALATE 10 MG TABLET (FP) PO SCH (09:20)
[2018-09-12] MEDS: traMADol HCL 50 MG TABLET PO PRN ×2 (09:20→19:46)
[2018-09-12] MEDS: APIXABAN 5 MG TABLET PO SCH ×2 (09:20→22:10)
--- NOTE | 2018-09-12 11:03 | PN ---
Progress Note (short form) - Note Progress Note: s: edema less. no chest pain, palps, dizziness. Current Medications Generic Name Dose Route Start Last Admin Trade Name Freq PRN Reason Stop Dose Admin Acetaminophen 650 mg 09/10/18 11:51 Tylenol - PO Q6H PRN PAIN LEVEL 1-5 Albuterol/Ipratropium 1 amp 09/10/18 13:02 Duoneb - NEB Q4H PRN SHORTNESS OF BREATH Alprazolam 0.25 mg 09/11/18 11:56 Xanax - PO DAILY PRN ANXIETY Apixaban 5 mg 09/09/18 22:00 09/12/18 09:20 Eliquis - PO 5 mg BID [facility] Administration Atorvastatin Calcium 40 mg 09/09/18 22:00 09/11/18 21:35 Lipitor - PO 40 mg HS [facility] Administration Escitalopram Oxalate 10 mg 09/11/18 11:00 09/12/18 09:20 Lexapro - PO 10 mg DAILY [facility] Administration Furosemide 100 mg 09/11/18 14:00 09/12/18 06:23 Lasix Injection - IVPB 100 mg BID@0600,1400 [facility] Administration Insulin Aspart 1 vial 09/09/18 23:15 09/12/18 06:24 Novolog Vial Sliding Scale - SQ 11 units ACHS [facility] Administration Protocol Insulin Aspart 58 units 09/10/18 07:00 09/12/18 06:24 Novolog Mix 70/30 Vial SQ 58 units BIDAC [facility] Administration Liraglutide 1.2 mg 09/12/18 07:00 Victoza - SQ DAILY@0700 [facility] Metformin HCl 1,000 mg 09/11/18 07:00 09/12/18 06:23 Glucophage - PO 1,000 mg BID@0700,1630 [facility] Administration Metoprolol Succinate 50 mg 09/10/18 10:00 09/12/18 09:20 Toprol Xl - PO 50 mg DAILY [facility] Administration Pantoprazole Sodium 40 mg 09/10/18 10:00 09/12/18 09:20 Protonix - PO 40 mg DAILY [facility] Administration Sitagliptin Phosphate 50 mg 09/11/18 07:00 09/12/18 06:23 Januvia - PO 50 mg DAILY@0700 [facility] Administration Tramadol HCl 50 mg 09/10/18 11:50 09/12/18 09:20 Ultram - PO 50 mg Q8H PRN Administration PAIN LEVEL 6-10 Vital Signs Period Temp Pulse Resp BP Sys/Anne Pulse Ox Last 24 Hr 97.7 F-98.1 F 73-87 18-20 112-137/42-70 96 Constitutional: Yes: No Distress, Calm Eyes: Yes: Conjunctiva Clear Cardiovascular: Yes: Regular Rate and Rhythm Respiratory: Yes: CTA Bilaterally (no rales or wheezing) Gastrointestinal: Yes: Soft, Abdomen, Obese Edema: Yes Edema: LLE: 2+, RLE: 2+ Neurological: Yes: Alert, Oriented no jaundice, diaphoresis not agitated tele: sr, occ pvcs - ....Imaging Chest X-ray: Image Reviewed MRI: Image Reviewed (NSR w/ diffuse NSST changes, slightly more pronounced than prior) EKG: Image Reviewed Other: Other (Patient w/ recent echo and nuclear stress here: no ischemia, normal LVEF No sig valve disease. Done 06/2017) Assessment/Plan IMP: 1. Acute on chronic diastolic CHF 2. CAD s/p CABG 3. PAF 4. Peripheral arterial disease REC: 1. cont lasix 100 mg IV bid. cr stable, wt down. daily weights and BMP to monitor renal fxn 2. Continue Eliquis for PAF, elevated [id number] score 3. Pt. sees Dr. Burnette, vascular surgery at [facility] for b/l LE PAD and an outpatient CTA was planned. Would hold on that until euvolemic and GFR stable. 4. venous dopplers - no upper ext DVT
[2018-09-12] MEDS: LIRAGLUTIDE 0.6 MG/0.1 ML PEN.INJCTR SQ SCH (11:29)
--- NOTE | 2018-09-12 12:24 | PN ---
Progress Note, Physician Chief Complaint: patient seen and examined on 100mg iv lasix - Current Medication List Current Medications: Active Medications Acetaminophen (Tylenol -) 650 mg PO Q6H PRN PRN Reason: PAIN LEVEL 1-5 Albuterol/Ipratropium (Duoneb -) 1 amp NEB Q4H PRN PRN Reason: SHORTNESS OF BREATH Alprazolam (Xanax -) 0.25 mg PO DAILY PRN PRN Reason: ANXIETY Apixaban (Eliquis -) 5 mg PO BID [facility] Last Admin: 09/12/18 09:20 Dose: 5 mg Atorvastatin Calcium (Lipitor -) 40 mg PO HS [facility] Last Admin: 09/11/18 21:35 Dose: 40 mg Escitalopram Oxalate (Lexapro -) 10 mg PO DAILY [facility] Last Admin: 09/12/18 09:20 Dose: 10 mg Furosemide (Lasix Injection -) 100 mg IVPB BID@0600,1400 [facility] Last Admin: 09/12/18 06:23 Dose: 100 mg Insulin Aspart (Novolog Vial Sliding Scale -) 1 vial SQ [facility]; Protocol Last Admin: 09/12/18 11:29 Dose: 12 units Insulin Aspart (Novolog Mix 70/30 Vial) 58 units SQ BIDAC [facility] Last Admin: 09/12/18 06:24 Dose: 58 units Liraglutide (Victoza -) 1.2 mg SQ DAILY@0700 [facility] Last Admin: 09/12/18 11:29 Dose: 1.2 mg Metformin HCl (Glucophage -) 1,000 mg PO BID@0700,1630 [facility] Last Admin: 09/12/18 06:23 Dose: 1,000 mg Metoprolol Succinate (Toprol Xl -) 50 mg PO DAILY [facility] Last Admin: 09/12/18 09:20 Dose: 50 mg Pantoprazole Sodium (Protonix -) 40 mg PO DAILY [facility] Last Admin: 09/12/18 09:20 Dose: 40 mg Sitagliptin Phosphate (Januvia -) 50 mg PO DAILY@0700 [facility] Last Admin: 09/12/18 06:23 Dose: 50 mg Tramadol HCl (Ultram -) 50 mg PO Q8H PRN PRN Reason: PAIN LEVEL 6-10 Last Admin: 09/12/18 09:20 Dose: 50 mg - Objective Vital Signs: Vital Signs Temperature 98.1 F 09/12/18 10:00 Pulse Rate 82 09/12/18 10:00 Respiratory Rate 20 09/12/18 10:00 Blood Pressure 134/62 09/12/18 10:00 O2 Sat by Pulse Oximetry (%) 96 09/12/18 10:00 Constitutional: Yes: Calm, Obese Cardiovascular: Yes: Regular Rate and Rhythm, S1, S2 (no rales) Respiratory: Yes: CTA Bilaterally Gastrointestinal: Yes: Normal Bowel Sounds, Soft, Abdomen, Obese Edema: Yes Edema: LLE: 2+, RLE: 2+ Neurological: Yes: Alert, Oriented Labs: CBC, BMP 09/11/18 05:30 09/12/18 07:05 Problem List - Problems (1) CHF exacerbation Assessment/Plan: iv lasix 100mg bid venous doppler no dvt I/o daily weights 284 now 281 lbs today monitor lytes and renal function aldactone Code(s): I50.9 - HEART FAILURE, UNSPECIFIED Qualifiers: Heart failure type: unspecified Qualified Code(s): I50.9 - Heart failure, unspecified (2) PAF (paroxysmal atrial fibrillation) Assessment/Plan: eliquis bid Code(s): I48.0 - PAROXYSMAL ATRIAL FIBRILLATION (3) Diabetes Assessment/Plan: hgba1c bgm sliding scale seen by endocrine and insulin adjusted metformin and victoza Code(s): E11.9 - TYPE 2 DIABETES MELLITUS WITHOUT COMPLICATIONS Qualifiers: Diabetes mellitus type: type 2 Diabetes mellitus jail insulin use: with terminal 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
--- NOTE | 2018-09-12 13:01 | PN ---
Progress Note (short form) - Note Progress Note: PULMONARY States breathing better today. No chest pain, cough or wheezing. Vital Signs Period Temp Pulse Resp BP Sys/Anne Pulse Ox Last 24 Hr 97.7 F-98.1 F 73-87 18-20 112-137/42-70 96-96 Gen: NAD at rest Heart: RRR Lung: decreased breath sounds at the bases Abd: soft, nontender Ext: + edema CBC, BMP 09/11/18 05:30 09/12/18 07:05 Active Medications Acetaminophen (Tylenol -) 650 mg PO Q6H PRN PRN Reason: PAIN LEVEL 1-5 Albuterol/Ipratropium (Duoneb -) 1 amp NEB Q4H PRN PRN Reason: SHORTNESS OF BREATH Alprazolam (Xanax -) 0.25 mg PO DAILY PRN PRN Reason: ANXIETY Apixaban (Eliquis -) 5 mg PO BID [facility] Last Admin: 09/12/18 09:20 Dose: 5 mg Atorvastatin Calcium (Lipitor -) 40 mg PO HS [facility] Last Admin: 09/11/18 21:35 Dose: 40 mg Escitalopram Oxalate (Lexapro -) 10 mg PO DAILY [facility] Last Admin: 09/12/18 09:20 Dose: 10 mg Furosemide (Lasix Injection -) 100 mg IVPB BID@0600,1400 [facility] Last Admin: 09/12/18 06:23 Dose: 100 mg Insulin Aspart (Novolog Vial Sliding Scale -) 1 vial SQ ACHS [facility]; Protocol Last Admin: 09/12/18 11:29 Dose: 12 units Insulin Aspart (Novolog Mix 70/30 Vial) 58 units SQ BIDAC [facility] Last Admin: 09/12/18 06:24 Dose: 58 units Liraglutide (Victoza -) 1.2 mg SQ DAILY@0700 [facility] Last Admin: 09/12/18 11:29 Dose: 1.2 mg Metformin HCl (Glucophage -) 1,000 mg PO BID@0700,1630 [facility] Last Admin: 09/12/18 06:23 Dose: 1,000 mg Metoprolol Succinate (Toprol Xl -) 50 mg PO DAILY [facility] Last Admin: 09/12/18 09:20 Dose: 50 mg Pantoprazole Sodium (Protonix -) 40 mg PO DAILY [facility] Last Admin: 09/12/18 09:20 Dose: 40 mg Sitagliptin Phosphate (Januvia -) 50 mg PO DAILY@0700 [facility] Last Admin: 09/12/18 06:23 Dose: 50 mg Tramadol HCl (Ultram -) 50 mg PO Q8H PRN PRN Reason: PAIN LEVEL 6-10 Last Admin: 09/12/18 09:20 Dose: 50 mg A/P Acute on Chronic Diastolic Heart Failure CAD s/p CABG COPD Paroxysmal Atrial Fibrillation Suspect JANA DM Anemia - continue lasix - monitor urine outpt, creatinine - daily weights - O2 to keep Spo2 >90% - inhaled bronchodilators - rate controlled - continue anticoagulation - outpt PFTs, PSG
[2018-09-12] MEDS: ALPRAZolam 0.25 MG TABLET PO PRN (19:46)
[2018-09-12] MEDS: ATORVASTATIN CA 40 MG TABLET (FP) PO SCH (22:10)
[2018-09-13] MEDS ORDERED: PT OWN MED DRAWER 7, Y5N ONE ×2 (06:29→07:31)
[2018-09-13] MEDS: LIRAGLUTIDE 0.6 MG/0.1 ML PEN.INJCTR SQ SCH (06:43)
[2018-09-13] MEDS: INSULIN (NOVOLOG MIX 70/30) 100 UNITS/ML MDV SQ SCH ×2 (06:43→16:42)
[2018-09-13] MEDS: sitaGLIPtin PHOSPHATE 50 MG TABLET PO SCH (06:44)
[2018-09-13] MEDS: FUROSEMIDE 100 MG/10 ML INJECTABLE VIAL IVPB SCH ×2 (06:44→13:32)
[2018-09-13] MEDS: traMADol HCL 50 MG TABLET PO PRN ×2 (06:44→21:23)
[2018-09-13] MEDS: metFORMIN HCL 500 MG TABLET (FP) PO SCH ×2 (06:44→16:52)
[2018-09-13] MEDS: INSULIN SLIDING SCALE (NOVOLOG) 1 VIAL SQ SCH ×4 (06:45→21:23)
--- NOTE | 2018-09-13 08:40 | PN ---
Progress Note, Physician Chief Complaint: feeling better Edema improved - Current Medication List Current Medications: Active Medications Acetaminophen (Tylenol -) 650 mg PO Q6H PRN PRN Reason: PAIN LEVEL 1-5 Albuterol/Ipratropium (Duoneb -) 1 amp NEB Q4H PRN PRN Reason: SHORTNESS OF BREATH Alprazolam (Xanax -) 0.25 mg PO DAILY PRN PRN Reason: ANXIETY Last Admin: 09/12/18 19:46 Dose: 0.25 mg Apixaban (Eliquis -) 5 mg PO BID [facility] 234 BEDS AT [facility] Last Admin: 09/12/18 22:10 Dose: 5 mg Atorvastatin Calcium (Lipitor -) 40 mg PO HS [facility]CLUDE 234 BEDS AT [facility] Last Admin: 09/12/18 22:10 Dose: 40 mg Escitalopram Oxalate (Lexapro -) 10 mg PO DAILY [facility]CLUDE 234 BEDS AT [facility] Last Admin: 09/12/18 09:20 Dose: 10 mg Furosemide (Lasix Injection -) 100 mg IVPB BID@0600,1400 [facility] 234 BEDS AT [facility] Last Admin: 09/13/18 06:44 Dose: 100 mg Insulin Aspart (Novolog Vial Sliding Scale -) 1 vial SQ [facility]; Protocol Last Admin: 09/13/18 06:45 Dose: 11 units Insulin Aspart (Novolog Mix 70/30 Vial) 58 units SQ BIDAC [facility]CLUDE 234 BEDS AT [facility] Last Admin: 09/13/18 06:43 Dose: 58 units Liraglutide (Victoza -) 1.2 mg SQ DAILY@0700 [facility] 234 BEDS AT [facility] Last Admin: 09/13/18 06:43 Dose: 1.2 mg Metformin HCl (Glucophage -) 1,000 mg PO BID@0700,1630 [facility]CLUDE 234 BEDS AT [facility] Last Admin: 09/13/18 06:44 Dose: 1,000 mg Metoprolol Succinate (Toprol Xl -) 50 mg PO DAILY [facility] 234 BEDS AT [facility] Last Admin: 09/12/18 09:20 Dose: 50 mg Pantoprazole Sodium (Protonix -) 40 mg PO DAILY [facility] 234 BEDS AT [facility] Last Admin: 09/12/18 09:20 Dose: 40 mg Sitagliptin Phosphate (Januvia -) 50 mg PO DAILY@0700 [facility]CLUDE 234 BEDS AT [facility] Last Admin: 09/13/18 06:44 Dose: 50 mg Tramadol HCl (Ultram -) 50 mg PO Q8H PRN PRN Reason: PAIN LEVEL 6-10 Last Admin: 09/13/18 06:44 Dose: 50 mg - Objective Vital Signs: Vital Signs Temperature 98.4 F 09/13/18 06:30 Pulse Rate 89 09/13/18 06:30 Respiratory Rate 18 09/13/18 06:30 Blood Pressure 146/70 09/13/18 06:30 O2 Sat by Pulse Oximetry (%) 99 09/12/18 21:00 Constitutional: Yes: No Distress Eyes: Yes: Conjunctiva Clear Respiratory: Yes: CTA Bilaterally Gastrointestinal: Yes: Soft, Abdomen, Obese Edema: Yes Edema: LLE: 2+, RLE: 2+ Neurological: Yes: Alert, Oriented Labs: CBC, BMP 09/11/18 05:30 09/12/18 07:05 - ....Imaging EKG: Image Reviewed (TELE: NSRRare PVC, occasional couplets) Assessment/Plan IMP: 1. Acute on chronic diastolic CHF 2. CAD s/p CABG, recent MIBI with no sig ischemia 3. PAF 4. Peripheral arterial disease REC: 1. Cont lasix 100 mg IV bid. cr stable, wt down. daily weights and BMP to monitor renal fxn; would aim to convert to PO over weekend- would favor Torsemide. 2. Continue Eliquis for PAF, elevated [id number] score 3. Pt. sees Dr. Burnette, vascular surgery at [facility] for b/l LE PAD and an outpatient CTA was planned. Would hold on that until euvolemic and GFR stable.
[2018-09-13] MEDS: ESCITALOPRAM OXALATE 10 MG TABLET (FP) PO SCH (09:17)
[2018-09-13] MEDS: PANTOPRAZOLE 40 MG TABLET (FP) PO SCH (09:17)
[2018-09-13] MEDS: APIXABAN 5 MG TABLET PO SCH ×2 (09:17→21:19)
--- NOTE | 2018-09-13 12:39 | PN ---
Progress Note, Physician Chief Complaint: patient seen and examined on iv lasix bid - Current Medication List Current Medications: Active Medications Acetaminophen (Tylenol -) 650 mg PO Q6H PRN PRN Reason: PAIN LEVEL 1-5 Albuterol/Ipratropium (Duoneb -) 1 amp NEB Q4H PRN PRN Reason: SHORTNESS OF BREATH Alprazolam (Xanax -) 0.25 mg PO DAILY PRN PRN Reason: ANXIETY Last Admin: 09/12/18 19:46 Dose: 0.25 mg Apixaban (Eliquis -) 5 mg PO BID [facility] Last Admin: 09/13/18 09:17 Dose: 5 mg Atorvastatin Calcium (Lipitor -) 40 mg PO HS [facility] Last Admin: 09/12/18 22:10 Dose: 40 mg Escitalopram Oxalate (Lexapro -) 10 mg PO DAILY [facility] Last Admin: 09/13/18 09:17 Dose: 10 mg Furosemide (Lasix Injection -) 100 mg IVPB BID@0600,1400 [facility] Last Admin: 09/13/18 06:44 Dose: 100 mg Insulin Aspart (Novolog Vial Sliding Scale -) 1 vial SQ [facility]; Protocol Last Admin: 09/13/18 11:13 Dose: 10 units Insulin Aspart (Novolog Mix 70/30 Vial) 58 units SQ BIDAC [facility] Last Admin: 09/13/18 06:43 Dose: 58 units Liraglutide (Victoza -) 1.2 mg SQ DAILY@0700 [facility] Last Admin: 09/13/18 06:43 Dose: 1.2 mg Metformin HCl (Glucophage -) 1,000 mg PO BID@0700,1630 [facility] Last Admin: 09/13/18 06:44 Dose: 1,000 mg Metoprolol Succinate (Toprol Xl -) 50 mg PO DAILY [facility] Last Admin: 09/13/18 11:16 Dose: 50 mg Pantoprazole Sodium (Protonix -) 40 mg PO DAILY [facility] Last Admin: 09/13/18 09:17 Dose: 40 mg Sitagliptin Phosphate (Januvia -) 50 mg PO DAILY@0700 [facility] Last Admin: 09/13/18 06:44 Dose: 50 mg Tramadol HCl (Ultram -) 50 mg PO Q8H PRN PRN Reason: PAIN LEVEL 6-10 Last Admin: 09/13/18 06:44 Dose: 50 mg - Objective Vital Signs: Vital Signs Temperature 98 F 09/13/18 10:00 Pulse Rate 91 H 09/13/18 10:00 Respiratory Rate 18 09/13/18 10:00 Blood Pressure 130/71 09/13/18 10:00 O2 Sat by Pulse Oximetry (%) 94 L 09/13/18 09:00 Constitutional: Yes: Calm Cardiovascular: Yes: Regular Rate and Rhythm, S1, S2 Respiratory: Yes: CTA Bilaterally Gastrointestinal: Yes: Normal Bowel Sounds, Soft Edema: Yes Neurological: Yes: Alert, Oriented Labs: CBC, BMP 09/11/18 05:30 09/12/18 07:05 Problem List - Problems (1) CHF exacerbation Assessment/Plan: iv lasix 100mg bid venous doppler no dvt weight trending down Code(s): I50.9 - HEART FAILURE, UNSPECIFIED Qualifiers: Heart failure type: unspecified Qualified Code(s): I50.9 - Heart failure, unspecified (2) PAF (paroxysmal atrial fibrillation) Assessment/Plan: eliquis bid Code(s): I48.0 - PAROXYSMAL ATRIAL FIBRILLATION (3) Diabetes Assessment/Plan: hgba1c 11.8 uncotnrole endocrine on board bgm sliding scale seen by endocrine and insulin adjusted metformin and victoza Code(s): E11.9 - TYPE 2 DIABETES MELLITUS WITHOUT COMPLICATIONS Qualifiers: Diabetes mellitus type: type 2 Diabetes mellitus residential insulin use: with residential use Diabetes mellitus complication status: with unspecified complications
--- NOTE | 2018-09-13 13:29 | PN ---
Progress Note (short form) - Note Progress Note: Overall breathing feels better. No chest pain, cough or wheezing. Intake & Output 09/10/18 09/11/18 09/12/18 09/13/18 23:59 23:59 23:59 23:59 Intake Total 640 1290 460 60 Balance 640 1290 460 60 Weight 282 lb 9.6 oz 284 lb 281 lb 3.2 oz 283 lb 9.6 oz Last Vital Signs Temp Pulse Resp BP Pulse Ox 98 F 91 H 18 130/71 94 L 09/13/18 10:00 09/13/18 10:00 09/13/18 10:00 09/13/18 10:00 09/13/18 09:00 Active Medications Acetaminophen (Tylenol -) 650 mg PO Q6H PRN PRN Reason: PAIN LEVEL 1-5 Albuterol/Ipratropium (Duoneb -) 1 amp NEB Q4H PRN PRN Reason: SHORTNESS OF BREATH Alprazolam (Xanax -) 0.25 mg PO DAILY PRN PRN Reason: ANXIETY Last Admin: 09/12/18 19:46 Dose: 0.25 mg Apixaban (Eliquis -) 5 mg PO BID [facility] Last Admin: 09/13/18 09:17 Dose: 5 mg Atorvastatin Calcium (Lipitor -) 40 mg PO HS [facility] Last Admin: 09/12/18 22:10 Dose: 40 mg Escitalopram Oxalate (Lexapro -) 10 mg PO DAILY [facility] Last Admin: 09/13/18 09:17 Dose: 10 mg Furosemide (Lasix Injection -) 100 mg IVPB BID@0600,1400 [facility] Last Admin: 09/13/18 06:44 Dose: 100 mg Insulin Aspart (Novolog Vial Sliding Scale -) 1 vial SQ ACHS [facility]; Protocol Last Admin: 09/13/18 11:13 Dose: 10 units Insulin Aspart (Novolog Mix 70/30 Vial) 58 units SQ BIDAC [facility] Last Admin: 09/13/18 06:43 Dose: 58 units Liraglutide (Victoza -) 1.2 mg SQ DAILY@0700 [facility] Last Admin: 09/13/18 06:43 Dose: 1.2 mg Metformin HCl (Glucophage -) 1,000 mg PO BID@0700,1630 [facility] Last Admin: 09/13/18 06:44 Dose: 1,000 mg Metoprolol Succinate (Toprol Xl -) 50 mg PO DAILY [facility] Last Admin: 09/13/18 11:16 Dose: 50 mg Pantoprazole Sodium (Protonix -) 40 mg PO DAILY [facility] Last Admin: 09/13/18 09:17 Dose: 40 mg Sitagliptin Phosphate (Januvia -) 50 mg PO DAILY@0700 [facility] Last Admin: 09/13/18 06:44 Dose: 50 mg Tramadol HCl (Ultram -) 50 mg PO Q8H PRN PRN Reason: PAIN LEVEL 6-10 Last Admin: 09/13/18 06:44 Dose: 50 mg Gen: NAD at rest Heart: RRR Lung: decreased breath sounds at the bases Abd: soft, nontender Ext: + edema Laboratory Results - last 24 hr 09/12/18 09/12/18 09/13/18 16:04 22:09 06:42 POC Glucometer 238 194 201 09/13/18 11:12 POC Glucometer 192 A/P Acute on Chronic Diastolic Heart Failure CAD s/p CABG COPD Paroxysmal Atrial Fibrillation Suspect JANA DM Anemia - lasix - monitor urine outpt, creatinine - daily weights - O2 to keep Spo2 >90% - inhaled bronchodilators - rate controlled - continue anticoagulation - outpt PFTs, PSG Dr Topete
--- NOTE | 2018-09-13 14:38 | PN ---
Progress Note (short form) - Note Progress Note: Renal follow up for CKD Pt seen and examined at the bedside awake and alert feels better overall making urine leg swelling is improving Vital Signs Temperature 98 F 09/13/18 10:00 Pulse Rate 91 H 09/13/18 10:00 Respiratory Rate 18 09/13/18 10:00 Blood Pressure 130/71 09/13/18 10:00 O2 Sat by Pulse Oximetry (%) 94 L 09/13/18 09:00 Intake & Output 09/10/18 09/11/18 09/12/18 09/13/18 23:59 23:59 23:59 23:59 Intake Total 640 1290 460 60 Balance 640 1290 460 60 Weight 128.185 kg 128.82 kg 127.55 kg 128.639 kg NAD RRR, No M/R Dec BS, no rales or wheeze soft, Obese, NT/ND + edema in LE CBC, BMP 09/11/18 05:30 09/12/18 07:05 Current Medications Acetaminophen (Tylenol -) 650 mg PO Q6H PRN PRN Reason: PAIN LEVEL 1-5 Albuterol/Ipratropium (Duoneb -) 1 amp NEB Q4H PRN PRN Reason: SHORTNESS OF BREATH Alprazolam (Xanax -) 0.25 mg PO DAILY PRN PRN Reason: ANXIETY Last Admin: 09/12/18 19:46 Dose: 0.25 mg Apixaban (Eliquis -) 5 mg PO BID [facility] Last Admin: 09/13/18 09:17 Dose: 5 mg Atorvastatin Calcium (Lipitor -) 40 mg PO HS [facility] Last Admin: 09/12/18 22:10 Dose: 40 mg Escitalopram Oxalate (Lexapro -) 10 mg PO DAILY [facility] Last Admin: 09/13/18 09:17 Dose: 10 mg Furosemide (Lasix Injection -) 100 mg IVPB BID@0600,1400 [facility] Last Admin: 09/13/18 13:32 Dose: 100 mg Insulin Aspart (Novolog Vial Sliding Scale -) 1 vial SQ ACHS [facility]; Protocol Last Admin: 09/13/18 11:13 Dose: 10 units Insulin Aspart (Novolog Mix 70/30 Vial) 58 units SQ BIDAC [facility] Last Admin: 09/13/18 06:43 Dose: 58 units Liraglutide (Victoza -) 1.2 mg SQ DAILY@0700 [facility] Last Admin: 09/13/18 06:43 Dose: 1.2 mg Metformin HCl (Glucophage -) 1,000 mg PO BID@0700,1630 [facility] Last Admin: 09/13/18 06:44 Dose: 1,000 mg Metoprolol Succinate (Toprol Xl -) 50 mg PO DAILY [facility] Last Admin: 09/13/18 11:16 Dose: 50 mg Pantoprazole Sodium (Protonix -) 40 mg PO DAILY [facility] Last Admin: 09/13/18 09:17 Dose: 40 mg Sitagliptin Phosphate (Januvia -) 50 mg PO DAILY@0700 [facility] Last Admin: 09/13/18 06:44 Dose: 50 mg Tramadol HCl (Ultram -) 50 mg PO Q8H PRN PRN Reason: PAIN LEVEL 6-10 Last Admin: 09/13/18 06:44 Dose: 50 mg 68 year old woman with history of CAD s/p CABG, CHF, P-Afib who presents with shortness of breath and worsening LE swelling and admitted for acute HF with KEVIN. #KEVIN no resolved, likely due to cardio-renal syndrome in setting of acute HF #Acute HF with CHF #CAD #LE edema #PVD #Contrast nephropathy risk stratification Renal function stable continue IV Lasix as per cardiology Trend renal function and electrolytes daily while on IV diureiss MARK risk remains same as listed in initial consult will follow up as needed please if there are any questions or concerns Thank you Chilango Strong DO
[2018-09-13] MEDS: ATORVASTATIN CA 40 MG TABLET (FP) PO SCH (21:19)
[2018-09-14] MEDS ORDERED: PT OWN MED DRAWER 7, Y5N ONE ×2 (06:36→06:52)
[2018-09-14] MEDS: metFORMIN HCL 500 MG TABLET (FP) PO SCH ×2 (06:46→16:49)
[2018-09-14] MEDS: FUROSEMIDE 100 MG/10 ML INJECTABLE VIAL IVPB SCH ×2 (06:46→14:13)
[2018-09-14] MEDS: sitaGLIPtin PHOSPHATE 50 MG TABLET PO SCH (06:46)
[2018-09-14] MEDS: INSULIN (NOVOLOG MIX 70/30) 100 UNITS/ML MDV SQ SCH ×2 (06:49→16:50)
[2018-09-14] MEDS: INSULIN SLIDING SCALE (NOVOLOG) 1 VIAL SQ SCH ×4 (06:49→22:34)
[2018-09-14] MEDS: LIRAGLUTIDE 0.6 MG/0.1 ML PEN.INJCTR SQ SCH (06:50)
[2018-09-14 07:58] LABS: ALBUMIN 3.4 g/dl (3.4-5.0); BILIRUBIN,TOTAL 0.4 mg/dL (0.2-1); BLOOD UREA NITROGEN 26.5 mg/dL (7-18); CALCIUM 9.2 mg/dL (8.5-10.1); CREATININE 0.9 mg/dL (0.55-1.3); POTASSIUM 3.7 mmol/L (3.5-5.1); TOT PROT 6.7 g/dl (6.4-8.2)
--- NOTE | 2018-09-14 09:31 | PN ---
Progress Note, Physician History of Present Illness: Feeling better, breathing improving Edema improving Tele: NSR with PVCs - Current Medication List Current Medications: Active Medications Acetaminophen (Tylenol -) 650 mg PO Q6H PRN PRN Reason: PAIN LEVEL 1-5 Albuterol/Ipratropium (Duoneb -) 1 amp NEB Q4H PRN PRN Reason: SHORTNESS OF BREATH Alprazolam (Xanax -) 0.25 mg PO DAILY PRN PRN Reason: ANXIETY Last Admin: 09/12/18 19:46 Dose: 0.25 mg Apixaban (Eliquis -) 5 mg PO BID [facility] Last Admin: 09/13/18 21:19 Dose: 5 mg Atorvastatin Calcium (Lipitor -) 40 mg PO HS [facility] Last Admin: 09/13/18 21:19 Dose: 40 mg Escitalopram Oxalate (Lexapro -) 10 mg PO DAILY [facility] Last Admin: 09/13/18 09:17 Dose: 10 mg Furosemide (Lasix Injection -) 100 mg IVPB BID@0600,1400 [facility] Last Admin: 09/14/18 06:46 Dose: 100 mg Insulin Aspart (Novolog Vial Sliding Scale -) 1 vial SQ [facility]; Protocol Last Admin: 09/14/18 06:49 Dose: 10 units Insulin Aspart (Novolog Mix 70/30 Vial) 58 units SQ BIDAC [facility] Last Admin: 09/14/18 06:49 Dose: 58 units Liraglutide (Victoza -) 1.2 mg SQ DAILY@0700 [facility] Last Admin: 09/14/18 06:50 Dose: 1.2 mg Metformin HCl (Glucophage -) 1,000 mg PO BID@0700,1630 [facility] Last Admin: 09/14/18 06:46 Dose: 1,000 mg Metoprolol Succinate (Toprol Xl -) 50 mg PO DAILY [facility] Last Admin: 09/13/18 11:16 Dose: 50 mg Pantoprazole Sodium (Protonix -) 40 mg PO DAILY [facility] Last Admin: 09/13/18 09:17 Dose: 40 mg Sitagliptin Phosphate (Januvia -) 50 mg PO DAILY@0700 [facility] Last Admin: 09/14/18 06:46 Dose: 50 mg Tramadol HCl (Ultram -) 50 mg PO Q8H PRN PRN Reason: PAIN LEVEL 6-10 Last Admin: 09/13/18 21:23 Dose: 50 mg - Objective Vital Signs: Vital Signs Temperature 98.0 F 09/14/18 06:00 Pulse Rate 86 09/14/18 06:00 Respiratory Rate 20 09/14/18 06:00 Blood Pressure 133/54 L 09/14/18 06:00 O2 Sat by Pulse Oximetry (%) 95 09/13/18 21:00 Constitutional: Yes: Well Nourished, No Distress HENT: Yes: WNL Neck: Yes: WNL Cardiovascular: Yes: Regular Rate and Rhythm Respiratory: Yes: Diminished Edema: LLE: 3+, RLE: 2+ Labs: CBC, BMP 09/11/18 05:30 09/14/18 06:00 Assessment/Plan IMP: 1. Acute on chronic diastolic CHF 2. CAD s/p CABG, recent MIBI with no sig ischemia 3. PAF 4. Peripheral arterial disease REC: 1. Cont lasix 100 mg IV bid. cr stable at 0.9, wt down to 281. daily weights and BMP to monitor renal fxn; Will convert to PO Torsemide on Sunday 2. Continue Eliquis for PAF, elevated [id number] score 3. Pt. sees Dr. Burnette, vascular surgery at [facility] for b/l LE PAD and an outpatient CTA was planned. .
[2018-09-14] MEDS: PANTOPRAZOLE 40 MG TABLET (FP) PO SCH (10:44)
[2018-09-14] MEDS: APIXABAN 5 MG TABLET PO SCH ×2 (10:44→22:34)
[2018-09-14] MEDS: ESCITALOPRAM OXALATE 10 MG TABLET (FP) PO SCH (10:45)
--- NOTE | 2018-09-14 14:02 | PN ---
Progress Note (short form) - Note Progress Note: PULMONARY States breathing better today. No chest pain, cough or wheezing. Vital Signs Period Temp Pulse Resp BP Sys/Anne Pulse Ox Last 24 Hr 97.6 F-98.2 F 85-97 18-20 108-143/48-64 95 Gen: NAD at rest Heart: RRR Lung: decreased breath sounds at the bases Abd: soft, nontender Ext: + edema CBC, BMP 09/11/18 05:30 09/14/18 06:00 Active Medications Acetaminophen (Tylenol -) 650 mg PO Q6H PRN PRN Reason: PAIN LEVEL 1-5 Albuterol/Ipratropium (Duoneb -) 1 amp NEB Q4H PRN PRN Reason: SHORTNESS OF BREATH Alprazolam (Xanax -) 0.25 mg PO DAILY PRN PRN Reason: ANXIETY Last Admin: 09/12/18 19:46 Dose: 0.25 mg Apixaban (Eliquis -) 5 mg PO BID [facility] Last Admin: 09/14/18 10:44 Dose: 5 mg Atorvastatin Calcium (Lipitor -) 40 mg PO HS [facility] Last Admin: 09/13/18 21:19 Dose: 40 mg Escitalopram Oxalate (Lexapro -) 10 mg PO DAILY [facility] Last Admin: 09/14/18 10:45 Dose: 10 mg Furosemide (Lasix Injection -) 100 mg IVPB BID@0600,1400 [facility] Last Admin: 09/14/18 06:46 Dose: 100 mg Insulin Aspart (Novolog Vial Sliding Scale -) 1 vial SQ ACHS [facility]; Protocol Last Admin: 09/14/18 12:41 Dose: 11 units Insulin Aspart (Novolog Mix 70/30 Vial) 58 units SQ BIDAC [facility] Last Admin: 09/14/18 06:49 Dose: 58 units Liraglutide (Victoza -) 1.2 mg SQ DAILY@0700 [facility] Last Admin: 09/14/18 06:50 Dose: 1.2 mg Metformin HCl (Glucophage -) 1,000 mg PO BID@0700,1630 [facility] Last Admin: 09/14/18 06:46 Dose: 1,000 mg Metoprolol Succinate (Toprol Xl -) 50 mg PO DAILY [facility] Last Admin: 09/14/18 10:45 Dose: 50 mg Pantoprazole Sodium (Protonix -) 40 mg PO DAILY [facility] Last Admin: 09/14/18 10:44 Dose: 40 mg Sitagliptin Phosphate (Januvia -) 50 mg PO DAILY@0700 [facility] Last Admin: 09/14/18 06:46 Dose: 50 mg Tramadol HCl (Ultram -) 50 mg PO Q8H PRN PRN Reason: PAIN LEVEL 6-10 Last Admin: 09/13/18 21:23 Dose: 50 mg A/P Acute on Chronic Diastolic Heart Failure CAD s/p CABG COPD Paroxysmal Atrial Fibrillation Suspect JANA DM Anemia - continue lasix - monitor urine outpt, creatinine - daily weights - O2 to keep Spo2 >90% - inhaled bronchodilators - rate controlled - continue anticoagulation - outpt PFTs, PSG
[2018-09-14] MEDS: ALPRAZolam 0.25 MG TABLET PO PRN (14:58)
--- NOTE | 2018-09-14 20:03 | PN ---
Progress Note, Physician Chief Complaint: BLLE edema Generalized weakness CHF acute on chronic History of Present Illness: NAD sitting in chair c/o of BLLE pain feels anxious due to pain Pt. sees Dr. Burnette, vascular surgery at [facility] for b/l LE PAD and an outpatient CTA was planned. Pain improved with tramadol Seen by cardiology on Furosemide 100 mg IV BID, Cr stable - Current Medication List Current Medications: Active Medications Acetaminophen (Tylenol -) 650 mg PO Q6H PRN PRN Reason: PAIN LEVEL 1-5 Albuterol/Ipratropium (Duoneb -) 1 amp NEB Q4H PRN PRN Reason: SHORTNESS OF BREATH Alprazolam (Xanax -) 0.25 mg PO DAILY PRN PRN Reason: ANXIETY Last Admin: 09/14/18 14:58 Dose: 0.25 mg Apixaban (Eliquis -) 5 mg PO BID [facility] Last Admin: 09/14/18 10:44 Dose: 5 mg Atorvastatin Calcium (Lipitor -) 40 mg PO HS [facility] Last Admin: 09/13/18 21:19 Dose: 40 mg Escitalopram Oxalate (Lexapro -) 10 mg PO DAILY [facility] Last Admin: 09/14/18 10:45 Dose: 10 mg Furosemide (Lasix Injection -) 100 mg IVPB BID@0600,1400 [facility] Last Admin: 09/14/18 14:13 Dose: 100 mg Insulin Aspart (Novolog Vial Sliding Scale -) 1 vial SQ [facility]; Protocol Last Admin: 09/14/18 16:49 Dose: 10 units Insulin Aspart (Novolog Mix 70/30 Vial) 58 units SQ BIDAC [facility] Last Admin: 09/14/18 16:50 Dose: 58 units Liraglutide (Victoza -) 1.2 mg SQ DAILY@0700 [facility] Last Admin: 09/14/18 06:50 Dose: 1.2 mg Metformin HCl (Glucophage -) 1,000 mg PO BID@0700,1630 [facility] Last Admin: 09/14/18 16:49 Dose: 1,000 mg Metoprolol Succinate (Toprol Xl -) 50 mg PO DAILY [facility] Last Admin: 09/14/18 10:45 Dose: 50 mg Pantoprazole Sodium (Protonix -) 40 mg PO DAILY [facility] Last Admin: 09/14/18 10:44 Dose: 40 mg Sitagliptin Phosphate (Januvia -) 50 mg PO DAILY@0700 [facility] Last Admin: 09/14/18 06:46 Dose: 50 mg Tramadol HCl (Ultram -) 50 mg PO Q8H PRN PRN Reason: PAIN LEVEL 6-10 Last Admin: 09/13/18 21:23 Dose: 50 mg - Objective Vital Signs: Vital Signs Temperature 98.4 F 09/14/18 18:00 Pulse Rate 91 H 09/14/18 18:00 Respiratory Rate 20 09/14/18 18:00 Blood Pressure 125/49 L 09/14/18 14:00 O2 Sat by Pulse Oximetry (%) 96 09/14/18 10:00 Constitutional: Yes: Well Nourished, No Distress, Calm, Obese Cardiovascular: Yes: Regular Rate and Rhythm Respiratory: Yes: Regular Gastrointestinal: Yes: WNL, Normal Bowel Sounds, Soft, Abdomen, Obese Genitourinary: Yes: WNL Musculoskeletal: Yes: Muscle Pain (BLLE) Extremities: Yes: WNL Edema: No Peripheral Pulses WNL: Yes Neurological: Yes: Alert, Oriented Psychiatric: Yes: Alert, Oriented Labs: CBC, BMP 09/11/18 05:30 09/14/18 06:00 Problem List - Problems (1) PAD (peripheral artery disease) Assessment/Plan: -was supposed to do CTA runoff outpatient -Unable to do it at the moment due to Renal fxn -Tylenol 650 mg po Q4H PRN for pain 1-5 -Tramadol 50 mg Q8H PRN for pain 6-10 Code(s): I73.9 - PERIPHERAL VASCULAR DISEASE, UNSPECIFIED (2) PAF (paroxysmal atrial fibrillation) Assessment/Plan: -chronic, rate controlled -Continue eliquis -Tele monitor Code(s): I48.0 - PAROXYSMAL ATRIAL FIBRILLATION (3) ASHD (arteriosclerotic heart disease) Code(s): I25.10 - ATHSCL HEART DISEASE OF [place] CORONARY ARTERY W/O ANG PCTRS (4) Acute on chronic diastolic CHF (congestive heart failure) Assessment/Plan: -seen by cardiology -IV diuresis -daily weights -Low sodium diet -RD consult -tele monitor Code(s): I50.33 - ACUTE ON CHRONIC DIASTOLIC (CONGESTIVE) HEART FAILURE (5) CAD (coronary artery disease) Assessment/Plan: -On lipitor Code(s): I25.10 - ATHSCL HEART DISEASE OF [place] CORONARY ARTERY W/O ANG PCTRS (6) Diabetes Assessment/Plan: -uncontrolled diabetic -A1c at 11.9 -Endocrine consult -BGM AC HS -Diabetic low sodium diet -RD consult -ISS -Novolog 70/30 58 units BIDAC Code(s): E11.9 - TYPE 2 DIABETES MELLITUS WITHOUT COMPLICATIONS Qualifiers: Diabetes mellitus type: 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
[2018-09-14] MEDS: ATORVASTATIN CA 40 MG TABLET (FP) PO SCH (22:34)
[2018-09-15] MEDS ORDERED: PT OWN MED DRAWER 7, Y5N ONE ×3 (06:04→06:55)
[2018-09-15] MEDS: FUROSEMIDE 100 MG/10 ML INJECTABLE VIAL IVPB SCH (06:11)
[2018-09-15] MEDS: sitaGLIPtin PHOSPHATE 50 MG TABLET PO SCH (06:37)
[2018-09-15] MEDS: metFORMIN HCL 500 MG TABLET (FP) PO SCH ×2 (06:37→16:43)
[2018-09-15] MEDS: INSULIN (NOVOLOG MIX 70/30) 100 UNITS/ML MDV SQ SCH ×2 (06:37→16:43)
[2018-09-15] MEDS: INSULIN SLIDING SCALE (NOVOLOG) 1 VIAL SQ SCH ×4 (06:38→21:20)
[2018-09-15] MEDS: LIRAGLUTIDE 0.6 MG/0.1 ML PEN.INJCTR SQ SCH (06:38)
[2018-09-15] MEDS: APIXABAN 5 MG TABLET PO SCH ×2 (09:02→21:13)
[2018-09-15] MEDS: ESCITALOPRAM OXALATE 10 MG TABLET (FP) PO SCH (09:02)
[2018-09-15] MEDS: PANTOPRAZOLE 40 MG TABLET (FP) PO SCH (09:02)
[2018-09-15] MEDS: ALPRAZolam 0.25 MG TABLET PO PRN (09:05)
--- NOTE | 2018-09-15 10:07 | PN ---
Progress Note, Physician Chief Complaint: BLLE edema Generalized weakness CHF acute on chronic History of Present Illness: NAD sitting in chair c/o of BLLE pain feels anxious due to pain Pt. sees Dr. Burnette, vascular surgery at [facility] for b/l LE PAD and an outpatient CTA was planned. Pain improved with tramadol Seen by cardiology on Furosemide 100 mg IV BID, Cr stable - Current Medication List Current Medications: Active Medications Acetaminophen (Tylenol -) 650 mg PO Q6H PRN PRN Reason: PAIN LEVEL 1-5 Last Admin: 09/15/18 06:18 Dose: 650 mg Albuterol/Ipratropium (Duoneb -) 1 amp NEB Q4H PRN PRN Reason: SHORTNESS OF BREATH Alprazolam (Xanax -) 0.25 mg PO DAILY PRN PRN Reason: ANXIETY Last Admin: 09/15/18 09:05 Dose: 0.25 mg Apixaban (Eliquis -) 5 mg PO BID [facility] Last Admin: 09/15/18 09:02 Dose: 5 mg Atorvastatin Calcium (Lipitor -) 40 mg PO HS [facility] Last Admin: 09/14/18 22:34 Dose: 40 mg Escitalopram Oxalate (Lexapro -) 10 mg PO DAILY [facility] Last Admin: 09/15/18 09:02 Dose: 10 mg Furosemide (Lasix Injection -) 100 mg IVPB BID@0600,1400 [facility] Last Admin: 09/15/18 06:11 Dose: 100 mg Insulin Aspart (Novolog Vial Sliding Scale -) 1 vial SQ [facility]; Protocol Last Admin: 09/15/18 06:38 Dose: 11 units Insulin Aspart (Novolog Mix 70/30 Vial) 58 units SQ BIDAC [facility] Last Admin: 09/15/18 06:37 Dose: 58 units Liraglutide (Victoza -) 1.2 mg SQ DAILY@0700 [facility] Last Admin: 09/15/18 06:38 Dose: 1.2 mg Metformin HCl (Glucophage -) 1,000 mg PO BID@0700,1630 [facility] Last Admin: 09/15/18 06:37 Dose: 1,000 mg Metoprolol Succinate (Toprol Xl -) 50 mg PO DAILY [facility] Last Admin: 09/15/18 09:02 Dose: 50 mg Pantoprazole Sodium (Protonix -) 40 mg PO DAILY [facility] Last Admin: 09/15/18 09:02 Dose: 40 mg Sitagliptin Phosphate (Januvia -) 50 mg PO DAILY@0700 [facility] Last Admin: 09/15/18 06:37 Dose: 50 mg Tramadol HCl (Ultram -) 50 mg PO Q8H PRN PRN Reason: PAIN LEVEL 6-10 Last Admin: 09/13/18 21:23 Dose: 50 mg - Objective Vital Signs: Vital Signs Temperature 98.2 F 09/15/18 06:00 Pulse Rate 93 H 09/15/18 06:00 Respiratory Rate 18 09/15/18 06:00 Blood Pressure 151/59 L 09/15/18 06:00 O2 Sat by Pulse Oximetry (%) 97 09/14/18 21:00 Constitutional: Yes: Well Nourished, No Distress, Calm, Obese Cardiovascular: Yes: Regular Rate and Rhythm Respiratory: Yes: Regular, Diminished (BLL) Gastrointestinal: Yes: Normal Bowel Sounds, Soft, Abdomen, Obese Genitourinary: Yes: WNL Musculoskeletal: Yes: Muscle Weakness Extremities: Yes: WNL Edema: Yes Edema: LLE: 1+, RLE: 1+ Peripheral Pulses WNL: Yes Neurological: Yes: Alert, Oriented Psychiatric: Yes: Alert, Oriented Labs: CBC, BMP 09/11/18 05:30 09/14/18 06:00 Problem List - Problems (1) PAD (peripheral artery disease) Assessment/Plan: -was supposed to do CTA runoff outpatient -Unable to do it at the moment due to Renal fxn -Tylenol 650 mg po Q4H PRN for pain 1-5 -Tramadol 50 mg Q8H PRN for pain 6-10 Code(s): I73.9 - PERIPHERAL VASCULAR DISEASE, UNSPECIFIED (2) PAF (paroxysmal atrial fibrillation) Assessment/Plan: -chronic, rate controlled -Continue eliquis -Tele monitor Code(s): I48.0 - PAROXYSMAL ATRIAL FIBRILLATION (3) ASHD (arteriosclerotic heart disease) Code(s): I25.10 - ATHSCL HEART DISEASE OF [place] CORONARY ARTERY W/O ANG PCTRS (4) Acute on chronic diastolic CHF (congestive heart failure) Assessment/Plan: -seen by cardiology -IV diuresis -daily weights -Low sodium diet -RD consult -tele monitor Code(s): I50.33 - ACUTE ON CHRONIC DIASTOLIC (CONGESTIVE) HEART FAILURE (5) CAD (coronary artery disease) Assessment/Plan: -On lipitor Code(s): I25.10 - ATHSCL HEART DISEASE OF [place] CORONARY ARTERY W/O ANG PCTRS (6) Diabetes Assessment/Plan: -uncontrolled diabetic -A1c at 11.9 -Endocrine consult -BGM AC HS -Diabetic low sodium diet -RD consult -ISS -Novolog 70/30 58 units BIDAC Code(s): E11.9 - TYPE 2 DIABETES MELLITUS WITHOUT COMPLICATIONS Qualifiers: Diabetes mellitus type: type 2 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
--- NOTE | 2018-09-15 10:12 | PN ---
Progress Note, Physician History of Present Illness: No CV complaints Biggest complaint is she feels fatigued and weak Edema subjectively improving Tele: NSR - Current Medication List Current Medications: Active Medications Acetaminophen (Tylenol -) 650 mg PO Q6H PRN PRN Reason: PAIN LEVEL 1-5 Last Admin: 09/15/18 06:18 Dose: 650 mg Albuterol/Ipratropium (Duoneb -) 1 amp NEB Q4H PRN PRN Reason: SHORTNESS OF BREATH Alprazolam (Xanax -) 0.25 mg PO DAILY PRN PRN Reason: ANXIETY Last Admin: 09/15/18 09:05 Dose: 0.25 mg Apixaban (Eliquis -) 5 mg PO BID [facility] Last Admin: 09/15/18 09:02 Dose: 5 mg Atorvastatin Calcium (Lipitor -) 40 mg PO HS [facility] Last Admin: 09/14/18 22:34 Dose: 40 mg Escitalopram Oxalate (Lexapro -) 10 mg PO DAILY [facility] Last Admin: 09/15/18 09:02 Dose: 10 mg Furosemide (Lasix Injection -) 100 mg IVPB BID@0600,1400 [facility] Last Admin: 09/15/18 06:11 Dose: 100 mg Insulin Aspart (Novolog Vial Sliding Scale -) 1 vial SQ [facility]; Protocol Last Admin: 09/15/18 06:38 Dose: 11 units Insulin Aspart (Novolog Mix 70/30 Vial) 58 units SQ BIDAC [facility] Last Admin: 09/15/18 06:37 Dose: 58 units Liraglutide (Victoza -) 1.2 mg SQ DAILY@0700 [facility] Last Admin: 09/15/18 06:38 Dose: 1.2 mg Metformin HCl (Glucophage -) 1,000 mg PO BID@0700,1630 [facility] Last Admin: 09/15/18 06:37 Dose: 1,000 mg Metoprolol Succinate (Toprol Xl -) 50 mg PO DAILY [facility] Last Admin: 09/15/18 09:02 Dose: 50 mg Pantoprazole Sodium (Protonix -) 40 mg PO DAILY [facility] Last Admin: 09/15/18 09:02 Dose: 40 mg Sitagliptin Phosphate (Januvia -) 50 mg PO DAILY@0700 [facility] Last Admin: 09/15/18 06:37 Dose: 50 mg Tramadol HCl (Ultram -) 50 mg PO Q8H PRN PRN Reason: PAIN LEVEL 6-10 Last Admin: 09/13/18 21:23 Dose: 50 mg - Objective Vital Signs: Vital Signs Temperature 98.2 F 09/15/18 06:00 Pulse Rate 93 H 09/15/18 06:00 Respiratory Rate 18 09/15/18 06:00 Blood Pressure 151/59 L 09/15/18 06:00 O2 Sat by Pulse Oximetry (%) 97 09/14/18 21:00 Constitutional: Yes: No Distress Cardiovascular: Yes: Regular Rate and Rhythm Respiratory: Yes: CTA Bilaterally Edema: Yes Edema: LLE: 2+, RLE: 2+ Labs: CBC, BMP 09/11/18 05:30 09/14/18 06:00 Assessment/Plan IMP: 1. Acute on chronic diastolic CHF 2. CAD s/p CABG, recent MIBI with no sig ischemia 3. PAF 4. Peripheral arterial disease REC: 1. Cont lasix 100 mg IV bid. 09/14:cr stable at 0.9, wt down to 281. Continue daily weights and BMP to monitor renal fxn; Will convert to PO Torsemide 40mg BID today 2. Continue Eliquis for PAF, elevated [id number] score 3. Pt. sees Dr. Burnette, vascular surgery at [facility] for b/l LE PAD and an outpatient CTA was planned.
--- NOTE | 2018-09-15 12:45 | PN ---
Progress Note (short form) - Note Progress Note: PULMONARY States breathing better today. No chest pain, cough or wheezing. Less leg swelling. Vital Signs Period Temp Pulse Resp BP Sys/Anne Pulse Ox Last 24 Hr 97.9 F-98.4 F 82-93 18-20 124-151/49-82 97 Gen: NAD at rest Heart: RRR Lung: decreased breath sounds at the bases Abd: soft, nontender Ext: + less edema CBC, BMP 09/11/18 05:30 09/14/18 06:00 Active Medications Acetaminophen (Tylenol -) 650 mg PO Q6H PRN PRN Reason: PAIN LEVEL 1-5 Last Admin: 09/15/18 06:18 Dose: 650 mg Albuterol/Ipratropium (Duoneb -) 1 amp NEB Q4H PRN PRN Reason: SHORTNESS OF BREATH Alprazolam (Xanax -) 0.25 mg PO DAILY PRN PRN Reason: ANXIETY Last Admin: 09/15/18 09:05 Dose: 0.25 mg Apixaban (Eliquis -) 5 mg PO BID [facility] Last Admin: 09/15/18 09:02 Dose: 5 mg Atorvastatin Calcium (Lipitor -) 40 mg PO HS [facility] Last Admin: 09/14/18 22:34 Dose: 40 mg Escitalopram Oxalate (Lexapro -) 10 mg PO DAILY [facility] Last Admin: 09/15/18 09:02 Dose: 10 mg Insulin Aspart (Novolog Vial Sliding Scale -) 1 vial SQ ACHS [facility]; Protocol Last Admin: 09/15/18 12:25 Dose: 12 units Insulin Aspart (Novolog Mix 70/30 Vial) 58 units SQ BIDAC [facility] Last Admin: 09/15/18 06:37 Dose: 58 units Liraglutide (Victoza -) 1.2 mg SQ DAILY@0700 [facility] Last Admin: 09/15/18 06:38 Dose: 1.2 mg Metformin HCl (Glucophage -) 1,000 mg PO BID@0700,1630 [facility] Last Admin: 09/15/18 06:37 Dose: 1,000 mg Metoprolol Succinate (Toprol Xl -) 50 mg PO DAILY [facility] Last Admin: 09/15/18 09:02 Dose: 50 mg Pantoprazole Sodium (Protonix -) 40 mg PO DAILY [facility] Last Admin: 09/15/18 09:02 Dose: 40 mg Sitagliptin Phosphate (Januvia -) 50 mg PO DAILY@0700 [facility] Last Admin: 09/15/18 06:37 Dose: 50 mg Torsemide (Demadex -) 50 mg PO BIDLASIX [facility] Tramadol HCl (Ultram -) 50 mg PO Q8H PRN PRN Reason: PAIN LEVEL 6-10 Last Admin: 09/13/18 21:23 Dose: 50 mg A/P Acute on Chronic Diastolic Heart Failure CAD s/p CABG COPD Paroxysmal Atrial Fibrillation Suspect JANA DM Anemia - torsemide per cardiology - monitor urine outpt, creatinine - daily weights - O2 to keep Spo2 >90% - inhaled bronchodilators - rate controlled - continue anticoagulation - outpt PFTs, PSG
[2018-09-15] MEDS: TORSEMIDE 20 MG TABLET (FP) PO SCH (14:24)
[2018-09-15] MEDS: ATORVASTATIN CA 40 MG TABLET (FP) PO SCH (21:13)
[2018-09-15] MEDS: traMADol HCL 50 MG TABLET PO PRN (21:17)
[2018-09-16] MEDS ORDERED: PT OWN MED DRAWER 7, Y5N ONE ×2 (06:12→06:22)
[2018-09-16] MEDS: TORSEMIDE 20 MG TABLET (FP) PO SCH (06:16)
[2018-09-16] MEDS: INSULIN SLIDING SCALE (NOVOLOG) 1 VIAL SQ SCH ×2 (06:19→11:24)
[2018-09-16] MEDS: sitaGLIPtin PHOSPHATE 50 MG TABLET PO SCH (06:19)
[2018-09-16] MEDS: LIRAGLUTIDE 0.6 MG/0.1 ML PEN.INJCTR SQ SCH (06:19)
[2018-09-16] MEDS: INSULIN (NOVOLOG MIX 70/30) 100 UNITS/ML MDV SQ SCH (06:20)
[2018-09-16] MEDS: metFORMIN HCL 500 MG TABLET (FP) PO SCH (06:20)
--- NOTE | 2018-09-16 09:53 | PN ---
Progress Note, Physician Chief Complaint: leg swelling History of Present Illness: legs less swollen denies sob no cp, palpit - Current Medication List Current Medications: Active Medications Acetaminophen (Tylenol -) 650 mg PO Q6H PRN PRN Reason: PAIN LEVEL 1-5 Last Admin: 09/15/18 06:18 Dose: 650 mg Albuterol/Ipratropium (Duoneb -) 1 amp NEB Q4H PRN PRN Reason: SHORTNESS OF BREATH Alprazolam (Xanax -) 0.25 mg PO DAILY PRN PRN Reason: ANXIETY Last Admin: 09/15/18 09:05 Dose: 0.25 mg Apixaban (Eliquis -) 5 mg PO BID [facility] Last Admin: 09/15/18 21:13 Dose: 5 mg Atorvastatin Calcium (Lipitor -) 40 mg PO HS [facility] Last Admin: 09/15/18 21:13 Dose: 40 mg Escitalopram Oxalate (Lexapro -) 10 mg PO DAILY [facility] Last Admin: 09/15/18 09:02 Dose: 10 mg Insulin Aspart (Novolog Vial Sliding Scale -) 1 vial SQ ACHS [facility]; Protocol Last Admin: 09/16/18 06:19 Dose: 11 units Insulin Aspart (Novolog Mix 70/30 Vial) 58 units SQ BIDAC [facility] Last Admin: 09/16/18 06:20 Dose: 58 units Liraglutide (Victoza -) 1.2 mg SQ DAILY@0700 [facility] Last Admin: 09/16/18 06:19 Dose: 1.2 mg Metformin HCl (Glucophage -) 1,000 mg PO BID@0700,1630 [facility] Last Admin: 09/16/18 06:20 Dose: 1,000 mg Metoprolol Succinate (Toprol Xl -) 50 mg PO DAILY [facility] Last Admin: 09/15/18 09:02 Dose: 50 mg Pantoprazole Sodium (Protonix -) 40 mg PO DAILY [facility] Last Admin: 09/15/18 09:02 Dose: 40 mg Sitagliptin Phosphate (Januvia -) 50 mg PO DAILY@0700 [facility] Last Admin: 09/16/18 06:19 Dose: 50 mg Torsemide (Demadex -) 50 mg PO BIDLASIX [facility] Last Admin: 09/16/18 06:16 Dose: 50 mg Tramadol HCl (Ultram -) 50 mg PO Q8H PRN PRN Reason: PAIN LEVEL 6-10 Last Admin: 09/15/18 21:17 Dose: 50 mg - Objective Vital Signs: Vital Signs Temperature 98.1 F 09/16/18 06:00 Pulse Rate 80 09/16/18 06:00 Respiratory Rate 20 09/16/18 06:00 Blood Pressure 130/58 L 09/16/18 06:00 O2 Sat by Pulse Oximetry (%) 96 09/15/18 20:20 Constitutional: Yes: No Distress, Calm, Obese Cardiovascular: Yes: Regular Rate and Rhythm, S1, S2. No: Gallop, Murmur Respiratory: Yes: Regular, CTA Bilaterally. No: Accessory Muscle Use, Rales Extremities: No: Cold Edema: Yes (1+ ankles) Neurological: Yes: Alert, Oriented Psychiatric: No: Agitated Labs: CBC, BMP 09/11/18 05:30 09/14/18 06:00 Assessment/Plan tele: NSR IMP: 1. Acute on chronic diastolic CHF 2. CAD s/p CABG, recent MIBI with no sig ischemia 3. PAF 4. Peripheral arterial disease REC: 1. at home did not respond to torsemide 60 bid--incr edema. took one dose torsemide 80 on DOA but came to ER after poor UOP response. s/p lasix 100 mg IV bid here. standing scale wts here did not decline. renal fxn/lytes stable. converted to PO Torsemide 50mg BID on 09/15--suspect she will need at least 80- 100 mg of torsemide dose to achieve adequate diuresis (+/- spironolactone, vs metolazone). start with torsemide 80 bid --upward titration of diuretics regimen as outpatient with dr garcia 2. Continue Eliquis for PAF, elevated [id number] score 3. Pt. sees Dr. Burnette, vascular surgery at [facility] for b/l LE PAD and an outpatient CTA was planned. ok for discharge, will f/u with dr garcia in 1-2 wks and over phone sooner if swelling increases (pt understands instructions)
[2018-09-16] MEDS ORDERED: TORSEMIDE 20 MG TABLET (FP) PO SCH ×2 (09:55→10:00)
[2018-09-16] MEDS: ALPRAZolam 0.25 MG TABLET PO PRN (09:59)
[2018-09-16] MEDS: PANTOPRAZOLE 40 MG TABLET (FP) PO SCH (09:59)
[2018-09-16] MEDS: APIXABAN 5 MG TABLET PO SCH (09:59)
[2018-09-16] MEDS: ESCITALOPRAM OXALATE 10 MG TABLET (FP) PO SCH (09:59)
[2018-09-16 10:04] VITALS: BP 121/71; PULSE 92; TEMP 98.4
--- NOTE | 2018-09-16 11:32 | PN ---
Progress Note (short form) - Note Progress Note: Overall breathing feels better. No chest pain, cough or wheezing. Intake & Output 09/13/18 09/14/18 09/15/18 09/16/18 23:59 23:59 23:59 23:59 Intake Total 1470 1370 970 360 Output Total 650 Balance 820 1370 970 360 Weight 283 lb 9.6 oz 281 lb 9.6 oz 284 lb 4.8 oz 283 lb 4 oz Last Vital Signs Temp Pulse Resp BP Pulse Ox 98.4 F 92 H 16 121/71 96 09/16/18 10:00 09/16/18 10:00 09/16/18 10:00 09/16/18 10:00 09/15/18 20:20 Active Medications Acetaminophen (Tylenol -) 650 mg PO Q6H PRN PRN Reason: PAIN LEVEL 1-5 Last Admin: 09/15/18 06:18 Dose: 650 mg Albuterol/Ipratropium (Duoneb -) 1 amp NEB Q4H PRN PRN Reason: SHORTNESS OF BREATH Alprazolam (Xanax -) 0.25 mg PO DAILY PRN PRN Reason: ANXIETY Last Admin: 09/16/18 09:59 Dose: 0.25 mg Apixaban (Eliquis -) 5 mg PO BID [facility] Last Admin: 09/16/18 09:59 Dose: 5 mg Atorvastatin Calcium (Lipitor -) 40 mg PO HS [facility] Last Admin: 09/15/18 21:13 Dose: 40 mg Escitalopram Oxalate (Lexapro -) 10 mg PO DAILY [facility] Last Admin: 09/16/18 09:59 Dose: 10 mg Insulin Aspart (Novolog Vial Sliding Scale -) 1 vial SQ ACHS [facility]; Protocol Last Admin: 09/16/18 11:24 Dose: 10 units Insulin Aspart (Novolog Mix 70/30 Vial) 58 units SQ BIDAC [facility] Last Admin: 09/16/18 06:20 Dose: 58 units Liraglutide (Victoza -) 1.2 mg SQ DAILY@0700 [facility] Last Admin: 09/16/18 06:19 Dose: 1.2 mg Metformin HCl (Glucophage -) 1,000 mg PO BID@0700,1630 [facility] Last Admin: 09/16/18 06:20 Dose: 1,000 mg Metoprolol Succinate (Toprol Xl -) 50 mg PO DAILY [facility] Last Admin: 09/16/18 09:59 Dose: 50 mg Pantoprazole Sodium (Protonix -) 40 mg PO DAILY [facility] Last Admin: 09/16/18 09:59 Dose: 40 mg Sitagliptin Phosphate (Januvia -) 50 mg PO DAILY@0700 [facility] Last Admin: 09/16/18 06:19 Dose: 50 mg Torsemide (Demadex -) 80 mg PO BIDLASIX [facility] Tramadol HCl (Ultram -) 50 mg PO Q8H PRN PRN Reason: PAIN LEVEL 6-10 Last Admin: 09/15/18 21:17 Dose: 50 mg Gen: NAD at rest Heart: RRR Lung: decreased breath sounds at the bases Abd: soft, nontender Ext: + edema Laboratory Results - last 24 hr 09/15/18 09/15/18 09/15/18 11:58 16:42 21:14 POC Glucometer 251 258 207 09/16/18 09/16/18 05:24 11:22 POC Glucometer 249 181 A/P Acute on Chronic Diastolic Heart Failure CAD s/p CABG COPD Paroxysmal Atrial Fibrillation Suspect JANA DM Anemia - lasix - monitor urine outpt, creatinine - daily weights - O2 to keep Spo2 >90% - inhaled bronchodilators - rate controlled - continue anticoagulation - outpt PFTs, PSG Dr Topete
[2018-09-16] MEDS ORDERED: AMMONIUM LACTATE 12% LOTION 225 GM BOTTLE TP PRN (12:13)
--- NOTE | 2018-09-16 12:13 | CONSULT ---
Consult Consult Specialty:: podiatry Reason for Consultation:: xerosis b/l feet. fungus toe nails. colder right foot than left. - History Source History Provided By: Patient, Medical Record - Past Medical History Cardio/Vascular: Yes: CAD, CHF, HTN, Hyperlipdemia, Mitral Insufficiency (mild- mod MR) ...: No Musculoskeletal: Yes: Other (back pain) Endocrine: Yes: Diabetes Mellitus - Past Surgical History Past Surgical History: Yes: CABG - Alcohol/Substance Use Hx Alcohol Use: No History of Substance Use: reports: None - Smoking History Smoking history: Former smoker Have you smoked in the past 12 months: No Aproximately how many cigarettes per day: 40 If you are a former smoker, when did you quit?: 3 years ago - Social History ADL: Family Assistance History of Recent Travel: No Home Medications - Allergies Allergies/Adverse Reactions: Allergies Allergy/AdvReac Type Severity Reaction Status Date / Time No Known Allergies Allergy Verified 07/19/18 13:58 - Home Medications Home Medications: Ambulatory Orders Atorvastatin Ca [Lipitor] 40 mg PO HS 07/19/18 Fenofibrate Nanocrystallized [Tricor] 145 mg PO DAILY 07/19/18 Ramipril [Altace] 5 mg PO DAILY 07/19/18 Spironolactone [Aldactone] 25 mg PO DAILY 07/19/18 Apixaban [Eliquis -] 5 mg PO BID #60 tablet 07/21/18 Atenolol [Tenormin -] 50 mg PO DAILY 09/09/18 Cilostazol 100 mg PO DAILY 09/09/18 Omeprazole 40 mg PO DAILY 09/09/18 Escitalopram Oxalate [Lexapro -] 10 mg PO DAILY #30 tablet 09/16/18 Escitalopram Oxalate [Lexapro -] 10 mg PO DAILY #30 tablet 09/16/18 Insulin (Novolog 70/30) [Novolog Mix 70/30 Vial -] 58 units SQ BIDAC #100 units 09/16/18 Insulin NPH Hum/Reg Insulin Hm [Novolin 70-30 100 Unit/ml Vial] 58 unit SQ BID # 30 vial 09/16/18 Liraglutide [Victoza -] 1.2 mg SQ DAILY@0700 #1 box 09/16/18 Liraglutide [Victoza -] 1.2 mg SQ DAILY@0700 #30 pen.injctr 09/16/18 Sitagliptin Phosphate [Januvia -] 50 mg PO DAILY@0700 #30 tablet 09/16/18 Sitagliptin Phosphate [Januvia] 50 mg PO ACBK #30 tablet 09/16/18 Torsemide [Demadex -] 80 mg PO BID #60 tablet 09/16/18 Torsemide [Demadex -] 80 mg PO BIDLASIX #60 tablet 09/16/18 metFORMIN HCL [Glucophage -] 1,000 mg PO BID #60 tablet 09/16/18 metFORMIN HCL [Glucophage -] 1,000 mg PO BID@0700,1630 #60 tablet 09/16/18 Family Disease History - Family Disease History Family Disease History: Other: Father ( (59) DMII), Mother ( (75 ) CAD s/p VT), Brother ( (30+) colorectal cancer), Sister (alive (69) HTN) Physical Exam Vital Signs: Vital Signs Temperature 98.4 F 09/16/18 10:00 Pulse Rate 92 H 09/16/18 10:00 Respiratory Rate 16 09/16/18 10:00 Blood Pressure 121/71 09/16/18 10:00 O2 Sat by Pulse Oximetry (%) 96 09/16/18 10:00 Extremities: Yes: Other ( +cold right foot compared to left, +xerosis b/l feet, +onychomycosis x 10, -ulceration, -cellulitis,) Labs: CBC, BMP 09/11/18 05:30 09/14/18 06:00 Assessment/Plan xerosis pvd onychomycosis foot care q8 weeks. vascular consult. ammonium lactate cream bid to feet and legs. will follow.
--- NOTE | 2018-09-16 12:38 | DS ---
Physical Examination Vital Signs: Vital Signs Temperature 98.4 F 09/16/18 10:00 Pulse Rate 92 H 09/16/18 10:00 Respiratory Rate 16 09/16/18 10:00 Blood Pressure 121/71 09/16/18 10:00 O2 Sat by Pulse Oximetry (%) 96 09/16/18 10:00 Constitutional: Yes: Calm, Obese Cardiovascular: Yes: Regular Rate and Rhythm, S1, S2 Respiratory: Yes: CTA Bilaterally Gastrointestinal: Yes: Normal Bowel Sounds, Soft, Abdomen, Obese Edema: Yes (improved) Neurological: Yes: Alert, Oriented Labs: CBC, BMP 09/11/18 05:30 09/14/18 06:00 Discharge Summary Reason For Visit: ACUTE CHF EDEMA Current Active Problems Anxiety (Acute) CHF exacerbation (Acute) Diabetic nephropathy with proteinuria (Acute) PAD (peripheral artery disease) (Acute) PAF (paroxysmal atrial fibrillation) (Acute) Hospital Course: patient admitted for increased leg swelling and reduced exercise tolerance got iv diuresis and now change to oral torsemide seen by endocrine for uncontrolled DM and started on januvia metformin and inc novolog dose Condition: Guarded - Instructions Referrals: Allen Mccarty MD [Staff Physician] - 1 Week Madhu Merritt MD [Staff Physician] - 1 Week (for labs, ) Juve Jaimes DO [Staff Physician] - (make appointment for leg swelling) Vasyl Odonnell MD [Primary Care Provider] - 2 Weeks Disposition: HOME - Home Medications Comprehensive Discharge Medication List: Ambulatory Orders Atorvastatin Ca [Lipitor] 40 mg PO HS 07/19/18 Fenofibrate Nanocrystallized [Tricor] 145 mg PO DAILY 07/19/18 Ramipril [Altace] 5 mg PO DAILY 07/19/18 Spironolactone [Aldactone] 25 mg PO DAILY 07/19/18 Apixaban [Eliquis -] 5 mg PO BID #60 tablet 07/21/18 Atenolol [Tenormin -] 50 mg PO DAILY 09/09/18 Cilostazol 100 mg PO DAILY 09/09/18 Omeprazole 40 mg PO DAILY 09/09/18 Escitalopram Oxalate [Lexapro -] 10 mg PO DAILY #30 tablet 09/16/18 Insulin (Novolog 70/30) [Novolog Mix 70/30 Vial -] 58 units SQ BIDAC #100 units 09/16/18 Liraglutide [Victoza -] 1.2 mg SQ DAILY@0700 #30 pen.injctr 09/16/18 Sitagliptin Phosphate [Januvia -] 50 mg PO DAILY@0700 #30 tablet 09/16/18 Torsemide [Demadex -] 80 mg PO BIDLASIX #60 tablet 09/16/18 metFORMIN HCL [Glucophage -] 1,000 mg PO BID@0700,1630 #60 tablet 09/16/18
[2018-09-16] MEDS: traMADol HCL 50 MG TABLET PO PRN (13:19)
== END 2018-09-16 13:39 | disposition home or self-care (01) | DRG 291 ==
LOC: JER 12:00 → JERBED 15:52 → J4W 18:05 → J4S 09-10 22:31
PROVIDERS: ADMIT Family Medicine; ATTEND Family Medicine
DX: I13.0 Hypertensive heart and chronic kidney disease with heart failure and stage 1 through stage 4 chronic kidney disease, or unspecified chronic kidney disease (principal); I50.33 Acute on chronic diastolic (congestive) heart failure; Z68.42 Body mass index [BMI] 45.0-49.9, adult; I25.10 Atherosclerotic heart disease of native coronary artery without angina pectoris; Z95.1 Presence of aortocoronary bypass graft; E78.5 Hyperlipidemia, unspecified; Z87.891 Personal history of nicotine dependence; I48.0 Paroxysmal atrial fibrillation; I34.0 Nonrheumatic mitral (valve) insufficiency; E11.51 Type 2 diabetes mellitus with diabetic peripheral angiopathy without gangrene; E11.65 Type 2 diabetes mellitus with hyperglycemia; D64.9 Anemia, unspecified; E66.01 Morbid (severe) obesity due to excess calories; Z85.3 Personal history of malignant neoplasm of breast; G47.33 Obstructive sleep apnea (adult) (pediatric); E11.22 Type 2 diabetes mellitus with diabetic chronic kidney disease; N18.9 Chronic kidney disease, unspecified; F41.9 Anxiety disorder, unspecified
CPT/HCPCS: 36415; 71046-TC-FY; 71250-TC; 80048; 80053; 80061; 81003; 82550; 82962; 83036; 83721; 83735; 83880; 84100; 84484; 85025; 87045; 87046; 87324; 87449; 93005; 93010; 93970-TC; 97116-GP; 97161-GP; 99284-25

== ENCOUNTER 2019-08-05 00:40 | Inpatient (IN) | payer BC, OTHER ==
--- NOTE | 2019-08-05 00:56 | PDOC ---
History of Present Illness - General Chief Complaint: Weakness Stated Complaint: DEHYDRATED Time Seen by Provider: 08/05/19 00:55 - History of Present Illness Initial Comments: 08/05/19 01:52 HPI: 69 y/o F hx of CHF, HTN, HLD, DM,CAD s/p CABG and stents , afib on eloquis, presents to the ED with increased shortness of breath on exertion.pt was admitted to the [facility] for 8 days and d/c 1 wk ago. She was d/c on oxygen( 2L) and she reports significant weight loss and improve edema after hospital stay. Pt reports increased shortness of breath on exertion which has Patient denies HARMON, vision change, palpitations, cough, wheezing, orthopena, PND, leg swelling/pain, N/V, F,C, CP, SOB, urinary complaints, hematuria, BPR, abdom inal pain, diarrhea, constipation, lightheadedness, weakness, sensory changes. PMHx: as noted above ROS: as noted SHx: Denies Etoh, IVDA, tobacco use Allergies: NKDA ROS: GENERAL/CONSTITUTIONAL: No fever or chills. No weakness. HEAD, EYES, EARS, NOSE AND THROAT: No change in vision. No ear pain or discharge. No sore throat. CARDIOVASCULAR: No chest pain or shortness of breath RESPIRATORY: No cough, wheezing, or hemoptysis. GASTROINTESTINAL: No nausea, vomiting, diarrhea or constipation. GENITOURINARY: No dysuria, frequency, or change in urination. MUSCULOSKELETAL: No joint or muscle swelling or pain. No neck or back pain. SKIN: No rash NEUROLOGIC: No headache, vertigo, loss of consciousness, or change in strength/sensation. ENDOCRINE: No increased thirst. No abnormal weight change HEMATOLOGIC/LYMPHATIC: No anemia, easy bleeding, or history of blood clots. ALLERGIC/IMMUNOLOGIC: No hives or skin allergy. PE: GENERAL: Awake, alert, and fully oriented, in no acute distress HEAD: No signs of trauma, normocephalic, atraumatic EYES: PERRLA, EOMI, sclera anicteric, conjunctiva clear ENT: Auricles normal inspection, hearing grossly normal, nares patent, oropharynx clear without exudates. Moist mucosa NECK: Normal ROM, supple, no lymphadenopathy, JVD, or masses LUNGS: No distress, speaks full sentences, clear to auscultation bilaterally HEART: Regular rate and rhythm, normal S1 and S2, no murmurs, rubs or gallops, peripheral pulses normal and equal bilaterally. ABDOMEN: Soft, nontender, normoactive bowel sounds. No guarding, no rebound. No masses EXTREMITIES : Normal inspection, Normal range of motion, no edema. No clubbing or cyanosis NEUROLOGICAL: Cranial nerves II through XII grossly intact. Normal speech, normal gait, no focal sensorimotor deficits SKIN: Warm, Dry, normal turgor, no rashes or lesions noted 08/05/19 02:00 Past History - Medical History Allergies/Adverse Reactions: Allergies Allergy/AdvReac Type Severity Reaction Status Date / Time No Known Allergies Allergy Verified 08/05/19 00:49 Home Medications: Ambulatory Orders Atorvastatin Ca [Lipitor] 40 mg PO HS 07/19/18 Ramipril [Altace] 5 mg PO DAILY 07/19/18 Apixaban [Eliquis -] 5 mg PO BID #60 tablet 07/21/18 Cilostazol 100 mg PO BID 09/09/18 Esomeprazole Magnesium 40 mg PO DAILY 07/21/19 Insulin Glargine,Hum.rec.anlog [Toujeo Solostar] 80 unit SQ DAILY 07/21/19 Insulin Lispro Protamin/Lispro [Humalog Mix 50-50 Kwikpen] 40 unit SQ TID 07/21/19 Metoprolol Tartrate 25 mg PO DAILY 07/21/19 Aspirin [ASA -] 81 mg PO DAILY 08/05/19 Escitalopram Oxalate [Lexapro -] 20 mg PO DAILY 08/05/19 Evolocumab [Repatha Syringe] 140 mg SQ Q14D 08/05/19 Pregabalin [Lyrica] 100 mg PO TID 08/05/19 Budesonide/Formeterol Fumarate [SYMBICORT 160/4.5mcg -] 2 inh IH BID #1 inhaler 08/07/19 Ranolazine [Ranexa -] 500 mg PO BID #60 tab 08/07/19 Torsemide [Demadex -] 40 mg PO DAILY #0 tablet 08/07/19 Buspirone HCl [Buspar -] 5 mg PO TID #90 tablet 08/08/19 Anemia: No Asthma: No Cancer: Yes (LEFT BREAST JAN 2016, chemo) Cardiac Disorders: Yes (AF, CABG, stents) CVA: No COPD: No CHF: No Dementia: No Diabetes: Yes GI Disorders: No Disorders: Yes (URINARY FREQUENCY) HTN: Yes Hypercholesterolemia: Yes Liver Disease: No Seizures: No Thyroid Disease: No - Surgical History Abdominal Surgery: Yes (CYST REMOVED) Appendectomy: No Cardiac Surgery: Yes ([facility]PASS 15 YRS AGO) Cholecystectomy: No Lung Surgery: No Orthopedic Surgery: No - Immunization History Immunization Up to Date: Yes - Psycho-Social/Smoking History Smoking History: Never smoked Have you smoked in the past 12 months: No Number of Cigarettes Smoked Daily: 40 If you are a former smoker, when did you quit?: 3 years ago - Substance Abuse Hx (Audit-C & DAST Scrn) How often the patient has a drink containing alcohol: Never Score: In Men: 4 or > Positive; In Women: 3 or > Positive: 0 Screen Result (Pos requires Nsg. Audit-10AR): Negative In the last yr the pt used illegal drug/Rx for NonMed reason: No Score: Yes response is considered Positive: 0 Screen Result (Positive result requires Nsg. DAST-10): Negative *Physical Exam - Vital Signs Last Vital Signs Temp Pulse Resp BP Pulse Ox 98.1 F 76 22 H 112/46 L 95 08/05/19 00:47 08/05/19 00:47 08/05/19 00:47 08/05/19 00:47 08/05/19 00:47 ED Treatment Course - LABORATORY CBC & Chemistry Diagram: 08/07/19 07:00 08/08/19 10:25 Medical Decision Making - Medical Decision Making 08/05/19 02:05 69 y/o F hx of CHF, HTN, HLD, DM,CAD s/p CABG and stents , afib on eloquis, pre sents to the ED with increased shortness of breath on exertion.pt was admitted to the [facility] for 8 days and d/c 1 wk ago ddx: chf exacerbation,covid, acs labs, cxr, trop, bnp pt currentlhy not requiring additional O2 here in ED Discharge - Discharge Information Problems reviewed: Yes Clinical Impression/Diagnosis: CHF exacerbation Qualifiers: Heart failure type: unspecified Qualified Code(s): I50.9 - Heart failure, unspecified Condition: Stable Disposition: HOME - Follow up/Referral - Patient Discharge Instructions - Post Discharge Activity
--- NOTE | 2019-08-05 00:58 | PDOC ---
Attending Attestation - Resident Resident Name: KateJosueTuan nevarez - HPI HPI: 08/05/19 03:50 Pt presents to the ED complaining of worsening of KILLIAN. Denies chest pain or shortness of breath at rest. Patient's son became concerned when the patient appeared excessively sleepy to him and was falling asleep during a conversation. Patient was recently admitted to [facility] and had diuresis with weight loss of 35 lbs. - Physicial Exam PE: 08/05/19 04:19 agree with resident exam. patient is alert and oriented and in no acute distress. CV: RRR m murmurs. pulm: CTA b/l Abdomen: obese, soft, non tender, non distended without guarding or rebound. Ext: + trace edema b/l - Medical Decision Making 08/05/19 04:22 Pt presents to the ED complaining of worsening KILLIAN after recent discharge from outside hospital for CHF exacerbation. Labs show elevation in BUN/Cr suggestive of dehydration. Given history of severe CHF, will admit to medicine for gentle hydration. 08/05/19 04:23 Discharge - Discharge Information Problems reviewed: Yes Clinical Impression/Diagnosis: CHF exacerbation Qualifiers: Heart failure type: unspecified Qualified Code(s): I50.9 - Heart failure, unspecified - Follow up/Referral - Patient Discharge Instructions - Post Discharge Activity
[2019-08-05 02:08] LABS: BASO % 0.3 % (0-2.0); EOS % 3.5 % (0-4.5); HEMATOCRIT 33.6 % (32.4-45.2); HEMOGLOBIN 10.7 GM/dL (10.7-15.3); LYMPH % 20.8 % (8-40); MCH 24.1 pg (25.7-33.7); MCHC 31.8 g/dl (32.0-36.0); MEAN CELL VOLUME 75.8 fl (80-96); MEAN PLT VOLUME 8.6 fl (7.5-11.1); MONO % 11.1 % (3.8-10.2); NEUT % 64.3 % (42.8-82.8); PLATELET COUNT 269 K/MM3 (134-434); RBC 4.43 M/mm3 (3.60-5.2); RDW 15.9 % (11.6-15.6); WHITE BLOOD COUNT 8.5 K/mm3 (4.0-10.0)
[2019-08-05 02:25] LABS: INR 1.39 (0.83-1.09); PROTHROMBIN TIME (PATIENT) 16.4 SEC (9.7-13.0)
[2019-08-05 02:28] LABS: ACTIVATED PTT 28.4 SECONDS (25.2-36.5)
[2019-08-05 02:37] LABS: ALBUMIN 3.6 g/dl (3.4-5.0); ALK PHOS 130 U/L (45-117); ANION GAP 10 MMOL/L (8-16); BILIRUBIN,TOTAL 0.2 mg/dL (0.2-1); BLOOD UREA NITROGEN 68.9 mg/dL (7-18); CALCIUM 8.7 mg/dL (8.5-10.1); CHLORIDE 97 mmol/L (98-107); CO2 28 mmol/L (21-32); CREATININE 2.5 mg/dL (0.55-1.3); GLUCOSE,RANDOM 236 mg/dL (74-106); N-TERMINAL BNP 807.1 pg/ml (5-125); SGOT/AST 25 U/L (15-37); SGPT/ALT 17 U/L (13-61); SODIUM 135 mmol/L (136-145); TOT PROT 7.3 g/dl (6.4-8.2)
--- NOTE | 2019-08-05 04:41 | HP ---
Admitting History and Physical - Admission Chief Complaint: SOB, Dyspnea on Exertion History of Present Illness: This is a 69 y/o female with a PMHx of CHF, HTN, HLD, DM, CAD s/p CABG and stents, Afib (on Eliquis) recently transferred (07/20) from [facility] ED to [facility] (8 day admission, d/c 1 week ago) for CHF Exacerbation, EKG changes. Who presents to the ED with increased shortness of breath on exertion. Patient was d/c on oxygen( 2L) and she reports significant weight loss and improve edema after hospital stay. Patient also reports generalized weakness. Patient denies fever, chills, cough, dizziness, HARMON, CP, palpitations, AP, N/V/D, constipation, dysuria. History Source: Patient, Medical Record Limitations to Obtaining History: No Limitations - Past Medical History Cardiovascular: Yes: AFIB, CAD, CHF, HTN, Hyperlipdemia, Mitral Insufficiency (mild-mod MR) Heme/Onc: Yes: Anemia Musculoskeletal: Yes: Other (back pain) Endocrine: Yes: Diabetes Mellitus - Past Surgical History Past Surgical History: Yes: CABG, Stent - Smoking History Smoking history: Former smoker Have you smoked in the past 12 months: No Aproximately how many cigarettes per day: 40 If you are a former smoker, when did you quit?: 3 years ago - Alcohol/Substance Use Hx Alcohol Use: No History of Substance Use: reports: None - Social History Usual Living Arrangement: Yes: With Spouse ADL: Family Assistance History of Recent Travel: No Home Medications - Allergies Allergies/Adverse Reactions: Allergies Allergy/AdvReac Type Severity Reaction Status Date / Time No Known Allergies Allergy Verified 08/05/19 00:49 - Home Medications Home Medications: Ambulatory Orders Atorvastatin Ca [Lipitor] 40 mg PO HS 07/19/18 Ramipril [Altace] 5 mg PO DAILY 07/19/18 Apixaban [Eliquis -] 5 mg PO BID #60 tablet 07/21/18 Cilostazol 100 mg PO DAILY 09/09/18 Escitalopram Oxalate [Lexapro -] 10 mg PO DAILY #30 tablet 09/16/18 Albuterol Sulfate [Proair Hfa] 8.5 gm IH ASDIR PRN 07/21/19 Esomeprazole Magnesium 40 mg PO DAILY 07/21/19 Insulin Glargine,Hum.rec.anlog [Apurva Handleyostar] 80 unit SQ DAILY 07/21/19 Insulin Lispro Protamin/Lispro [Humalog Mix 50-50 Kwikpen] 40 unit SQ TID 07/21/19 Metoprolol Tartrate 25 mg PO DAILY 07/21/19 Torsemide [Demadex -] 80 mg PO DAILY 07/21/19 Family Medical History Family Hx Cancer: Brother (Colon, age 30) Family Hx Cardiac Disorders: Sister (HTN) Family Hx Coronary Artery Disease: Mother (DE, age 75) Family Hx Diabetes: Father ( age 59) Review of Systems - Review of Systems Constitutional: reports: Weakness Eyes: reports: No Symptoms HENT: reports: No Symptoms Neck: reports: No Symptoms Cardiovascular: reports: Edema, Shortness of Breath Respiratory: reports: SOB, SOB on Exertion Gastrointestinal: reports: No Symptoms Genitourinary: reports: No Symptoms Breasts: reports: No Symptoms Reported Musculoskeletal: reports: No Symptoms Integumentary: reports: No Symptoms Neurological: reports: Weakness Endocrine: reports: No Symptoms Hematology/Lymphatic: reports: No Symptoms Psychiatric: reports: No Symptoms Physical Examination Vital Signs: Vital Signs Temperature 97.9 F 08/05/19 01:55 Pulse Rate 99 H 08/05/19 01:55 Respiratory Rate 16 08/05/19 01:55 Blood Pressure 110/44 L 08/05/19 01:55 O2 Sat by Pulse Oximetry (%) 99 08/05/19 01:55 Constitutional: Yes: Well Nourished, No Distress, Obese Eyes: Yes: WNL, Conjunctiva Clear, EOM Intact, PERRL HENT: Yes: WNL, Atraumatic, Normocephalic Neck: Yes: WNL, Supple, Trachea Midline Cardiovascular: Yes: WNL, Regular Rate and Rhythm, S1, S2 Respiratory: Yes: Diminished, SOB on Exertion Gastrointestinal: Yes: WNL, Normal Bowel Sounds, Soft, Abdomen, Obese ...Rectal Exam: Yes: Deferred Renal/: Yes: WNL Breast(s): Yes: WNL Musculoskeletal: Yes: WNL Extremities: Yes: WNL Edema: Yes Edema: LLE: 1+, RLE: 1+ Peripheral Pulses WNL: Yes Integumentary: Yes: Venous Stasis Changes Neurological: Yes: WNL, Alert, Oriented, Cran Nerves II-XII Intact ...Motor Strength: WNL Psychiatric: Yes: WNL, Alert, Oriented Labs: CBC, BMP 08/05/19 01:55 08/05/19 01:55 Laboratory Results - last 24 hr 08/05/19 08/05/19 08/05/19 01:55 01:55 01:55 WBC 8.5 RBC 4.43 Hgb 10.7 Hct 33.6 MCV 75.8 L MCH 24.1 L MCHC 31.8 L RDW 15.9 H D Plt Count 269 D MPV 8.6 Absolute Neuts (auto) 5.4 Neutrophils % 64.3 Lymphocytes % 20.8 D Monocytes % 11.1 H D Eosinophils % 3.5 Basophils % 0.3 Nucleated RBC % 0 PT with INR 16.40 H INR 1.39 H PTT (Actin FS) 28.4 Sodium 135 L Potassium 4.0 Chloride 97 L Carbon Dioxide 28 Anion Gap 10 BUN 68.9 H Creatinine 2.5 H Est GFR (CKD-EPI)AfAm 22.14 Est GFR (CKD-EPI)NonAf 19.10 Random Glucose 236 H Calcium 8.7 Total Bilirubin 0.2 AST 25 ALT 17 Alkaline Phosphatase 130 H Creatine Kinase 57 Troponin I < 0.02 B-Natriuretic Peptide 807.1 H Total Protein 7.3 Albumin 3.6 Intake & Output 08/02/19 08/03/19 08/04/19 08/05/19 23:59 23:59 23:59 23:59 Weight 123.377 kg Imaging - Results Chest X-ray: Image Reviewed EKG: Image Reviewed Problem List - Problems (1) Acute on chronic diastolic CHF (congestive heart failure) Code(s): I50.33 - ACUTE ON CHRONIC DIASTOLIC (CONGESTIVE) HEART FAILURE (2) KEVIN (acute kidney injury) Code(s): N17.9 - ACUTE KIDNEY FAILURE, UNSPECIFIED (3) ASHD (arteriosclerotic heart disease) Code(s): I25.10 - ATHSCL HEART DISEASE OF [place] CORONARY ARTERY W/O ANG PCTRS (4) CAD (coronary artery disease) Code(s): I25.10 - ATHSCL HEART DISEASE OF [place] CORONARY ARTERY W/O ANG PCTRS (5) Diabetes Code(s): E11.9 - TYPE 2 DIABETES MELLITUS WITHOUT COMPLICATIONS Qualifiers: Diabetes mellitus type: type 2 Diabetes mellitus terminal carman insulin use: wi th terminal carman use Diabetes mellitus complication status: with unspecified complications (6) HLD (hyperlipidemia) Code(s): E78.5 - HYPERLIPIDEMIA, UNSPECIFIED Qualifiers: Hyperlipidemia type: pure hypercholesterolemia Qualified Code(s): E78.00 - Pure hypercholesterolemia, unspecified (7) PAD (peripheral artery disease) Code(s): I73.9 - PERIPHERAL VASCULAR DISEASE, UNSPECIFIED (8) PAF (paroxysmal atrial fibrillation) Code(s): I48.0 - PAROXYSMAL ATRIAL FIBRILLATION (9) S/P CABG (coronary artery bypass graft) Code(s): Z95.1 - PRESENCE OF AORTOCORONARY BYPASS GRAFT Assessment/Plan This is a 69 y/o female with a PMHx of CHF, HTN, HLD, DM, CAD s/p CABG and stents, Afib (on Eliquis) recently transferred (07/20) from [facility] ED to [facility] (8 day admission, d/c 1 week ago) for CHF Exacerbation, EKG changes. Plan: Admit Telemetry 1. Acute on Chronic diastolic HF- chest xray reviewed, continue cardiac monitoring, appreciate cardiology consult, serial enzymes, strict INOs, daily weights, continue home meds 2. KEVIN- Cr 2.5 (baseline 0.8-1.8), Appreciate Nephrology consult, Monitor CMP, avoid nephrotoxic meds 3. Afib- [id number], EKG reviewed, Continue Eliquis renal dosing, Continue home meds 4. HTN- stable, Monitor BP, Continue home meds with parameters, Monitor renal function 5. DM- stable, BGMs, ISS, continue home meds 6.HLD- stable, continue home med, monitor LFTs 7. CAD s/p CABG, stents, EKG reviewed, chest xray reviewed, continue home meds FEN Fluid Restriction 1L Replete lytes prn Low Na, Diabetic Diet DVT ppx OOB SCDs Continue Eliquis Dispo: Requires Inpatient Care Visit type - Emergency Visit Emergency Visit: Yes ED Registration Date: 08/05/19 Care time: The patient presented to the Emergency Department on the above date and was hospitalized for further evaluation of their emergent condition. - New Patient This patient is new to me today: Yes Date on this admission: 08/05/19 - Critical Care Critical Care patient: No
--- NOTE | 2019-08-05 07:21 | CONSULT ---
Consult Consult Specialty:: Nrerphrology Referred by:: Vasyl Odonnell Reason for Consultation:: KEVIN - History of Present Illness Chief Complaint: shortness of breath History of Present Illness: Pt is a 69 year old female with pmhx of CHF, htn, HLD, DM, CAD, CABG and a-fib who presents with shortness of breath on exertion. She was recently in [facility] where she was diuresed. She had about 35 to 40 pound weight loss at the time. She was found to have elevated content coordinator at 2.5. She does complain of edema however feels that it is improved. I discussed her care with her son, Don, who I know very well. Pt requested to be evaluated by me and asked for me to discuss all of her care with her son. I did speak to her PMD as well. She denies fevers or chills. She denies sick contacts. - History Source History Provided By: Patient, Medical Record - Past Medical History Cardio/Vascular: Yes: AFIB, CAD, CHF, HTN, Hyperlipdemia, Mitral Insufficiency (mild-mod MR) Renal/: Yes: Renal Inusuff Musculoskeletal: Yes: Other (back pain) Endocrine: Yes: Diabetes Mellitus - Past Surgical History Past Surgical History: Yes: CABG, Stent - Alcohol/Substance Use Hx Alcohol Use: No History of Substance Use: reports: None - Smoking History Smoking history: Former smoker Have you smoked in the past 12 months: No Aproximately how many cigarettes per day: 40 If you are a former smoker, when did you quit?: 3 years ago - Social History ADL: Family Assistance History of Recent Travel: No Home Medications - Allergies Allergies/Adverse Reactions: Allergies Allergy/AdvReac Type Severity Reaction Status Date / Time No Known Allergies Allergy Verified 08/05/19 00:49 - Home Medications Home Medications: Ambulatory Orders Atorvastatin Ca [Lipitor] 40 mg PO HS 07/19/18 Ramipril [Altace] 5 mg PO DAILY 07/19/18 Apixaban [Eliquis -] 5 mg PO BID #60 tablet 07/21/18 Cilostazol 100 mg PO BID 09/09/18 Esomeprazole Magnesium 40 mg PO DAILY 07/21/19 Insulin Glargine,Hum.rec.anlog [Apurva Cruz] 80 unit SQ DAILY 07/21/19 Insulin Lispro Protamin/Lispro [Humalog Mix 50-50 Kwikpen] 40 unit SQ TID 07/21/19 Metoprolol Tartrate 25 mg PO DAILY 07/21/19 Torsemide [Demadex -] 40 mg PO BID 07/21/19 Aspirin [ASA -] 81 mg PO DAILY 08/05/19 Escitalopram Oxalate [Lexapro -] 20 mg PO DAILY 08/05/19 Evolocumab [Repatha Syringe] 140 mg SQ Q14D 08/05/19 Pregabalin [Lyrica] 100 mg PO TID 08/05/19 Family Medical History Family History: Denies Review of Systems - Review of Systems Constitutional: reports: Malaise, Weakness Eyes: reports: No Symptoms HENT: reports: No Symptoms Neck: reports: No Symptoms Cardiovascular: reports: Edema, Shortness of Breath Respiratory: reports: SOB on Exertion Gastrointestinal: reports: No Symptoms Genitourinary: reports: No Symptoms Musculoskeletal: reports: No Symptoms Integumentary: reports: No Symptoms Neurological: reports: No Symptoms Endocrine: reports: No Symptoms Hematology/Lymphatic: reports: No Symptoms Psychiatric: reports: No Symptoms Physical Exam Vital Signs: Vital Signs Temperature 97.6 F 08/05/19 06:42 Pulse Rate 76 08/05/19 06:59 Respiratory Rate 19 08/05/19 06:59 Blood Pressure 131/56 L 08/05/19 06:59 O2 Sat by Pulse Oximetry (%) 96 08/05/19 06:59 Constitutional: Yes: Calm Eyes: Yes: Conjunctiva Clear HENT: Yes: Atraumatic Cardiovascular: Yes: S1, S2 Respiratory: Yes: CTA Bilaterally Gastrointestinal: Yes: Soft, Abdomen, Obese Renal/: Yes: WNL Edema: Yes Edema: LLE: 1+, RLE: 1+ Neurological: Yes: Oriented Psychiatric: Yes: Oriented Labs: CBC, BMP 08/05/19 01:55 08/05/19 01:55 Laboratory Tests 10/07/18 10/11/18 07/21/19 14:23 17:56 18:15 Sodium Potassium Chloride Carbon Dioxide Anion Gap BUN Creatinine 1.1 1.2 1.5 H COVID-19 (BRANDON) 08/05/19 08/05/19 01:55 05:18 Sodium 135 L Potassium 4.0 Chloride 97 L Carbon Dioxide 28 Anion Gap 10 BUN 68.9 H Creatinine 2.5 H COVID-19 (BRANDON) Pending Imaging - Results Chest X-ray: Report Reviewed Problem List - Problems (1) KEVIN (acute kidney injury) Code(s): N17.9 - ACUTE KIDNEY FAILURE, UNSPECIFIED Assessment/Plan Current Medications Generic Name Dose Route Start Last Admin Trade Name Freq PRN Reason Stop Dose Admin Albuterol Sulfate 1 amp 08/05/19 07:31 Ventolin 0.083% Nebulizer Soln - NEB Q6H PRN SHORT OF BREATH/WHEEZING Apixaban 5 mg 08/05/19 10:00 08/05/19 10:21 Eliquis - PO 5 mg BID MARI Administration Aspirin 81 mg 08/06/19 10:00 Asa - PO DAILY MARI Atorvastatin Calcium 40 mg 08/05/19 22:00 Lipitor - PO HS MARI Cilostazol 100 mg 08/05/19 22:00 Pletal - PO BID MARI Escitalopram Oxalate 20 mg 08/06/19 10:00 Lexapro - PO DAILY [facility] Insulin Aspart 1 vial 08/05/19 16:30 Novolog Vial Sliding Scale - SQ ACHS [facility] Protocol Metoprolol Tartrate 25 mg 08/05/19 10:00 08/05/19 10:21 Lopressor - PO 25 mg DAILY MARI Administration Non-Formulary Medication 140 mg 08/05/19 10:30 Evolocumab [Repatha Syringe] SQ Q14D MARI Pantoprazole Sodium 40 mg 08/06/19 10:00 Protonix - PO DAILY MARI Ramipril 5 mg 08/06/19 10:00 Altace - PO DAILY [facility] Impression 1. KEVIN 2. CHF 3. CKD 4. HLD 5. CAD 6. DM 7. a-fib Plan - hold diuretics for now, discussed with cardio - pt is eating and drinking, will not give fluids - hold ramipril until renal function stabilizes - 2 gram sodium heart healthy diet - check ua and lytes - check renal ultrasound - send prt to content coordinator ratio - discussed with pmd - discussed with pts son - will follow
[2019-08-05] MEDS ORDERED: ALBUTEROL SO4 0.083% IH SOL 2.5 MG/3 ML VIAL.NEB. NEB PRN (07:31)
[2019-08-05 08:02] LABS: MAGNESIUM 2.3 mg/dL (1.8-2.4); PHOSPHOROUS 4.1 mg/dL (2.5-4.9)
--- NOTE | 2019-08-05 08:14 | PN ---
Progress Note (short form) - Note Progress Note: Patient is seen in office: -Chronic diastolic CHF -CAD s/p CABG with cath at [facility] last week showing patent grafts and high EDP. Admitted there for diuresis, discharged 5 days ago or so -AF on AC -PAD s/p PTCA LLE WMC, severe PAD RLE awaiting revasc. Dr. Liu was consulted overnight; will discuss with him and full consult to follow.
--- NOTE | 2019-08-05 09:07 | PN ---
Physical Exam: SUBJECTIVE: Patient seen and examined at bedside. Feels ok, but complains of shortness of breath. OBJECTIVE: Vital Signs Period Temp Pulse Resp BP Sys/Anne Pulse Ox Last 24 Hr 97.5 F-98.1 F 72-99 15-22 107-131/44-56 94-99 Gen: Awake, Alert, Oriented x3, NAD HEENT: NCAT, Eomi Neck: unable to assess for JVD, supple Cardio: rrr, norm s1s2, no mrg noted Abd: obese, soft, nontender Ext: 2+ edema Laboratory Results - last 24 hr 08/05/19 08/05/19 08/05/19 01:55 01:55 01:55 WBC 8.5 RBC 4.43 Hgb 10.7 Hct 33.6 MCV 75.8 L MCH 24.1 L MCHC 31.8 L RDW 15.9 H D Plt Count 269 D MPV 8.6 Absolute Neuts (auto) 5.4 Neutrophils % 64.3 Lymphocytes % 20.8 D Monocytes % 11.1 H D Eosinophils % 3.5 Basophils % 0.3 Nucleated RBC % 0 PT with INR 16.40 H INR 1.39 H PTT (Actin FS) 28.4 Sodium 135 L Potassium 4.0 Chloride 97 L Carbon Dioxide 28 Anion Gap 10 BUN 68.9 H Creatinine 2.5 H Est GFR (CKD-EPI)AfAm 22.14 Est GFR (CKD-EPI)NonAf 19.10 Random Glucose 236 H Calcium 8.7 Phosphorus Magnesium Total Bilirubin 0.2 AST 25 ALT 17 Alkaline Phosphatase 130 H Creatine Kinase 57 Troponin I < 0.02 B-Natriuretic Peptide 807.1 H Total Protein 7.3 Albumin 3.6 08/05/19 07:36 WBC RBC Hgb Hct MCV MCH MCHC RDW Plt Count MPV Absolute Neuts (auto) Neutrophils % Lymphocytes % Monocytes % Eosinophils % Basophils % Nucleated RBC % PT with INR INR PTT (Actin FS) Sodium Potassium Chloride Carbon Dioxide Anion Gap BUN Creatinine Est GFR (CKD-EPI)AfAm Est GFR (CKD-EPI)NonAf Random Glucose Calcium Phosphorus 4.1 Magnesium 2.3 Total Bilirubin AST ALT Alkaline Phosphatase Creatine Kinase Troponin I < 0.02 B-Natriuretic Peptide Total Protein Albumin Active Medications Generic Name Dose Route Start Last Admin Trade Name Freq PRN Reason Stop Dose Admin Albuterol Sulfate 1 amp 08/05/19 07:31 Ventolin 0.083% Nebulizer Soln - NEB Q6H PRN SHORT OF BREATH/WHEEZING Apixaban 5 mg 08/05/19 10:00 Eliquis - PO BID MARI Atorvastatin Calcium 40 mg 08/05/19 22:00 Lipitor - PO HS MARI Metoprolol Tartrate 25 mg 08/05/19 10:00 Lopressor - PO DAILY MARI ASSESSMENT/PLAN: This is a 69 y/o female with a PMHx of CHF, HTN, HLD, DM, CAD s/p CABG and stents, Afib (on Eliquis) recently transferred (07/20) from [facility] ED to [facility] (8 day admission, d/c 1 week ago) for CHF Exacerbation, EKG changes. She presents again to [facility] ED with complaint of SOB. Admitted for CHF exacerbation. Acute on Chronic diastolic HF -chest xray improved from prior -cardiac monitoring -cardiology consulted. F/u recs -f/u repeat trop -I/Os -daily weights -c/w Torsemide, Toprol CAD/PAD -c/w ASA, Clopidogrel, Cilostazol, Evolocumab (repetha), lipitor KEVIN -Cr 2.5 (baseline 0.8-1.8) -Nephrology consulted -avoid nephrotoxic meds Afib c/w Eliquis renal dosing HTN -well controlled -c/w ramipril DM -BGMs, ISS -hold oral antihyperglycemics HLD -c/w atorvastatin GERD -c/w nexium Anxiety/Depression -c/w Escitalopram, Pregabalin Med list confirmed today Visit type - Emergency Visit Emergency Visit: Yes ED Registration Date: 08/05/19 Care time: The patient presented to the Emergency Department on the above date and was hospitalized for further evaluation of their emergent condition. - New Patient This patient is new to me today: Yes Date on this admission: 08/05/19 - Critical Care Critical Care patient: No ATTENDING PHYSICIAN STATEMENT I saw and evaluated the patient. I reviewed the resident's note and discussed the case with the resident. I agree with the resident's findings and plan as documented. SUBJECTIVE: OBJECTIVE: ASSESSMENT AND PLAN:
[2019-08-05] MEDS ORDERED: APIXABAN 5 MG TABLET ONE (10:13)
[2019-08-05] MEDS ORDERED: METOPROLOL TARTRATE 25 MG TABLET (FP) ONE (10:13)
[2019-08-05] MEDS: APIXABAN 5 MG TABLET PO SCH ×2 (10:21→22:51)
[2019-08-05] MEDS: METOPROLOL TARTRATE 25 MG TABLET (FP) PO SCH (10:21)
[2019-08-05] MEDS ORDERED: EVOLOCUMAB 140 MG SQ SCH (10:30)
--- NOTE | 2019-08-05 11:24 | CON.CARD ---
Cardiology Consult (text) - Consultation Consultation Note: Consultation Note: Chief Complaint: shortness of breath, tired History of Present Illness: 69 year old woman with a pmh of Chronic diastolic CHF with prior acute on chronic decompensations, cad s/p cabg at [facility], breast CA s/p lumpectomy and SMOKING [employer], uncontrolled DMII, recently admitted to [facility] for NSTEMI 07/21/2019 with patent grafts on cath and CHF exac, diuresed with IV lasix and down 35 lbs. Has been home about a week, was sent home with oxygen. [place] short of breath but has been getting worse the last few days and falling asleep a lot. No chest pain, palps, dizziness, dyspnea. taking meds as directed. Feels thirsty. - History Source History Provided By: Patient, Medical Record Limitations to Obtaining History: No Limitations - Past Medical History Cardio/Vascular: Yes: CAD, CHF, HTN, Hyperlipdemia, Mitral Insufficiency (mild- mod MR) Musculoskeletal: Yes: Other (back pain) Endocrine: Yes: Diabetes Mellitus - Past Surgical History Past Surgical History: Yes: CABG - Alcohol/Substance Use Hx Alcohol Use: No History of Substance Use: reports: None - Smoking History Smoking history: Former smoker Have you smoked in the past 12 months: No Aproximately how many cigarettes per day: 40 If you are a former smoker, when did you quit?: 3 years ago - Social History ADL: Family Assistance History of Recent Travel: No Home Medications - Allergies Allergies/Adverse Reactions: Allergies Allergy/AdvReac Type Severity Reaction Status Date / Time No Known Allergies Allergy Verified 08/05/19 00:49 - Home Medications Home Medications Medication Instructions Recorded Atorvastatin Ca [Lipitor] 40 mg PO HS 07/19/18 Ramipril [Altace] 5 mg PO DAILY 07/19/18 Apixaban [Eliquis -] 5 mg PO BID #60 tablet 07/21/18 Cilostazol 100 mg PO BID 09/09/18 Esomeprazole Magnesium 40 mg PO DAILY 07/21/19 Insulin Glargine,Hum.rec.anlog 80 unit SQ DAILY 07/21/19 [[place] Solostmoy] Insulin Lispro Protamin/Lispro 40 unit SQ TID 07/21/19 [Humalog Mix 50-50 Idania] Metoprolol Tartrate 25 mg PO DAILY 07/21/19 Torsemide [Demadex -] 40 mg PO BID 07/21/19 Aspirin [ASA -] 81 mg PO DAILY 08/05/19 Escitalopram Oxalate [Lexapro -] 20 mg PO DAILY 08/05/19 Evolocumab [Repatha Syringe] 140 mg SQ Q14D 08/05/19 Pregabalin [Lyrica] 100 mg PO TID 08/05/19 Family Disease History - Family Disease History Family Disease History: Other: Father ( (59) DMII), Mother ( (75) CAD s/p MA) Review of Systems - Review of Systems Constitutional: denies: No Symptoms, Chills, Diaphoresis, Fever, Lethargy, Loss of Appetite, Malaise, Night Sweats, Unintentional Wgt. Loss, Weakness, Other Eyes: denies: No Symptoms, Blind Spots, Blurred Vision, Double Vision, Eye Pain, Floaters, Photophobia, Recent Change in Vision, Other HENT: denies: No Symptoms, Difficult Swallowing, Ear Discharge, Ear Pain, E pistaxis, Gingival Bleeding, Hearing Loss, Mouth Swelling, Nasal Congestion, Ocular Prosthesis, Throat Pain, Toothache, Ringing in Ears, Other Neck: denies: No Symptoms, Decreased ROM, Lumps, Pain on Movement, Stiffness, Swollen Glands, Tenderness, Other Gastrointestinal: denies: No Symptoms, Abdominal Pain, Bloating, Constipation, Diarrhea, Dysphagia, Indigestion, Melena, Nausea, Rectal Bleeding, Vomiting, Vomiting Blood, Other Genitourinary: denies: No Symptoms, Burning, Discharge, Dysuria, Flank Pain, Frequency, Hematuria, Incontinence, Lesions, Menses, Pain, Testicular Mass, Testicular Pain, Testicular Swelling, Urgency, Vaginal Bleeding, Other Breasts: denies: No Symptoms Reported, See HPI, Breast Implants, Discharge from Nipple, Lumps, Pain, Skin Changes, Other Musculoskeletal: denies: No Symptoms, Back Pain, Crepitus, Decreased ROM, Extremity Pain, Joint Pain, Joint Swelling, Muscle Pain, Muscle Cramps, Muscle Weakness, Other Integumentary: denies: No Bruising, Change in Color, Eczema, Erythema, Incision, Lesions, Lump, Pallor Other Neurological: denies: No Symptoms, Change in LOC, Change in Speech, Confusion, Dizziness, Headache, Incoordination, Numbness, Parasthesia, Pre-Existing Deficit, Seizure, Syncope, Tremors, Unsteady Gait, Weakness, Other Endocrine: denies: No Symptoms, Excessive Sweating, Flushing, Increased Hunger, Increased Thirst, Intolerance to Cold, Intolerance to Heat, Unexplained Weight Gain, Unexplained Weight Loss, Other Hematology/Lymphatic: denies: No Symptoms, Easily Bruised, Excessive Bleeding, Swollen Glands, Other Psychiatric: denies: No Symptoms, Altered Sleep Pattern, Anxiety, Depression, Hallucinations, Panic, Paranoia, Suicidal, Other - Risk Factors Known Risk Factors: Yes: Diabetes Mellitus, Hypercholesterolemia, Hypertension Vital Signs: Vital Signs Period Temp Pulse Resp BP Sys/Anne Pulse Ox Last 24 Hr 97.7 F 124-133 18-20 90-107/51-65 98-100 Constitutional: Yes: No Distress, Calm Eyes: Yes: Conjunctiva Clear, EOM Intact HENT: Yes: Atraumatic, Normocephalic Neck: Yes: Supple, Trachea Midline Respiratory: CTAB Gastrointestinal: Yes: Normal Bowel Sounds, Soft. No: Distention, Tenderness Cardiovascular: Yes: tachy, irreg. no Gallop, Rub,murmur JVD: No PMI: Non-Displaced Edema: trace christa lower ext Neurological: Yes: Alert, Oriented Psychiatric: Yes: Alert, Oriented no jaundice diaphoresis no carotid bruits Laboratory Last Values WBC 8.5 K/mm3 (4.0-10.0) 08/05/19 01:55 RBC 4.43 M/mm3 (3.60-5.2) 08/05/19 01:55 Hgb 10.7 GM/dL (10.7-15.3) 08/05/19 01:55 Hct 33.6 % (32.4-45.2) 08/05/19 01:55 MCV 75.8 fl (80-96) L 08/05/19 01:55 MCH 24.1 pg (25.7-33.7) L 08/05/19 01:55 MCHC 31.8 g/dl (32.0-36.0) L 08/05/19 01:55 RDW 15.9 % (11.6-15.6) H D 08/05/19 01:55 Plt Count 269 K/MM3 (134-434) D 08/05/19 01:55 MPV 8.6 fl (7.5-11.1) 08/05/19 01:55 Absolute Neuts (auto) 5.4 K/mm3 (1.5-8.0) 08/05/19 01:55 Neutrophils % 64.3 % (42.8-82.8) 08/05/19 01:55 Lymphocytes % 20.8 % (8-40) D 08/05/19 01:55 Monocytes % 11.1 % (3.8-10.2) H D 08/05/19 01:55 Eosinophils % 3.5 % (0-4.5) 08/05/19 01:55 Basophils % 0.3 % (0-2.0) 08/05/19 01:55 Nucleated RBC % 0 % (0-0) 08/05/19 01:55 PT with INR 16.40 SEC (9.7-13.0) H 08/05/19 01:55 INR 1.39 (0.83-1.09) H 08/05/19 01:55 PTT (Actin FS) 28.4 SECONDS (25.2-36.5) 08/05/19 01:55 Sodium 135 mmol/L (136-145) L 08/05/19 01:55 Potassium 4.0 mmol/L (3.5-5.1) 08/05/19 01:55 Chloride 97 mmol/L (98-107) L 08/05/19 01:55 Carbon Dioxide 28 mmol/L (21-32) 08/05/19 01:55 Anion Gap 10 MMOL/L (8-16) 08/05/19 01:55 BUN 68.9 mg/dL (7-18) H 08/05/19 01:55 Creatinine 2.5 mg/dL (0.55-1.3) H 08/05/19 01:55 Est GFR (CKD-EPI)AfAm 22.14 08/05/19 01:55 Est GFR (CKD-EPI)NonAf 19.10 08/05/19 01:55 Random Glucose 236 mg/dL (74-106) H 08/05/19 01:55 Calcium 8.7 mg/dL (8.5-10.1) 08/05/19 01:55 Phosphorus 4.1 mg/dL (2.5-4.9) 08/05/19 07:36 Magnesium 2.3 mg/dL (1.8-2.4) 08/05/19 07:36 Total Bilirubin 0.2 mg/dL (0.2-1) 08/05/19 01:55 AST 25 U/L (15-37) 08/05/19 01:55 ALT 17 U/L (13-61) 08/05/19 01:55 Alkaline Phosphatase 130 U/L (45-117) H 08/05/19 01:55 Creatine Kinase 57 U/L (26-192) 08/05/19 01:55 Troponin I < 0.02 ng/ml (0.00-0.05) 08/05/19 07:36 B-Natriuretic Peptide 807.1 pg/ml (5-125) H 08/05/19 01:55 Total Protein 7.3 g/dl (6.4-8.2) 08/05/19 01:55 Albumin 3.6 g/dl (3.4-5.0) 08/05/19 01:55 mibi 06/2018: no ischemia, lvef 47% echo 06/2018: nl lv/rv, lae, no sig valve path ecg: sinus, nl intervals, inferior and anterolateral STD, TWI cxr: improved compared to prior chronic diastolic HF - appears euvolemic to dry - recently admitted to [facility] for CHF exac, diuresed and down 35 lbs - holding diuretics afib/aflutter: - cont eliquis, metoprolol CAD s/p CABG: - patent grafts on cath 07/2019 -continue aspirin, statin PAD - s/p PTCA LLE at [facility] - cont cilostazol, aspirin, statin HLD - cont statin, repatha
[2019-08-05] MEDS ORDERED: INSULIN SLIDING SCALE (NOVOLOG) 1 VIAL SQ SCH ×3 (12:56→16:30)
[2019-08-05] MEDS ORDERED: TORSEMIDE 20 MG TABLET (FP) PO SCH (14:00)
--- NOTE | 2019-08-05 16:01 | EKG ---
Test Reason : Blood Pressure : / mmHG Vent. Rate : 072 BPM Atrial Rate : 072 BPM P-R Int : 190 ms QRS Dur : 108 ms QT Int : 380 ms P-R-T Axes : 053 -18 151 degrees QTc Int : 416 ms NORMAL SINUS RHYTHM ABNORMAL ECG WHEN COMPARED WITH ECG OF 21-JUL-2019 20:33, NO SIGNIFICANT CHANGE WAS FOUND Confirmed by MD Calloway Daniel ([id number]) on 08/05/2019 4:00:42 PM Referred By: Confirmed By:Barak Calloway MD
[2019-08-05 16:26] LABS: EPI CELLS 16 /uL (0-25.1); HYALINE CASTS 1 /uL (0-3.1); URINE APPEARANCE TURBID; URINE BILIRUBIN NEGATIVE (NEGATIVE); URINE COLOR YELLOW; URINE GLUCOSE (UA) 3+ (NEGATIVE); URINE KETONE NEGATIVE (NEGATIVE); URINE LEUK ESTERASE 3+ (NEGATIVE); URINE NITRITE NEGATIVE (NEGATIVE); URINE PROTEIN NEGATIVE (NEGATIVE); URINE UROBILINOGEN 0.2 mg/dL (0.2-1.0); URINE WBC 4397 /uL (0-25.8)
[2019-08-05] MEDS ORDERED: ESCITALOPRAM OXALATE 10 MG TABLET PO ONE (16:40)
--- NOTE | 2019-08-05 16:48 | CONSULT ---
Consult Consult Specialty:: Endocrine Referred by:: Edwin Miranda MD Reason for Consultation:: DMT2. hyperglycmia bs 400s - History of Present Illness Chief Complaint: high sugars anxious History of Present Illness: 69 y/o female with a PMHx of DMT2,ckd,CHF, HTN, HLD, CAD s/p CABG and stents, Afib (on Eliquis) recently transferred (07/20) from [facility] ED to [facility] for CHF Exacerbation, EKG changes. Who presents to the ED with increased shortness of breath on exertion. Patient was d/c on oxygen( 2L) has dyspnea on slight exert ion,has elevated bs despite loss of appetite. - Past Medical History Cardio/Vascular: Yes: AFIB, CAD, CHF, HTN, Hyperlipdemia, Mitral Insufficiency (mild-mod MR) Renal/: Yes: Renal Inusuff ...: No Musculoskeletal: Yes: Other (back pain) Endocrine: Yes: Diabetes Mellitus - Past Surgical History Past Surgical History: Yes: CABG, Stent - Alcohol/Substance Use Hx Alcohol Use: No History of Substance Use: reports: None - Smoking History Smoking history: Former smoker Have you smoked in the past 12 months: No Aproximately how many cigarettes per day: 40 If you are a former smoker, when did you quit?: 3 years ago - Social History ADL: Family Assistance History of Recent Travel: No Home Medications - Allergies Allergies/Adverse Reactions: Allergies Allergy/AdvReac Type Severity Reaction Status Date / Time No Known Allergies Allergy Verified 08/05/19 00:49 - Home Medications Home Medications: Ambulatory Orders Atorvastatin Ca [Lipitor] 40 mg PO HS 07/19/18 Ramipril [Altace] 5 mg PO DAILY 07/19/18 Apixaban [Eliquis -] 5 mg PO BID #60 tablet 07/21/18 Cilostazol 100 mg PO BID 09/09/18 Esomeprazole Magnesium 40 mg PO DAILY 07/21/19 Insulin Glargine,Hum.rec.anlog [[place] Solostar] 80 unit SQ DAILY 07/21/19 Insulin Lispro Protamin/Lispro [Humalog Mix 50-50 Kwikpen] 40 unit SQ TID 07/21/19 Metoprolol Tartrate 25 mg PO DAILY 07/21/19 Torsemide [Demadex -] 40 mg PO BID 07/21/19 Aspirin [ASA -] 81 mg PO DAILY 08/05/19 Escitalopram Oxalate [Lexapro -] 20 mg PO DAILY 08/05/19 Evolocumab [Repatha Syringe] 140 mg SQ Q14D 08/05/19 Pregabalin [Lyrica] 100 mg PO TID 08/05/19 Review of Systems - Review of Systems Constitutional: reports: Malaise Eyes: reports: Double Vision HENT: reports: No Symptoms Neck: reports: No Symptoms Cardiovascular: reports: Edema, Shortness of Breath Respiratory: reports: Cough, Exercise Intolerance, Orthopnea, Snoring, SOB, SOB on Exertion Gastrointestinal: reports: Bloating, Constipation Genitourinary: reports: No Symptoms Breasts: reports: No Symptoms Reported Musculoskeletal: reports: Extremity Pain, Joint Pain, Joint Swelling, Muscle Pain, Muscle Cramps, Muscle Weakness Integumentary: reports: No Symptoms Neurological: reports: Numbness Endocrine: reports: Unexplained Weight Gain Physical Exam Vital Signs: Vital Signs Temperature 97.3 F L 08/05/19 14:00 Pulse Rate 96 H 08/05/19 14:00 Respiratory Rate 08/05/19 14:00 Blood Pressure 119/58 L 08/05/19 14:00 O2 Sat by Pulse Oximetry (%) 98 08/05/19 10:21 Labs: CBC, BMP 08/05/19 01:55 08/05/19 01:55 Problem List - Problems (1) KEVIN (acute kidney injury) Code(s): N17.9 - ACUTE KIDNEY FAILURE, UNSPECIFIED (2) ASHD (arteriosclerotic heart disease) Problems reviewed: Yes Code(s): I25.10 - ATHSCL HEART DISEASE OF [place] CORONARY ARTERY W/O ANG PCTRS (3) Acute on chronic diastolic CHF (congestive heart failure) Problems reviewed: Yes Code(s): I50.33 - ACUTE ON CHRONIC DIASTOLIC (CONGESTIVE) HEART FAILURE (4) Anxiety Problems reviewed: Yes Code(s): F41.9 - ANXIETY DISORDER, UNSPECIFIED (5) Atrial flutter Problems reviewed: Yes Code(s): I48.92 - UNSPECIFIED ATRIAL FLUTTER Qualifiers: Atrial flutter type: unspecified Qualified Code(s): I48.92 - Unspecified atrial flutter (6) Atypical chest pain Problems reviewed: Yes Code(s): R07.89 - OTHER CHEST PAIN (7) Bacteriuria, asymptomatic Problems reviewed: Yes Code(s): R82.71 - BACTERIURIA Assessment/Plan Current Active Problems CHF exacerbation (Acute) dmt2,hyperglycemia hypertension cad,microvascular disease ckd,nephropathy Abnormal Lab Results 08/05/19 08/05/19 08/05/19 01:55 01:55 01:55 MCV 75.8 L MCH 24.1 L MCHC 31.8 L RDW 15.9 H D Monocytes % 11.1 H D PT with INR 16.40 H INR 1.39 H Sodium 135 L Chloride 97 L BUN 68.9 H Creatinine 2.5 H Random Glucose 236 H Alkaline Phosphatase 130 H B-Natriuretic Peptide 807.1 H Urine Glucose (UA) Urine Blood Ur Leukocyte Esterase Ur Random Sodium Ur Random Potassium Ur Random Chloride 08/05/19 08/05/19 14:25 14:25 MCV MCH MCHC RDW Monocytes % PT with INR INR Sodium Chloride BUN Creatinine Random Glucose Alkaline Phosphatase B-Natriuretic Peptide Urine Glucose (UA) 3+ H Urine Blood 1+ H Ur Leukocyte Esterase 3+ H Ur Random Sodium 35 L Ur Random Potassium 17.0 L Ur Random Chloride 37 L plan: bgm qid novolog scale levemir 30 iu bid diet nutrition nephrology consult [id number]
[2019-08-05 16:52] LABS: URINE CRYSTALS NEGATIVE /hpf; URINE RBC 227.4 /uL (0-23.9)
[2019-08-05] MEDS: INSULIN SLIDING SCALE (NOVOLOG) 1 VIAL SQ SCH ×2 (16:53→22:52)
--- NOTE | 2019-08-05 18:40 | PN ---
Teaching Attending Note Name of Resident: Giuseppe Catherine ATTENDING PHYSICIAN STATEMENT I saw and evaluated the patient. I reviewed the resident's note and discussed the case with the resident. I agree with the resident's findings and plan as documented. SUBJECTIVE:she is better and has mild sob andleg swelling OBJECTIVE: Vital Signs Period Temp Pulse Resp BP Sys/Anne Pulse Ox Last 24 Hr 97.3 F-98.6 F 72-99 15-22 107-131/44-58 94-99 as per resident note Heent nd neck supple lungs christa basal rales ext edema bila plus one heart she has mr murmur present neuro alert and awake CBC, BMP 08/05/19 01:55 08/05/19 01:55 ASSESSMENT AND PLAN: This is a 69 y/o female with a PMHx of CHF, HTN, HLD, DM, CAD s/p CABG and stents, Afib (on Eliquis) recently transferred (07/20) from [facility] ED to [facility] (8 day admission, d/c 1 week ago) for CHF Exacerbation, EKG changes. She presents again to [facility] ED with complaint of SOB. Admitted for CHF exacerbation. Acute on Chronic diastolic HF -chest xray improved from prior -cardiac monitoring -cardiology consulted. F/u recs -f/u repeat trop -I/Os -daily weights -c/w Torsemide, Toprol CAD/PAD -c/w ASA, Clopidogrel, Cilostazol, Evolocumab (repetha), lipitor KEVIN -Cr 2.5 (baseline 0.8-1.8) -Nephrology consulted -avoid nephrotoxic meds Afib c/w Eliquis renal dosing HTN -well controlled -c/w ramipril DM -BGMs, ISS -hold oral antihyperglycemics seen by endo and added levimir HLD -c/w atorvastatin GERD -c/w nexium Anxiety/Depression -c/w Escitalopram, Pregabalin Current Medications Generic Name Dose Route Start Last Admin Trade Name Freq PRN Reason Stop Dose Admin Albuterol Sulfate 1 amp 08/05/19 07:31 Ventolin 0.083% Nebulizer Soln - NEB Q6H PRN SHORT OF BREATH/WHEEZING Apixaban 5 mg 08/05/19 10:00 08/05/19 10:21 Eliquis - PO 5 mg BID MARI Administration Aspirin 81 mg 08/06/19 10:00 Asa - PO DAILY MARI Atorvastatin Calcium 40 mg 08/05/19 22:00 Lipitor - PO HS MARI Cilostazol 100 mg 08/05/19 22:00 Pletal - PO BID MARI Escitalopram Oxalate 20 mg 08/06/19 10:00 Lexapro - PO DAILY MARI Insulin Aspart 1 vial 08/05/19 16:30 08/05/19 16:53 Novolog Vial Sliding Scale - SQ 10 unit ACHS [facility] Administration Protocol Insulin Detemir 30 units 08/05/19 22:00 Levemir Vial SQ BID MARI Metoprolol Tartrate 25 mg 08/05/19 10:00 08/05/19 10:21 Lopressor - PO 25 mg DAILY MARI Administration Non-Formulary Medication 140 mg 08/05/19 10:30 Evolocumab [Repatha Syringe] SQ Q14D MARI Pantoprazole Sodium 40 mg 08/06/19 10:00 Protonix - PO DAILY MARI Discontinued Medications Generic Name Dose Route Start Last Admin Trade Name Freq PRN Reason Stop Dose Admin Escitalopram Oxalate 20 mg 08/05/19 16:40 08/05/19 16:57 Lexapro - PO 08/05/19 16:41 20 mg ONCE ONE Administration Insulin Aspart 1 vial 08/05/19 16:30 Novolog Vial Sliding Scale - SQ ACHS [facility] Protocol Insulin Aspart 1 vial 08/05/19 12:56 Novolog Vial Sliding Scale - SQ ACHS [facility] Protocol Insulin Aspart 1 vial 08/05/19 14:15 08/05/19 12:15 Novolog Vial Sliding Scale - SQ 10 unit ACHS [facility] Administration Protocol Ramipril 5 mg 08/06/19 10:00 Altace - PO DAILY MARI Torsemide 40 mg 08/05/19 14:00 Demadex - PO BIDLASIX MARI
[2019-08-05] MEDS: INSULIN (LEVEMIR) 100 UNITS/ML UNITS SQ SCH (22:51)
[2019-08-05] MEDS: ATORVASTATIN CA 40 MG TABLET (FP) PO SCH (22:52)
[2019-08-05] MEDS: CILOSTAZOL 100 MG TABLET PO SCH (22:52)
[2019-08-06] MEDS: INSULIN SLIDING SCALE (NOVOLOG) 1 VIAL SQ SCH ×4 (06:06→21:17)
[2019-08-06 07:20] LABS: BASO % 0.7 % (0-2.0); HEMATOCRIT 34.4 % (32.4-45.2); HEMOGLOBIN 10.9 GM/dL (10.7-15.3); LYMPH % 19.8 % (8-40); MCHC 31.7 g/dl (32.0-36.0); MEAN CELL VOLUME 75.7 fl (80-96); MEAN PLT VOLUME 8.5 fl (7.5-11.1); MONO % 9.8 % (3.8-10.2); NEUT % 65.7 % (42.8-82.8); PLATELET COUNT 278 K/MM3 (134-434); RBC 4.54 M/mm3 (3.60-5.2); RDW 15.9 % (11.6-15.6); WHITE BLOOD COUNT 7.7 K/mm3 (4.0-10.0)
[2019-08-06 07:49] LABS: BLOOD UREA NITROGEN 56.6 mg/dL (7-18); CALCIUM 9.4 mg/dL (8.5-10.1); CREATININE 1.4 mg/dL (0.55-1.3); POTASSIUM 3.6 mmol/L (3.5-5.1)
--- NOTE | 2019-08-06 08:48 | PN ---
<Giuseppe Catherine - Last Filed: 08/06/19 08:46> Physical Exam: SUBJECTIVE: Patient seen and examined at bedside. Feels better. OBJECTIVE: Vital Signs Period Temp Pulse Resp BP Sys/Anne Pulse Ox Last 24 Hr 97.3 F-98.6 F 74-96 18-20 116-142/47-68 95-99 Gen: Awake, Alert, Oriented x3, NAD HEENT: NCAT, Eomi Neck: no JVD, supple Cardio: rrr, norm s1s2, 2/6 systolic murmur Abd: obese, soft, nontender Ext: 1+ edema Laboratory Results - last 24 hr 08/05/19 08/05/19 08/05/19 14:25 14:25 14:25 WBC RBC Hgb Hct MCV MCH MCHC RDW Plt Count MPV Absolute Neuts (auto) Neutrophils % Lymphocytes % Monocytes % Eosinophils % Basophils % Nucleated RBC % Sodium Potassium Chloride Carbon Dioxide Anion Gap BUN Creatinine Est GFR (CKD-EPI)AfAm Est GFR (CKD-EPI)NonAf POC Glucometer Random Glucose Calcium Urine Color Yellow Urine Appearance Turbid Urine pH 5.0 Ur Specific [place] 1.015 Urine Protein Negative Urine Glucose (UA) 3+ H Urine Ketones Negative Urine Blood 1+ H Urine Nitrite Negative Urine Bilirubin Negative Urine Urobilinogen 0.2 Ur Leukocyte Esterase 3+ H Urine WBC (Auto) 4397 Urine RBC (Auto) 227.4 Urine Casts (Auto) 1 U Epithel Cells (Auto) 16 Urine Crystals (Auto) Negative Urine Bacteria (Auto) >10,000 Ur Random Creatinine 34.6 Ur Random Sodium 35 L Ur Random Potassium 17.0 L Ur Random Chloride 37 L 08/05/19 08/06/19 08/06/19 16:48 06:00 06:55 WBC 7.7 RBC 4.54 Hgb 10.9 Hct 34.4 MCV 75.7 L MCH 24.0 L MCHC 31.7 L RDW 15.9 H Plt Count 278 MPV 8.5 Absolute Neuts (auto) 5.0 Neutrophils % 65.7 Lymphocytes % 19.8 Monocytes % 9.8 Eosinophils % 4.0 Basophils % 0.7 Nucleated RBC % 0 Sodium 139 Potassium 3.6 Chloride 101 Carbon Dioxide 28 Anion Gap 10 BUN 56.6 H Creatinine 1.4 H Est GFR (CKD-EPI)AfAm 44.63 Est GFR (CKD-EPI)NonAf 38.51 POC Glucometer 481 Random Glucose 349 H Calcium 9.4 Urine Color Urine Appearance Urine pH Ur Specific [place] Urine Protein Urine Glucose (UA) Urine Ketones Urine Blood Urine Nitrite Urine Bilirubin Urine Urobilinogen Ur Leukocyte Esterase Urine WBC (Auto) Urine RBC (Auto) Urine Casts (Auto) U Epithel Cells (Auto) Urine Crystals (Auto) Urine Bacteria (Auto) Ur Random Creatinine Ur Random Sodium Ur Random Potassium Ur Random Chloride Active Medications Generic Name Dose Route Start Last Admin Trade Name Freq PRN Reason Stop Dose Admin Albuterol Sulfate 1 amp 08/05/19 07:31 Ventolin 0.083% Nebulizer Soln - NEB Q6H PRN SHORT OF BREATH/WHEEZING Apixaban 5 mg 08/05/19 10:00 08/05/19 22:51 Eliquis - PO 5 mg BID [facility] Administration Aspirin 81 mg 08/06/19 10:00 Asa - PO DAILY [facility] Atorvastatin Calcium 40 mg 08/05/19 22:00 08/05/19 22:52 Lipitor - PO 40 mg HS [facility] Administration Cilostazol 100 mg 08/05/19 22:00 08/05/19 22:52 Pletal - PO 100 mg BID [facility] Administration Escitalopram Oxalate 20 mg 08/06/19 10:00 Lexapro - PO DAILY [facility] Insulin Aspart 1 vial 08/05/19 16:30 08/06/19 06:06 Novolog Vial Sliding Scale - SQ 10 unit ACHS [facility] Administration Protocol Insulin Detemir 30 units 08/05/19 22:00 08/05/19 22:51 Levemir Vial SQ 30 units BID [facility] Administration Metoprolol Tartrate 25 mg 08/05/19 10:00 08/05/19 10:21 Lopressor - PO 25 mg DAILY [facility] Administration Non-Formulary Medication 140 mg 08/05/19 10:30 Evolocumab [Repatha Syringe] SQ Q14D [facility] Pantoprazole Sodium 40 mg 08/06/19 10:00 Protonix - PO DAILY [facility] ASSESSMENT/PLAN: This is a 69 y/o female with a PMHx of CHF, HTN, HLD, DM, CAD s/p CABG and stents, Afib (on Eliquis) recently transferred (07/20) from [facility] ED to [facility] (8 day admission, d/c 1 week ago) for CHF Exacerbation, EKG changes. She presents again to [facility] ED with complaint of SOB. Admitted for CHF exacerbation. Acute on Chronic diastolic HF -chest xray improved from prior -cardiac monitoring -cardiology consulted. F/u recs -f/u repeat trop -I/Os -daily weights -c/w Torsemide, Toprol CAD/PAD -c/w ASA, Clopidogrel, Cilostazol, Evolocumab (repetha), lipitor KEVIN -Nephrology consulted -avoid nephrotoxic meds Afib c/w Eliquis renal dosing HTN -well controlled -c/w ramipril DM -BGMs, ISS -hold oral antihyperglycemics HLD -c/w atorvastatin GERD -c/w nexium Anxiety/Depression -c/w Escitalopram, Pregabalin Discharge planning Visit type - Emergency Visit Emergency Visit: No - New Patient This patient is new to me today: No - Critical Care Critical Care patient: No ATTENDING PHYSICIAN STATEMENT I saw and evaluated the patient. I reviewed the resident's note and discussed the case with the resident. I agree with the resident's findings and plan as documented. SUBJECTIVE: OBJECTIVE: ASSESSMENT AND PLAN: <Ang Rivera - Last Filed: 08/06/19 17:42> Physical Exam: SUBJECTIVE: Patient seen and examined OBJECTIVE: Vital Signs Period Temp Pulse Resp BP Sys/Anne Pulse Ox Last 24 Hr 97.5 F-98.6 F 73-91 18-20 125-142/47-74 95-97 GENERAL: The patient is awake, alert, and fully oriented, in no acute distress. HEENT: NCAT, Eomi Neck: no JVD, supple Cardio: rrr, norm s1s2, 2/6 systolic murmur Abd: obese, soft, nontender Ext: 1+ edema Laboratory Results - last 24 hr 08/05/19 08/06/19 08/06/19 05:18 06:00 06:55 WBC 7.7 RBC 4.54 Hgb 10.9 Hct 34.4 MCV 75.7 L MCH 24.0 L MCHC 31.7 L RDW 15.9 H Plt Count 278 MPV 8.5 Absolute Neuts (auto) 5.0 Neutrophils % 65.7 Lymphocytes % 19.8 Monocytes % 9.8 Eosinophils % 4.0 Basophils % 0.7 Nucleated RBC % 0 Sodium 139 Potassium 3.6 Chloride 101 Carbon Dioxide 28 Anion Gap 10 BUN 56.6 H Creatinine 1.4 H Est GFR (CKD-EPI)AfAm 44.63 Est GFR (CKD-EPI)NonAf 38.51 POC Glucometer Random Glucose 349 H Calcium 9.4 COVID-19 (BRANDON) Not detected 08/06/19 16:32 WBC RBC Hgb Hct MCV MCH MCHC RDW Plt Count MPV Absolute Neuts (auto) Neutrophils % Lymphocytes % Monocytes % Eosinophils % Basophils % Nucleated RBC % Sodium Potassium Chloride Carbon Dioxide Anion Gap BUN Creatinine Est GFR (CKD-EPI)AfAm Est GFR (CKD-EPI)NonAf POC Glucometer 366 Random Glucose Calcium COVID-19 (BRANDON) Active Medications Generic Name Dose Route Start Last Admin Trade Name Freq PRN Reason Stop Dose Admin Albuterol Sulfate 1 amp 08/05/19 07:31 Ventolin 0.083% Nebulizer Soln - NEB Q6H PRN SHORT OF BREATH/WHEEZING Apixaban 5 mg 08/05/19 10:00 08/06/19 10:37 Eliquis - PO 5 mg BID [facility] Administration Aspirin 81 mg 08/06/19 10:00 08/06/19 10:37 Asa - PO 81 mg DAILY [facility] Administration Atorvastatin Calcium 40 mg 08/05/19 22:00 08/05/19 22:52 Lipitor - PO 40 mg HS [facility] Administration Cilostazol 100 mg 08/05/19 22:00 08/06/19 10:44 Pletal - PO 100 mg BID [facility] Administration Escitalopram Oxalate 20 mg 08/06/19 10:00 08/06/19 10:38 Lexapro - PO 20 mg DAILY [facility] Administration Insulin Aspart 1 vial 08/05/19 16:30 08/06/19 16:36 Novolog Vial Sliding Scale - SQ 10 unit ACHS [facility] Administration Protocol Insulin Detemir 30 units 08/05/19 22:00 08/06/19 10:35 Levemir Vial SQ 30 units BID [facility] Administration Metoprolol Tartrate 25 mg 08/05/19 10:00 08/06/19 10:37 Lopressor - PO 25 mg DAILY [facility] Administration Non-Formulary Medication 140 mg 08/05/19 10:30 Evolocumab [Repatha Syringe] SQ Q14D [facility] Pantoprazole Sodium 40 mg 08/06/19 10:00 08/06/19 10:37 Protonix - PO 40 mg DAILY [facility] Administration Ramipril 1.25 mg 08/07/19 10:00 Altace - PO DAILY [facility] Torsemide 40 mg 08/06/19 12:15 08/06/19 13:57 Demadex - PO 40 mg DAILY [facility] Administration ASSESSMENT/PLAN: This is a 69 y/o female with a PMHx of CHF, HTN, HLD, DM, CAD s/p CABG and stents, Afib (on Eliquis) recently transferred (07/20) from [facility] ED to [facility] (8 day admission, d/c 1 week ago) for CHF Exacerbation, EKG changes. She presents again to [facility] ED with complaint of SOB. Admitted for CHF exacerbation. Acute on Chronic diastolic HF -chest xray improved from prior -cardiac monitoring -cardiology consulted. F/u recs -f/u repeat trop -I/Os -daily weights -c/w Torsemide, Toprol CAD/PAD -c/w ASA, Clopidogrel, Cilostazol, Evolocumab (repetha), lipitor KEVIN -Nephrology consulted -avoid nephrotoxic meds Afib c/w Eliquis renal dosing HTN -well controlled -c/w ramipril DM -BGMs, ISS -hold oral antihyperglycemics HLD -c/w atorvastatin GERD -c/w nexium Anxiety/Depression -c/w Escitalopram, Pregabalin Discharge planning since she is started on torsemid today and will observe and if stable d/c am cardio f/u appreciated ATTENDING PHYSICIAN STATEMENT I saw and evaluated the patient. I reviewed the resident's note and discussed the case with the resident. I agree with the resident's findings and plan as documented. SUBJECTIVE: OBJECTIVE: ASSESSMENT AND PLAN:
[2019-08-06] MEDS ORDERED: RAMIPRIL 5 MG CAPSULE (FP) PO SCH (10:00)
[2019-08-06] MEDS ORDERED: ESCITALOPRAM OXALATE 10 MG TABLET ONE (10:33)
[2019-08-06] MEDS ORDERED: PT OWN MED DRAWER 7, Y5N ONE ×2 (10:34→11:05)
[2019-08-06] MEDS: INSULIN (LEVEMIR) 100 UNITS/ML UNITS SQ SCH ×2 (10:35→21:17)
[2019-08-06] MEDS: PANTOPRAZOLE 40 MG TABLET PO SCH (10:37)
[2019-08-06] MEDS: ASPIRIN 81 MG CHEWABLE TABLETS PO SCH (10:37)
[2019-08-06] MEDS: METOPROLOL TARTRATE 25 MG TABLET (FP) PO SCH (10:37)
[2019-08-06] MEDS: APIXABAN 5 MG TABLET PO SCH ×2 (10:37→21:19)
[2019-08-06] MEDS: ESCITALOPRAM OXALATE 20 MG TABLET PO SCH (10:38)
[2019-08-06] MEDS: CILOSTAZOL 100 MG TABLET PO SCH ×2 (10:44→21:19)
--- NOTE | 2019-08-06 11:51 | PN ---
Progress Note, Physician History of Present Illness: Pt seen and examined at bedside. She is awake and alert. She feels that her lower ext edema is worse. - Current Medication List Current Medications: Active Medications Albuterol Sulfate (Ventolin 0.083% Nebulizer Soln -) 1 amp NEB Q6H PRN PRN Reason: SHORT OF BREATH/WHEEZING Apixaban (Eliquis -) 5 mg PO BID [facility] Last Admin: 08/06/19 10:37 Dose: 5 mg Documented by: Aspirin (Asa -) 81 mg PO DAILY [facility] Last Admin: 08/06/19 10:37 Dose: 81 mg Documented by: Atorvastatin Calcium (Lipitor -) 40 mg PO HS [facility] Last Admin: 08/05/19 22:52 Dose: 40 mg Documented by: Cilostazol (Pletal -) 100 mg PO BID [facility] Last Admin: 08/06/19 10:44 Dose: 100 mg Documented by: Escitalopram Oxalate (Lexapro -) 20 mg PO DAILY [facility] Last Admin: 08/06/19 10:38 Dose: 20 mg Documented by: Insulin Aspart (Novolog Vial Sliding Scale -) 1 vial SQ ACHS [facility]; Protocol Last Admin: 08/06/19 06:06 Dose: 10 unit Documented by: Insulin Detemir (Levemir Vial) 30 units SQ BID [facility] Last Admin: 08/06/19 10:35 Dose: 30 units Documented by: Metoprolol Tartrate (Lopressor -) 25 mg PO DAILY [facility] Last Admin: 08/06/19 10:37 Dose: 25 mg Documented by: Non-Formulary Medication (Evolocumab [Repatha Syringe]) 140 mg SQ Q14D [facility] Pantoprazole Sodium (Protonix -) 40 mg PO DAILY [facility] Last Admin: 08/06/19 10:37 Dose: 40 mg Documented by: - Objective Vital Signs: Vital Signs Temperature 98.3 F 08/06/19 09:09 Pulse Rate 85 08/06/19 09:09 Respiratory Rate 18 08/06/19 09:09 Blood Pressure 137/74 08/06/19 09:09 O2 Sat by Pulse Oximetry (%) 97 08/06/19 09:00 Constitutional: Yes: Calm Eyes: Yes: Conjunctiva Clear HENT: Yes: Atraumatic Neck: Yes: Supple Cardiovascular: Yes: S1, S2 Respiratory: Yes: CTA Bilaterally Gastrointestinal: Yes: Soft, Abdomen, Obese Genitourinary: Yes: WNL Musculoskeletal: Yes: WNL Edema: Yes Edema: LLE: 1+, RLE: 1+ Neurological: Yes: Oriented Psychiatric: Yes: Oriented Labs: CBC, BMP 08/06/19 06:55 08/06/19 06:00 INR, PTT INR 1.39 (0.83-1.09) H 08/05/19 01:55 Problem List - Problems (1) KEVIN (acute kidney injury) Code(s): N17.9 - ACUTE KIDNEY FAILURE, UNSPECIFIED Assessment/Plan Current Medications Generic Name Dose Route Start Last Admin Trade Name Freq PRN Reason Stop Dose Admin Albuterol Sulfate 1 amp 08/05/19 07:31 Ventolin 0.083% Nebulizer Soln - NEB Q6H PRN SHORT OF BREATH/WHEEZING Apixaban 5 mg 08/05/19 10:00 08/06/19 10:37 Eliquis - PO 5 mg BID [facility] Administration Aspirin 81 mg 08/06/19 10:00 08/06/19 10:37 Asa - PO 81 mg DAILY [facility] Administration Atorvastatin Calcium 40 mg 08/05/19 22:00 08/05/19 22:52 Lipitor - PO 40 mg HS [facility] Administration Cilostazol 100 mg 08/05/19 22:00 08/06/19 10:44 Pletal - PO 100 mg BID [facility] Administration Escitalopram Oxalate 20 mg 08/06/19 10:00 08/06/19 10:38 Lexapro - PO 20 mg DAILY [facility] Administration Insulin Aspart 1 vial 08/05/19 16:30 08/06/19 06:06 Novolog Vial Sliding Scale - SQ 10 unit ACHS [facility] Administration Protocol Insulin Detemir 30 units 08/05/19 22:00 08/06/19 10:35 Levemir Vial SQ 30 units BID [facility] Administration Metoprolol Tartrate 25 mg 08/05/19 10:00 08/06/19 10:37 Lopressor - PO 25 mg DAILY [facility] Administration Non-Formulary Medication 140 mg 08/05/19 10:30 Evolocumab [Repatha Syringe] SQ Q14D [facility] Pantoprazole Sodium 40 mg 08/06/19 10:00 08/06/19 10:37 Protonix - PO 40 mg DAILY [facility] Administration Impression 1. KEVIN 2. CHF 3. CKD 4. HLD 5. CAD 6. DM 7. a-fib Plan - restart torsemide 40 mg - lower ext doppler - restart ramipril at lower dose - will need better compliance with diet - discussed plan with pt and family - renal ultrasound reviewed - send prt to advertising vice president ratio - discussed with pmd - will follow
--- NOTE | 2019-08-06 13:32 | PN ---
Progress Note (short form) - Note Progress Note: cc: shortness of breath HPI: still short of breath, has edema L>R, feels less tired today. no chest pain, palps, dizziness Current Medications Generic Name Dose Route Start Last Admin Trade Name Freq PRN Reason Stop Dose Admin Albuterol Sulfate 1 amp 08/05/19 07:31 Ventolin 0.083% Nebulizer Soln - NEB Q6H PRN SHORT OF BREATH/WHEEZING Apixaban 5 mg 08/05/19 10:00 08/06/19 10:37 Eliquis - PO 5 mg BID [facility]I Administration Aspirin 81 mg 08/06/19 10:00 08/06/19 10:37 Asa - PO 81 mg DAILY [facility] Administration Atorvastatin Calcium 40 mg 08/05/19 22:00 08/05/19 22:52 Lipitor - PO 40 mg HS [facility]I Administration Cilostazol 100 mg 08/05/19 22:00 08/06/19 10:44 Pletal - PO 100 mg BID [facility] Administration Escitalopram Oxalate 20 mg 08/06/19 10:00 08/06/19 10:38 Lexapro - PO 20 mg DAILY [facility] Administration Insulin Aspart 1 vial 08/05/19 16:30 08/06/19 11:51 Novolog Vial Sliding Scale - SQ 9 unit ACHS [facility]I Administration Protocol Insulin Detemir 30 units 08/05/19 22:00 08/06/19 10:35 Levemir Vial SQ 30 units BID [facility] Administration Metoprolol Tartrate 25 mg 08/05/19 10:00 08/06/19 10:37 Lopressor - PO 25 mg DAILY [facility] Administration Non-Formulary Medication 140 mg 08/05/19 10:30 Evolocumab [Repatha Syringe] SQ Q14D [facility] Pantoprazole Sodium 40 mg 08/06/19 10:00 08/06/19 10:37 Protonix - PO 40 mg DAILY [facility] Administration Ramipril 1.25 mg 08/07/19 10:00 Altace - PO DAILY [facility] Torsemide 40 mg 08/06/19 12:15 Demadex - PO DAILY [facility] Vital Signs Period Temp Pulse Resp BP Sys/Anne Pulse Ox Last 24 Hr 97.3 F-98.3 F 74-96 18-20 119-142/47-74 95-97 Constitutional: Yes: No Distress, Calm Eyes: Yes: Conjunctiva Clear, EOM Intact HENT: Yes: Atraumatic, Normocephalic Neck: Yes: Supple, Trachea Midline Respiratory: CTAB Gastrointestinal: Yes: Normal Bowel Sounds, Soft. No: Distention, Tenderness Cardiovascular: Yes: tachy, irreg. no Gallop, Rub,murmur JVD: No PMI: Non-Displaced Edema: trace christa lower ext Neurological: Yes: Alert, Oriented Psychiatric: Yes: Alert, Oriented no jaundice diaphoresis no carotid bruits mibi 06/2018: no ischemia, lvef 47% echo 06/2018: nl lv/rv, lae, no sig valve path ecg: sinus, nl intervals, inferior and anterolateral STD, TWI tele: sinus cxr: improved compared to prior chronic diastolic HF - [place] [facility] [place], diuresed and down 35 lbs -initially diuretics held, Cr improved - torsemide restarted, 40 mg daily afib/aflutter: - cont eliquis, metoprolol CAD s/p CABG: - patent grafts on cath 07/2019 -continue aspirin, statin PAD - s/p PTCA LLE at [facility] - cont cilostazol, aspirin, statin HLD - cont statin, repatha
[2019-08-06] MEDS: TORSEMIDE 20 MG TABLET (FP) PO SCH (13:57)
[2019-08-06] MEDS: ATORVASTATIN CA 40 MG TABLET (FP) PO SCH (21:19)
[2019-08-07] MEDS: INSULIN SLIDING SCALE (NOVOLOG) 1 VIAL SQ SCH ×4 (06:48→21:40)
[2019-08-07] MEDS ORDERED: INSULIN SLIDING SCALE (NOVOLOG) 1 VIAL SQ ONE (06:58)
[2019-08-07 07:41] LABS: BASO % 0.7 % (0-2.0); EOS % 3.7 % (0-4.5); HEMATOCRIT 33.8 % (32.4-45.2); HEMOGLOBIN 10.7 GM/dL (10.7-15.3); LYMPH % 19.6 % (8-40); MCH 23.8 pg (25.7-33.7); MCHC 31.7 g/dl (32.0-36.0); MEAN CELL VOLUME 75.2 fl (80-96); MEAN PLT VOLUME 8.4 fl (7.5-11.1); MONO % 11.2 % (3.8-10.2); NEUT % 64.8 % (42.8-82.8); PLATELET COUNT 262 K/MM3 (134-434); RBC 4.49 M/mm3 (3.60-5.2); RDW 15.9 % (11.6-15.6); WHITE BLOOD COUNT 7.3 K/mm3 (4.0-10.0)
[2019-08-07 08:01] LABS: BLOOD UREA NITROGEN 37.6 mg/dL (7-18); CALCIUM 9.5 mg/dL (8.5-10.1); CREATININE 1.2 mg/dL (0.55-1.3); POTASSIUM 3.5 mmol/L (3.5-5.1)
--- NOTE | 2019-08-07 08:25 | DS ---
Physical Examination Vital Signs: Vital Signs Temperature 98.3 F 08/07/19 06:00 Pulse Rate 89 08/07/19 06:00 Respiratory Rate 20 08/07/19 06:00 Blood Pressure 143/59 L 08/07/19 06:00 O2 Sat by Pulse Oximetry (%) 96 08/06/19 21:00 Cardiovascular: Yes: S1, S2 Respiratory: Yes: Regular, CTA Bilaterally Gastrointestinal: Yes: Normal Bowel Sounds, Soft Labs: CBC, BMP 08/07/19 07:00 08/07/19 07:00 Discharge Summary Problems reviewed: Yes Reason For Visit: ACUTE KIDNEY INJURY,CONGESTIVE HEART FAILURE Current Active Problems CHF exacerbation (Acute) Hospital Course: Acute on Chronic diastolic HF - recently admitted to [facility] [place] for CHF exac, diuresed and down 35 lbs -initially diuretics held, Cr improved - torsemide restarted, 40 mg daily afib/aflutter: - cont eliquis, metoprolol CAD s/p CABG: - patent grafts on cath 07/2019 -chest xray improved from prior -cardiac rehab discussed refuses at this time -daily weights -c/w ASA, Clopidogrel, Cilostazol, Evolocumab (repetha), lipitor -add ranexa 500 bid KEVIN -Nephrology consulted -avoid nephrotoxic meds COPD -add SAymbicort HTN -well controlled -c/w ramipril DM -BGMs, ISS -hold oral antihyperglycemics HLD -c/w atorvastatin GERD -c/w nexium PAD' continue with meds Anxiety/Depression -c/w Escitalopram, Pregabalin Condition: Stable - Instructions Diet, Activity, Other Instructions: You were in the hospital because of heart failure. 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 Continue taking your medications as before. If you experience worsening symptoms, return to the emergency department. Referrals: Allen Mccarty MD [Staff Physician] - Vasyl Odonnell MD [Primary Care Provider] - Disposition: HOME - Home Medications Comprehensive Discharge Medication List: Ambulatory Orders Atorvastatin Ca [Lipitor] 40 mg PO HS 07/19/18 Ramipril [Altace] 5 mg PO DAILY 07/19/18 Apixaban [Eliquis -] 5 mg PO BID #60 tablet 07/21/18 Cilostazol 100 mg PO BID 09/09/18 Esomeprazole Magnesium 40 mg PO DAILY 07/21/19 Insulin Glargine,Hum.rec.anlog [Toujeo Solostar] 80 unit SQ DAILY 07/21/19 Insulin Lispro Protamin/Lispro [Humalog Mix 50-50 Kwikpen] 40 unit SQ TID 07/21/19 Metoprolol Tartrate 25 mg PO DAILY 07/21/19 Aspirin [ASA -] 81 mg PO DAILY 08/05/19 Escitalopram Oxalate [Lexapro -] 20 mg PO DAILY 08/05/19 Evolocumab [Repatha Syringe] 140 mg SQ Q14D 08/05/19 Pregabalin [Lyrica] 100 mg PO TID 08/05/19 Budesonide/Formeterol Fumarate [SYMBICORT 160/4.5mcg -] 2 inh IH BID #1 inhaler 08/07/19 Ranolazine [Ranexa -] 500 mg PO BID #60 tab 08/07/19 Torsemide [Demadex -] 40 mg PO DAILY #0 tablet 08/07/19
[2019-08-07] MEDS ORDERED: ESCITALOPRAM OXALATE 10 MG TABLET ONE (08:56)
[2019-08-07] MEDS ORDERED: PT OWN MED DRAWER 7, Y5N ONE ×2 (08:57→21:29)
[2019-08-07] MEDS: APIXABAN 5 MG TABLET PO SCH ×2 (09:14→21:39)
[2019-08-07] MEDS: RANOLAZINE E.R. 500 MG TABLET (FP) PO SCH ×2 (09:14→21:39)
[2019-08-07] MEDS: TORSEMIDE 20 MG TABLET (FP) PO SCH ×2 (09:14→13:51)
[2019-08-07] MEDS: METOPROLOL TARTRATE 25 MG TABLET (FP) PO SCH (09:14)
[2019-08-07] MEDS: ASPIRIN 81 MG CHEWABLE TABLETS PO SCH (09:15)
[2019-08-07] MEDS: INSULIN (LEVEMIR) 100 UNITS/ML UNITS SQ SCH ×2 (09:15→21:40)
[2019-08-07] MEDS: PANTOPRAZOLE 40 MG TABLET PO SCH (09:15)
[2019-08-07] MEDS: ESCITALOPRAM OXALATE 20 MG TABLET PO SCH (09:17)
[2019-08-07] MEDS: RAMIPRIL 1.25 MG CAPSULE PO SCH (09:17)
[2019-08-07] MEDS: CILOSTAZOL 100 MG TABLET PO SCH ×2 (09:18→21:40)
[2019-08-07] MEDS: BUDESONIDE/FORMETEROL FUMARATE 160/4.5 mcg INHALER IH SCH ×2 (09:42→21:40)
--- NOTE | 2019-08-07 13:01 | PN ---
Progress Note, Physician History of Present Illness: Pt seen and examined at bedside. She is awake and alert. She feels that her breathing is improved. - Current Medication List Current Medications: Active Medications Albuterol Sulfate (Ventolin 0.083% Nebulizer Soln -) 1 amp NEB Q6H PRN PRN Reason: SHORT OF BREATH/WHEEZING Apixaban (Eliquis -) 5 mg PO BID [facility] Last Admin: 08/07/19 09:14 Dose: 5 mg Documented by: Aspirin (Asa -) 81 mg PO DAILY [facility] Last Admin: 08/07/19 09:15 Dose: 81 mg Documented by: Atorvastatin Calcium (Lipitor -) 40 mg PO HS [facility] Last Admin: 08/06/19 21:19 Dose: 40 mg Documented by: Budesonide/Formoterol Fumarate (Symbicort 160/4.5mcg -) 2 puff IH BID [facility] Last Admin: 08/07/19 09:42 Dose: 2 puff Documented by: Cilostazol (Pletal -) 100 mg PO BID [facility] Last Admin: 08/07/19 09:18 Dose: 100 mg Documented by: Escitalopram Oxalate (Lexapro -) 20 mg PO DAILY [facility] Last Admin: 08/07/19 09:17 Dose: 20 mg Documented by: Insulin Aspart (Novolog Vial Sliding Scale -) [address] [facility]; Protocol Last Admin: 08/07/19 12:05 Dose: 10 unit Documented by: Insulin Detemir (Levemir Vial) 30 units SQ BID [facility] Last Admin: 08/07/19 09:15 Dose: 30 units Documented by: Metoprolol Tartrate (Lopressor -) 25 mg PO DAILY [facility] Last Admin: 08/07/19 09:14 Dose: 25 mg Documented by: Non-Formulary Medication (Evolocumab [Repatha Syringe]) 140 mg SQ Q14D [facility] Pantoprazole Sodium (Protonix -) 40 mg PO DAILY [facility] Last Admin: 08/07/19 09:15 Dose: 40 mg Documented by: Ramipril (Altace -) 1.25 mg PO DAILY [facility] Last Admin: 08/07/19 09:17 Dose: 1.25 mg Documented by: Ranolazine (Ranexa -) 500 mg PO BID [facility] Last Admin: 08/07/19 09:14 Dose: 500 mg Documented by: Torsemide (Demadex -) 40 mg PO DAILY [facility] Last Admin: 08/07/19 09:14 Dose: 40 mg Documented by: - Objective Vital Signs: Vital Signs Temperature 98.3 F 08/07/19 10:00 Pulse Rate 92 H 08/07/19 10:00 Respiratory Rate 19 08/07/19 10:00 Blood Pressure 126/62 08/07/19 10:00 O2 Sat by Pulse Oximetry (%) 96 08/07/19 09:00 Constitutional: Yes: Calm Eyes: Yes: Conjunctiva Clear HENT: Yes: Atraumatic Neck: Yes: Supple Cardiovascular: Yes: S1, S2 Respiratory: Yes: On Nasal O2 Gastrointestinal: Yes: Soft, Abdomen, Obese Genitourinary: Yes: WNL Musculoskeletal: Yes: WNL Edema: Yes Edema: LLE: 1+, RLE: 1+ Neurological: Yes: Oriented Psychiatric: Yes: Oriented Labs: CBC, BMP 08/07/19 07:00 08/07/19 07:00 INR, PTT INR 1.39 (0.83-1.09) H 08/05/19 01:55 Problem List - Problems (1) KEVIN (acute kidney injury) Code(s): N17.9 - ACUTE KIDNEY FAILURE, UNSPECIFIED Assessment/Plan Current Medications Generic Name Dose Route Start Last Admin Trade Name Freq PRN Reason Stop Dose Admin Albuterol Sulfate 1 amp 08/05/19 07:31 Ventolin 0.083% Nebulizer Soln - NEB Q6H PRN SHORT OF BREATH/WHEEZING Apixaban 5 mg 08/05/19 10:00 08/07/19 09:14 Eliquis - PO 5 mg BID [facility] Administration Aspirin 81 mg 08/06/19 10:00 08/07/19 09:15 Asa - PO 81 mg DAILY [facility] Administration Atorvastatin Calcium 40 mg 08/05/19 22:00 08/06/19 21:19 Lipitor - PO 40 mg HS [facility] Administration Budesonide/Formoterol Fumarate 2 puff 08/07/19 10:00 08/07/19 09:42 Symbicort 160/4.5mcg - IH 2 puff BID [facility] Administration Cilostazol 100 mg 08/05/19 22:00 08/07/19 09:18 Pletal - PO 100 mg BID [facility] Administration Escitalopram Oxalate 20 mg 08/06/19 10:00 08/07/19 09:17 Lexapro - PO 20 mg DAILY [facility] Administration Insulin Aspart 1 vial 08/05/19 16:30 08/07/19 12:05 Novolog Vial Sliding Scale - SQ 10 unit ACHS [facility] Administration Protocol Insulin Detemir 30 units 08/05/19 22:00 08/07/19 09:15 Levemir Vial SQ 30 units BID [facility] Administration Metoprolol Tartrate 25 mg 08/05/19 10:00 08/07/19 09:14 Lopressor - PO 25 mg DAILY [facility] Administration Non-Formulary Medication 140 mg 08/05/19 10:30 Evolocumab [Repatha Syringe] SQ Q14D [facility] Pantoprazole Sodium 40 mg 08/06/19 10:00 08/07/19 09:15 Protonix - PO 40 mg DAILY [facility] Administration Ramipril 1.25 mg 08/07/19 10:00 08/07/19 09:17 Altace - PO 1.25 mg DAILY [facility] Administration Ranolazine 500 mg 08/07/19 10:00 08/07/19 09:14 Ranexa - PO 500 mg BID [facility] Administration Torsemide 40 mg 08/06/19 12:15 08/07/19 09:14 Demadex - PO 40 mg DAILY [facility] Administration Impression 1. KEVIN 2. CHF 3. CKD 4. HLD 5. CAD 6. DM 7. a-fib Plan - lower ext doppler negative - cont torsemide, can increase to bid (pt was taking 80 mg at home) - will need close outpt follow up - renal function improved - cont ramipril - discussed with family - will follow
[2019-08-07] MEDS ORDERED: INSULIN (LEVEMIR) 100 UNITS/ML UNITS SQ ONE (13:22)
--- NOTE | 2019-08-07 13:51 | PN ---
Progress Note (short form) - Note Progress Note: cc: shortness of breath HPI:no chest pain, palps, dizziness, sob better Current Medications Generic Name Dose Route Start Last Admin Trade Name Medardo PRN Reason Stop Dose Admin Albuterol Sulfate 1 amp 08/05/19 07:31 Ventolin 0.083% Nebulizer Soln - NEB Q6H PRN SHORT OF BREATH/WHEEZING Apixaban 5 mg 08/05/19 10:00 08/07/19 09:14 Eliquis - PO 5 mg BID MARI Administration Aspirin 81 mg 08/06/19 10:00 08/07/19 09:15 Asa - PO 81 mg DAILY MARI Administration Atorvastatin Calcium 40 mg 08/05/19 22:00 08/06/19 21:19 Lipitor - PO 40 mg HS MARI Administration Budesonide/Formoterol Fumarate 2 puff 08/07/19 10:00 08/07/19 09:42 Symbicort 160/4.5mcg - IH 2 puff BID MARI Administration Cilostazol 100 mg 08/05/19 22:00 08/07/19 09:18 Pletal - PO 100 mg BID MARI Administration Escitalopram Oxalate 20 mg 08/06/19 10:00 08/07/19 09:17 Lexapro - PO 20 mg DAILY MARI Administration Insulin Aspart 1 vial 08/05/19 16:30 08/07/19 12:05 Novolog Vial Sliding Scale - SQ 10 unit ACHS MARI Administration Protocol Insulin Aspart 30 units 08/07/19 16:30 Novolog Mix 70/30 Vial SQ BIDAC [facility] Insulin Detemir 50 units 08/07/19 22:00 Levemir Vial SQ BID@0700,2200 [facility] Metoprolol Tartrate 25 mg 08/05/19 10:00 08/07/19 09:14 Lopressor - PO 25 mg DAILY MARI Administration Non-Formulary Medication 140 mg 08/05/19 10:30 Evolocumab [Repatha Syringe] SQ Q14D MARI Pantoprazole Sodium 40 mg 08/06/19 10:00 08/07/19 09:15 Protonix - PO 40 mg DAILY MARI Administration Ramipril 1.25 mg 08/07/19 10:00 08/07/19 09:17 Altace - PO 1.25 mg DAILY MARI Administration Ranolazine 500 mg 08/07/19 10:00 08/07/19 09:14 Ranexa - PO 500 mg BID MARI Administration Torsemide 40 mg 08/07/19 14:00 Demadex - PO BIDLASIX MARI Vital Signs Period Temp Pulse Resp BP Sys/Anne Pulse Ox Last 24 Hr 97.5 F-98.5 F 75-92 18-20 115-147/52-75 96-96 Constitutional: Yes: No Distress, Calm Eyes: Yes: Conjunctiva Clear, EOM Intact HENT: Yes: Atraumatic, Normocephalic Neck: Yes: Supple, Trachea Midline Respiratory: CTAB Gastrointestinal: Yes: Normal Bowel Sounds, Soft. No: Distention, Tenderness Cardiovascular: Yes: tachy, irreg. no Gallop, Rub,murmur JVD: No PMI: Non-Displaced Edema: trace christa lower ext Neurological: Yes: Alert, Oriented Psychiatric: Yes: Alert, Oriented no jaundice diaphoresis no carotid bruits CBC, BMP 08/07/19 07:00 08/07/19 07:00 mibi 06/2018: no ischemia, lvef 47% echo 06/2018: nl lv/rv, lae, no sig valve path ecg: sinus, nl intervals, inferior and anterolateral STD, TWI tele: sinus cxr: improved compared to prior chronic diastolic HF - recently admitted to [facility] [place] for [place] exac, diuresed and down 35 lbs -initially diuretics held, Cr improved - torsemide restarted, 40 mg daily afib/aflutter: - cont eliquis, metoprolol CAD s/p CABG: - patent grafts on cath 07/2019 -continue aspirin, statin PAD - s/p PTCA LLE at [facility] - cont cilostazol, aspirin, statin HLD - cont statin, repatha cardiac edwards stable
[2019-08-07] MEDS: INSULIN (NOVOLOG MIX 70/30) 100 UNITS/ML MDV SQ SCH (16:48)
[2019-08-07] MEDS ORDERED: ACETAMINOPHEN 325 MG TABLET (FP) PO PRN (21:38)
[2019-08-07] MEDS: ATORVASTATIN CA 40 MG TABLET (FP) PO SCH (21:40)
[2019-08-07 22:31] VITALS: BMI 43.4
--- NOTE | 2019-08-08 05:44 | PN ---
Progress Note, Physician Chief Complaint: feeling well denies CP/SOB History of Present Illness: AF PAD CAD Acute diastolic CHF TELE: NSR, PVCs - Current Medication List Current Medications: Active Medications Acetaminophen (Tylenol -) 650 mg PO Q6H PRN PRN Reason: PAIN LEVEL 4 - 6 Last Admin: 08/07/19 22:26 Dose: 650 mg Documented by: Albuterol Sulfate (Ventolin 0.083% Nebulizer Soln -) 1 amp NEB Q6H PRN PRN Reason: SHORT OF BREATH/WHEEZING Apixaban (Eliquis -) 5 mg PO BID [facility] Last Admin: 08/07/19 21:39 Dose: 5 mg Documented by: Aspirin (Asa -) 81 mg PO DAILY [facility] Last Admin: 08/07/19 09:15 Dose: 81 mg Documented by: Atorvastatin Calcium (Lipitor -) 40 mg PO HS [facility] Last Admin: 08/07/19 21:40 Dose: 40 mg Documented by: Budesonide/Formoterol Fumarate (Symbicort 160/4.5mcg -) 2 puff IH BID [facility] Last Admin: 08/07/19 21:40 Dose: 2 puff Documented by: Cilostazol (Pletal -) 100 mg PO BID [facility] Last Admin: 08/07/19 21:40 Dose: 100 mg Documented by: Escitalopram Oxalate (Lexapro -) 20 mg PO DAILY [facility] Last Admin: 08/07/19 09:17 Dose: 20 mg Documented by: Insulin Aspart (Novolog Vial Sliding Scale -) 1 vial SQ [facility]; Protocol Last Admin: 08/07/19 21:40 Dose: 9 unit Documented by: Insulin Aspart (Novolog Mix 70/30 Vial) 30 units SQ BIDAC [facility] Last Admin: 08/07/19 16:48 Dose: 30 units Documented by: Insulin Detemir (Levemir Vial) 50 units SQ BID@0700,2200 [facility] Last Admin: 08/07/19 21:40 Dose: 50 units Documented by: Metoprolol Tartrate (Lopressor -) 25 mg PO DAILY [facility] Last Admin: 08/07/19 09:14 Dose: 25 mg Documented by: Non-Formulary Medication (Evolocumab [Repatha Syringe]) 140 mg SQ Q14D [facility] Pantoprazole Sodium (Protonix -) 40 mg PO DAILY [facility] Last Admin: 08/07/19 09:15 Dose: 40 mg Documented by: Ramipril (Altace -) 1.25 mg PO DAILY [facility] Last Admin: 08/07/19 09:17 Dose: 1.25 mg Documented by: Ranolazine (Ranexa -) 500 mg PO BID [facility] Last Admin: 08/07/19 21:39 Dose: 500 mg Documented by: Torsemide (Demadex -) 40 mg PO BIDLASIX [facility] Last Admin: 08/07/19 13:51 Dose: 40 mg Documented by: - Objective Vital Signs: Vital Signs Temperature 98.0 F 08/08/19 02:00 Pulse Rate 84 08/08/19 02:00 Respiratory Rate 19 08/08/19 02:00 Blood Pressure 122/55 L 08/08/19 02:00 O2 Sat by Pulse Oximetry (%) 100 08/07/19 21:00 Constitutional: Yes: No Distress, Calm Eyes: Yes: Conjunctiva Clear Cardiovascular: Yes: Regular Rate and Rhythm Respiratory: Yes: CTA Bilaterally Gastrointestinal: Yes: Soft, Abdomen, Obese Edema: No Neurological: Yes: Alert, Oriented Labs: CBC, BMP 08/07/19 07:00 08/07/19 07:00 INR, PTT INR 1.39 (0.83-1.09) H 08/05/19 01:55 Laboratory Tests 08/05/19 08/07/19 08/08/19 05:18 07:00 07:40 WBC 7.3 Hgb 10.7 Plt Count 262 Sodium 139 Potassium 2.9 L* BUN 38.9 H Creatinine 1.4 H AST 16 ALT 18 Alkaline Phosphatase 119 H COVID-19 (BRANDON) Not detected - ....Imaging EKG: Image Reviewed Assessment/Plan mibi 06/2018: no ischemia, lvef 47% echo 06/2018: nl lv/rv, lae, no sig valve path chronic diastolic HF: - [place] [facility] [place], diuresed and down 35 lbs -initially diuretics held, Cr improved - torsemide restarted, 40 mg daily afib/aflutter: - cont eliquis, metoprolol CAD s/p CABG: - patent grafts on cath 07/2019 -continue aspirin, statin PAD: - s/p PTCA LLE at [facility] - cont cilostazol, aspirin, statin HLD: - cont statin, repatha Hypokalemia: -D/W RN, repletion orders as per Renal
[2019-08-08] MEDS: TORSEMIDE 20 MG TABLET (FP) PO SCH (06:25)
[2019-08-08] MEDS: INSULIN (LEVEMIR) 100 UNITS/ML UNITS SQ SCH (06:27)
[2019-08-08] MEDS: INSULIN SLIDING SCALE (NOVOLOG) 1 VIAL SQ SCH ×2 (06:28→11:52)
[2019-08-08] MEDS: INSULIN (NOVOLOG MIX 70/30) 100 UNITS/ML MDV SQ SCH (06:28)
[2019-08-08 08:41] LABS: ALBUMIN 3.6 g/dl (3.4-5.0); BILIRUBIN,TOTAL 0.5 mg/dL (0.2-1); BLOOD UREA NITROGEN 38.9 mg/dL (7-18); CREATININE 1.4 mg/dL (0.55-1.3); TOT PROT 7.3 g/dl (6.4-8.2)
[2019-08-08 08:45] LABS: POTASSIUM 2.9 mmol/L (3.5-5.1)
[2019-08-08 08:55] VITALS: BP 118/64; PULSE 97; TEMP 98.1
--- NOTE | 2019-08-08 08:57 | DS ---
Physical Examination Vital Signs: Vital Signs Temperature 98.1 F 08/08/19 08:54 Pulse Rate 97 H 08/08/19 08:54 Respiratory Rate 18 08/08/19 08:54 Blood Pressure 118/64 08/08/19 08:54 O2 Sat by Pulse Oximetry (%) 100 08/07/19 21:00 Labs: CBC, BMP 08/07/19 07:00 08/08/19 07:40 Discharge Summary Problems reviewed: Yes Reason For Visit: ACUTE KIDNEY INJURY,CONGESTIVE HEART FAILURE Current Active Problems CHF exacerbation (Acute) Hospital Course: Acute on Chronic diastolic HF - recently admitted to [facility] [place] for CHF exac, diuresed and down 35 lbs -initially diuretics held, Cr improved - torsemide restarted, 40 mg daily afib/aflutter: - cont eliquis, metoprolol CAD s/p CABG: - patent grafts on cath 07/2019 -chest xray improved from prior -cardiac rehab discussed refuses at this time -daily weights -c/w ASA, Clopidogrel, Cilostazol, Evolocumab (repetha), lipitor -add ranexa 500 bid KEVIN -Nephrology consulted -avoid nephrotoxic meds COPD -add SAymbicort HTN -well controlled -c/w ramipril DM -BGMs, ISS -hold oral antihyperglycemics HLD -c/w atorvastatin GERD -c/w nexium PAD' continue with meds Anxiety/Depression -c/w Escitalopram, Pregabalin Condition: Stable - Instructions Diet, Activity, Other Instructions: You were in the hospital because of heart failure. 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 Continue taking your medications as before. If you experience worsening symptoms, return to the emergency department. Referrals: Allen Mccarty MD [Staff Physician] - Vasyl Odonnell MD [Primary Care Provider] - 1 Week Disposition: HOME - Home Medications Comprehensive Discharge Medication List: Ambulatory Orders Atorvastatin Ca [Lipitor] 40 mg PO HS 07/19/18 Ramipril [Altace] 5 mg PO DAILY 07/19/18 Apixaban [Eliquis -] 5 mg PO BID #60 tablet 07/21/18 Cilostazol 100 mg PO BID 09/09/18 Esomeprazole Magnesium 40 mg PO DAILY 07/21/19 Insulin Glargine,Hum.rec.anlog [Toujeo Solostar] 80 unit SQ DAILY 07/21/19 Insulin Lispro Protamin/Lispro [Humalog Mix 50-50 Kwikpen] 40 unit SQ TID 07/21/19 Metoprolol Tartrate 25 mg PO DAILY 07/21/19 Aspirin [ASA -] 81 mg PO DAILY 08/05/19 Escitalopram Oxalate [Lexapro -] 20 mg PO DAILY 08/05/19 Evolocumab [Repatha Syringe] 140 mg SQ Q14D 08/05/19 Pregabalin [Lyrica] 100 mg PO TID 08/05/19 Budesonide/Formeterol Fumarate [SYMBICORT 160/4.5mcg -] 2 inh IH BID #1 inhaler 08/07/19 Ranolazine [Ranexa -] 500 mg PO BID #60 tab 08/07/19 Torsemide [Demadex -] 40 mg PO DAILY #0 tablet 08/07/19 Buspirone HCl [Buspar -] 5 mg PO TID #90 tablet 08/08/19
[2019-08-08] MEDS ORDERED: PT OWN MED DRAWER 7, Y5N ONE ×3 (09:37→10:55)
[2019-08-08] MEDS ORDERED: POTASSIUM CHLORIDE TABS 20 MEQ TABLET.ER (FP) PO ONE (09:45)
[2019-08-08] MEDS ORDERED: ESCITALOPRAM OXALATE 10 MG TABLET ONE (09:53)
[2019-08-08] MEDS: KCL 10 MEQ IVPB 10 MEQ/100 ML INFUS.BAG IVPB SCH ×2 (10:22→11:28)
[2019-08-08] MEDS: RANOLAZINE E.R. 500 MG TABLET (FP) PO SCH (10:22)
[2019-08-08] MEDS: PANTOPRAZOLE 40 MG TABLET PO SCH (10:23)
[2019-08-08] MEDS: METOPROLOL TARTRATE 25 MG TABLET (FP) PO SCH (10:23)
[2019-08-08] MEDS: APIXABAN 5 MG TABLET PO SCH (10:23)
[2019-08-08] MEDS: ASPIRIN 81 MG CHEWABLE TABLETS PO SCH (10:24)
[2019-08-08] MEDS: ESCITALOPRAM OXALATE 20 MG TABLET PO SCH (10:24)
[2019-08-08] MEDS: RAMIPRIL 1.25 MG CAPSULE PO SCH (10:25)
[2019-08-08] MEDS: CILOSTAZOL 100 MG TABLET PO SCH (10:26)
[2019-08-08] MEDS: BUDESONIDE/FORMETEROL FUMARATE 160/4.5 mcg INHALER IH SCH (10:27)
[2019-08-08] MEDS ORDERED: RAMIPRIL 2.5 MG CAPSULE (FP) PO SCH (10:54)
--- NOTE | 2019-08-08 10:54 | PN ---
Progress Note, Physician History of Present Illness: Pt seen and examined at bedside. She feels that her edema is improved. She feels her breathing is improved as well. - Current Medication List Current Medications: Active Medications Acetaminophen (Tylenol -) 650 mg PO Q6H PRN PRN Reason: PAIN LEVEL 4 - 6 Last Admin: 08/07/19 22:26 Dose: 650 mg Documented by: Albuterol Sulfate (Ventolin 0.083% Nebulizer Soln -) 1 amp NEB Q6H PRN PRN Reason: SHORT OF BREATH/WHEEZING Apixaban (Eliquis -) 5 mg PO BID [facility] Last Admin: 08/08/19 10:23 Dose: 5 mg Documented by: Aspirin (Asa -) 81 mg PO DAILY [facility] Last Admin: 08/08/19 10:24 Dose: 81 mg Documented by: Atorvastatin Calcium (Lipitor -) 40 mg PO HS [facility] Last Admin: 08/07/19 21:40 Dose: 40 mg Documented by: Budesonide/Formoterol Fumarate (Symbicort 160/4.5mcg -) 2 puff IH BID [facility] Last Admin: 08/08/19 10:27 Dose: 2 puff Documented by: Cilostazol (Pletal -) 100 mg PO BID [facility] Last Admin: 08/08/19 10:26 Dose: 100 mg Documented by: Escitalopram Oxalate (Lexapro -) 20 mg PO DAILY [facility] Last Admin: 08/08/19 10:24 Dose: 20 mg Documented by: Potassium Chloride (Potassium Chloride 10 Meq Premix Ivpb -) 10 meq in 100 mls @ 100 mls/hr IVPB Q60M [facility] Stop: 08/08/19 12:44 Last Admin: 08/08/19 10:22 Dose: 100 mls/hr Documented by: Insulin Aspart (Novolog Vial Sliding Scale -) 1 vial SQ ACHS [facility]; Protocol Last Admin: 08/08/19 06:28 Dose: 8 unit Documented by: Insulin Aspart (Novolog Mix 70/30 Vial) 40 units SQ BIDAC [facility] Insulin Detemir (Levemir Vial) 50 units SQ BID@0700,2200 [facility] Last Admin: 08/08/19 06:27 Dose: 50 units Documented by: Metoprolol Tartrate (Lopressor -) 25 mg PO DAILY [facility] Last Admin: 08/08/19 10:23 Dose: 25 mg Documented by: Non-Formulary Medication (Evolocumab [Repatha Syringe]) 140 mg SQ Q14D [facility] Pantoprazole Sodium (Protonix -) 40 mg PO DAILY [facility] Last Admin: 08/08/19 10:23 Dose: 40 mg Documented by: Ramipril (Altace -) 1.25 mg PO DAILY [facility] Last Admin: 08/08/19 10:25 Dose: 1.25 mg Documented by: Ranolazine (Ranexa -) 500 mg PO BID [facility] Last Admin: 08/08/19 10:22 Dose: 500 mg Documented by: Torsemide (Demadex -) 40 mg PO BIDLASIX [facility] Last Admin: 08/08/19 06:25 Dose: 40 mg Documented by: - Objective Vital Signs: Vital Signs Temperature 98.1 F 08/08/19 08:54 Pulse Rate 97 H 08/08/19 08:54 Respiratory Rate 18 08/08/19 08:54 Blood Pressure 118/64 08/08/19 08:54 O2 Sat by Pulse Oximetry (%) 100 08/07/19 21:00 Constitutional: Yes: Calm Eyes: Yes: Conjunctiva Clear HENT: Yes: Atraumatic Neck: Yes: Supple Cardiovascular: Yes: S1, S2 Respiratory: Yes: CTA Bilaterally Gastrointestinal: Yes: Soft, Abdomen, Obese Genitourinary: Yes: WNL Musculoskeletal: Yes: Muscle Weakness Edema: Yes Edema: LLE: 1+, RLE: 1+ Integumentary: Yes: Venous Stasis Changes Neurological: Yes: Oriented Psychiatric: Yes: Oriented Labs: CBC, BMP 08/07/19 07:00 08/08/19 07:40 INR, PTT INR 1.39 (0.83-1.09) H 08/05/19 01:55 Problem List - Problems (1) KEVIN (acute kidney injury) Code(s): N17.9 - ACUTE KIDNEY FAILURE, UNSPECIFIED Assessment/Plan Current Medications Generic Name Dose Route Start Last Admin Trade Name Freq PRN Reason Stop Dose Admin Acetaminophen 650 mg 08/07/19 21:38 08/07/19 22:26 Tylenol - PO 650 mg Q6H PRN Administration PAIN LEVEL 4 - 6 Albuterol Sulfate 1 amp 08/05/19 07:31 Ventolin 0.083% Nebulizer Soln - NEB Q6H PRN SHORT OF BREATH/WHEEZING Apixaban 5 mg 06/23/20 10:00 08/08/19 10:23 Eliquis - PO 5 mg BID MARI Administration Aspirin 81 mg 08/06/19 10:00 08/08/19 10:24 Asa - PO 81 mg DAILY MARI Administration Atorvastatin Calcium 40 mg 08/05/19 22:00 08/07/19 21:40 Lipitor - PO 40 mg HS [facility] Administration Budesonide/Formoterol Fumarate 2 puff 08/07/19 10:00 08/08/19 10:27 Symbicort 160/4.5mcg - IH 2 puff BID MARI Administration Cilostazol 100 mg 08/05/19 22:00 08/08/19 10:26 Pletal - PO 100 mg BID MARI Administration Escitalopram Oxalate 20 mg 08/06/19 10:00 08/08/19 10:24 Lexapro - PO 20 mg DAILY MARI Administration Potassium Chloride 10 meq in 100 mls @ 100 mls/hr 08/08/19 09:45 08/08/19 10:22 Potassium Chloride 10 Meq Premix Ivpb - IVPB 08/08/19 12:44 100 mls/hr Q60M MARI Administration Insulin Aspart 1 vial 08/05/19 16:30 08/08/19 06:28 Novolog Vial Sliding Scale - SQ 8 unit ACHS [facility] Administration Protocol Insulin Aspart 40 units 08/08/19 16:30 Novolog Mix 70/30 Vial SQ BIDAC [facility] Insulin Detemir 50 units 08/07/19 22:00 08/08/19 06:27 Levemir Vial SQ 50 units BID@0700,2200 [facility]I Administration Metoprolol Tartrate 25 mg 08/05/19 10:00 08/08/19 10:23 Lopressor - PO 25 mg DAILY MARI Administration Non-Formulary Medication 140 mg 08/05/19 10:30 Evolocumab [Repatha Syringe] SQ Q14D [facility]I Pantoprazole Sodium 40 mg 08/06/19 10:00 08/08/19 10:23 Protonix - PO 40 mg DAILY MARI Administration Ramipril 1.25 mg 08/07/19 10:00 08/08/19 10:25 Altace - PO 1.25 mg DAILY MARI Administration Ranolazine 500 mg 08/07/19 10:00 08/08/19 10:22 Ranexa - PO 500 mg BID MARI Administration Torsemide 40 mg 08/07/19 14:00 08/08/19 06:25 Demadex - PO 40 mg BIDLASIX MARI Administration Impression 1. KEVIN 2. CHF 3. CKD 4. HLD 5. CAD 6. DM 7. a-fib Plan - replace potassium - check mag - cont torsemide, will keep at daily - cardio input appreciated - edema improved - renal function improved - cont ramipril, can titrate dose up - discussed with family - will follow
[2019-08-08 11:20] LABS: BLOOD UREA NITROGEN 38.6 mg/dL (7-18); CALCIUM 9.7 mg/dL (8.5-10.1); CREATININE 1.5 mg/dL (0.55-1.3); POTASSIUM 3.6 mmol/L (3.5-5.1)
[2019-08-08] MEDS ORDERED: INSULIN (NOVOLOG MIX 70/30) 100 UNITS/ML MDV SQ SCH (16:30)
[2019-08-09] MEDS ORDERED: TORSEMIDE 20 MG TABLET (FP) PO SCH (10:00)
== END 2019-08-08 13:21 | disposition home or self-care (01) | DRG 682 ==
LOC: JER 00:40 → JERBED 03:07 → J4S 11:08
PROVIDERS: ADMIT Internal Medicine; ATTEND Family Medicine
DX: N17.9 Acute kidney failure, unspecified (principal); I50.33 Acute on chronic diastolic (congestive) heart failure; I13.0 Hypertensive heart and chronic kidney disease with heart failure and stage 1 through stage 4 chronic kidney disease, or unspecified chronic kidney disease; Z68.41 Body mass index [BMI] 40.0-44.9, adult; I48.92 Unspecified atrial flutter; I25.10 Atherosclerotic heart disease of native coronary artery without angina pectoris; Z95.1 Presence of aortocoronary bypass graft; I48.91 Unspecified atrial fibrillation; Z79.01 Long term (current) use of anticoagulants; E78.5 Hyperlipidemia, unspecified; Z79.4 Long term (current) use of insulin; Z87.891 Personal history of nicotine dependence; E66.9 Obesity, unspecified; E11.51 Type 2 diabetes mellitus with diabetic peripheral angiopathy without gangrene; F41.8 Other specified anxiety disorders; K21.9 Gastro-esophageal reflux disease without esophagitis; I25.2 Old myocardial infarction; E11.22 Type 2 diabetes mellitus with diabetic chronic kidney disease; N18.9 Chronic kidney disease, unspecified; E11.65 Type 2 diabetes mellitus with hyperglycemia; E11.21 Type 2 diabetes mellitus with diabetic nephropathy; E87.6 Hypokalemia
CPT/HCPCS: 36415; 71045-TC-FY; 76775-TC; 80048; 80053; 81003; 82436; 82550; 82565; 82962; 83735; 83880; 84100; 84133; 84300; 84484; 85025; 85610; 85730; 93005; 93010; 93970-TC; 97116-GP; 97161-GP; 99285-25; U0003

== ENCOUNTER 2019-10-18 22:54 | Inpatient (IN) | payer BC, OTHER ==
--- NOTE | 2019-10-18 23:09 | PDOC ---
History of Present Illness - General Chief Complaint: Respiratory Stated Complaint: SOB Time Seen by Provider: 10/18/19 23:08 History Source: Patient Exam Limitations: No Limitations - History of Present Illness Initial Comments: 10/18/19 23:08 PCP: Dr. Vasyl Odonnell HPI: 69 y/o F hx of CHF, HTN, HLD, DM,CAD s/p CABG and stents, afib on eliquis, presents to the ED with increased shortness of breath on exertion over 3 days. Progressively worsening, now unable to take 3-5 steps without shortness of breath. Also notes inability to lay flat, worsening swelling of bilateral LE with associated heaviness with walking. Denies HARMON, vision change, palpitations, cough, wheezing, orthopena, PND, leg swelling/pain, N/V, F,C, CP, SOB, urinary complaints, hematuria, BRBPR, abdominal pain, diarrhea, constipation, lightheadedness, weakness, sensory changes. PMHx: as noted above ROS: as noted SHx: Denies Etoh, IVDA, tobacco use Allergies: NKDA Past History - Travel History Traveled outside of the country in the last 30 days: No Close contact w/someone who was outside of country & ill: No - Medical History Allergies/Adverse Reactions: Allergies Allergy/AdvReac Type Severity Reaction Status Date / Time No Known Allergies Allergy Verified 10/18/19 23:07 Home Medications: Ambulatory Orders Atorvastatin Ca [Lipitor] 40 mg PO HS 07/19/18 Ramipril [Altace] 5 mg PO DAILY 07/19/18 Apixaban [Eliquis -] 5 mg PO BID #60 tablet 07/21/18 Cilostazol 100 mg PO BID 09/09/18 Esomeprazole Magnesium 40 mg PO DAILY 07/21/19 Insulin Glargine,Hum.rec.anlog [Toujeo Solostar] 80 unit SQ DAILY 07/21/19 Insulin Lispro Protamin/Lispro [Humalog Mix 50-50 Kwikpen] 40 unit SQ TID 07/21/19 Metoprolol Tartrate 25 mg PO DAILY 07/21/19 Aspirin [ASA -] 81 mg PO DAILY 08/05/19 Escitalopram Oxalate [Lexapro -] 20 mg PO DAILY 08/05/19 Evolocumab [Repatha Syringe] 140 mg SQ Q14D 08/05/19 Pregabalin [Lyrica] 100 mg PO TID 08/05/19 Budesonide/Formeterol Fumarate [SYMBICORT 160/4.5mcg -] 2 inh IH BID #1 inhaler 08/07/19 Ranolazine [Ranexa -] 500 mg PO BID #60 tab 08/07/19 Torsemide [Demadex -] 40 mg PO DAILY #0 tablet 08/07/19 Buspirone HCl [Buspar -] 5 mg PO TID #90 tablet 08/08/19 Anemia: Yes Asthma: No Cancer: Yes (LEFT BREAST JAN 2016, chemo) Cardiac Disorders: Yes CVA: No COPD: No CHF: Yes Dementia: No Diabetes: Yes GI Disorders: No Disorders: Yes (URINARY FREQUENCY) HTN: Yes Hypercholesterolemia: Yes Liver Disease: No Seizures: No Thyroid Disease: No - Surgical History Abdominal Surgery: Yes (CYST REMOVED) Appendectomy: No Cardiac Surgery: Yes (BYPASS 15 YRS AGO) Cholecystectomy: No Lung Surgery: No Neurologic Surgery: No Orthopedic Surgery: No - Immunization History Immunization Up to Date: Yes - Psycho-Social/Smoking History Smoking History: Never smoked Have you smoked in the past 12 months: No Number of Cigarettes Smoked Daily: 40 If you are a former smoker, when did you quit?: 3 years ago Cigars Per Day: 0 - Substance Abuse Hx (Audit-C & DAST Scrn) How often the patient has a drink containing alcohol: Never Score: In Men: 4 or > Positive; In Women: 3 or > Positive: 0 Screen Result (Pos requires Nsg. Audit-10AR): Negative Review of Systems - Review of Systems Able to Perform ROS?: Yes Is the patient limited [place] Citizen proficient: Yes Constitutional: No: Chills, Fever, Weakness HEENTM: No: Recent change in vision, Nose Congestion, Throat Pain Respiratory: No: Cough, Shortness of Breath, Wheezing Cardiac (ROS): Yes: Edema. No: Chest Pain, Irregular Heart Rate, Lightheadedness, Palpitations, Chest Tightness ABD/GI: No: Constipated, Diarrhea, Nausea, Vomiting : No: Burning, Dysuria, Frequency Musculoskeletal: No: Muscle Pain, Muscle Weakness, Neck Pain Integumentary: No: Bruising, Pruritus, Rash Neurological: No: Headache, Numbness, Tingling, Weakness Psychiatric: No: Stressors, Change in Appetite Endocrine: Yes: Change in Weight (increasing c/w fluid buildup). No: Increased Thirst, Increased Urine Hematologic/Lymphatic: No: Anemia, Blood Clots, Easy Bleeding All Other Systems: Reviewed and Negative *Physical Exam - Vital Signs Last Vital Signs Temp Pulse Resp BP Pulse Ox 98 F 75 20 121/75 95 10/18/19 23:05 10/18/19 23:05 10/18/19 23:05 10/18/19 23:05 10/18/19 23:05 - Physical Exam 10/18/19 23:09 Vitals reviewed, AFVSS GEN: Obese, appears stated age, NAD, comfortable. AAOx3. HEENT: NCAT, EOMI, PERRL. Sclera anicteric, non-injected. No facial asymmetry. Moist mucous membranes. Normal voice. Trachea midline. CV: RRR, S1/S2, no murmurs / rubs / gallops appreciated. LUNG: CTABL, normal work of breathing. No wheezes, rales, rhonchi. No cough. Speaking full sentences. GI: Soft, NTND, +BS, no guarding, no rebound. No masses. EXTREMITIES: 2+ distal pulses. 2+ pitting edema to knees. L big toe missing nail, no evidence of infection at present. No clubbing / cyanosis. No gross deformity in any extremity. SKIN: Warm, dry, no rashes appreciated, non-jaundiced. PSYCH: Normal mood and affect. Cooperative and appropriate. NEURO: CN grossly intact. Moving all extremities well. Normal strength and sensation grossly. ED Treatment Course - LABORATORY CBC & Chemistry Diagram: 10/19/19 00:01 10/19/19 00:01 Medical Decision Making - Medical Decision Making 10/18/19 23:09 69 y/o F hx of CHF, HTN, HLD, DM,CAD s/p CABG and stents, afib on eloquis, presents to the ED with increased shortness of breath on exertion. History notable for KILLIAN, orthopnea, worsening exercise tolerance, increasing weight. Exam notable for gross edema. Concerning for most likely CHF exacerbation vs renal failure vs PNA vs electrolyte abnormality vs anemia. - CBC, CMP, Cardiac, BNP, UA, UCx - EKG, CXR - 20 mg Lasix IV (gentle for soft pressure) 10/19/19 01:01 - Labs notable for baseline Cr elevation, elevation - BNP pending, clinically in CHF exacerbation - SubQ insulin ordered for glucose 345 on CMP Dispo: Admission for CHF Exacerbation 10/19/19 01:05 Clindamycin ordered for L toe cellulitis Discharge - Discharge Information Problems reviewed: Yes Clinical Impression/Diagnosis: Cellulitis and abscess of foot CHF exacerbation Qualifiers: Heart failure type: unspecified Qualified Code(s): I50.9 - Heart failure, unspecified Condition: Guarded - Admission Yes - Follow up/Referral - Patient Discharge Instructions - Post Discharge Activity
[2019-10-18] MEDS ORDERED: FUROSEMIDE 40 MG/4 ML INJECTABLE VIAL IVPUSH ONE (23:37)
[2019-10-19] MEDS ORDERED: FUROSEMIDE 40 MG/4 ML INJECTABLE VIAL ONE ×2 (00:22→03:02)
[2019-10-19 00:23] LABS: BASO % 1.1 % (0-2.0); EOS % 2.9 % (0-4.5); HEMATOCRIT 32.7 % (32.4-45.2); HEMOGLOBIN 10.4 GM/dL (10.7-15.3); LYMPH % 13.5 % (8-40); MCH 23.5 pg (25.7-33.7); MCHC 31.8 g/dl (32.0-36.0); MEAN CELL VOLUME 73.8 fl (80-96); MEAN PLT VOLUME 8.8 fl (7.5-11.1); MONO % 7.1 % (3.8-10.2); NEUT % 75.4 % (42.8-82.8); PLATELET COUNT 210 K/MM3 (134-434); RBC 4.42 M/mm3 (3.60-5.2); RDW 15.6 % (11.6-15.6); WHITE BLOOD COUNT 11.7 K/mm3 (4.0-10.0)
[2019-10-19 00:58] LABS: ALBUMIN 3.5 g/dl (3.4-5.0); ALK PHOS 160 U/L (45-117); ANION GAP 10 MMOL/L (8-16); BILIRUBIN,TOTAL 0.3 mg/dL (0.2-1); BLOOD UREA NITROGEN 41.2 mg/dL (7-18); CHLORIDE 98 mmol/L (98-107); CO2 30 mmol/L (21-32); CREATININE 1.6 mg/dL (0.55-1.3); GLUCOSE,RANDOM 345 mg/dL (74-106); POTASSIUM 4.4 mmol/L (3.5-5.1); SGOT/AST 23 U/L (15-37); SGPT/ALT 39 U/L (13-61); SODIUM 138 mmol/L (136-145); TOT PROT 7.4 g/dl (6.4-8.2)
[2019-10-19] MEDS ORDERED: INSULIN REGULAR HUMAN 100 UNITS/ML *VIAL SQ ONE (01:00)
[2019-10-19] MEDS ORDERED: CLINDAMYCIN 600MG PREMIX IVPB 600 MG/50 ML BAG IVPB ONE ×2 (01:04→01:31)
[2019-10-19 01:22] LABS: N-TERMINAL BNP 990.4 pg/ml (5-125)
[2019-10-19] MEDS ORDERED: AMPICILLIN NA/SULBACTAM NA 1.5 GM in SODIUM CHLORIDE 100 ML IVPB ONE (01:26)
--- NOTE | 2019-10-19 01:41 | PDOC ---
Documentation entered by Raven Patten SCRIBE, acting as scribe for Paige Em MD. Paige Em MD: This documentation has been prepared by the scribe, Raven Patten SCRIBE, under my direction and personally reviewed by me in its entirety. I confirm that the documentation accurately reflects all work, treatment, procedures, and medical decision making performed by me. Attending Attestation - Resident Resident Name: KvngAlvaro - ED Attending Attestation I have performed the following: I have examined & evaluated the patient, The case was reviewed & discussed with the resident, I agree w/resident's findings & plan, Exceptions are as noted - HPI HPI: 10/18/19 23:37 Patient is a 69 year old female with a significant past medical history of obesity, hypertension, congestive heart failure, hyperlipidemia, diabetes, coronary artery disease s/p CABG and stents, and Afib, who presents to the ED with SOB. Patient stated her SOB is related to exertion. Patient denies: fever, chills, headache, any vision changes, nausea, vomiting, chest pain, palpitations, abdominal pain, or any other related symptoms. Allergies: NKDA - Physicial Exam PE: 10/19/19 01:26 GENERAL: The patient is awake, alert, and fully oriented, Nontoxic - in no acute distress. HEAD: Normocephalic, atraumatic. EYES: extraocular movements intact, sclera anicteric, conjunctiva clear. ENT: Normal voice, Moist mucous membranes. NECK: Normal range of motion, supple without lymphadenopathy, JVD, or masses. LUNGS: Breath sounds equal, clear to auscultation bilaterally. No wheezes, no crackles, no rales. HEART: Regular rate and rhythm, normal S1 and S2 without murmur, rub or gallop. ABDOMEN: Soft, nontender, normoactive bowel sounds. No guarding, no rebound. No masses. EXTREMITIES: +Left big toelnail is missing. + Left toe is erythematous. + Pitting edema on lower extremities. Normal range of motion, no edema. No clubbing or cyanosis. No cords, or tenderness. NEUROLOGICAL: No facial asymmetry, Normal speech, normal gait. PSYCH: Normal mood, normal affect. SKIN: Warm, Dry, normal turgor, no rashes or lesions noted. - Medical Decision Making 10/19/19 02:52 BNP 990; labs otherwise normal; her usual renal insufficiency. Pt has a slightly elevated WBC count. Likely due to her left 1st toe cellulitis 10/19/19 02:58 Pt will be admitted for uncontrolled blood sugar; poor exercise tolerance and CHF mild exacerbation. Discharge - Discharge Information Problems reviewed: Yes Clinical Impression/Diagnosis: Cellulitis and abscess of foot, Obesities, morbid CHF exacerbation Qualifiers: Heart failure type: unspecified Qualified Code(s): I50.9 - Heart failure, unspecified Condition: Guarded - Follow up/Referral - Patient Discharge Instructions - Post Discharge Activity
[2019-10-19] MEDS ORDERED: FUROSEMIDE 40 MG/4 ML INJECTABLE VIAL IVPUSH ONE (02:52)
--- NOTE | 2019-10-19 02:53 | HP ---
CHIEF COMPLAINT: SOB PCP: Dr. Odonnell HISTORY OF PRESENT ILLNESS: 69 y.o. F PMH HTN, CHF, HLD, DM, CAD s/p CABG & stents, Afib (on eliquis), obesity presenting for worsening dyspnea. At baseline patient is able to ambulate well for a few blocks without getting sob however over the last 3 days she has only been able to walk a few feet before getting short of breath. Denies orthopnea or PND. She has also noticed increased fluid retention in her LEs which is improving today slightly. Pt takes torsemide (she reports 2 pills in AM & 1 pill HS), which is an increase from her last discharge on 08/06 (will have to confirm this dose). Of note she has also been having pain of her LLE predominantly on 1st digit. Last week she stubbed her toe w. dislodgement of her toenail. She has been keeping it wrapped however somewhere in translation there was mention of medical personnel seeing a maggot in the wound. The toe wound area seems to have active healthy tissue with no signs of necrosis on my exam, no maggots observed. ER course was notable for: (1)20 mg IV lasix (2) clindamycin for L toe wound (3) Recent Travel: denies PAST MEDICAL HISTORY: PAST SURGICAL HISTORY: cardiac stents Social History: Smoking: former smoker Alcohol: denies Drugs: denies Family Hx: brother with colon CA ( at age 30), sister HTN, mother SD Allergies No Known Allergies Allergy (Verified 10/18/19 23:07) HOME MEDICATIONS: Home Medications Medication Instructions Recorded Atorvastatin Ca [Lipitor] 40 mg PO HS 07/19/18 Ramipril [Altace] 5 mg PO DAILY 07/19/18 Apixaban [Eliquis -] 5 mg PO BID #60 tablet 07/21/18 Cilostazol 100 mg PO BID 09/09/18 Esomeprazole Magnesium 40 mg PO DAILY 07/21/19 Insulin Glargine,Hum.rec.anlog 80 unit SQ DAILY 07/21/19 [Toujeo Solostar] Insulin Lispro Protamin/Lispro 40 unit SQ TID 07/21/19 [Humalog Mix 50-50 Kwikpen] Metoprolol Tartrate 25 mg PO DAILY 07/21/19 Aspirin [ASA -] 81 mg PO DAILY 08/05/19 Escitalopram Oxalate [Lexapro -] 20 mg PO DAILY 08/05/19 Evolocumab [Repatha Syringe] 140 mg SQ Q14D 08/05/19 Pregabalin [Lyrica] 100 mg PO TID 08/05/19 Budesonide/Formeterol Fumarate 2 inh IH BID #1 inhaler 08/07/19 [SYMBICORT 160/4.5mcg -] Ranolazine [Ranexa -] 500 mg PO BID #60 tab 08/07/19 Torsemide [Demadex -] 40 mg PO DAILY #0 tablet 08/07/19 Buspirone HCl [Buspar -] 5 mg PO TID #90 tablet 08/08/19 REVIEW OF SYSTEMS CONSTITUTIONAL: Absent: fever, chills, diaphoresis, generalized weakness, malaise, loss of appetite, weight change HEENT: Absent: rhinorrhea, nasal congestion, throat pain, throat swelling, difficulty swallowing, mouth swelling, ear pain, eye pain, visual changes CARDIOVASCULAR: Absent: chest pain, syncope, palpitations, irregular heart rate, lightheadedness, peripheral edema RESPIRATORY: shortness of breath, dyspnea with exertion Absent: cough, orthopnea, wheezing, stridor, hemoptysis GASTROINTESTINAL: Absent: abdominal pain, abdominal distension, nausea, vomiting, diarrhea, constipation, melena, hematochezia GENITOURINARY: Absent: dysuria, frequency, urgency, hesitancy, hematuria, flank pain, genital pain MUSCULOSKELETAL: Absent: myalgia, arthralgia, joint swelling, back pain, neck pain SKIN: Absent: rash, itching, pallor HEMATOLOGIC/IMMUNOLOGIC: Absent: easy bleeding, easy bruising, lymphadenopathy, frequent infections ENDOCRINE: Absent: unexplained weight gain, unexplained weight loss, heat intolerance, cold intolerance NEUROLOGIC: Absent: headache, focal weakness or paresthesias, dizziness, unsteady gait, seizure, mental status changes, bladder or bowel incontinence PSYCHIATRIC: Absent: anxiety, depression, suicidal or homicidal ideation, hallucinations. PHYSICAL EXAMINATION Vital Signs - 24 hr 10/18/19 23:05 Temperature 98 F Pulse Rate 75 Respiratory 20 Rate Blood Pressure 121/75 O2 Sat by Pulse 95 Oximetry (%) GENERAL: Awake, alert, and fully oriented, in no acute distress. HEENT: NCAT. MMM. No JVD noted. LUNGS: Breath sounds are decreased at b/l bases. No wheezes, and no crackles. No accessory muscle use. HEART: Regular rate and rhythm, normal S1 and S2 without murmur, rub or gallop. ABDOMEN: Soft, nontender, not distended, normoactive bowel sounds. UPPER EXTREMITIES: 2+ pulses, warm, well-perfused. No peripheral edema. LOWER EXTREMITIES: 2+ pulses, warm, well-perfused. No calf tenderness. Left lincoln bullae-like lesions; pt says has not worsened acutely. Left toe 1st digit nail total avulsion, mild erythema, no active bleeding PSYCHIATRIC:Appropriate mood and affect. SKIN: Warm, dry, normal turgor, no rashes or lesions noted, normal capillary refill. Laboratory Results - last 24 hr 10/19/19 10/19/19 00:01 00:01 WBC 11.7 H RBC 4.42 Hgb 10.4 L Hct 32.7 MCV 73.8 L MCH 23.5 L MCHC 31.8 L RDW 15.6 Plt Count 210 MPV 8.8 Absolute Neuts (auto) 8.8 H Neutrophils % 75.4 Lymphocytes % 13.5 D Monocytes % 7.1 Eosinophils % 2.9 Basophils % 1.1 Nucleated RBC % 0 Sodium 138 Potassium 4.4 Chloride 98 Carbon Dioxide 30 Anion Gap 10 BUN 41.2 H Creatinine 1.6 H Est GFR (CKD-EPI)AfAm 37.98 Est GFR (CKD-EPI)NonAf 32.77 Random Glucose 345 H Calcium 9.0 Total Bilirubin 0.3 AST 23 ALT 39 Alkaline Phosphatase 160 H Creatine Kinase 79 Troponin I < 0.02 B-Natriuretic Peptide 990.4 H Total Protein 7.4 Albumin 3.5 ASSESSMENT/PLAN: 69 y.o. F PMH HTN, CHF, HLD, DM, CAD s/p CABG & stents, Afib (on eliquis), obesity presenting for worsening dyspnea. #Acute decompensated diastolic CHF exacerbation -CXR showing increased cephaliation b/l lung lobes L>R -c/w diuresis, s/p 60mg IV lasix total, continue 40mg IV BID -monitor outputs -unclear dose of torsemide; was d/c'd home with 40mg PO toresemide daily on last visit 08/07/19 however patient states she takes 2 pills in AM and 1 pill HS -cardio consulted, Dr. Smith- assess need for repeat echo -echo done 06/2018: EF 60%, LA mid dilation, mild aortic sclerosis -daily weights #Left 1st digit toenail avulsion -no signs of active infection -report of maggots however did not visualize on my exam -continue local wound care, dressing changes prn -nystatin cream for interdigital spaces #UTI -mild suprapubic tenderness on palpation -will treat with rocephin -f/u urine culture #Afib -continue eliquis 5mg BID #HLD -c/w atorvastatin 40mg HS daily #HTN -c/w metoprolol tartrate 25mg PO daily -c/w ramipril 5mg PO daily #CAD -c/w ASA, cilostazol 100mg BID #FEN -no standing fluids at this time -trend & replete lytes prn -diabetic, Na controlled diet #Dispo monitor on telemetry ATTENDING PHYSICIAN STATEMENT I saw and evaluated the patient. I reviewed the resident's note and discussed the case with the resident. I agree with the resident's findings and plan as documented. SUBJECTIVE: OBJECTIVE: ASSESSMENT AND PLAN:
[2019-10-19 04:53] LABS: EPI CELLS 16 /uL (0-25.1); HYALINE CASTS 1 /uL (0-3.1); URINE APPEARANCE CLOUDY; URINE BACTERIA >9,000 /uL (0-1359); URINE BILIRUBIN NEGATIVE (NEGATIVE); URINE COLOR YELLOW; URINE GLUCOSE (UA) 2+ (NEGATIVE); URINE KETONE NEGATIVE (NEGATIVE); URINE LEUK ESTERASE 3+ (NEGATIVE); URINE NITRITE POSITIVE (NEGATIVE); URINE PROTEIN NEGATIVE (NEGATIVE); URINE RBC 29 /uL (0-23.9); URINE UROBILINOGEN 0.2 mg/dL (0.2-1.0); URINE WBC 1144 /uL (0-25.8)
--- NOTE | 2019-10-19 06:30 | PN ---
Teaching Attending Note Name of Resident: Hawa Garvey ATTENDING PHYSICIAN STATEMENT I saw and evaluated the patient. I reviewed the resident's note and discussed the case with the resident. I agree with the resident's findings and plan as documented. SUBJECTIVE: 69yoF with h/o chronic diastolic HF, HTN, HLD, DM, CAD s/p CABG, atrial fib rillation on Eliquis, and peripheral vascular disease who presents with fatigue and worsening dyspnea on exertion. Patient states she is unable to ambulate more than a few feet due to shortness of breath, similar to her past CHF exacerbations. Denies chest pain, palpitations, lightheadedness, syncope. Notes she has chronic leg wounds and is supposed to have surgery to "unclog the blood vessels" in her legs but this has been delayed pending optimization of her volume status. Vitals unremrkable, labs notable for creatinine 1.6 from baseline around 1.2, BNP 990. CXR showing some evidence of vascular congestion. UA appears grossly positive for UTI. Received Lasix 20mg IV and clindamycin for possible cellulitis of the left toe and is admitted for further management. OBJECTIVE: Vital Signs - 24 hr 10/18/19 10/19/19 23:05 03:27 Temperature 98 F 97.7 F Pulse Rate 75 Pulse Rate [ 69 Right Apical] Respiratory 20 20 Rate Blood Pressure 121/75 Blood Pressure 115/66 [Left Arm] O2 Sat by Pulse 95 98 Oximetry (%) EXAM Gen: awake, alert, NAD CV: RRR, no MRG Resp: Diminished bilateral bases. Unable to assess JVD due to body habitus Abd: Soft, NT, ND Ext: Edematous; RLE freshly dressed. Left great toenail absent, mildly erythematous but nontender, no warmth or streaking Neuro: CN II-XII grossly intact, moving all extremities Laboratory Results - last 24 hr 10/19/19 10/19/19 10/19/19 00:01 00:01 04:20 WBC 11.7 H RBC 4.42 Hgb 10.4 L Hct 32.7 MCV 73.8 L MCH 23.5 L MCHC 31.8 L RDW 15.6 Plt Count 210 MPV 8.8 Absolute Neuts (auto) 8.8 H Neutrophils % 75.4 Lymphocytes % 13.5 D Monocytes % 7.1 Eosinophils % 2.9 Basophils % 1.1 Nucleated RBC % 0 Sodium 138 Potassium 4.4 Chloride 98 Carbon Dioxide 30 Anion Gap 10 BUN 41.2 H Creatinine 1.6 H Est GFR (CKD-EPI)AfAm 37.98 Est GFR (CKD-EPI)NonAf 32.77 Random Glucose 345 H Calcium 9.0 Total Bilirubin 0.3 AST 23 ALT 39 Alkaline Phosphatase 160 H Creatine Kinase 79 Troponin I < 0.02 B-Natriuretic Peptide 990.4 H Total Protein 7.4 Albumin 3.5 Urine Color Yellow Urine Appearance Cloudy Urine pH 5.0 Ur Specific [place] 1.012 Urine Protein Negative Urine Glucose (UA) 2+ H Urine Ketones Negative Urine Blood Trace Urine Nitrite Positive H Urine Bilirubin Negative Urine Urobilinogen 0.2 Ur Leukocyte Esterase 3+ H Urine WBC (Auto) 1144 Urine RBC (Auto) 29 Urine Casts (Auto) 1 U Epithel Cells (Auto) 16 Urine Bacteria (Auto) >9,000 ASSESSMENT AND PLAN: 69yoF with h/o CHF, HTN, HLD, DM, CAD s/p CABG, atrial fibrillation on Eliquis, and peripheral vascular disease who presents with fatigue and worsening dyspnea on exertion admitted with acute CHF exacerbation. Acute diastolic HF exacerbation - Lasix 40mg IV BID - I/O, daily weights UTI - f/u urine culture - Ceftriaxone KEVIN Creatinine 1.6 from baseline 1.2, possibly cardiorenal - monitor closely while diuresing - avoid nephrotoxic meds Chronic, stable: Afib/flutter: continue Eliquis, metoprolol CAD s/p CABG: continue aspirin, statin PAD: continue home meds DM: ISS
[2019-10-19] MEDS ORDERED: INSULIN SLIDING SCALE (NOVOLOG) 1 VIAL SQ SCH (07:00)
[2019-10-19 07:11] LABS: BASO % 0.5 % (0-2.0); EOS % 3.8 % (0-4.5); HEMATOCRIT 32.6 % (32.4-45.2); HEMOGLOBIN 10.2 GM/dL (10.7-15.3); LYMPH % 17.2 % (8-40); MCH 23.5 pg (25.7-33.7); MCHC 31.4 g/dl (32.0-36.0); MEAN CELL VOLUME 74.9 fl (80-96); MEAN PLT VOLUME 8.7 fl (7.5-11.1); MONO % 8.4 % (3.8-10.2); NEUT % 70.1 % (42.8-82.8); PLATELET COUNT 215 K/MM3 (134-434); RBC 4.36 M/mm3 (3.60-5.2); RDW 15.6 % (11.6-15.6); WHITE BLOOD COUNT 10.7 K/mm3 (4.0-10.0)
--- NOTE | 2019-10-19 07:24 | PN ---
Progress Note (short form) - Note Progress Note: PULMONARY CONSULTATION DICTATED 10/19/19 IMP DYSPNEA ACUTE ON CHRONIC DIASTOLIC CHF ASHD S/P CABG AFIB HLD KEVIN HTN OBESITY H/O BREAST CA S/P LUMPECTOMY PLAN SUPPLEMENTAL O2 LASIX INHALED BRONCHODILATORS DAILY WTS MONITOR LYTES,RENAL FUNCTION STRICT I+Os F/U CHEST X-RAYS DR CLAROS Problem List - Problems (1) Afib Code(s): I48.91 - UNSPECIFIED ATRIAL FIBRILLATION (2) CHF exacerbation Code(s): I50.9 - HEART FAILURE, UNSPECIFIED Qualifiers: Heart failure type: unspecified Qualified Code(s): I50.9 - Heart failure, unspecified (3) Obesities, morbid Code(s): E66.01 - MORBID (SEVERE) OBESITY DUE TO EXCESS CALORIES (4) KEVIN (acute kidney injury) Code(s): N17.9 - ACUTE KIDNEY FAILURE, UNSPECIFIED (5) ASHD (arteriosclerotic heart disease) Code(s): I25.10 - ATHSCL HEART DISEASE OF [place] CORONARY ARTERY W/O ANG PCTRS (6) CAD (coronary artery disease) Code(s): I25.10 - ATHSCL HEART DISEASE OF [place] CORONARY ARTERY W/O ANG PCTRS (7) Dependent edema Code(s): R60.9 - EDEMA, UNSPECIFIED (8) S/P CABG (coronary artery bypass graft) Code(s): Z95.1 - PRESENCE OF AORTOCORONARY BYPASS GRAFT (9) SOB (shortness of breath) on exertion Code(s): R06.02 - SHORTNESS OF BREATH (10) Acute on chronic diastolic CHF (congestive heart failure) Code(s): I50.33 - ACUTE ON CHRONIC DIASTOLIC (CONGESTIVE) HEART FAILURE (11) HLD (hyperlipidemia) Code(s): E78.5 - HYPERLIPIDEMIA, UNSPECIFIED Qualifiers: Hyperlipidemia type: pure hypercholesterolemia Qualified Code(s): E78.00 - Pure hypercholesterolemia, unspecified (12) Shortness of breath Code(s): R06.02 - SHORTNESS OF BREATH
[2019-10-19 07:42] LABS: ALBUMIN 3.4 g/dl (3.4-5.0); BILIRUBIN,TOTAL 0.4 mg/dL (0.2-1); BLOOD UREA NITROGEN 46.5 mg/dL (7-18); CREATININE 1.5 mg/dL (0.55-1.3); MAGNESIUM 2.4 mg/dL (1.8-2.4); PHOSPHOROUS 5.1 mg/dL (2.5-4.9); POTASSIUM 4.4 mmol/L (3.5-5.1); TOT PROT 7.2 g/dl (6.4-8.2)
[2019-10-19 09:43] VITALS: TEMP 98.4; BMI 47.8
[2019-10-19] MEDS ORDERED: DEXTROSE 5%-WATER - 50 ML IVPB ONE (09:51)
[2019-10-19] MEDS ORDERED: cefTRIAXone SODIUM 1 GM VIAL ONE (09:51)
[2019-10-19] MEDS ORDERED: NYSTATIN 100000 UNIT/GM TOPICAL OINTMENT 15 GM TUBE TP SCH (10:00)
[2019-10-19] MEDS ORDERED: CEFTRIAXONE 1 GM in DEXTROSE 5%-WATER - 50 ML IVPB SCH (10:00)
[2019-10-19] MEDS ORDERED: FUROSEMIDE 40 MG/4 ML INJECTABLE VIAL IVPUSH SCH (10:00)
[2019-10-19] MEDS ORDERED: APIXABAN 5 MG TABLET PO SCH (10:00)
[2019-10-19] MEDS: MAGNESIUM 1GM/D5W 100ML - 100 ML IVPB IVPB ONE ×2 (10:56→11:40)
--- NOTE | 2019-10-19 11:01 | CON.CARD ---
Cardiology Consult (text) - Consultation Consultation Note: Chief Complaint: shortness of breath History of Present Illness: 69 year old woman with a pmh of Chronic diastolic CHF with prior acute on chronic decompensations, cad s/p cabg at [facility], breast CA s/p lumpectomy and [employer], uncontrolled DMII, recently admitted to [facility] for NSTEMI 07/21/2019 with patent grafts on cath here with sob. Past few days sob/akbar, increased le edema, +orthopnea. No cp palps dizzy loc pnd. - History Source History Provided By: Patient, Medical Record Limitations to Obtaining History: No Limitations - Past Medical History Cardio/Vascular: Yes: CAD, CHF, HTN, Hyperlipdemia, Mitral Insufficiency (mild- mod MR) Musculoskeletal: Yes: Other (back pain) Endocrine: Yes: Diabetes Mellitus - Past Surgical History Past Surgical History: Yes: CABG - Alcohol/Substance Use Hx Alcohol Use: No History of Substance Use: reports: None - Smoking History Smoking history: Former smoker Have you smoked in the past 12 months: No Aproximately how many cigarettes per day: 40 If you are a former smoker, when did you quit?: 3 years ago - Social History ADL: Family Assistance History of Recent Travel: No Home Medications - Allergies Allergies/Adverse Reactions: Allergies Allergy/AdvReac Type Severity Reaction Status Date / Time No Known Allergies Allergy Verified 10/18/19 23:07 Ambulatory Orders Atorvastatin Ca [Lipitor] 40 mg PO HS 07/19/18 Ramipril [Altace] 5 mg PO DAILY 07/19/18 Apixaban [Eliquis -] 5 mg PO BID #60 tablet 07/21/18 Cilostazol 100 mg PO BID 09/09/18 Esomeprazole Magnesium 40 mg PO DAILY 07/21/19 Insulin Glargine,Hum.rec.anlog [Toujeo Solostar] 80 unit SQ DAILY 07/21/19 Insulin Lispro Protamin/Lispro [Humalog Mix 50-50 Kwikpen] 40 unit SQ TID 07/21/19 Metoprolol Tartrate 25 mg PO DAILY 07/21/19 Aspirin [ASA -] 81 mg PO DAILY 08/05/19 Escitalopram Oxalate [Lexapro -] 20 mg PO DAILY 08/05/19 Evolocumab [Repatha Syringe] 140 mg SQ Q14D 08/05/19 Pregabalin [Lyrica] 100 mg PO TID 08/05/19 Budesonide/Formeterol Fumarate [SYMBICORT 160/4.5mcg -] 2 inh IH BID #1 inhaler 08/07/19 Ranolazine [Ranexa -] 500 mg PO BID #60 tab 08/07/19 Torsemide [Demadex -] 40 mg PO DAILY #0 tablet 08/07/19 Buspirone HCl [Buspar -] 5 mg PO TID #90 tablet 08/08/19 Family Disease History - Family Disease History Family Disease History: Other: Father ( (59) DMII), Mother ( (75) CAD s/p LA) Review of Systems per hpi; all others nl - Risk Factors Known Risk Factors: Yes: Diabetes Mellitus, Hypercholesterolemia, Hypertension Vital Signs: Vital Signs Period Temp Pulse Resp BP Sys/Anne Pulse Ox Last 24 Hr 97.2 F-98.4 F 69-75 18-20 115-152/57-75 95-98 Constitutional: Yes: No Distress, Calm Eyes: Yes: Conjunctiva Clear, EOM Intact HENT: Yes: Atraumatic, Normocephalic Neck: Yes: Supple, Trachea Midline Respiratory: CTAB Gastrointestinal: Yes: Normal Bowel Sounds, Soft. No: Distention, Tenderness Cardiovascular: Yes: tachy, irreg. no Gallop, Rub,murmur JVD: No PMI: Non-Displaced Edema: trace christa lower ext Neurological: Yes: Alert, Oriented Psychiatric: Yes: Alert, Oriented no jaundice diaphoresis no carotid bruits Laboratory Last Values WBC 10.7 K/mm3 (4.0-10.0) H 10/19/19 05:50 RBC 4.36 M/mm3 (3.60-5.2) 10/19/19 05:50 Hgb 10.2 GM/dL (10.7-15.3) L 10/19/19 05:50 Hct 32.6 % (32.4-45.2) 10/19/19 05:50 MCV 74.9 fl (80-96) L 10/19/19 05:50 MCH 23.5 pg (25.7-33.7) L 10/19/19 05:50 MCHC 31.4 g/dl (32.0-36.0) L 10/19/19 05:50 RDW 15.6 % (11.6-15.6) 10/19/19 05:50 Plt Count 215 K/MM3 (134-434) 10/19/19 05:50 MPV 8.7 fl (7.5-11.1) 10/19/19 05:50 Absolute Neuts (auto) 7.5 K/mm3 (1.5-8.0) 10/19/19 05:50 Neutrophils % 70.1 % (42.8-82.8) 10/19/19 05:50 Lymphocytes % 17.2 % (8-40) D 10/19/19 05:50 Monocytes % 8.4 % (3.8-10.2) 10/19/19 05:50 Eosinophils % 3.8 % (0-4.5) 10/19/19 05:50 Basophils % 0.5 % (0-2.0) 10/19/19 05:50 Nucleated RBC % 0 % (0-0) 10/19/19 05:50 Sodium 139 mmol/L (136-145) 10/19/19 05:50 Potassium 4.4 mmol/L (3.5-5.1) 10/19/19 05:50 Chloride 98 mmol/L (98-107) 10/19/19 05:50 Carbon Dioxide 34 mmol/L (21-32) H 10/19/19 05:50 Anion Gap 7 MMOL/L (8-16) L 10/19/19 05:50 BUN 46.5 mg/dL (7-18) H 10/19/19 05:50 Creatinine 1.5 mg/dL (0.55-1.3) H 10/19/19 05:50 Est GFR (CKD-EPI)AfAm 41.06 10/19/19 05:50 Est GFR (CKD-EPI)NonAf 35.43 10/19/19 05:50 Random Glucose 295 mg/dL (74-106) H 10/19/19 05:50 Hemoglobin A1c % 11.0 % (4.2-6.3) H 10/19/19 05:50 Calcium 9.0 mg/dL (8.5-10.1) 10/19/19 05:50 Phosphorus 5.1 mg/dL (2.5-4.9) H 10/19/19 05:50 Magnesium 2.4 mg/dL (1.8-2.4) 10/19/19 05:50 Total Bilirubin 0.4 mg/dL (0.2-1) 10/19/19 05:50 AST 15 U/L (15-37) 10/19/19 05:50 ALT 35 U/L (13-61) 10/19/19 05:50 Alkaline Phosphatase 142 U/L (45-117) H 10/19/19 05:50 Creatine Kinase 79 U/L (26-192) 10/19/19 00:01 Troponin I < 0.02 ng/ml (0.00-0.05) 10/19/19 00:01 B-Natriuretic Peptide 990.4 pg/ml (5-125) H 10/19/19 00:01 Total Protein 7.2 g/dl (6.4-8.2) 10/19/19 05:50 Albumin 3.4 g/dl (3.4-5.0) 10/19/19 05:50 Urine Color Yellow 10/19/19 04:20 Urine Appearance Cloudy 10/19/19 04:20 Urine pH 5.0 (5.0-8.0) 10/19/19 04:20 Ur Specific [place] 1.012 (1.010-1.035) 10/19/19 04:20 Urine Protein Negative (NEGATIVE) 10/19/19 04:20 Urine Glucose (UA) 2+ (NEGATIVE) H 10/19/19 04:20 Urine Ketones Negative (NEGATIVE) 10/19/19 04:20 Urine Blood Trace (NEGATIVE) 10/19/19 04:20 Urine Nitrite Positive (NEGATIVE) H 10/19/19 04:20 Urine Bilirubin Negative (NEGATIVE) 10/19/19 04:20 Urine Urobilinogen 0.2 mg/dL (0.2-1.0) 10/19/19 04:20 Ur Leukocyte Esterase 3+ (NEGATIVE) H 10/19/19 04:20 Urine WBC (Auto) 1144 /uL (0-25.8) 10/19/19 04:20 Urine RBC (Auto) 29 /uL (0-23.9) 10/19/19 04:20 Urine Casts (Auto) 1 /uL (0-3.1) 10/19/19 04:20 U Epithel Cells (Auto) 16 /uL (0-25.1) 10/19/19 04:20 Urine Bacteria (Auto) >9,000 /uL (0-1359) 10/19/19 04:20 a/p: mibi 06/2018: no ischemia, lvef 47% echo 06/2018: nl lv/rv, lae, no sig valve path ecg: sinus, nl intervals, TWI, no st changes, no sig change priors cxr: mild chf tele: sr acute diastolic HF - cont iv lasix, daily chem7, wts - check updated echo afib/aflutter: - cont eliquis, metoprolol CAD s/p CABG: -no signs acs -patent grafts on cath 07/2019 -continue aspirin, statin, bb, juan luis PAD - s/p PT[facility] LLE at [facility] - cont statin, ac HLD - cont statin
--- NOTE | 2019-10-19 12:28 | PROC ---
Intubation - Intubation Reason for Intubation: Other (CARDIAC ARREST) Time of Intubation: 11:40 Intubation Method: orotracheal Blade used: Glidescope Tube Size (cm): 7.0 Tube position @ lip (cm): 23 Tube position confirmed by: Direct visualization, CO2 detector, Breath sounds Breath Sounds after Intubation: equal Remarks: MALLAMPATI IV I/S/O CARDIAC ARREST. REQUIRED GLIDESCOPE. REQUIRED EXPERIENCED ICU PROVIDER.
--- NOTE | 2019-10-19 12:32 | HOSP ---
Physical Examination Vital Signs: Vital Signs Temperature 98.4 F 10/19/19 09:25 Pulse Rate 74 10/19/19 10:00 Respiratory Rate 18 10/19/19 10:00 Blood Pressure 115/74 10/19/19 10:00 O2 Sat by Pulse Oximetry (%) 96 10/19/19 09:25 Labs: CBC, BMP 10/19/19 05:50 10/19/19 05:50 Hospitalist Encounter Assessment: Code 99 called, pt went into cardiac arrest. CPR started by code team. pt 12:11pm family notified dc summary to follow.
--- NOTE | 2019-10-19 12:40 | EKG ---
Test Reason : Blood Pressure : / mmHG Vent. Rate : 068 BPM Atrial Rate : 068 BPM P-R Int : 188 ms QRS Dur : 106 ms QT Int : 444 ms P-R-T Axes : 044 -23 161 degrees QTc Int : 472 ms NORMAL SINUS RHYTHM PROLONGED QT ABNORMAL ECG WHEN COMPARED WITH ECG OF 19-OCT-2019 01:23, NO SIGNIFICANT CHANGE WAS FOUND Confirmed by Horacio Munson ([id number]) on 10/19/2019 12:40:22 PM Referred By: Confirmed By:Horacio Munson
--- NOTE | 2019-10-19 12:41 | EKG ---
Test Reason : Blood Pressure : / mmHG Vent. Rate : 069 BPM Atrial Rate : 069 BPM P-R Int : 188 ms QRS Dur : 100 ms QT Int : 440 ms P-R-T Axes : 043 -22 173 degrees QTc Int : 471 ms NORMAL SINUS RHYTHM PROLONGED QT ABNORMAL ECG WHEN COMPARED WITH ECG OF 05-AUG-2019 02:12, T WAVE INVERSION LESS EVIDENT IN ANTERIOR LEADS QT HAS LENGTHENED Confirmed by Horacio Munson ([id number]) on 10/19/2019 12:40:54 PM Referred By: Confirmed By:Horacio Munson
[2019-10-19 14:09] VITALS: BP 147/48; PULSE 71
[2019-10-19] MEDS ORDERED: ATORVASTATIN CA 40 MG TABLET (FP) PO SCH (22:00)
--- NOTE | 2019-10-20 08:37 | CONS ---
DATE OF CONSULTATION: 10/19/2019 REFERRING PHYSICIAN: NGUYEN Morrow HISTORY: Patient is a 69-year-old female with a past medical history of chronic diastolic heart failure, history of [id number] decompensations; ASHD status post CABG; breast CA status post lumpectomy and [employer]; uncontrolled diabetes mellitus type 2; history of tobacco use many years, quit 3 years ago; hypertension, hyperlipidemia, tenr-zi-mopombgi mitral regurgitation admitted to [facility] with few-day history increasing shortness of breath, dyspnea on exertion, lower extremity edema and orthopnea. Patient denied any complaints of chest pain, nausea, vomiting, diaphoresis, has not had any hemoptysis. Patient was admitted with the above. On admission she was felt to have ujhrp-[id number]-[id number] CHF. She was started on IV Lasix and transferred to the telemetry unit for further monitoring. Patient denies any chest pain, nausea, vomiting. Denies any hemoptysis. Denies any fevers or chills. PAST MEDICAL HISTORY: Again, includes chronic diastolic heart failure with vqbvx-[id number] decompensations; ASHD, status post CABG; breast CA, status post lumpectomy and [employer]; poorly controlled diabetes; history of non-ST [place] July 2019. SOCIAL HISTORY: Born in [place]. Moved to the [place] years ago. Positive history of tobacco use. CURRENT MEDICATIONS: Include Altace, ceftriaxone, Eliquis, Lopressor, Lipitor, NovoLog, Lasix, Mycostatin. REVIEW OF SYSTEMS: PHYSICAL EXAMINATION: General: Patient is an obese female awake, alert, currently in no acute distress. She is on nasal O2. Vital Signs: She is afebrile. Blood pressure 152/57, respiratory rate is 18. O2 saturation is 96% on room air. HEENT: Normocephalic, atraumatic. Neck: Supple. Heart: Regular with S1, S2. Chest: Few bibasilar crackles. Abdomen: Soft. Bowel sounds positive. Extremities: Bilateral lower extremity edema. LABORATORIES: WBC is 10.7, hemoglobin 10.2, hematocrit 32.6 with a platelet count of 215,000. BUN 46, creatinine 1.5. UA has positive nitrites. Chest x-ray: Pulmonary vascular congestion. BNP is 990. Hemoglobin A1c is 11. IMPRESSION: 1. Dyspnea secondary to [id number]-[id number] diastolic heart failure. 2. Atherosclerotic heart disease, status post coronary artery bypass grafting. 3. Atrial fibrillation. 4. Hyperlipidemia. 5. Acute kidney injury. 6. Hypertension. 7. Obesity. 8. History of breast carcinoma, status post lumpectomy. PLAN: Supplemental O2. Continue Lasix, inhaled bronchodilators, daily weights. Monitor electrolytes, renal function. Strict I's and O's. Follow up chest x-rays. ISIDRO CLAROS M.D. [id number]
[2019-10-20] MEDS ORDERED: METOPROLOL TARTRATE 25 MG TABLET (FP) PO SCH (10:00)
[2019-10-20] MEDS ORDERED: RAMIPRIL 1.25 MG CAPSULE PO SCH (10:00)
== END 2019-10-19 12:15 | disposition expired | DRG 292 ==
LOC: JER 22:54 → JERBED 10-19 00:39 → JICU 10-19 09:27
PROVIDERS: ADMIT Hospitalist; ATTEND Nurse Practitioner Family
PROC: 5A1935Z Respiratory Ventilation, Less than 24 Consecutive Hours (ICD-10-PCS; principal; 2019-10-19)
PROC: 0BH17EZ Insertion of Endotracheal Airway into Trachea, Via Natural or Artificial Opening (ICD-10-PCS; 2019-10-19)
PROC: 5A12012 Performance of Cardiac Output, Single, Manual (ICD-10-PCS; 2019-10-19)
DX: I11.0 Hypertensive heart disease with heart failure (principal); N39.0 Urinary tract infection, site not specified; Z68.42 Body mass index [BMI] 45.0-49.9, adult; I48.92 Unspecified atrial flutter; N17.9 Acute kidney failure, unspecified; L03.116 Cellulitis of left lower limb; I50.33 Acute on chronic diastolic (congestive) heart failure; I25.10 Atherosclerotic heart disease of native coronary artery without angina pectoris; Z95.1 Presence of aortocoronary bypass graft; Z95.3 Presence of xenogenic heart valve; E78.5 Hyperlipidemia, unspecified; E11.9 Type 2 diabetes mellitus without complications; I48.91 Unspecified atrial fibrillation; E66.01 Morbid (severe) obesity due to excess calories; I46.9 Cardiac arrest, cause unspecified; E11.65 Type 2 diabetes mellitus with hyperglycemia; Z85.3 Personal history of malignant neoplasm of breast; I73.9 Peripheral vascular disease, unspecified
CPT/HCPCS: 36415; 71045-TC-FY; 80053; 81003; 82550; 83036; 83735; 83880; 84100; 84484; 85025; 87086; 87186; 93005; 93010; 99285-25; U0003